=== PATIENT | female | born 1955 | race Caucasian/White ===

== ENCOUNTER 2022-02-11 08:09 | Day surgery (SDC) | payer MEDICARE, BC, SELFPAY ==
[2022-02-11] VITALS (26 sets, daily range): BP systolic 105–138; BP diastolic 61–94; PULSE 50–81; RESP 14–18; TEMP 35.1–37.2; O2SAT 96–99; BMI 26.9
[2022-02-11] MEDS: ACETAMINOPHEN 500 MG TABLET 1000 MG PO ×3 (09:06→23:17)
[2022-02-11] MEDS: CELECOXIB 200 MG CAPSULE PO ×2 (09:06→21:12)
[2022-02-11] MEDS: OXYCODONE (CR) 10 MG TAB.ER.12H PO (09:07)
[2022-02-11] MEDS: MIDAZOLAM HCL 1 MG/ML inj IVP (09:20)
[2022-02-11] MEDS: fentaNYL 100 MCG/2 ML inj IVP (09:21)
[2022-02-11] MEDS: LACTATED RINGERS 1000 ML 1,000 ML 100 ML IV ×2 (09:24→10:38)
[2022-02-11] MEDS: SODIUM CHLORIDE 0.9 % (FLUSH) 10 ML SYRINGE IVF (09:24)
--- NOTE | 2022-02-11 09:32 | SUR.PREOP ---
TIME?OUT:?18 PT/RN/MDA?VERIFICATION?OF?SURGICAL?SITE,?PROCEDURE,?AND?CONSENT OBTAINED?PRIOR?TO?INVASIVE?PROCEDURE. ALL IN AGREEMENT.
[2022-02-11] MEDS: CEFAZOLIN 2 GM INJ IVP (10:00)
--- NOTE | 2022-02-11 10:09 | P.NB_ITS ---
Nerve Block Nerve Block Time Seen by Provider: 10:09 Date Seen: 02/11/22 Type of block requested by surgeon for post-operative analgesia: geniculars Side: left Time out performed: Yes Verification of patient name: Yes Verification of date of : Yes Site marking: site marked Name of person performing procedure: Ej Continuous monitoring Was continuous monitoring of O2 sat, B/P, monitor technician, recorded every 15 minutes?: Yes Procedure Checklist: sterile prep, needles and gloves Medications given in 5ml increments after negative aspiration: Ropivicaine %: 0.5 mL: 9 Needle gauge: 25 Patient tolerated procedure well: Yes
--- NOTE | 2022-02-11 10:09 | CRLHL7_ITS ---
For Patients: As a result of the Cures Act, medical imaging exams and procedure reports are released immediately into your electronic medical record. You may view this report before your referring provider. If you have questions, please contact your health care provider. Indication: Postop Technique: Two views left knee Findings/Impression: Hardware from a left total knee arthroplasty is in satisfactory position. Bone alignment is normal. No sign of acute fracture. Postop changes are within normal limits. Dictated by Ant Rose MD @ 02/11/2022 1:06:48 PM (Electronically Signed)
--- NOTE | 2022-02-11 10:09 | P.NB_ITS ---
Nerve Block Nerve Block Time Seen by Provider: 09:00 Date Seen: 02/11/22 Type of block requested by surgeon for post-operative analgesia: adductor canal Side: left Time out performed: Yes Verification of patient name: Yes Verification of date of : Yes Site marking: site marked Name of person performing procedure: Ej Assistants, if any: [place] Continuous monitoring Was continuous monitoring of O2 sat, B/P, learning and development assistant, recorded every 15 minutes?: Yes Procedure Checklist: sterile prep, needles and gloves Ultrasound guided. Images saved: Yes Medications given in 5ml increments after negative aspiration: Ropivicaine %: 0.5 mL: 20 Needle gauge: 22 Decadron (mg): 10 Precedex (mcg): 25 Patient tolerated procedure well: Yes Additional comments: Needle noted adjacent to nerve
--- NOTE | 2022-02-11 11:21 | PM.ORPRC ---
Procedure Note Procedure: PREOPERATIVE DIAGNOSIS: 1. Left knee osteoarthritis, primary, severe POSTOPERATIVE DIAGNOSIS: 1. Left knee osteoarthritis, primary, severe PROCEDURE: 1. Left total knee arthroplasty SURGEON: Jacobo Christopher MD. MEDICAL EDUCATION COORDINATOR: Nik Mike PA-C - Of note, a skilled customer support assistant was critical for this case to aid in patient positioning, tissue retraction, limb manipulation/positioning, and closure. ANESTHESIA: Spinal anesthetic EBL: 50ml IMPLANTS: DePuy J&J all cemented TKA - Attune PS femur size 7, size 5 tibia, 5 mm poly spacer, 38 mm patella TOURNIQUET: 90 min at 260 torr COMPLICATIONS: None evident INDICATIONS: The patient is a pleasant 67-year-old female who has experienced severe left knee pain and difficulty bearing weight. Workup included x-rays which revealed severe osteoarthrosis in the knee. Given the deformity, the dysfunction, and the pain, as well as the failure of nonoperative management, recommendation was made for surgery. FINDINGS: Moderate effusion upon entering the joint. Full-thickness chondral loss medial compartment. Also significant patellofemoral chondromalacia. DESCRIPTION OF PROCEDURE: Following a thorough discussion of risks, benefits, and alternatives consent was obtained and the left knee was marked. The patient was brought to the operating room and placed supine on the operating table. Induction of anesthesia was undertaken. 1 g IV Ancef and 1 g tranexamic acid was administered within 1 hr of incision preoperatively. Proper time-out was performed identifying proper patient, site, procedure. The operative extremity was prepped and draped in the appropriate sterile fashion using ChloraPrep after the patient was positioned supine with all bony prominences well padded. A longitudinal, anterior, midline skin incision was made starting approximately 3cm proximal to the superior pole of the patella and advanced distal to the tibial tubercle. A median parapatellar arthrotomy was created. A medial subperiosteal sleeve was created with knife, hernandez elevator and curved osteotome. The retropatellar fatpad was resected and the synovium in the suprapatellar pouch excised to visualize the anterior femoral cortex. Femoral preparation was performed via an intramedullary guide. Step drill allowed access into the femoral canal. The distal cutting guide was placed with 5? of valgus and 10 mm cut on the distal femur. Femur was sized using a posterior referencing guide in 3? of external rotation. This found have a best fit with the sizing noted above. The 4 in 1 cutting block was then placed, and the distal femur shaped accordingly. The box cut was then created and the trial implant inserted to confirm appropriate fit. We turned our attention to the proximal tibia. Extramedullary guide was utilized for cutting with the goal of being 90 degree cut from the mechanical axis of the tibia in the varus/valgus plane utilizing tibial crest as the primary alignment. Initially a 3 mm resection was performed from the medial tibial plateau. Ultimately, balancing was achieved in both flexion and extension in both varus and valgus. The knee was able to achieve full extension as well comfortably. The patella was initially measured and found have a thickness of 21 mm. It was resected back to approximately 14 mm. It was sized to be a best fit with as noted above. This was drilled, trial placed. All trials were placed and found to have an excellent stability and balance. At this stage, trial implants were removed, the knee was thoroughly irrigated with normal saline, and the cement was mixed. After irrigation, the knee was thoroughly dried, and cement placed, with the real tibial and femoral implants placed along with the patella. Trial poly spacer was placed and confirmed to have excellent range of motion and full extension, and the real poly spacer opened and inserted. All extra cement was removed, and a 3 min Betadine soak performed. Finally, a final irrigation round with normal saline was performed. Closure performed with 0 PDS and #0 Stratafix for the quad tendon/retinaculum. 2-0 Vicryl/Stratafix for the subcutaneous and 4-0 Monocryl for subcuticular closure. Dressings were applied and the patient was awoken from anesthesia after the tourniquet deflated and transferred the PACU in stable condition. A skilled customer support assistant was critical for this case to aid in patient positioning, tissue retraction, bone exposure, limb manipulation/positioning, patient safety, and closure. PLAN: 1. Weight bear as tolerated operative extremity. 2. 23 hr perioperative antibiotics. 3. Ice. 4. PT/OT consults for ambulation assistance/mobility education. 5. Social work consult for discharge planning. 6. DVT prophylaxis with at SCDs, Joseph Hose, and aspirin twice daily. Anesthesia: spinal Surgeon: Jacobo Christopher Wax Room Supervisor: Vern So
--- NOTE | 2022-02-11 12:17 | W.ANESCHARGE ---
Anesthesia Charges Start Date/Time Anesthesia Start Date: 02/11/22 Anesthesia Start Time: 09:46 Stop Date/Time Anesthesia Stop Date: 02/11/22 Anesthesia Stop Time: 12:16 Summary Emergency: No
--- NOTE | 2022-02-11 13:16 | SUR.PHASEI ---
PT TO MED/SURG IN STABLE CONDITION
--- NOTE | 2022-02-11 14:27 | W.ANESCHARGE ---
Anesthesia Charges Start Date/Time Anesthesia Start Date: 02/11/22 Anesthesia Start Time: 09:46 Stop Date/Time Anesthesia Stop Date: 02/11/22 Anesthesia Stop Time: 12:16 Summary Emergency: No
--- NOTE | 2022-02-11 14:55 | P.IMCN_ITS ---
Date of Consult Consult date: 02/11/22 Requesting Physician: Orthopedics (Dr. Vila) Primary Care Provider: Asia Millard MD Consult Narrative Reason for consult: Medical management of comorbidities Narrative: Aruna Ayala is a 67 year old female who presented to the hospital today for a left TKA. Her surgery went well without any complications. Patient has no current c oncerns for the hospitalist team. Hospitalist consulted for medical management of comorbidities, including insomnia and arthritis. She also has a history of leukopenia, mild elevation of LFTs, and psoriasis, all followed in the outpatient setting. No concerning findings noted on preoperative H&P (PCP is Dr. Millard locally). Patient has no history of DVT or PE, she is not on HRT. She is retired, lives with locally. She is a nonsmoker and rare alcohol drinker. Review of Systems Status of ROS: Reports: 10 or more systems reviewed and unremarkable except as noted in History and below [facility] Medical History (Updated 02/11/22 @ 14:59 by Daphney Melgoza MD) Dyslipidemia Elevated LFTs Insomnia Leucopenia Multiple atypical skin moles NSAID long-term use Osteoarthritis Psoriasis Surgical History (Updated 02/03/22 @ 09:11 by Asia Millard MD) History of hysterectomy (~2005) History of total hip replacement (~2006) Family History (Updated 01/09/22 @ 14:35 by Paul Prater) Maternal Grandfather Ischemic heart disease, Onset Age: 60 Stroke, Onset Age: 60 Mother Diabetes Osteoarthritis Sister Osteoarthritis Social History (Updated 01/09/22 @ 14:36 by Paul Prater) Narrative: exercises 3-4 times per week- 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[employer] , 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, 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 non-smoker rarely consumes alcohol Smoking Status: Never smoker How often do you have a drink containing alcohol: 2-4 times a month Alcohol type: wine How many standard drinks containing alcohol do you have on a typical day: 1 or 2 How often do you have six or more drinks on one occasion: Never AUDIT-C Alcohol total score: 2 Non-prescribed substance use: denies use Caffeine: Yes (coffee, 2 cups/morning) Meds Home Medications and Allergies Home Medications Medication Instructions Recorded Confirmed Type celecoxib 200 mg capsule (Celebrex) 200 mg PO BID 02/03/22 02/11/22 History cholecalciferol (vitamin D3) 25 25 mcg PO DAILY 02/03/22 02/11/22 History mcg (1,000 unit) capsule gabapentin 300 mg capsule 300 mg PO TID 02/03/22 02/11/22 History omega-3 fatty acids 1,000 mg 1,000 mg PO BID 02/03/22 02/11/22 History capsule trazodone 100 mg tablet 100 mg PO HS 02/03/22 02/11/22 History Allergies Allergy/AdvReac Type Severity Reaction Status Date / Time No Known Drug Allergies Allergy Verified 02/03/22 08:30 Exam Narrative: Exam Narrative: GEN: Alert and oriented, laying comfortably in bed and answering questions appropriately HEENT: Normal external ears, EOMIs bilaterally, no scleral icterus CV: RRR, No concerning murmurs, rubs, or gallops R: Breathing comfortably Ext: wwp, no concerning edema, wearing Joseph hose Skin: No concerning skin lesions or rashes on exposed skin Neuro: Nonfocal Psych: Appropriate Const: Vital Signs, click to edit/add: Vital Signs - 24 hr 02/11/22 09:11 02/11/22 09:21 02/11/22 09:24 Temperature 98.9 F Pulse Rate 67 65 56 L Respiratory Rate 16 14 14 Blood Pressure 119/80 136/85 136/66 Pulse Oximetry 96 96 96 02/11/22 12:19 02/11/22 12:20 02/11/22 12:25 Temperature 97 F L 97.2 F L Pulse Rate 64 59 L 60 Respiratory Rate 16 16 16 Blood Pressure 106/61 105/66 105/66 Pulse Oximetry 99 99 02/11/22 12:30 02/11/22 12:35 02/11/22 12:40 Temperature Pulse Rate 60 56 L 58 L Respiratory Rate 16 16 16 Blood Pressure 105/66 119/72 118/74 Pulse Oximetry 97 97 97 02/11/22 12:45 Temperature 97.2 F L Pulse Rate 60 Respiratory Rate 16 Blood Pressure 122/72 Pulse Oximetry 99 Assessment and Plan Assessment and plan (1) Osteoarthritis: Status: Acute (2) Insomnia: Status: Acute Plan Continue home medications during stay. Continue routine outpatient follow-up further comorbidities as noted above. Anticipate routine postoperative course.
[2022-02-11] MEDS: OXYCODONE 5 MG TABLET PO ×3 (16:37→23:15)
[2022-02-11] MEDS: CEFAZOLIN 2 GM in 0.9 % SODIUM CHLORIDE Mini-bag 100 ML IVPB (16:56)
[2022-02-11] MEDS: LACTATED RINGERS 1000 ML 1,000 ML 75 ML IV (18:08)
--- NOTE | 2022-02-11 19:53 | PC.NURSE ---
shift note: pt to floor @ 1302 via bed. pt regained movement to bilat l/e at approx 1600. pt medicated for 4/10 pain in lt knee with prn oxycodone and scheduled tylenol with relief. PP+ bilat. incision site to lt knee c/d/i with cryo cuff in place. Ls clr. Pt up to bsc with 1/walker. pt voided 1600cc. Iv patent. vss per post op protocol stable.
[2022-02-11] MEDS: SENNOSIDES 1 TAB TABLET 2 TAB PO (21:12)
[2022-02-11] MEDS: GABAPENTIN 300 MG CAPSULE PO (21:13)
[2022-02-11] MEDS: ASPIRIN 81 MG TABLET EC PO (21:13)
[2022-02-11] MEDS: TRAZODONE HCL 50 MG TABLET 100 MG PO (21:13)
[2022-02-12] MEDS: CEFAZOLIN 2 GM in 0.9 % SODIUM CHLORIDE Mini-bag 100 ML IVPB ×2 (01:28→09:10)
[2022-02-12 03:00] VITALS: PULSE 66; RESP 18; TEMP 36.6; O2SAT 100
[2022-02-12] MEDS: OXYCODONE 5 MG TABLET PO ×3 (04:35→11:59)
[2022-02-12] MEDS: ACETAMINOPHEN 500 MG TABLET 1000 MG PO ×2 (04:37→10:47)
--- NOTE | 2022-02-12 05:03 | PC.NURSE ---
Pt is pleasant and cooperative. She is up with minimal assist of 1 and walker and gait belt. She is voiding without difficulty. She is tolerating her diet and oral pain meds. Left knee drsg is CDI. No drainage noted. Oxy 5mg q 3-4 hrs is controlling her pain.
[2022-02-12 07:26] LABS: Basophils Absolute Auto 0.01 K/uL (0.00-0.30); Basophils Percent Auto 0.1 % (0.0-3.0); Hematocrit 34.4 % (33.0-51.0); Hemoglobin* 11.2 gm/dL (12.0-16.0); Immature Granulocytes Abs Auto 0.01 K/uL (0.00-0.30); Lymphocytes Percent Auto 8.5 % (20-44); Mean Corpuscular HGB Conc 33 gm/dL (32-36); Mean Corpuscular Hemoglobin 29 pg (26-34); Mean Corpuscular Volume 88 fL (80-100); Monocytes Percent Auto 5.8 % (0.0-11.0); Neutrophils Percent Auto 85.5 % (42.0-72.0); Platelet Count* 219 K/uL (140-440); RDW Coefficient of Variation % 13.1 % (11.5-15.5); White Blood Count* 9.04 K/uL (4.50-11.00)
[2022-02-12 07:31] LABS: Slide Review Reflex No
[2022-02-12 07:45] LABS: INR 0.99 (0.91-1.10); Prothrombin Time 13.5 Seconds
[2022-02-12 08:00] LABS: Chloride* 101 mmol/L (96-114); Potassium* 4.1 mmol/L (3.6-5.1); Sodium* 135 mmol/L (135-149)
[2022-02-12 08:03] LABS: Blood Urea Nitrogen* 14 mg/dL (7-30); Carbon Dioxide* 28 mmol/L (20-32); Creatinine* 0.6 mg/dL (0.5-1.5); Est. Creatinine Clearance* 52.51; Estimated Glomerular Filt Rate 99.55; Glucose* 107 mg/dL (60-115)
[2022-02-12 08:04] LABS: Calcium* 8.9 mg/dL (8.4-10.6)
[2022-02-12] MEDS: GABAPENTIN 300 MG CAPSULE PO (09:08)
[2022-02-12] MEDS: CELECOXIB 200 MG CAPSULE PO (09:09)
[2022-02-12] MEDS: ASPIRIN 81 MG TABLET EC PO (09:09)
[2022-02-12] MEDS: SENNOSIDES 1 TAB TABLET 2 TAB PO (09:10)
[2022-02-12 09:34] VITALS: PULSE 69; RESP 20
[2022-02-12 09:35] VITALS: BP 128/78; PULSE 69; RESP 20; TEMP 36.9; O2SAT 99
--- NOTE | 2022-02-12 10:00 | REH.OT ---
Orders received for OT eval and treat. Patient declined OT intervention today stating she has modified her bathroom and has no concerns regarding returning home with spouse. She has had a previous hip replacement.
--- NOTE | 2022-02-12 10:11 | P.DS_ITS ---
DS: Providers Provider Primary care physician: Asia Millard MD Consults: 02/11/22 13:00 Consult to Occupational Therapy [CONS] Routine Comment: See nursing Activity Order Reason(s) for OT Consult:: Evaluate and Treat Any Restrictions?:: No Restrictions Consult to Physical Therapy [CONS] Routine Comment: Ambulate in the shell today. Reason(s) for PT Consult:: Evaluate and Treat Any Restrictions?:: No Restrictions Consult to Physician [CONS] Routine Comment: Consulting Provider: Hospitalists Has provider been notified: No Consult to Director Of Music Therapy [CONS] Routine Comment: Reason for Consult:: Discharge Planning Needs Attending Physician on discharge: Jacobo Christopher MD DS: Summary Hospital Course Hospital Course: Patient admitted to the hospital on 02/11/2022 for left TKA. Hospitalist team followed peripherally given comorbidities. No concerns noted during hospital stay, vital signs and labs remained reassuring. Patient had a mild headache after surgery that was resolved on postoperative day 1. No changes made to home medications. Pain management and prophylaxis per Orthope dic Surgery team. She will be discharging home with , routine follow-up with therapies, orthopedic surgery, and PCP. Time Spent with Patient Time attestation: Total time spent providing and/or coordinating discharge services: Time spent: Less than 30 minutes Specific discharge activities: Routine follow-up as noted above Exam Narrative: Exam Narrative: GEN: Alert and oriented, answering questions appropriately HEENT: Normal external ears, EOMIs bilaterally, no scleral icterus CV: RRR, No concerning murmurs, rubs, or gallops R: LCTA bilaterally without concerning wheezing, rales, or rhonchi Ext: wwp, no concerning edema Skin: No concerning skin lesions or rashes on exposed skin Neuro: Nonfocal Psych: Appropriate Const: Vital Signs, click to edit/add: Vital Signs - 24 hr 02/11/22 12:19 02/11/22 12:20 02/11/22 12:25 Temperature 97 F L 97.2 F L Pulse Rate 64 59 L 60 Pulse Rate [Left A pical] Respiratory Rate 16 16 16 Blood Pressure 106/61 105/66 105/66 Blood Pressure [Ri ght Arm] Pulse Oximetry 99 99 02/11/22 12:30 02/11/22 12:35 02/11/22 12:40 Temperature Pulse Rate 60 56 L 58 L Pulse Rate [Left A pical] Respiratory Rate 16 16 16 Blood Pressure 105/66 119/72 118/74 Blood Pressure [Ri ght Arm] Pulse Oximetry 97 97 97 02/11/22 12:45 02/11/22 13:05 02/11/22 13:15 Temperature 97.2 F L 95.1 F L 95.1 F L Pulse Rate 60 57 L Pulse Rate [Left A pical] 57 L 54 L Respiratory Rate 16 16 16 Blood Pressure 122/72 Blood Pressure [Ri ght Arm] 121/79 124/79 Pulse Oximetry 99 99 99 02/11/22 13:25 02/11/22 13:30 02/11/22 13:45 Temperature 95.1 F L 95.1 F L 96.5 F L Pulse Rate Pulse Rate [Left A pical] 50 L 57 L 53 L Respiratory Rate 16 18 16 Blood Pressure Blood Pressure [Ri ght Arm] 128/77 121/79 124/80 Pulse Oximetry 99 99 99 02/11/22 14:00 02/11/22 14:30 02/11/22 14:44 Temperature 96.5 F L 97 F L 97 F L Pulse Rate Pulse Rate [Left A pical] 50 L 51 L 51 L Respiratory Rate 16 18 16 Blood Pressure Blood Pressure [Ri ght Arm] 134/78 130/82 130/82 Pulse Oximetry 99 99 99 02/11/22 15:00 02/11/22 16:00 02/11/22 17:00 Temperature 97.8 F 98 F 98 F Pulse Rate Pulse Rate [Left A pical] 58 L 60 60 Respiratory Rate 16 18 18 Blood Pressure Blood Pressure [Ri ght Arm] 130/87 128/78 129/94 H Pulse Oximetry 99 99 99 02/11/22 18:00 02/11/22 19:00 02/11/22 19:30 Temperature 98 F 97.8 F 97.8 F Pulse Rate Pulse Rate [Left A pical] 62 71 71 Respiratory Rate 18 18 18 Blood Pressure Blood Pressure [Ri ght Arm] 106/69 127/89 127/89 Pulse Oximetry 99 97 97 02/11/22 23:00 02/11/22 23:17 02/12/22 03:00 Temperature 97.9 F 97.9 F 97.9 F Pulse Rate Pulse Rate [Left A pical] 81 66 Respiratory Rate 18 18 Blood Pressure Blood Pressure [Ri ght Arm] 138/92 H Pulse Oximetry 96 100 02/12/22 09:34 02/12/22 09:35 Temperature 98.4 F Pulse Rate Pulse Rate [Left A pical] 69 69 Respiratory Rate 20 20 Blood Pressure Blood Pressure [Ri ght Arm] 128/78 Pulse Oximetry 99 DS: Data Data Completed and Pending Labs on day of discharge: Labs from last 24 hours 02/12/22 02/12/22 02/12/22 07:09 07:09 07:09 WBC 9.04 RBC 3.90 L Hgb 11.2 L Hct 34.4 MCV 88 MCH 29 MCHC 33 RDW Coeff of Sathish 13.1 Plt Count 219 Neut % (Auto) 85.5 H Lymph % (Auto) 8.5 L Andrew % (Auto) 5.8 Eos % (Auto) 0.0 Baso % (Auto) 0.1 Neut # (Auto) 7.70 H Lymph # (Auto) 0.80 L Andrew # (Auto) 0.50 Eos # (Auto) 0.00 Baso # (Auto) 0.01 Abs Immat Gran (auto) 0.01 INR 0.99 Sodium 135 Potassium 4.1 Chloride 101 Carbon Dioxide 28 BUN 14 Creatinine 0.6 Estimated Creat Clear 52.51 Glucose 107 Calcium 8.9 Discharge Plan Discharge Disposition: Home, Self-Care Discharging Surgeon: Jacobo Christopher Follow-Up Appointment: per ortho Prescriptions: New oxycodone 5 mg tablet 2.5 - 5 mg PO Q4-6H MDD 6 PRN (Reason: pain) Qty: 42 0RF Rx Instructions: Take as needed for pain: 2.5mg mild pain, 5mg moderate-severe pain. Wean as tolerated. acetaminophen 500 mg capsule 500 - 1,000 mg PO Q6H MDD 4000mg PRNQty: 100 0RF aspirin 81 mg capsule 81 mg PO BID Qty: 60 2RF sennosides-docusate sodium [Senna-S] 8.6-50 mg tablet 1 - 2 tab-cap PO BID Qty: 60 0RF Rx Instructions: Hold medication if experiencing loose stools. Continued trazodone 100 mg tablet 100 mg PO HS 0RF gabapentin 300 mg capsule 300 mg PO TID 0RF cholecalciferol (vitamin D3) 25 mcg (1,000 unit) capsule 25 mcg PO DAILY 0RF celecoxib [Celebrex] 200 mg capsule 200 mg PO BID Qty: 60 0RF No Action omega-3 fatty acids 1,000 mg capsule 1,000 mg PO BID 0RF Discharge Diet: Regular Patient Instructions: Surgical Site Infections (DC) Forms: Work/Release Restrictions Follow-up: [facility] [Other] - 02/13/22 8:00 am Asia Millard MD [Primary Care Provider] - Nik Mike PA-C [Physician Filter Press Tender] - 02/19/22 9:10 am Discharge Orders: Discharge Order (Routine); Ordered 02/12/22 Ordered By: Daphney Melgoza
[2022-02-12 11:42] VITALS: BP 123/74; PULSE 77; RESP 18; TEMP 36.9; O2SAT 100
[2022-02-12 11:59] VITALS: TEMP 36.8
--- NOTE | 2022-02-12 16:32 | PM.ORPN ---
Subjective Subjective Date Seen: 02/12/22 Principal diagnosis: Status postop day 1 left total knee arthroplasty Interval history: Patient reports doing well. No acute events over night. Pain managed with scheduled /PRN medications and ice. DVT prophylaxis 81 mg aspirin by mouth twice daily, bilateral knee high Joseph stockings, and SCDs. Denies fevers, chills, aches, N/V, CP, SOB/WARD, tachycardia, or lightheadedness. Ortho Exam Narrative Exam Narrative: -Patient appears comfortable in bed; no apparent acute distress -Alert and oriented times 3 -Operative knee swollen; soft tissues supple; no obvious erythema. No ecchymosis.. Warmth appropriate -Surgical dressing clean, dry, intact; no obvious drainage, no erythematous streaking peripheral to the bandage -bilateral calves soft, no significant swelling, edema, tenderness, erythema, discoloration, warmth, or palpable cords -2+ DP/PT pulses, intact dermatomes and myotomes distally (5/5 strength) Const Vital Signs, click to edit/add: Vital Signs - 24 hr 02/11/22 17:00 02/11/22 18:00 02/11/22 19:00 Temperature 98 F 98 F 97.8 F Pulse Rate [Left Apical] 60 62 71 Respiratory Rate 18 18 18 Blood Pressure [Right Arm] 129/94 H 106/69 127/89 Pulse Oximetry 99 99 97 02/11/22 19:30 02/11/22 23:00 02/11/22 23:17 Temperature 97.8 F 97.9 F 97.9 F Pulse Rate [Left Apical] 71 81 Respiratory Rate 18 18 Blood Pressure [Right Arm] 127/89 138/92 H Pulse Oximetry 97 96 02/12/22 03:00 02/12/22 09:34 02/12/22 09:35 Temperature 97.9 F 98.4 F Pulse Rate [Left Apical] 66 69 69 Respiratory Rate 18 20 20 Blood Pressure [Right Arm] 128/78 Pulse Oximetry 100 99 02/12/22 11:42 02/12/22 11:59 Temperature 98.4 F 98.2 F Pulse Rate [Left Apical] 77 Respiratory Rate 18 Blood Pressure [Right Arm] 123/74 Pulse Oximetry 100 Assessment and Plan Assessment and plan (1) Osteoarthritis: Problem details: 1. POD 1 left Total Knee Arthroplasty 2. Acute blood loss anemia, surgically related (hgb 11.2 - asymptomatic) Status: Acute (2) Insomnia: Status: Acute Plan - Complete 23 hour perioperative antibiotics. - PT/OT consult for education and assistance. - Social work consult for discharge planning - Prescribed analgesics as needed - DVT prophylaxis: 81 mg aspirin by mouth twice daily, bilateral knee high Joseph Hose stockings and SCDs - Anticipation is for discharge to home with spouse today 02/12/2022 if the patient remains medically stable, pain is controlled, and they are safe with mobilization.
--- NOTE | 2022-02-12 16:37 | P.DS_ITS ---
DS: Providers Provider Date Seen: 02/12/22 Date of admission: Med surg recovery 02/11/2022 Primary care physician: Asia Millard MD Consults: 02/11/22 13:00 Consult to Occupational Therapy [CONS] Routine Comment: See nursing Activity Order Reason(s) for OT Consult:: Evaluate and Treat Any Restrictions?:: No Restrictions Consult to Physical Therapy [CONS] Routine Comment: Ambulate in the shell today. Reason(s) for PT Consult:: Evaluate and Treat Any Restrictions?:: No Restrictions Consult to Physician [CONS] Routine Comment: Consulting Provider: Hospitalists Has provider been notified: No Consult to Radiologist Diagnostic [CONS] Routine Comment: Reason for Consult:: Discharge Planning Needs Attending Physician on discharge: Jacobo Christopher MD Date of Discharge: 02/12/22 DS: Diagnosis Discharge Diagnosis (1) Osteoarthritis: Status: Acute Problem details: 1. POD 1 left Total Knee Arthroplasty 2. Acute blood loss anemia, surgically related (hgb 11.2 - asymptomatic) (2) Insomnia: Status: Acute DS: Summary Hospital Course Hospital Course: Patient admitted to the hospital on 02/11/2022 for left TKA. Hospitalist team followed peripherally given comorbidities. No concerns noted during hospital stay, vital signs and labs remained reassuring. Patient had a mild headache after surgery that was resolved on postoperative day 1. No changes made to home medications. Pain management and prophylaxis per Orthopedic Surgery team. She will be discharging home with , routine follow-up with therapies, orthopedic surgery, and PCP. The patient has a history of left knee osteoarthritis, primary, severe. After appropriate preoperative evaluation, the patient was underwent left total knee arthroplasty. Postoperatively, the patient was given anticoagulation for deep vein thrombosis prophylaxis. The patient was progressed to Physical Therapy and was felt ready for discharge. Status at Discharge Functional status at discharge: uses cane/walker Overall status at discharge: patient is progressing back to baseline Time Spent with Patient Time attestation: Total time spent providing and/or coordinating discharge services: Time spent: Less than 30 minutes Exam Const: Vital Signs, click to edit/add: Vital Signs - 24 hr 02/11/22 17:00 02/11/22 18:00 02/11/22 19:00 Temperature 98 F 98 F 97.8 F Pulse Rate [Left A pical] 60 62 71 Respiratory Rate 18 18 18 Blood Pressure [Ri ght Arm] 129/94 H 106/69 127/89 Pulse Oximetry 99 99 97 02/11/22 19:30 02/11/22 23:00 02/11/22 23:17 Temperature 97.8 F 97.9 F 97.9 F Pulse Rate [Left A pical] 71 81 Respiratory Rate 18 18 Blood Pressure [Ri ght Arm] 127/89 138/92 H Pulse Oximetry 97 96 02/12/22 03:00 02/12/22 09:34 02/12/22 09:35 Temperature 97.9 F 98.4 F Pulse Rate [Left A pical] 66 69 69 Respiratory Rate 18 20 20 Blood Pressure [Ri ght Arm] 128/78 Pulse Oximetry 100 99 02/12/22 11:42 02/12/22 11:59 Temperature 98.4 F 98.2 F Pulse Rate [Left A pical] 77 Respiratory Rate 18 Blood Pressure [Ri ght Arm] 123/74 Pulse Oximetry 100 DS: Data Data Completed and Pending Labs on day of discharge: Labs from last 24 hours 02/12/22 02/12/22 02/12/22 07:09 07:09 07:09 WBC 9.04 RBC 3.90 L Hgb 11.2 L Hct 34.4 MCV 88 MCH 29 MCHC 33 RDW Coeff of Sathish 13.1 Plt Count 219 Neut % (Auto) 85.5 H Lymph % (Auto) 8.5 L [place] % (Auto) 5.8 Eos % (Auto) 0.0 Baso % (Auto) 0.1 Neut # (Auto) 7.70 H Lymph # (Auto) 0.80 L [place] # (Auto) 0.50 Eos # (Auto) 0.00 Baso # (Auto) 0.01 Abs Immat Gran (auto) 0.01 INR 0.99 Sodium 135 Potassium 4.1 Chloride 101 Carbon Dioxide 28 BUN 14 Creatinine 0.6 Estimated Creat Clear 52.51 Glucose 107 Calcium 8.9 Discharge Plan Discharge Disposition: Home, Self-Care Discharging Surgeon: Jacobo Christopher Follow-Up Appointment: per ortho Prescriptions: New oxycodone 5 mg tablet 2.5 - 5 mg PO Q4-6H MDD 6 PRN (Reason: pain) Qty: 42 0RF Rx Instructions: Take as needed for pain: 2.5mg mild pain, 5mg moderate-severe pain. Wean as tolerated. acetaminophen 500 mg capsule 500 - 1,000 mg PO Q6H MDD 4000mg PRNQty: 100 0RF aspirin 81 mg capsule 81 mg PO BID Qty: 60 2RF sennosides-docusate sodium [Senna-S] 8.6-50 mg tablet 1 - 2 tab-cap PO BID Qty: 60 0RF Rx Instructions: Hold medication if experiencing loose stools. Continued trazodone 100 mg tablet 100 mg PO HS 0RF gabapentin 300 mg capsule 300 mg PO TID 0RF cholecalciferol (vitamin D3) 25 mcg (1,000 unit) capsule 25 mcg PO DAILY 0RF celecoxib [Celebrex] 200 mg capsule 200 mg PO BID Qty: 60 0RF No Action omega-3 fatty acids 1,000 mg capsule 1,000 mg PO BID 0RF Activity Detail: Wound: ?Do not remove original dressing; we will remove this at first postop visit in 1 week. Only remove dressing if integrity is in question. ?No immersing wound in water; showering okay; light scrub with your hand and body soap, rinse, dab dry ?Sutures are under the skin, will dissolve; allow surgical glue to come off naturally; do not scrub the wound or apply ointments/lotions ?Call our office with any redness that streaks, excessive drainage from the wound, or wound gapping. Ice/Elevate: ?Ice as needed for swelling and discomfort (cryocuff or ice pack); elevate frequently above the heart MORE socks: ?Wear for 1 month, remove for 1 hour 3 times per day ?These are frustrating to take on/off, but are important for blood clot prevention for 1 month after surgery Blood Clot Prevention (DVT): ?Medication: 81 mg aspirin by mouth twice daily Driving: ?Do not drive while taking narcotic pain medication ?Anticipate 4-6 weeks no driving if operative leg is driving leg Dental: ?No elective dental work for 6 months post-op. If there is an urgent/emergent dental need, contact our office for an antibiotic prescription. Smoking/Alcohol: ?Do not smoke; do no drink alcohol especially when taking postoperative oral narcotic medication Seek Care from you Primary Care Provider if you experience the following issues in the postoperative phase and beyond: ?Bacterial infections such as: pneumonia, bacterial skin infection (cellulitis), UTI, high fever, chills unrelated to the operative body part - call your primary care physician urgently for treatment in hopes to protect your health and the metal implant. Referrals: ?PT, OT per patient preference - evaluate treat total left knee arthroplasty protocol (the training, ROM, ADLs, knee-high More socks) Follow up: ?Ortho surgeon follow-up in 6 weeks; repeat radiographs three views left knee ?PA-C visit in 1 week *If there are any acute concerns regarding your surgery, please call our orthopedic clinic ([phone]) Discharge Diet: Regular Patient Instructions: Acetaminophen (By mouth), Aspirin (By mouth), Oxycodone, Rapid Release (By mouth), Senna (By mouth), Surgical Site Infections (DC), Knee Replacement (DC) Forms: Work/Release Restrictions Follow-up: [facility] [Other] - 02/13/22 8:00 am Asia Millard MD [Primary Care Provider] - Nik Mike, CAIOC [Physician Physician Primary Care Sports Medicine] - 02/19/22 9:10 am Discharge Orders: Discharge Order (Routine); Ordered 02/12/22 Ordered By: Daphney Melgoza
--- NOTE | 2022-02-12 16:55 | PC.NURSE ---
Pt pain controlled with Oxycodone and Tylenol. Pt and verbalized understanding of instructions, d/c home via car with .
== END 2022-02-12 13:15 | disposition home or self-care (01) ==
LOC: OR 08:43 → MEDSURG 08:51
PROVIDERS: PCP Family Medicine; Visit Provider Orthopaedic Surgery Sports Medicine
PROC: (CPT 27447; principal; 2022-02-11 10:00)
DX: M17.12 Unilateral primary osteoarthritis, left knee (principal); G47.00 Insomnia, unspecified; E78.5 Hyperlipidemia, unspecified
CPT/HCPCS: 27447; 1402; 36415; 64447; 64454; 73560; 76942; 80048; 85025; 85610; 97110; 97116; 97161; 97530; A9270; C1776; J0690; J1100; J2250; J2370; J2405; J2704; J2795; J3010; J7120

== ENCOUNTER 2022-04-08 08:00 | Outpatient (RCR) | payer MEDICARE, BC, SELFPAY ==
--- NOTE | 2022-02-13 09:21 | PT.OPDNX ---
PT [facility] Daily Note Document 02/13/22 07:39 ENM (Rec: 02/13/22 08:48 ENM [id number]) E-Signed By Tereza Ohara DPT PT OP Daily Progress Note Visit Information Note Type Re-Evaluation Visit Number 2 Insurance Information Recert Due Date 05/08/22 Insurance Name Medicare B Medical Diagnosis L TKA Treating Diagnosis left knee pain, decreased knee ROM, decreased knee strength, impaired gait, impaired balance Referring MD Christopher Subjective Subjective Patient presents to appointment with . She states that her pains started to increase once she got home as well as swelling. She has been using a 2WW to get around the house without difficulty. She was able to shower without difficulty. She doesn' t have difficulty with sitting to standing. The most challenging thing for the patient right now is being able to bend her knee. helped initially with getting in and out of bed but now she is able to lift her leg more. She has been icing consistently. Stairs went ok, going up is easy going down isn't too bad. PMHx: R hip replacement 2005,arthritis Pain Comments at its worse: easing: medications, icing aggravating: bending the knee Home Exercise Home Exercise Comments pre op exercises: long sitting quad set, ankle pumps, HS iso , supine SAQ, supine SLR, supine heel slide, seated LAQ, seated heel slide, seated passive knee extension Objective Other/Pertinent Objective Objective: Knee ROM L 0-5-80 R 2-0-134 hip ROM WFL as seen per transfers strength: fair quad set L, able to perform SLR on L with CGA gait/balance: Patient ambulating with use of 2WW, decreased L knee extension, decreased stance time LLE, minimal reliance of 2WW for support throughout gait cycle palpation/joint mobility: no significant tenderness to palpation along quad or ITB swelling/observation: global swelling throughout L knee joint with bandaging in place superior patellar measure 47 cm mid patella 45 cm Other: needing to physically lift LLE to get into bed, able to perform sit<>stands with knees at 90 Functional Test Performed & Score pre op LEFS: 40/76 (did not answer question about bath as NA) Patient Instructed in Risks/Benefits Yes Therapeutic Exercise Therapeutic Exercise Minutes (minutes) 18 Therapeutic Exercise: To Restore verbal review of HEP Functional Status supine quad set 10x5s holds, VC and TC for improved knee ext while performing HS iso 10x3s holds, TC for HS activation supine SAQ 10x5s holds, CGA at heel to perform supine SLR x10, CGA at heel to perform supine heel slide with strap assist to perform Educated on icing after exercises and importance of regaining ROM issued tubigrip level G for swelling Manual Therapy Techniques Manual Therapy Minutes (minutes) 5 Manual Therapy Techniques Skilled edema massage with leg elevated on bolster anterior thigh and posterior knee Gait & Stair Training Gait Training/Stairs Minutes (minutes) 5 Gait & Stair Training Comments Patient ambulating 70'x2 with use of 2WW. Patient cued for heel strike and quad activation with stance phase on L. Patient able to implement and maintain gait pattern throughout ambulation bout Treatment Minutes Untimed Code Treatment Minutes 22 Timed Code Treatment Minutes 28 Total Treatment Time 50 Billing Units Therapeutic Exercise Units 2 Re-Evaluation Units 1 Assessment/Impression Assessment/Impression Patient returns to PT for evaluation after TKA performed by on 02/11/22. Patient reports minimal difficulties with mobility at home with use of 2WW. The most difficulty she has is with lifting the left leg up as well as bending the left knee. She has consistent support at home from spouse. Patient motivated to rehab as quickly as possible to get back to caregiving for her mother. Upon assessment patient presents with decreased knee ROM, impaired gait, impaired balance, decreased quad strength and swelling. Impairments consistent with s/ p TKA. Patient would benefit from skilled PT to address impairments stated above in order to to perform all functional mobility and caregiving activities without significant difficulty or discomfort. Plan of Care Physical Therapy Goals In 4-5 weeks : 1. Patient will improve knee ROM to > 100 for improved ease of STS transfers 2. Patient will be able to stand/walk up to 10 minutes with or without use of AD or report of increased knee pain 3. Patient will perform x5 SLR with improved form and strength to improve supine<> sit transfer In 8-10 weeks : 1. Patient will improve knee ROM to >120 in order to comfortably navigate stairs for household and community navigation 2. Patient will ambulate with improved mechanics and no pain without AD >150' for improved community mobility 3. Patient will return to caregiving activities with less than 2/10 pain to progress toward PLOF 4. Patient will be able to hold L SLS >10s to demonstrate improvements in balance and stability Daily Plan of Care Continue per POC Daily Plan of Care Comments 1-2 times a week for 5 weeks, 1x a week for 4-5 weeks Recertification Information Clinical Certification # #[id number] Patient's H.I.C.N.# # I Certify That I Have Established All Therapy Services/Plan Physician Signature Shows Agreement Dates & Medical Necessity Physician Comment/Change Comment or Changes Physician Signature & Date Please Sign/Date Here Physician NPI Number #
== END 2022-06-26 15:28 | disposition home or self-care (01) ==
PROVIDERS: PCP Family Medicine; Visit Provider Orthopaedic Surgery Sports Medicine
DX: Z51.89 Encounter for other specified aftercare (principal)
CPT/HCPCS: 97110; 97140; 97161; 97164

== ENCOUNTER 2022-06-18 07:34 | Outpatient (CLI) | payer MEDICARE, BC, SELFPAY ==
[2022-06-18 11:22] LABS: Albumin* 4.5 g/dL (3.3-5.0); Chloride* 103 mmol/L (96-114)
[2022-06-18 11:23] LABS: Potassium* 4.5 mmol/L (3.6-5.1); Sodium* 139 mmol/L (135-149)
[2022-06-18 11:25] LABS: Alanine Aminotransferase* 23 U/L (4-35); Alkaline Phosphatase* 114 U/L (40-150); Aspartate Amino Transferase* 23 U/L (12-35); Bilirubin Total* 0.5 mg/dL (0.1-1.5); Blood Urea Nitrogen* 23 mg/dL (7-30); Carbon Dioxide* 28 mmol/L (20-32); Cholesterol* 210 mg/dL (90-199); Creatinine* 0.7 mg/dL (0.5-1.5); Estimated Glomerular Filt Rate 96 ml/min; Glucose* 84 mg/dL (60-115)
[2022-06-18 11:26] LABS: Calcium* 9.6 mg/dL (8.4-10.6); HDL Cholesterol* 63 mg/dL (>=50); LDL Cholesterol Calculated 133 mg/dL (<100); Triglycerides* 72 mg/dL (40-149)
[2022-06-23 10:44] LABS: Iron* 73 ug/dL (37-170)
[2022-06-23 10:53] LABS: Percent Iron Saturation 19 % (20-50); Total Iron Binding Capacity 381 ug/dL (265-497)
[2022-06-23 11:20] LABS: Ferritin* 50.4 ng/mL (11.1-264.0)
== END 2022-06-18 07:35 | disposition home or self-care (01) ==
PROVIDERS: PCP Family Medicine; Visit Provider Family Medicine
DX: D72.819 Decreased white blood cell count, unspecified (principal); E78.5 Hyperlipidemia, unspecified; M19.90 Unspecified osteoarthritis, unspecified site; Z79.1 Long term (current) use of non-steroidal anti-inflammatories (NSAID); Z13.0 Encounter for screening for diseases of the blood and blood-forming organs and certain disorders involving the immune mechanism; G47.00 Insomnia, unspecified
CPT/HCPCS: 80053; 80061; 82728; 83540; 83550

== ENCOUNTER 2022-07-02 14:34 | Outpatient (CLI) | payer MEDICARE, BC, SELFPAY ==
--- OUTSIDE RECORDS SUMMARY | 2022-07-02 14:37 | XMS_ITS | Encounter Summary ---
:1955 Author Organization [facility] Address [address] [place] [address] Care Team Providers Name Role Phone Asia Millard MD Primary Care Provider [phone] Reason for Visit Reason Onset Date Comments LEG PAIN 12/01/2017 BACK PAIN 12/01/2017 Encounter Details Date Type Department Care Team Description 12/01/2017 Office Visit [facility] Nelson degenerative disc disease; Back Center MD [facility] Mechanical low back pain; [place] [address] [facility] Lumbar radiculitis; [address] [place], [place] Spondyloly sis; Center, [address] [address] [place] [address] Social History Tobacco Use Types Packs/Day Years Used Date Smoking Tobacco: Never Smokeless Tobacco: Never Alcohol Use Standard Drinks/Week Comments Yes 2 (1 standard drink = 0.6 oz pure alcoho l) per week Sex Assigned at Date Recorded Not on file documented as of this encounter Progress Notes Jackeline Nelson MD - 12/01/2017 1:15 PM CDT Aruna Ayala is here for follow up of low back and leg pain. She is making good progress in rehabilitation. She notes her back pain has almost resolved at this point. Notes just mild muscle soreness, possibly related to PT. R leg pain is also improved, essentially gone at this point, and feeling stronger in her right leg. She does note improved core strength since beginning the program. No otherconcerns noted. OBJECTIVE: The patient has progressed objectively since admission, and has shown evidence of plateau. 19 sessions of treatment have been completed. Lumbar extension has improved from 37 lbs X 20 at initial visit to 77 lbs at last visit with goal 97 lbs. See PT flowsheets for details. Physical examination shows improving ROM of lumbar spine, now at about 80 deg. SLR is negative b/l, full strength in LEs b/l, 2/2knee jerk reflexes. Normal gait. Pleasant and cooperative, normal affect. ICD-10-CM 1. Lumbar degenerative disc disease (HRC) M51.36 PNBC Therapy 2. Mechanical low back pain (HRC) M54.5 PNBC Therapy 3. Lumbar radiculitis M54.16 PNBC Therapy 4. 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 Muscular deconditioning R29.898 PNBC Therapy Because the patient has made progress both objectively and subjectively and has shown a plateau, I feel no further rehabilitation is indicated. The patient has given good effort in therapy. We reviewedimportance of maintenance of strength long-term, and discussed potential options for a home program,with plan to be independent after the patient optimizes her strength. The patient will follow-up as needed. Jackeline Nelson MD, MPH [facility] 12/01/2017 documented in this encounter Plan of Treatment Not on filedocumented as of this encounter Visit Diagnoses Diagnosis Lumbar degenerative disc disease (HRC) Degeneration of lumbar or lumbosacral in tervertebral disc Mechanical low back pain Lumbago Lumbar radiculitis Thoracic or lumbosacral neuritis or radi culitis, unspecified Spondylolysis Acquired spondylolisthesis Muscular deconditioning Muscular wasting and disuse atrophy, not elsewhere classified documented in this encounter Care Teams [employer] Relationship Specialty Start Date End Date Asia Millard MD PCP - General Family Practice 09/23/171999 [place] [address] documented as of this encounter
--- OUTSIDE RECORDS SUMMARY | 2022-07-02 14:37 | XMS_ITS | Clinical Summary ---
:1955 Author Organization [facility] Address [address] [place] [address] Care Team Providers Name Role Phone Asia Millard MD Primary Care Provider [phone] Source Comments You are receiving this document as you are listed as the primary care provider,follow-up provider, or the patient has been referred to you for consultation.This is in compliance with the Medicare and Medicaid EHR Incentive Program,which states Providers who transition their patient to another setting of careor provider of care or refers their patient to another provider of care shouldprovide summarycare record for each transition of care or referral. [employer] Allergies Active Allergy Reactions Severity Noted Date Comments Other 02/02/1996 PN: LW Other1: -NKA Review Contrast Media 02/02/1996 PN: LW CM1: CONTRAST- NKA Reaction : Review Food Intolerance 04/25/2004 PN: LW FI1: NKA Medications Medication Sig Dispensed Refills Start Date End Date Status omega-3 fatty acids daily (every 24 0 03/09/2007 Active (AKA MAXEPA, FISH OIL) hours). LW Addl 1000 MG capsule Instr:per pre op notes Multiple Take 1 tablet by 100 13 11/28/2006 Ac tive Vitamins-Minerals mouth daily (MULTIVITAMIN OR) (every 24 hours). UNKNOWN MEDICATION Indications: PN: 0 10/10/2007 Active nabumetone (RELAFEN) Take 500 mg by 0 Active 500 MG tablet mouth two times a day. gabapentin (NEURONTIN) Take 300 mg by 0 Active 300 MG capsule mouth three times a day. estradiol (VIVELLEDOT) Apply 1 Patch to 24 Patch 3 04/30/2016 Active 0.05 MG/24HR biweekly skin two times a patchIndications: week. Menopausal symptoms Indications: PN: celecoxib (CELEBREX) Take 200 mg by 0 Active 200 MG capsule mouth two times a day. atorvastatin (LIPITOR) Take 20 mg by 0 Active 20 MG tablet mouth daily. Active Problems Problem Noted Date Leiomyoma of uterus 01/16/2007 Overview: Leiomyoma Uterus Resolved Problems Problem Noted Date Resolved Date Lumbar radiculopathy 09/29/2017 12/01/2017 Immunizations Name Administration Dates Next Due Flu Vac Preserv Free (3+yrs) 05/02/2011 Influenza IIV4 (Quadrivalent) 0.5mL 04/29/2016, 04/23/2015, 03/02/2014 ([id number]) Family History Medical History Relation Name Comments Diabetes Mother High Cholesterol Mother Hypertension Mother Osteoporosis Mother Diabetes Maternal Grandmother Diabetes Sister 1 Osteoporosis Sister 1 Cancer, Breast Negative Family History Cancer, Ovary Negative Family History Relation Name Status Comments Father Alive Mother Alive Brother Alive Maternal Grandfather Maternal Grandmother Paternal Grandfather Paternal Grandmother Sister 1 Alive Sister 2 Alive Sister 3 Alive Social History Tobacco Use Types Packs/Day Years Used Date Smoking Tobacco: Never Smokeless Tobacco: Never Alcohol Use Standard Drinks/Week Comments Yes 2 (1 standard drink = 0.6 oz pure alcoho l) per week Sex Assigned at Date Recorded Not on file Last Filed Vital Signs Vital Sign Reading Time Taken Comments Blood Pressure 134/78 04/29/2016 10:17 AM CDT Pulse 62 04/29/2016 10:17 AM CDT Temperature 37.1 ??C (98.8 ??F) 05/01/2007 11:50 AM ORAL C: 37.1 C CDT Respiratory Rate 16 05/01/2007 11:50 AM CDT Oxygen Saturation 98% 03/11/2007 4:05 PM CDT Inhaled Oxygen Concentration - - Weight 75.3 kg (166 lb) 04/29/2016 10:17 AM CDT Height 168.9 cm (5' 6.5) 04/29/2016 10:17 AM CDT Body Mass Index 26.39 04/29/2016 10:17 AM CDT Plan of Treatment Health Maintenance Due Date Last Done Comments COVID-19 Vaccine (#1) 1955 Adult Preventive Visit 04/29/2017 04/29/2016 Mammogram 04/29/2017 04/29/2016, 04/23/2015, 04/19/2014, Additional history exists Pap 04/29/2019 04/29/2016, 04/19/2014, 04/10/2013, Additional history exists Cholesterol 08/07/2021 08/07/2016, 04/29/2016, 04/23/2015, Additional history exists Pneumococcal 65+ Yrs (1 - 2022 PCV) Influenza (#1) 2022 03/12/2020, 04/04/2019, 03/29/2019, Additional history exists Colonoscopy 05/11/2023 05/11/2013 DTaP/Tdap/Td (2 - Tdap) 02/23/2029 02/23/2019 Hep C Screening (Preventive Completed 04/29/2016, 04/29/20 16 Services) Zoster/Shingles Completed 02/14/2019, 11/16/2018, 04/10/2013 HepA Aged Out No longer eligib le based on patient 's age to complete this topic HepB Aged Out No longer eligib le based on patient 's age to complete this topic Hib Aged Out No longer eligib le based on patient 's age to complete this topic IPV (Polio) Aged Out No longer eligib le based on patient 's age to complete this topic MCV4 Aged Out No longer eligib le based on patient 's age to complete this topic Insurance Payer Benefit Plan / Subscriber ID Effective Dates Phone Addre Type Group [facility] SELF INSURED [id number] 2014-[employer] t Aruna Ayala Personal/Famil Self 1955 [address] (Home) [phone] [employer] (Work) [id number] Aruna Ayala Personal/Famil Self 1955 [address] (Home) [phone] [employer] (Work) [id number] Aruna Ayala Personal/Famil Self 1955 [address] [place] (Home) [place] [id number] ROSALINDA AYALA Personal/Famil 09/17/1958 [address] y (Home) [place] [id number] Care Teams [employer] Relationship Specialty Start Date End Date Asia Millard MD PCP - General Family Practice 09/23/17[address] [place] [id number]
--- OUTSIDE RECORDS SUMMARY | 2022-07-02 14:37 | XMS_ITS | Encounter Summary ---
:1955 Author Organization [employer] [facility] Address [address] [place] [address] Care Team Providers Name Role Phone Asia Millard MD Primary Care Provider [phone] Reason for Visit Reason Comments BACK PAIN, LOW LEG PAIN Consult/Transfer Care (Routine) - Closed Specialty Diagnoses / Procedures Referred By Contact Refer red To Contact Physical Therapy Diagnoses Spondylosis without myelopathy or radiculopathy, lumbosacral region (HRC) MRI - [facility] Golf Mele Kathleen MD [address] [address] [place] [address] [place], [address] [place] [address] Phone: Fax: Referral ID Status Reason Start Date Expiration Date Visits Requ ested Visits Authorized [id number] Closed 09/21/2017 12/21/2018 90 90 Encounter Details Date Type Department Care Team Description 11/19/2017 Therapy Physicians Neck and Back Raul Collins, [place] [address] [facility], [address] [place] [address] Social History Tobacco Use Types Packs/Day Years Used Date Smoking Tobacco: Never Smokeless Tobacco: Never Alcohol Use Standard Drinks/Week Comments Yes 2 (1 standard drink = 0.6 oz pure alcoho l) per week Sex Assigned at Date Recorded Not on file documented as of this encounter Progress Notes Mamie Collins, PT - 11/19/2017 9:15 AM CDT 11/19/2017 Visit # 15 Protocol: Back and Disc - Submax Start: 9:20 AM End: 10:01 AM (QUALITY ASSURANCE TESTER Visit # 2 Subjective: Pt reports that she is walking at a faster pace, now, with less R LE pain. She has been attempting to lie on her R side during sleep but this position continues to irritate her R LE. The numbness, however, in that extremity has decreased since the onset of rehab. She is becoming more cognizant of proper body mechanics with household tasks noting improvement in the length of time she can clean before her R LE sxs increase. Cervical Not performed today. Objective Tests & Measures: 2# wt increase with T-Roto. Tests performed today (see reviewflowsheet for score and outcomes): : None Performed Today Warm Up: Movement Specific Training: Not Completed Mat Exercises Completed Treadmill: Minutes 5 Intensity 3.0 mph ICE: Back Lumbar Lumbar & Torso 11/19/2017 Set 1 Ext % Max 60% Set 1 Ext ROM 3-48 Set 1 Ext Wgt 48 Set 1 Ext Reps 30 Set 1 Ext Tul 119 Set 1 Ext Tez RPE 3-4 Set 2 Ext % Max - Set 2 Ext ROM - Set 2 Ext Wgt - Set 2 Ext Reps - Set 2 Ext Tul - Set 2 Tez RPE - Left Rot % Max 100% Left Rot ROM 45 Left Rot Wgt 34 Left Rot Reps 21 Left Rot Aubree RPE 6 Right Rot % Max 100% Right Rot ROM 45 Right Rot Wgt 34 Right Rot Reps 23 Right Rot Tez RPE 6 Therapeutic Exercise (21 min): Thoracic and aux exercises to increase pt's spinal and Core mm strength/endurance/stability for improvement in her ability to bend forward while cleaning her house without triggering increased LB/R LE pain. Pt presented with a good pace, breath control and technique in the machines. Neuromuscular Re-Education (8min): Light resistance in L-Ext for proper movt patterns, mm recruitment and posture while sweeping her floors and making her bed. No cues needed for pace or control of the weights in this MedX. Auxillary Auxillary 11/19/2017 Abs Wgt Set 1 40 Abs Reps Set 1 20 Abs Wgt Set 2 40 Abs Reps Set 2 20 Glute Wgt Set 1 100 Glute Reps Set 1 20 Glute Wgt Set 2 100 Glute Reps Set 2 21 Leg Press Wgt Set 1 180 Leg Press Reps Set 1 23 Leg Press Wgt Set 2 180 Leg Press Reps Set 2 24 Lats Wgt Set 1 60 Lats Reps Set 1 20 Lats Wgt Set 2 60 Lats Reps Set 2 20 Other Lifting/moving 20# throughout the treatment. HEP - Therapeutic Activities (12 min): Therapeutic Activities 11/19/2017 SITTING POSTURE - STANDING POSTURE - SLEEP POSTURE - BASE OF SUPPORT - WEIGHT SHIFT - PIVOT VS TWIST - OBJECT CLOSE VS FAR AWAY - SQUAT - LIFT FROM FLOOR - LIFT OVERHEAD - OTHER ACTIVITY Reviewed proper body mechanics when lifting 20# in a crate to/from the floor as we traveled from one exercise station to another during the pt's workout. She was able to demonstrate proper mechanics such as widening her ROSE, tightening her ABs (aft er verbal cues), keeping the crate close to her body and using her quads to lift the crate vs her back. Pt denied any LB or R LE pain during these lifting activities. Instructed pt in how to sweep/mop her wood floors with a correct base of support, wt shifting with proper hip/leg movts and tightening of the abdominals during this activity to minimize execessive strain on her lumbar spine. Pt was able to demonstrate this activity correctly after PT's instructions. Patient Education: Patient was instructed in correlation of strength and function to increase her understanding of the benefits related to completing the [facility] Rehab program. Education given re: proper body mechanics whenlifting/moving a 20# crate and with the sweeping/mopping of her wood floors. Assessment: Pt is making good progress in the areas of spinal strengthening, sx relief and with functional activities at home and out in the community. She has noted an improvement in her walking speedwhen shopping and with some shearing machine tender such as the laundry and meal preparation. Her R LE sxs of numbness have decreased, however, lying on her R side in bed continues to aggravate her R leg sxs.Anticipate continued sx relief with subjective improvement in pt's functional status a her lumbar and Core mms get stronger. Goals: Short Term Goals (4-6 weeks): 1. Pt will perform MST HEP 2x/day consistently to improve lumbar and hip mobility.??(goal met 3-21) 2. Pt will report a decreased frequency of right thigh/leg symptoms to 2 or fewer times/week. 3. Pt will demonstrate proper body/lifting mechanics to bend and lift 15# crate from floor to chest height without LBP. 11/04/17: ??Goal Met during treatment today. ? Half-Way Goals (>6 weeks): 1. Patient will be independent with home exercise program after discontinued from Physical Therapy. 2. Pt will walk/stand for >60 mins without low back or right leg symptoms to grocery shop. 11/19/17 - Can walk/stand up to an hour, not greater than when shopping. 3.Pt will demonstrate proper body/lifting mechanics to bend and lift 30# crate from floor to chest height without LBP ?? Precautions: Disc with spondylolisthesis (block end range lumbar extension), R HAMMAD-2005. ??10/18/17:?T-Rot initiated today - monitor R LE symptoms. ? Recommendations/Communication: 100% L-Ext. 60% T-Roto. Advance aux wts as able. Total timed code min: 41 Total treatment time: 41 Mamie Collins, PT 11/19/2017, 10:34 AM documented in this encounter Plan of Treatment Not on filedocumented as of this encounter Visit Diagnoses Diagnosis Lumbar radiculopathy Thoracic or lumbosacral neuritis or radi culitis, unspecified documented in this encounter Care Teams Manager Erp Relationship Specialty Start Date End Date Asia Millard MD PCP - General Family Practice 09/23/171999 [place] [address] documented as of this encounter
--- OUTSIDE RECORDS SUMMARY | 2022-07-02 14:37 | XMS_ITS | Encounter Summary ---
:1955 Author Organization [employer] [facility] Address [address] [place] [address] Care Team Providers Name Role Phone Asia Millard MD Primary Care Provider [phone] Reason for Visit Reason Comments LEG PAIN BACK PAIN, LOW Consult/Transfer Care (Routine) - Closed Specialty Diagnoses / Procedures Referred By Contact Refer red To Contact Physical Therapy Diagnoses Spondylosis without myelopathy or radiculopathy, lumbosacral region (HRC) MRI - CDI Delavan Mele Kathleen MD [address] [address] [place] [address] [place], [address] [place] [address] Phone: Fax: Referral ID Status Reason Start Date Expiration Date Visits Requ ested Visits Authorized [id number] Closed 09/21/2017 12/21/2018 90 90 Encounter Details Date Type Department Care Team Description 11/24/2017 Therapy Physicians Neck and Back Raul Collins, [place] [address] [facility], [address] [place] [address] Social History Tobacco Use Types Packs/Day Years Used Date Smoking Tobacco: Never Smokeless Tobacco: Never Alcohol Use Standard Drinks/Week Comments Yes 2 (1 standard drink = 0.6 oz pure alcoho l) per week Sex Assigned at Date Recorded Not on file documented as of this encounter Progress Notes Mamie Collins, PT - 11/24/2017 9:15 AM CDT 11/24/2017 Visit # 17 Protocol: Back and Disc. Submax Start: 9:11 AM End: 9:47 AM (KILN DOOR REPAIRER Visit # 2 Subjective: Pt reports sore LB mms after painting and working on remodeling projects at home yesterday. She was able to participate in most of the activities with less LBP. Static stance continues to irritate her LB. Cervical Not performed today. Objective Tests & Measures: 2# wt increase with T-Roto. Tests performed today (see reviewflowsheet for score and outcomes): : None Performed Today Warm Up: Movement Specific Training: Not Completed Mat Exercises Completed Treadmill: Minutes 5 Intensity 3.2 mph ICE: Back Lumbar Lumbar & Torso 11/24/2017 Set 1 Ext % Max 60% Set 1 Ext ROM 3-48 Set 1 Ext Wgt 52 Set 1 Ext Reps 30 Set 1 Ext Tul 109 Set 1 Ext Tez RPE 3 Set 2 Ext % Max - Set 2 Ext ROM - Set 2 Ext Wgt - Set 2 Ext Reps - Set 2 Ext Tul - Set 2 Tez RPE - Left Rot % Max 100% Left Rot ROM 45 Left Rot Wgt 36 Left Rot Reps 22 Left Rot Aubree RPE 6 Right Rot % Max 100% Right Rot ROM 45 Right Rot Wgt 36 Right Rot Reps 22 Right Rot Tez RPE 7 Therapeutic Exercise (23 min): Thoracic and aux exercises to increase pt's spinal and Core mm strength/endurance/stability for improvement in her ability to lift/carry her young grandson without experiencing low back or R LE pain. Pt presented with an appropriate pace in all equipment except for L-Ext. She was able to breathe correctly while exercising throughout her workout. Neuromuscular Re-Education (13 min): Light resistance in L-Ext for proper movt patterns, mm recruitment and posture in order to perform household tasks without low back distress. Reviewed trunk extension on the Fer Chair to ensure independence with proper isolation of deep lumbar mms. Cued pt for adequate knee flexion to release her hamstrings and to arch her spine as she ascends from a dependent position to maximize paraspinal mm contraction. Pt followed all cues well. Auxillary Auxillary 11/24/2017 Abs Wgt Set 1 40 Abs Reps Set 1 20 Abs Wgt Set 2 40 Abs Reps Set 2 20 Glute Wgt Set 1 110 Glute Reps Set 1 20 Glute Wgt Set 2 110 Glute Reps Set 2 22 Leg Press Wgt Set 1 180 Leg Press Reps Set 1 26 Leg Press Wgt Set 2 180 Leg Press Reps Set 2 20 Lats Wgt Set 1 60 Lats Reps Set 1 21 Lats Wgt Set 2 60 Lats Reps Set 2 20 Other - HEP Fer Chair review -Extension Therapeutic Activities (0 min): Not performed today. Patient Education: Patient was instructed in correlation of strength and function to increase her understanding of the benefits related to completing the [facility] program. Verbal and visual cues provided for proper form/technique/pace on the Fer Chair. Assessment: Pt applied very good effort during this session. She has responded well to this progressive strengthening program as evidenced by increased trunk flexibility, sx relief and functional Improvement as she performs household tasks and remodeling projects around the home. Prolonged stance remains problematic. Anticipate a discharge from therapy at her next MD recheck on 12/01/17. Sheshould practice using the Fer Chair one more time to meet LTG #1. Goals: Short Term Goals (4-6 weeks): 1. [...] 11/04/17: ??Goal Met during treatment today. ? Retirement Goals (>6 weeks): 1. Patient will be independent with home exercise program after discontinued from Physical Therapy. 2. Pt will walk/stand for >60 mins without low back or right leg symptoms to grocery shop. 3.Pt will demonstrate proper body/lifting mechanics to bend and lift 30# crate from floor to chest height without LBP Precautions: Disc with spondylolisthesis (block end range lumbar extension), R HAMMAD-2005. ??10/18/17:?T-Rot initiated today - monitor R LE symptoms. ? Recommendations/Communication: 100% L-Ext. 60% T-Roto. Prep for discharge (2 more visits). Lifting with 25-30# to address LTG #3. Total timed code min: 36 Total treatment time: 36 Mamie Collins, PT 11/24/2017, 12:24 PM documented in this encounter Plan of Treatment Not on filedocumented as of this encounter Visit Diagnoses Diagnosis Lumbar radiculopathy Thoracic or lumbosacral neuritis or radi culitis, unspecified documented in this encounter Care Teams Inset Cutter Relationship Specialty Start Date End Date Asia Millard MD PCP - General Family Practice 09/23/171999 [place] [address] documented as of this encounter
--- OUTSIDE RECORDS SUMMARY | 2022-07-02 14:37 | XMS_ITS | Encounter Summary ---
:1955 Author Organization [facility] Address [address] [place] [address] Care Team Providers Name Role Phone Asia Millard MD Primary Care Provider [phone] Reason for Visit Reason Onset Date Comments LEG PAIN 11/10/2017 BACK PAIN, LOW 11/10/2017 Encounter Details Date Type Department Care Team Description 11/10/2017 Office Visit Physicians Neck and Jackeline Nelson degenerative disc disease; Back Center MD [place] Mechanical low back pain; [place] [address] [facility] Lumbar radiculitis; [address] [place], [place] Spondyloli sthesis, lumbar region; Center, [address] [address] [place] [address] Social History Tobacco Use Types Packs/Day Years Used Date Smoking Tobacco: Never Smokeless Tobacco: Never Alcohol Use Standard Drinks/Week Comments Yes 2 (1 standard drink = 0.6 oz pure alcoho l) per week Sex Assigned at Date Recorded Not on file documented as of this encounter Progress Notes Jackeline Nelson MD - 11/10/2017 10:15 AM CDT Aruna Ayala is here for follow up of low back and leg pain. She is making good progress in rehabilitation. She notes her back pain is about 75% improved at this point. R leg pain is also improved, essentially gone at this point, and feeling stronger in her right leg. She does note improved strength since beginning the program. No other concerns noted. The patient has progressed objectively since admission, and has not shown evidence of plateau yet. 13 sessions of treatment have been completed. Lumbar extension has improved from 37 lbs X 20 at initial visit to 77 lbs at last visit with goal 97 lbs. See PT flowsheets for details. Physical examinationshows improving ROM of lumbar spine, now at about 70 deg. SLR is negative, full strength in LEs b/l,2/2 knee jerk reflexes. ICD-10-CM 1. Lumbar degenerative disc disease (HRC) M51.36 [facility] 2. Mechanical low back pain (HRC) M54.5 [facility] 3. Lumbar radiculitis M54.16 [facility] 4. Spondylolisthesis, lumbar region M43.16 [facility] 5. Muscular deconditioning R29.898 [facility] Because the patient continues to progress both objectively and subjectively, I feel further rehabilitation is indicated. The patient has given good effort in therapy. We reviewed importance of maintenance of strength long-term, and discussed potential options for a home program, with plan to be independent after the patient optimizes her strength. The patient will follow-up after another 3 weeks of treatment attending twice a week, with consideration of discharge in 3-6 weeks. 15 minutes were spent with the patient today, of which over half was spent in education and counseling. Jackeline Nelson MD, MPH Physicians Ne[facility] Back Center 11/10/2017 documented in this encounter Plan of Treatment Not on filedocumented as of this encounter Visit Diagnoses Diagnosis Lumbar degenerative disc disease (HRC) Degeneration of lumbar or lumbosacral in tervertebral disc Mechanical low back pain Lumbago Lumbar radiculitis Thoracic or lumbosacral neuritis or radi culitis, unspecified Spondylolisthesis, lumbar region Muscular deconditioning Muscular wasting and disuse atrophy, not elsewhere classified documented in this encounter Care Teams Business Intelligence Engineer Relationship Specialty Start Date End Date Asia Millard MD PCP - General Family Practice 09/23/171999 [place] [address] documented as of this encounter
--- OUTSIDE RECORDS SUMMARY | 2022-07-02 14:37 | XMS_ITS | Encounter Summary ---
:1955 Author Organization [employer] Address [address] [place] [address] Care Team Providers Name Role Phone Asia Millard MD Primary Care Provider [phone] Reason for Visit Reason Comments BACK PAIN Consult/Transfer Care (Routine) - Closed Specialty Diagnoses / Procedures Referred By Contact Refer red To Contact Physical Therapy Diagnoses Spondylosis without myelopathy or radiculopathy, lumbosacral region (HRC) MRI - [facility] [place] Mele Kathleen MD [address] [address] [place] [address] [place], [address] [place] [address] Phone: Fax: Referral ID Status Reason Start Date Expiration Date Visits Requ ested Visits Authorized [id number] Closed 09/21/2017 12/21/2018 90 90 Encounter Details Date Type Department Care Team Description 12/01/2017 Therapy Physicians Neck and Back Veronique Pederson, PT Lumbar radiculopathy [facility] [address] [facility], [facility] [address] [place] [address] [address] [place] [address] [phone] Social History Tobacco Use Types Packs/Day Years Used Date Smoking Tobacco: Never Smokeless Tobacco: Never Alcohol Use Standard Drinks/Week Comments Yes 2 (1 standard drink = 0.6 oz pure alcoho l) per week Sex Assigned at Date Recorded Not on file documented as of this encounter Progress Notes LuzmariaVeronique monte Clarita, PT - 12/01/2017 12:00 PM CDT 12/01/2017 Visit # 19 Protocol: Back, Disc and submax Start: 12:05 pm End: 12:39 pm (POCKET MARKER Visit # 3 Subjective: Patient reports she is feeling good and has no pain. Patient reports has a little bit ofsoreness in right low back due to watching 15 month old grandson; has to lift and bend a lot; patient reports she is watching her body mechanics. Patient reports her back has just a little soreness, not much. Cervical Not performed today. Objective Tests & Measures: T-Rot increased 4 pounds since last max day. Tests performed today (see reviewflowsheet for score and outcomes): : Oswestry = 2% (Oswestry = 30% on 09/29/17). Warm Up: Movement Specific Training: Not Completed Mat Exercises Completed Treadmill: Minutes 5 Intensity 2.9 mph ICE: Back Lumbar Lumbar & Torso 12/01/2017 Set 1 Ext % Max 60% Set 1 Ext ROM 3-48 Set 1 Ext Wgt 54 Set 1 Ext Reps 30 Set 1 Ext Tul 127 Set 1 Ext Tez RPE 3 Set 2 Ext % Max - Set 2 Ext ROM - Set 2 Ext Wgt - Set 2 Ext Reps - Set 2 Ext Tul - Set 2 Tez RPE - Left Rot % Max 100% Left Rot ROM 40 Left Rot Wgt 40 Left Rot Reps 22 Left Rot Aubree RPE 7 Right Rot % Max 100% Right Rot ROM 40 Right Rot Wgt 40 Right Rot Reps 23 Right Rot Tez RPE 7 Therapeutic Exercise (22 min): Patient performed isolated torso rotation exercise and auxillary exercises to improve muscle strength, to improve muscle endurance and increase strength and endurance levels of supporting spinal musclegroups to increase tolerance for sitting, standing, walking, sleeping, bed mobility, lifting, driving, personal care tasks, household tasks and work activities with PT monitoring patient's technique for form and pace. Patient with good form and pace. Neuromuscular Re-Education (12 min): Patient performed isolated lumbar extension to retrain muscles for proper sequencing, improve musclerecruitment patterns and to improve movement patterns in an isolated plane to increase tolerance forsitting, standing, walking, sleeping, bed mobility, lifting, driving, personal care tasks, householdtasks and work activities. with PT monitoring patient's technique for form and pace. Patient with good form and pace. Fer Chair: Patient performed Fer Chair Trunk Extension x 10 reps with good technique x Independent. PT explained that Fer Chair exercises are recommended at time of D/C from PT to do 2x/week to fatigue to maintain lumbar strength. Patient reports she plans to purchase a Fer Chair. PT checked and Fer Chair exercise already in [facility]. Auxillary Auxillary 12/01/2017 Abs Wgt Set 1 40 Abs Reps Set 1 20 Abs Wgt Set 2 40 Abs Reps Set 2 20 Glute Wgt Set 1 110 Glute Reps Set 1 20 Glute Wgt Set 2 110 Glute Reps Set 2 20 Leg Press Wgt Set 1 180 Leg Press Reps Set 1 20 Leg Press Wgt Set 2 180 Leg Press Reps Set 2 20 Lats Wgt Set 1 60 Lats Reps Set 1 20 Lats Wgt Set 2 60 Lats Reps Set 2 20 Other - HEP Fer Chair: Trunk Ext x Independent. - Already in [place] [facility]. Therapeutic Activities (0 min): Not performed today. Patient Education: PT asked patient if she plans to do CORE after D/C from PT. Patient reports she will not do CORE as she plans to workout at gym near her house. PT gave patient Auxillary Machine weights and settings; PT explained that weights on different machines vary and to adjust weights to capabilities; patient understood. Assessment: Patient tolerated treatment well and gave good effort with all exercises. Reviewed LTG #2 with patient and goal met per patient report. Patient reports she plans to purchase a Fer Chair and workout at gym near her house after D/C from PT. Patient is Independent with Fer Chair HEP; therefore LTG #1 is met. All Goals Met. Patient had MD Re-Check appointment with Dr. Nelson after PT treatment today and per Dr. Nelson's 12/01/17 MD Order, patient is discharged from PT at this time. Goals: Short Term Goals (4-6 weeks): 1. Pt will perform MST HEP 2x/day consistently to improve lumbar and hip mobility.??(goal met 3-21) 2. Pt will report a decreased frequency of right thigh/leg symptoms to 2 or fewer times/week. (goal met 4-30) 3. Pt will demonstrate proper body/lifting mechanics to bend and lift 15# crate from floor to chest height without LBP. 11/04/17: ??Goal Met during treatment today. ? Gas Appliance Servicer Goals (>6 weeks): 1. Patient will be independent with home exercise program after discontinued from Physical Therapy. 12/01/17: Goal Met for Fer Chair HEP. 2. Pt will walk/stand for >60 mins without low back or right leg symptoms to grocery shop. 12/01/17: Goal Met per patient report. Patient reports she can stand much longer than she could previously. 3.Pt will demonstrate proper body/lifting mechanics to bend and lift 30# crate from floor to chest height without LBP (goal met 4-30) ? Precautions: Disc with spondylolisthesis (block end range lumbar extension), R HAMMAD-2005. ??10/18/17:?T-Rot initiated today - monitor R LE symptoms. ? Recommendations/Communication: Patient reports she plans to purchase a Fer Chair and workout at gym near her house after D/C from PT. Patient is Independent with Fer Chair HEP. All Goals Met. Patient had MD Re-Check appointment with Dr. Nelson after PT treatment today and per Dr. Nelson's 12/01/17 MD Order, patient is discharged from PT at this time. Total timed code min: 34 Total treatment time: 34 Veronique George PT 12/01/2017, 5:30 PM Veronique George PT - 12/01/2017 12:00 PM CDT Physical Therapy Discharge Summary Discharge Date: 12/01/17 Discharge type: formal Patient completed 19 sessions of physical therapy from 09/29/17 to 12/01/17. Short Term Goal Summary 1. Pt will perform MST HEP 2x/day consistently to improve lumbar and hip mobility.??(goal met 3-21) 2. Pt will report a decreased frequency of right thigh/leg symptoms to 2 or fewer times/week.??(goalmet 4-30) 3. Pt will demonstrate proper body/lifting mechanics to bend and lift 15# crate from floor to chest height without LBP. 11/04/17: ??Goal Met during treatment today. ? Skilled Nursing Goal Summary 1. Patient will be independent with home exercise program after discontinued from Physical Therapy. 12/01/17: Goal Met for Fer Chair HEP. 2. Pt will walk/stand for >60 mins without low back or right leg symptoms to grocery shop. 12/01/17: Goal Met per patient report. Patient reports she can stand much longer than she could previously. 3.Pt will demonstrate proper body/lifting mechanics to bend and lift 30# crate from floor to chest height without LBP??(goal met 4-30) ? Patient has been instructed in and demonstrated proficiency and safe body mechanics with the following tasks: Wide base of support Weight shift Pivot vs twist Hold object close vs away Floor <> waist lift Other status update/follow up recommendations: Patient reports she plans to purchase a Fer Chair and workout at gym near her house after D/C from PT. Patient is Independent with Fer Chair HEP. All Goals Met. Patient had MD Re- Check appointment with Dr. Nelson after PT treatment today and per Dr. Nelson's 12/01/17 MD Order, patient is discharged from PT at this time. Discharge Plans: Gym Fer Chair Veronique George, PT 12/01/2017, 5:34 PM documented in this encounter Plan of Treatment Not on filedocumented as of this encounter Visit Diagnoses Diagnosis Lumbar radiculopathy Thoracic or lumbosacral neuritis or radi culitis, unspecified documented in this encounter Care Teams Home Health Travel Ot Relationship Specialty Start Date End Date Asia Millard MD PCP - General Family Practice 09/23/171999 [place] [address] documented as of this encounter
--- OUTSIDE RECORDS SUMMARY | 2022-07-02 14:37 | XMS_ITS | Encounter Summary ---
:1955 Author Organization [facility] Address [address] [place] [address] Care Team Providers Name Role Phone Asia Millard MD Primary Care Provider [phone] Reason for Visit Reason Comments BACK PAIN, LOW Consult/Transfer Care (Routine) - Closed Specialty Diagnoses / Procedures Referred By Contact Refer red To Contact Physical Therapy Diagnoses Spondylosis without myelopathy or radiculopathy, lumbosacral region (HRC) MRI - [facility] [place] Mele Kathleen MD [address] [address] [place] [address] [place], [address] [place] [address] Phone: Fax: Referral ID Status Reason Start Date Expiration Date Visits Requ ested Visits Authorized [id number] Closed 09/21/2017 12/21/2018 90 90 Encounter Details Date Type Department Care Team Description 11/17/2017 Therapy Physicians Neck and Back Sang Hamlin, PT Lumbar radiculopathy [facility] [address] [facility], [address] [place] [address] Social History Tobacco Use Types Packs/Day Years Used Date Smoking Tobacco: Never Smokeless Tobacco: Never Alcohol Use Standard Drinks/Week Comments Yes 2 (1 standard drink = 0.6 oz pure alcoho l) per week Sex Assigned at Date Recorded Not on file documented as of this encounter Progress Notes Sang Hamlin, PT - 11/17/2017 9:45 AM CDT 11/17/2017 Visit # 14 Protocol: Back, Disc and submax Start: 944 End: 1026 (SAFETY INVESTIGATOR/CAUSE ANALYST Visit # 2 Subjective: Pt reports, I was doing some painting last weekend and I was a little sore from painting. Cervical Not performed today. Objective Tests & Measures: 5# increase in the lumbar extension exercise Tests performed today (see reviewflowsheet for score and outcomes): : None Performed Today Warm Up: Movement Specific Training: Not Completed Mat Exercises Completed Treadmill: Minutes 5 Intensity 3.4 mph ICE: Back Lumbar Lumbar & Torso 11/17/2017 Set 1 Ext % Max 100% Set 1 Ext ROM 3-48 Set 1 Ext Wgt 82 Set 1 Ext Reps 21 Set 1 Ext Tul 94 Set 1 Ext Tez RPE 6 Set 2 Ext % Max 100% Set 2 Ext ROM 3-48 Set 2 Ext Wgt 82 Set 2 Ext Reps 21 Set 2 Ext Tul 81 Set 2 Tez RPE 6-7 Left Rot % Max 60% Left Rot ROM 45 Left Rot Wgt 22 Left Rot Reps 20 Left Rot Aubree RPE 5 Right Rot % Max 60% Right Rot ROM 45 Right Rot Wgt 22 Right Rot Reps 20 Right Rot Tez RPE 5 Therapeutic Exercise (29 min): Patient performed isolated lumbar extension exercise and auxillary exercises to improve muscle strength, to improve muscle endurance, to improve muscle flexibility, to improve range of motion, to increase strength for seated posture, to increase strength for standing posture and increase strength and e ndurance levels of supporting spinal muscle groups to increase tolerance for sitting, standing, walking, lifting and bending. Pt educated on form to minimize compensatory movement patterns and reminded to keep a steady rep pace on exercises to maximize strengthening along the entire movement. Neuromuscular Re-Education (12 min): Patient performed isolated torso rotation and home fer chair exercises to decrease substitution patterns present with chronic pain, improve muscle recruitment patterns, to improve self-correction of posture and to improve kinesio awareness to increase tolerance for sitting, standing, walking, sleepin g, lifting, driving and bending.. Reviewed fer chair technique to improve proper form/rep speed and ensure a successful HEP upon d/c. Assistance needed with adjustments to raise/lower hip pad. Auxillary Auxillary 11/17/2017 Abs Wgt Set 1 40 Abs Reps Set 1 22 Abs Wgt Set 2 40 Abs Reps Set 2 21 Glute Wgt Set 1 100 Glute Reps Set 1 20 Glute Wgt Set 2 100 Glute Reps Set 2 20 Leg Press Wgt Set 1 180 Leg Press Reps Set 1 20 Leg Press Wgt Set 2 180 Leg Press Reps Set 2 22 Lats Wgt Set 1 60 Lats Reps Set 1 20 Lats Wgt Set 2 60 Lats Reps Set 2 20 Other fer chair x 8 reps (extension) HEP - Therapeutic Activities (0 min): Not performed today. Patient Education: Patient was instructed in correlation of strength and function to increase their understanding of the benefits related to completing the [facility] Rehab program Assessment: Pt had 1 week between therapy visits and opted to resume therapy with 100% Lumbar extension today. Strength still improving, she has not hit plateau yet, lumbar extension increased to 82 ft-lbs today. Fer chair completed again today, technique was good with minimal cues needed. Assistance was needed with fer chair adjustments and how to raise/lower hip pads. She will need to be independent with fer chair upon DC, her plan is to perform at [facility] 2-3x/week. Goals: Short Term Goals (4-6 weeks): 1. [...] 11/04/17: ??Goal Met during treatment today. ? Behavioral Health Worker Goals (>6 weeks): 1. Patient will be independent with home exercise program after discontinued from Physical Therapy. 2. Pt will walk/stand for >60 mins without low back or right leg symptoms to grocery shop. 3.Pt will demonstrate proper body/lifting mechanics to bend and lift 30# crate from floor to chest height without LBP ?80 Precautions: Disc with spondylolisthesis (block end range lumbar extension), R HAMMAD-2005. ??10/18/17:?T-Rot initiated today - monitor R LE symptoms. ?? Recommendations/Communication: 5 more visits then plan to discharge. Pt has [facility] membership and plans to use equipment there, she is not sure if they have a fer chair. 100% torso rotation 60% lumbar extension and lifting. Total timed code min: 41 Total treatment time: 41 Sang Hamlin, PT 11/17/2017, 11:39 AM documented in this encounter Plan of Treatment Not on filedocumented as of this encounter Visit Diagnoses Diagnosis Lumbar radiculopathy Thoracic or lumbosacral neuritis or radi culitis, unspecified documented in this encounter Care Teams Engineering Librarian Relationship Specialty Start Date End Date Asia Millard MD PCP - General Family Practice 09/23/171999 [place] [address] documented as of this encounter
--- OUTSIDE RECORDS SUMMARY | 2022-07-02 14:37 | XMS_ITS | Encounter Summary ---
:1955 Author Organization [facility] Address [address] [place] [address] Care Team Providers Name Role Phone Asia Millard MD Primary Care Provider [phone] Reason for Visit Reason Comments BACK PAIN, LOW Consult/Transfer Care (Routine) - Closed Specialty Diagnoses / Procedures Referred By Contact Refer red To Contact Physical Therapy Diagnoses Spondylosis without myelopathy or radiculopathy, lumbosacral region (HRC) MRI - [facility] [place] Mele Kathleen MD [address] [address] [place] [address] [place], [address] [place] [address] Phone: Fax: Referral ID Status Reason Start Date Expiration Date Visits Requ ested Visits Authorized [id number] Closed 09/21/2017 12/21/2018 90 90 Encounter Details Date Type Department Care Team Description 11/22/2017 Therapy Physicians Neck and Back Sang Hamlin, PT Lumbar radiculopathy [facility] [address] [facility], [address] [place] [address] Social History Tobacco Use Types Packs/Day Years Used Date Smoking Tobacco: Never Smokeless Tobacco: Never Alcohol Use Standard Drinks/Week Comments Yes 2 (1 standard drink = 0.6 oz pure alcoho l) per week Sex Assigned at Date Recorded Not on file documented as of this encounter Progress Notes Sang Hamlin, PT - 11/22/2017 10:15 AM CDT 11/22/2017 Visit # 16 Protocol: Back, Disc and submax Start: 1013 End: 1056 (OUTSOLE FLEXER Visit # 2 Subjective: Pt reports, feeling pretty good today, we did some things around the house this weekend but my back feel great. Cervical Not performed today. Objective Tests & Measures: 4# increase in the lumbar extension exercise Tests performed today (see reviewflowsheet for score and outcomes): : None Performed Today Warm Up: Movement Specific Training: Not Completed Mat Exercises Completed Treadmill: Minutes 5 Intensity 3.4 mph ICE: Back Lumbar Lumbar & Torso 11/22/2017 Set 1 Ext % Max 100% Set 1 Ext ROM 3-48 Set 1 Ext Wgt 86 Set 1 Ext Reps 21 Set 1 Ext Tul 84 Set 1 Ext Tez RPE 8 Set 2 Ext % Max 100% Set 2 Ext ROM 3-48 Set 2 Ext Wgt 86 Set 2 Ext Reps 20 Set 2 Ext Tul 82 Set 2 Tez RPE 9 Left Rot % Max 60% Left Rot ROM 45 Left Rot Wgt 24 Left Rot Reps 20 Left Rot Aubree RPE 4 Right Rot % Max 60% Right Rot ROM 45 Right Rot Wgt 24 Right Rot Reps 20 Right Rot Tez RPE 4 Therapeutic Exercise (33 min): Patient performed isolated lumbar extension exercise [...] strengthening along the entire movement. Neuromuscular Re-Education (10 min): Patient performed isolated torso rotation and home elisha chair exercises to decrease substitution patterns present with chronic pain, improve muscle recruitment patterns, to improve self-correction of posture and to improve kinesio awareness to increase tolerance for sitting, standing, walking, sleepin g, lifting, driving and bending.. Reviewed elisha chair technique to improve proper form/rep speed and ensure a successful HEP upon d/c. Assistance needed with adjustments to raise/lower hip pad. Auxillary Auxillary 11/22/2017 Abs Wgt Set 1 40 Abs Reps Set 1 20 Abs Wgt Set 2 40 Abs Reps Set 2 22 Glute Wgt Set 1 100 Glute Reps Set 1 20 Glute Wgt Set 2 100 Glute Reps Set 2 25 Leg Press Wgt Set 1 180 Leg Press Reps Set 1 20 Leg Press Wgt Set 2 180 Leg Press Reps Set 2 25 Lats Wgt Set 1 60 Lats Reps Set 1 22 Lats Wgt Set 2 60 Lats Reps Set 2 20 Other - HEP - Therapeutic Activities (0 min): Not performed today. Patient Education: Patient was instructed in correlation of strength and function to increase their understanding of the benefits related to completing the [facility] Rehab program Assessment: Pt still making progress on Lumbar extension, increased resistance 4# today with near max fatigue on 2nd set. Goal of 90 ft-lbs On Lumbar extension is realistic. Pt is working hard during session and is planning for maintenance program with [facility] membership purchased. She has verified they have ab curls, lat pulldowns, and leg press at [facility]. Goals: Short Term Goals (4-6 weeks): 1. [...] 11/04/17: ??Goal Met during treatment today. ? Mechanical Product Design Engineer Goals (>6 weeks): 1. Patient will be [...] spondylolisthesis (block end range lumbar extension), R HAMMAD-2006. ??10/18/17:?T-Rot initiated today - monitor R LE symptoms. ?? Recommendations/Communication: Try 10# increase on glute/ham exercise. 3 more visits then plan to discharge. Pt has [facility] membership and plans to use equipment there, she is not sure if they have a elisha chair but will check. 100% torso rotation 60% lumbar extension and lifting. Total timed code min: 43 Total treatment time: 43 Sang Hamlin, PT 11/22/2017, 11:04 AM documented in this encounter Plan of Treatment Not on filedocumented as of this encounter Visit Diagnoses Diagnosis Lumbar radiculopathy Thoracic or lumbosacral neuritis or radi culitis, unspecified documented in this encounter Care Teams Behaviour Support Teacher Relationship Specialty Start Date End Date Asia Millard MD PCP - General Family Practice 09/23/171999 [place] [address] documented as of this encounter
--- OUTSIDE RECORDS SUMMARY | 2022-07-02 14:37 | XMS_ITS | Clinical Summary ---
:1955 Author Organization [employer] [place] [address] Care Team Providers Name Role Phone Rich Gupta MD Primary Care Provider Unavailable Allergies No known active allergies Medications Medication Sig Dispensed Refills Start Date End Date Status gabapentin (NEURONTIN) Take 300 mg by 0 Active 300 mg capsule mouth once daily. multivitamin (MVI) Take by mouth 0 11/28/2006 Active tablet once daily. nabumetone (RELAFEN) 500 Take 500 mg by 0 Active mg tablet mouth 2 times daily with meals. fish oil-omega-3 fatty once daily. 0 03/09/2007 Active acids 300-1,000 mg Lactobacillus Take by mouth. 0 08/25/2016 Active acidophilus (PROBIOTIC) 10 billion cell cap atorvastatin (LIPITOR) Take 1 tablet by 90 tablet 3 08/25/2016 Active 20 mg tabletIndications: mouth once Mixed hyperlipidemia daily. Active Problems No known active problems Immunizations Name Administration Dates Next Due Influenza, IIV4 04/29/2016 Zoster (Zostavax-ZVL, live) 04/10/2013 Family History Medical History Relation Name Comments Good Health Daughter Arthritis Father Arthritis Mother Diabetes Mother Hyperlipidemia Mother Hypertension Mother Neuropathy Mother Arthritis Sister 1 Diabetes Sister 1 Hyperlipidemia Sister 1 Arthritis Sister 2 Hyperlipidemia Sister 2 Relation Name Status Comments Daughter Alive Father Alive Mother Alive Sister 1 Alive Sister 2 Social History Tobacco Use Types Packs/Day Years Used Date Never Smoker Smokeless Tobacco: Never Used Tobacco Cessation: Counseling Given: No Alcohol Use Standard Drinks/Week Comments Yes 2 (1 standard drink = 0.6 oz pure alcoho l) Sex Assigned at Date Recorded Not on file Obstetrics History Last Filed Vital Signs Vital Sign Reading Time Taken Comments Blood Pressure 137/85 08/25/2016 1:35 PM PERSONNEL PSYCHOLOGIST Pulse 70 08/25/2016 1:35 PM PERSONNEL PSYCHOLOGIST Temperature - - Respiratory Rate - - Oxygen Saturation - - Inhaled Oxygen Concentration - - Weight 76.2 kg (168 lb) 08/25/2016 1:35 PM PERSONNEL PSYCHOLOGIST Height 168.9 cm (5' 6.5) 08/25/2016 1:35 PM PERSONNEL PSYCHOLOGIST Body Mass Index 26.71 08/25/2016 1:35 PM PERSONNEL PSYCHOLOGIST Plan of Treatment Health Maintenance Due Date Last Done Comments COVID-19 vaccine series (#1) 1955 Tdap 02/10/1968 HIV for age 15-65 02/10/1972 Hepatitis C screening for age 18-79 1975 Tetanus booster 1977 Zoster (shingles) series for age 1106/05/2013 04/10/2013 50+ (2 of 3) Mammogram for age 45-75 04/02/2017 04/02/2016 (Completed ou tside of [facility]) BMI (ht and wt on same day) for age 0108/25/2017 08/25/2016 18+ Depression screening for age 12+ 08/25/2017 08/25/2016 Pap test for age 21-65 04/28/2021 04/28/2018, 04/28/2018, 04/02/2016 (Completed outside of [facility]) Lipids for age 45-75 01/18/2022 01/18/2017 DEXA/DXA scan for age 65+ 2022 Pneumococcal series for age 65+ (1 2022 - PCV) Influenza for age 65+ 04/02/2022 04/29/2016 Colonoscopy through age 75 05/11/2023 05/11/2013, 3 (Completed outside of [facility]) Results Not on filefrom Last 3 Months Insurance Payer Benefit Plan / Subscriber ID Effective Dates Phone Addre ss Type Group [employer] [id number] 2011-Present [address] [place] [address] Care Teams Credit Collections Rep Relationship Specialty Start Date End Date Rich Gupta MD PCP - General Family Practice 03/23/16
--- OUTSIDE RECORDS SUMMARY | 2022-07-02 14:37 | XMS_ITS | Encounter Summary ---
:1955 Author Organization [facility] Address [address] [place] [address] Care Team Providers Name Role Phone Asia Millard MD Primary Care Provider [phone] Reason for Visit Reason Comments BACK PAIN, LOW Consult/Transfer Care (Routine) - Closed Specialty Diagnoses / Procedures Referred By Contact Refer red To Contact Physical Therapy Diagnoses Spondylosis without myelopathy or radiculopathy, lumbosacral region (HRC) MRI - [facility] [place] Mele Kathleen MD [address] [address] [place] [address] [address], [address] [place] [address] Phone: Fax: Referral ID Status Reason Start Date Expiration Date Visits Requ ested Visits Authorized [id number] Closed 09/21/2017 12/21/2018 90 90 Encounter Details Date Type Department Care Team Description 11/29/2017 Therapy Physicians Neck and Back Vinny Guillaume, WIPING RAG WASHER Lumbar radiculopathy [facility] [place] [address] [facility], [address] [facility], [facility] [address] [place] [address] [place] [address] [phone] Social History Tobacco Use Types Packs/Day Years Used Date Smoking Tobacco: Never Smokeless Tobacco: Never Alcohol Use Standard Drinks/Week Comments Yes 2 (1 standard drink = 0.6 oz pure alcoho l) per week Sex Assigned at Date Recorded Not on file documented as of this encounter Progress Notes Isabel Guillaume, WIPING RAG WASHER - 11/29/2017 9:30 AM CDT 11/29/2017 Visit # 18 Protocol: Back, Disc and subma Start: 9:30 am End: 10:06 am (WIPING RAG WASHER Visit # 3 Subjective: Pt reports caring for her grandson and it all went well with her back. 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 Cervical Not performed today. Objective Tests & Measures: 4# increase on lumbar extension Tests performed today (see reviewflowsheet for score and outcomes): : None Performed Today Warm Up: Movement Specific Training: Not Completed Treadmill: Minutes 5 Intensity 3.2 mph ICE: Back Lumbar Lumbar & Torso 11/29/2017 Set 1 Ext % Max 100% Set 1 Ext ROM 3-48 Set 1 Ext Wgt 90 Set 1 Ext Reps 21 Set 1 Ext Tul 86 Set 1 Ext Tez RPE 9/10 Set 2 Ext % Max 100% Set 2 Ext ROM 3-48 Set 2 Ext Wgt 90 Set 2 Ext Reps 20 Set 2 Ext Tul 169 Set 2 Tez RPE 10 Left Rot % Max 60% Left Rot ROM 40 Left Rot Wgt 24 Left Rot Reps 20 Left Rot Aubree RPE 3/10 Right Rot % Max 60% Right Rot ROM 40 Right Rot Wgt 24 Right Rot Reps 20 Right Rot Tez RPE 3/10 Therapeutic Exercise (23 min): Patient performed isolated lumbar extension exercise and auxillary exercises to improve muscle strength, to improve muscle endurance, to improve muscle flexibility, to improve range of motion and increase strength and endurance levels of supporting spinal muscle groups to increase tolerance for sitting, standing, walking, lifting, driving, household tasks and caring for her grandchildren. Pt educated on proper muscle engagement on the lumbar extension exercise through relaxing legs and pushing shoulders back. Pt should feel muscle fatigue in the form of burning or ache but this will subside within 5 minutes of done with the exercise. Neuromuscular Re-Education (5 min): Patient performed isolated torso rotation to decrease substitution patterns present with chronic pain, to improve self-correction of posture and to facilitate motion in pain free plane to increase patient confidence with movement to reduce fear to increase tolerance for sitting, standing, walking, lifting, driving, household tasks and caring for her grandchilden. Auxillary Auxillary 11/29/2017 Abs Wgt Set 1 40 Abs Reps Set 1 20 Abs Wgt Set 2 40 Abs Reps Set 2 20 Glute Wgt Set 1 110 Glute Reps Set 1 22 Glute Wgt Set 2 110 Glute Reps Set 2 20 Leg Press Wgt Set 1 180 Leg Press Reps Set 1 20 Leg Press Wgt Set 2 180 Leg Press Reps Set 2 23 Lats Wgt Set 1 60 Lats Reps Set 1 21 Lats Wgt Set 2 60 Lats Reps Set 2 20 Other Crate 30# HEP - Therapeutic Activities (8 min): Therapeutic Activities 11/29/2017 SITTING POSTURE - STANDING POSTURE - SLEEP POSTURE - BASE OF SUPPORT - WEIGHT SHIFT - PIVOT VS TWIST - OBJECT CLOSE VS FAR AWAY - SQUAT - LIFT FROM FLOOR - LIFT OVERHEAD - OTHER ACTIVITY Pt instructed to lift a 30# crate from the waist shelf ht to the floor and repeat x 3times. Pt demonstrates good form and uses a staggered approach to get in closer to the wt. Pt did not have sx or any pain during the entire movement. Patient Education: Patient was instructed in correlation of strength and function to increase their understanding of the benefits related to completing the [facility] Re[facility] program Educated on doing yard work using the elisha chair and ice in the initial phase of increased bending or pulling activities. Assessment: Pt tolerated the treatment well and demonstrates good muscle strength gains around the lumbar spine as it relates to lifting her grandson and doing house projects without issues now. Pt also has a more even gait without a noticeable limp related to the balance of muscle strength in the legs now. Goals: Short Term Goals (4-6 weeks): 1. [...] 11/04/17: ??Goal Met during treatment today. ? Custodial Goals (>6 weeks): 1. Patient will be [...] - monitor R LE symptoms. ?? Recommendations/Communication: 100% torso rotation 60% lumbar extension And MD visit. Total timed code min: 36 Total treatment time: 36 Isabel Guillaume PTA 11/29/2017, 9:32 AM documented in this encounter Plan of Treatment Not on filedocumented as of this encounter Visit Diagnoses Diagnosis Lumbar radiculopathy Thoracic or lumbosacral neuritis or radi culitis, unspecified documented in this encounter Care Teams Outbound Sales Specialist Relationship Specialty Start Date End Date Asia Millard MD PCP - General Family Practice 09/23/171999 [place] [address] documented as of this encounter
--- OUTSIDE RECORDS SUMMARY | 2022-07-02 14:38 | XMS_ITS | Encounter Summary ---
:1955 Author Organization [facility] Address [address] [place] [address] Care Team Providers Name Role Phone Asia Millard MD Primary Care Provider [phone] Reason for Visit Reason Comments BACK PAIN, LOW Consult/Transfer Care (Routine) - Closed Specialty Diagnoses / Procedures Referred By Contact Refer red To Contact Physical Therapy Diagnoses Spondylosis without myelopathy or radiculopathy, lumbosacral region (HRC) MRI - [facility] [place] Mele Kathleen MD [address] [address] [place] [address] [address], [address] [place] [address] Phone: Fax: Referral ID Status Reason Start Date Expiration Date Visits Requ ested Visits Authorized [id number] Closed 09/21/2017 12/21/2018 90 90 Encounter Details Date Type Department Care Team Description 11/10/2017 Therapy Physicians Neck and Back Vinny Guillaume, DESIZING MACHINE OPERATOR HEAD END Lumbar radiculopathy Center [place] [address] [facility], [address] [facility], [facility] [address] [place] [address] [place] [address] [phone] Social History Tobacco Use Types Packs/Day Years Used Date Smoking Tobacco: Never Smokeless Tobacco: Never Alcohol Use Standard Drinks/Week Comments Yes 2 (1 standard drink = 0.6 oz pure alcoho l) per week Sex Assigned at Date Recorded Not on file documented as of this encounter Progress Notes Isabel Guillaume, DESIZING MACHINE OPERATOR HEAD END - 11/10/2017 9:15 AM CDT 11/10/2017 Visit # 13 Protocol: Back, Disc and submax Start: 9:10 am End: 9:41 am (DESIZING MACHINE OPERATOR HEAD END Visit # 2 Subjective: Pt was pretty sore after the last session but is recovering ok. She is feeling stronger still has the pain but at a lesser degree. Pt has more central low back pain now in lumbar extension exercise versus right sided so pleased with that. Cervical Not performed today. Objective Tests & Measures: 5# increase in the lumbar extension exercise Tests performed today (see reviewflowsheet for score and outcomes): : None Performed Today Warm Up: Movement Specific Training: Not Completed Mat Exercises Completed Treadmill: Minutes 5 Intensity 3.4 mph ICE: Back Lumbar Lumbar & Torso 11/10/2017 Set 1 Ext % Max 100% Set 1 Ext ROM 3-42 Set 1 Ext Wgt 77 Set 1 Ext Reps 21 Set 1 Ext Tul 76 Set 1 Ext Tez RPE 5-6/10 Set 2 Ext % Max 100% Set 2 Ext ROM 3-42 Set 2 Ext Wgt 77 Set 2 Ext Reps 22 Set 2 Ext Tul 96 Set 2 Tez RPE 7/10 Left Rot % Max 60% Left Rot ROM 35 Left Rot Wgt 20 Left Rot Reps 20 Left Rot Aubree RPE 3/10 Right Rot % Max 60% Right Rot ROM 35 Right Rot Wgt 20 Right Rot Reps 20 Right Rot Tez [...] strengthening along the entire movement. Neuromuscular Re-Education (8 min): Patient performed isolated torso rotation and home fer chair exercises to decrease substitution patterns present with chronic pain, improve muscle recruitment patterns, to improve self-correction of posture and to improve kinesio awareness to increase tolerance for sitting, standing, walking, sleepin g, lifting, driving and bending.. Reviewed fer chair technique to improve proper form/rep speed and ensure a successful HEP upon d/c. Pt is doing well with the FER CHAIR technique to effective engage the lumbar extensor mms and avoid compensatory patterns with the gluts and hams. Auxillary Auxillary 11/10/2017 Abs Wgt Set 1 40 Abs Reps Set 1 21 Abs Wgt Set 2 40 Abs Reps Set 2 21 Glute Wgt Set 1 100 Glute Reps Set 1 20 Glute Wgt Set 2 100 Glute Reps Set 2 24 Leg Press Wgt Set 1 180 Leg Press Reps Set 1 22 Leg Press Wgt Set 2 180 Leg Press Reps Set 2 22 Lats Wgt Set 1 55 Lats Reps Set 1 25 Lats Wgt Set 2 55 Lats Reps Set 2 25 Other - HEP fer chair review Therapeutic Activities (0 min): Not performed today. Patient Education: Patient was instructed in correlation of strength and function to increase their understanding of the benefits related to completing the [facility] program Fer chair review Assessment: Pt tolerated the treatment well with good muscle fatigue on all exercises today. Pt is making good progress with increased ability to do household duties with lifting/bending functional activities. Pt has noticed more centralized pain in the spine versus the right sided discomfort that was predominant in the beginning of the program. Goals: Short Term Goals (4-6 weeks): 1. [...] 11/04/17: ??Goal Met during treatment today. ? Facilities Maintenance Worker Goals (>6 weeks): 1. Patient will [...] Recommendations/Communication: 100% torso rotation 60% lumbar extension and lifting. Total timed code min: 31 Total treatment time: 31 Isabel Guillaume PTA 11/10/2017, 9:10 AM documented in this encounter Plan of Treatment Not on filedocumented as of this encounter Visit Diagnoses Diagnosis Lumbar radiculopathy Thoracic or lumbosacral neuritis or radi culitis, unspecified documented in this encounter Care Teams Meteorology Teacher Relationship Specialty Start Date End Date Asia Millard MD PCP - General Family Practice 09/23/17[address] [place] [address] documented as of this encounter
--- OUTSIDE RECORDS SUMMARY | 2022-07-02 14:38 | XMS_ITS | Encounter Summary ---
:1955 Author Organization [facility] Address [address] [place] [address] Care Team Providers Name Role Phone Asia Millard MD Primary Care Provider [phone] Reason for Visit Reason Comments BACK PAIN, LOW LEG PAIN Consult/Transfer Care (Routine) - Closed Specialty Diagnoses / Procedures Referred By Contact Refer red To Contact Physical Therapy Diagnoses Spondylosis without myelopathy or radiculopathy, lumbosacral region (HRC) MRI - [facility] [place] Mele Kathleen MD [address] [address] [facility] [place] [address] [address], [address] [place] [address] Phone: Fax: Referral ID Status Reason Start Date Expiration Date Visits Requ ested Visits Authorized [id number] Closed 09/21/2017 12/21/2018 90 90 Encounter Details Date Type Department Care Team Description 09/29/2017 Therapy Physicians Neck and Sang Hamlin, PT Delilah keaton radiculopathy Back Center [facility] jason (Primary Dx) [address] [facility], [address] [place] [address] Social History Tobacco Use Types Packs/Day Years Used Date Smoking Tobacco: Never Smokeless Tobacco: Never Alcohol Use Standard Drinks/Week Comments Yes 2 (1 standard drink = 0.6 oz pure alcoho l) per week Sex Assigned at Date Recorded Not on file documented as of this encounter Progress Notes Sang Hamlin, PT - 09/29/2017 9:45 AM CST PHYSICAL THERAPY EVALUATION Patient Report Symptoms: R>L LBP with pins and needles in Right sided posterior thigh and tingling in her right foot intense pain in right lateral gonzalez the wakes her up at night. Onset: low back pain x 5 years on/off, Right leg symptoms x 3-4 years, worse over the past 2 years. No current facility-administered medications for this visit. Medications reviewed with patient: yes Past Medical History: Diagnosis Date ??? Arthritis Past Surgical History: Procedure Laterality Date ??? HIP ARTHROPLASTY Replacement ??? HYSTERECTOMY 2008 subtotal abd hyst BSO ??? OVARY REMOVAL Bilateral Review of systems reviewed with patients: yes R HAMMAD (2005) MRI 09/2017. 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 Possibly instability reported on MRI (awaiting flexion/extension imaging results). Spondylolisthesis. Psoriasis (skin only). 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 Bending forward will increase LBP Walking: <1 mile. She can walk 1/2 mile Sitting: can sit in nice emirati chair longer. If minimal lumbar support then she needs to use pillow for support. Standing: to clean, clean, get dressed will make back worse Sleeping: <50% disturbed due to pain in right lateral gonzalez, stiff in AM Driving: no difficulty reported Other Limitations: vacuuming, standing to get dressed, cook, clean, bending down to paint/clean, don/doff shoes will have pulling and tightness down back of right leg. Pain Characteristics: See patient PAIN DIAGRAM and PAIN CHARACTERISTICS on QUESTIONNAIRE form. Improved by: gabapentin,stretchign Aggravated by: see function above Description/Quality: Achy, Sharp, Burning, Numbness and Tingling 4/10 EXAMINATION: Tests and measures: Posture: forward head posture with rounded shoulders and increased thoracic kyphosis Cervical ROM Lumbar ROM No flowsheet data found. No flowsheet data found. Mobility: moderate hypomobility noted in lumbar spinal segments and mid thoracic spinal segments Gait: decreased distance with slight antalgic gait due to right hip and leg pain Functional Testing: Oswestry Other: Decreased lumbar paraspinal mm strength with lumbopelvic mm instability. Decreased strength and endurance in glute, hip, ab, obliques, hamstring mm B/L. Directional Preference: none upon examination P.T. DIAGNOSIS: ICD-10-CM 1. Lumbar radiculopathy M54.16 PROGNOSIS: good Risk factors/potential barriers: Disc/Spondy ASSESSMENT Pt present with Right>left LBP with right sided posterior thigh pain and tingling in her right foot. This pain has been on/off for 5 years with increased right leg and foot symptoms. She has historyof spondylolisthesis with instability noted on past MRI. Flex/extension X-ray ordered prior to starting physical therapy. PLAN OF CARE Frequency: 2 visits/week. Duration: 90 days (90 days max for Medicare and [place] patients). Short Term Goals (4-6 weeks): 1. Pt will perform MST HEP 2x/day consistently to improve lumbar and hip mobility. 2. Pt will report a decreased frequency of left calf and leg symptoms to 2 or fewer times/week. 3. Pt will demonstrate proper body/lifting mechanics to bend and lift 15# crate from floor to chest height without LBP. Him Clerk Goals (>6 weeks): 1. Patient will be independent with home exercise program after discontinued from Physical Therapy. 2. Pt will walk/stand for >60 mins without low back or leg symptoms to grocery shop. 3.Pt will demonstrate proper body/lifting mechanics to bend and lift 30# crate from floor to chest height without LBP Planned Interventions: Therapeutic Exercise, Therapeutic Activity and Neuromuscular re-education Discharge Plan: [place] in strength maintenance home exercise program TODAY'S INTERVENTIONS: Therapeutic Exercise, Therapeutic Activity and Neuromuscular re-education Sang Hamlin, ELIECER 09/29/2017, 11:06 AM OM SANDER Sang Hamlin, PT - 09/29/2017 9:45 AM CST 09/29/17 Visit # 1 Protocol: Back, Disc and submax/ Start: 0950 End: 1054 (HOSPITAL ORDERLY Visit # 0 Subjective: see evaluation Cervical Not performed today. Objective Tests & Measures: See eval Tests performed today (see reviewflowsheet for score and outcomes): : Oswestry Warm Up: Movement Specific Training: Completed Mat Exercises Completed ICE: Declined Lumbar No flowsheet data found. Therapeutic Exercise (27 min): Patient performed movement specific training to improve muscle flexibility, to improve range of motion and to increase strength for seated posture to increase tolerance for standing, walking, lifting and reading Demo used to teach specific movement and assist pt with motor coordination and control. Following demo, pt reciprocated mvmt with VCs needed to improve performance. Neuromuscular Re-Education (0 min): None performed today. Auxillary Not performed today. Therapeutic Activities (15 min): Therapeutic Activities 09/29/2017 SITTING POSTURE Needs further training STANDING POSTURE Needs further training SLEEP POSTURE Needs further training Sitting posture demonstrated with instruction and tips given during demonstration to retract scapulaand better align head and neck with shoulders to eliminate thoracic kyphosis. Log rolling also demonstrated with instruction during and post demo to teach safe, pain free way to change positions in bedand rise in AM with less pain. Pt reciprocated performance following demo with VCs given during and following performance to improve pt technique, retract shoulders, maintain neutral pelvis, and minimize compensatory mvmt patterns. Patient Education: Patient was instructed in pain/time scale , specific review of patients progress and correlation of strength and function to increase their understanding of the benefits related to completing the [facility] program Access Code: [email or web address] URL: [email or web address] Date: 09/29/2017 Prepared by: Sang Hamlin Program Notes Don't osei, go slowly and hold position 5 seconds Exercises Supine Lower Trunk Rotation - 5 reps - 1 sets - 5 hold - 2x daily - 7x weekly Supine Hamstring Stretch - 5 reps - 1 sets - 5 hold - 2x daily - 7x weekly Supine Piriformis Stretch - 5 reps - 1 sets - 5 hold - 2x daily - 7x weekly Seated Trunk Rotation - Arms Crossed - 5 reps - 1 sets - 5 hold - 2x daily - 7x weekly Prone Press Up on Elbows - 5 reps - 1 sets - 5 hold - 2x daily - 7x weekly Prone Press Up - 5 reps - 1 sets - 5 hold - 2x daily - 7x weekly Standing Lumbar Extension - 5 reps - 1 sets - 5 hold - 2x daily - 7x weekly Lumbar sidebending at wall - 5 reps - 1 sets - 5 hold - 2x daily - 7x weekly Patient Education Low Back Pain Lifting Techniques Household Activities Sleep Positions Lumbar Spondylolisthesis Osteoporosis Assessment: awaiting flex/extension radiographs and clearance from MD prior to initiating lumbar progressive resistance strengthening program. Goals: Precautions: see candido Recommendations/Communication: awaiting clearance to start medX Total timed code min: 45 Total treatment time: 64 Sang Hamlin, PT 09/29/2017, 10:48 AM OM SANDER documented in this encounter Plan of Treatment Not on filedocumented as of this encounter Visit Diagnoses Diagnosis Lumbar radiculopathy - Primary Thoracic or lumbosacral neuritis or radi culitis, unspecified documented in this encounter Care Teams Medical Billing And Coding Specialist Relationship Specialty Start Date End Date Asia Millard MD PCP - General Family Practice 09/23/171999 [place] [address] documented as of this encounter
--- OUTSIDE RECORDS SUMMARY | 2022-07-02 14:38 | XMS_ITS | Encounter Summary ---
:1955 Author Organization [employer] Address [address] [place] [address] Care Team Providers Name Role Phone Asia Millard MD Primary Care Provider [phone] Reason for Visit Reason Comments BACK PAIN, LOW Consult/Transfer Care (Routine) - Closed Specialty Diagnoses / Procedures Referred By Contact Refer red To Contact Physical Therapy Diagnoses Spondylosis without myelopathy or radiculopathy, lumbosacral region (HRC) MRI - [facility] [place] Mele Kathleen MD [facility] [address] [facility] [address] [place] [address] [address], [address] [place] [address] Phone: Fax: Referral ID Status Reason Start Date Expiration Date Visits Requ ested Visits Authorized [id number] Closed 09/21/2017 12/21/2018 90 90 Encounter Details Date Type Department Care Team Description 10/25/2017 Therapy Phys[facility] Ne[facility] Back Joann Sanchez, Lumbar radiculopathy Center [place] [facility]EN[facility] [address] [facility], [address], [place] [address] [place] [address] [place] [address] [phone] (Wo rk) Social History Tobacco Use Types Packs/Day Years Used Date Smoking Tobacco: Never Smokeless Tobacco: Never Alcohol Use Standard Drinks/Week Comments Yes 2 (1 standard drink = 0.6 oz pure alcoho l) per week Sex Assigned at Date Recorded Not on file documented as of this encounter Progress Notes Nannette Sanchez, HAT BLOCK BENCH HAND - 10/25/2017 9:30 AM CDT 10/25/2017 Visit # 8 Protocol: Back, Disc and sub-max Start: 9:28 End: 10:10 (HAT BLOCK BENCH HAND Visit # 3 Subjective: Pt states that she is doing well feeling like the therapy is helping her gain strength. Cervical Not performed today. Objective Tests & Measures: Tests performed today (see reviewflowsheet for score and outcomes): : None Performed Today Warm Up: Movement Specific Training: Completed Mat Exercises Completed Treadmill: Minutes 5 Intensity mod ICE: Back Lumbar Lumbar & Torso 10/25/2017 Set 1 Ext % Max 60% Set 1 Ext ROM 3-42 Set 1 Ext Wgt 36 Set 1 Ext Reps 30 Set 1 Ext Tul 143 Set 1 Ext Tez RPE 4 Set 2 Ext % Max - Set 2 Ext ROM - Set 2 Ext Wgt - Set 2 Ext Reps - Set 2 Ext Tul - Set 2 Tez RPE - Left Rot % Max 80 Left Rot ROM 35 Left Rot Wgt 26 Left Rot Reps 25 Left Rot Aubree RPE 7 Right Rot % Max 80 Right Rot ROM 35 Right Rot Wgt 26 Right Rot Reps 25 Right Rot Tez RPE 7 Therapeutic Exercise (30min): Patient performed isolated torso rotation exercise and auxillary exercises to improve muscle strength, to improve muscle endurance, to improve muscle flexibility and to increase strength for seated posture to increase tolerance for standing and walking Analyzed data from previous treatment to determine changes in range of motion and weight capacity for today's RX. Cued pt for correct body alignment and form during the exercises. Advised on optimal pace to achieve most benefits of the exercise. See Daily Exercise flow sheet for numeric details. Neuromuscular Re-Education (12 min): Patient performed isolated lumbar extension to retrain muscles for proper sequencing and improve muscle recruitment patterns to increase tolerance for standing and walking. Fer Chair Instruction: Demonstration and cueing to perform with proper height setting, flexed knees, discouraged trunk hyperextension. Analyzed data from previous treatment to determine changes in range of motion and weight capacity for today's RX. Cued pt for correct body alignment and form during the exercises. Advised on optimal pace to achieve most benefits of the exercise. See Daily Exercise flow sheet for numeric details. Auxillary Auxillary 10/25/2017 Abs Wgt Set 1 35 Abs Reps Set 1 24 Abs Wgt Set 2 35 Abs Reps Set 2 20 Glute Wgt Set 1 70 Glute Reps Set 1 20 Glute Wgt Set 2 70 Glute Reps Set 2 20 Leg Press Wgt Set 1 170 Leg Press Reps Set 1 20 Leg Press Wgt Set 2 170 Leg Press Reps Set 2 20 Lats Wgt Set 1 50 Lats Reps Set 1 20 Lats Wgt Set 2 50 Lats Reps Set 2 20 Other Fer chiar instruction HEP - Therapeutic Activities (0 min): Not performed today. Patient Education: Patient was instructed in pain/time scale to increase their understanding of the benefits related tocompleting the [facility] Re[facility] program Assessment: Fer Chair Instruction: Demonstration and cueing to perform with proper height setting,flexed knees, discouraged trunk hyperextension. Goals: Short Term Goals (4-6 weeks): 1. Pt will perform MST HEP 2x/day consistently to improve lumbar and hip mobility. (goal met 3-21) 2. Pt will report a decreased frequency of right thigh/leg symptoms to 2 or fewer times/week. 3. Pt will demonstrate proper body/lifting mechanics to bend and lift 15# crate from floor to chest height without LBP. ? Fishing Vessel Mate Goals (>6 weeks): 1. Patient will be independent with home exercise program after discontinued from Physical Therapy. 2. Pt will walk/stand for >60 mins without low back or right leg symptoms to grocery shop. 3.Pt will demonstrate proper body/lifting mechanics to bend and lift 30# crate from floor to chest height without LBP ? Precautions: Disc with spondylolisthesis (block end range lumbar extension), R [id number]. 10/18/17: T-Rot initiated today - monitor R LE symptoms. Recommendations/Communication: 100% Lumbar Ext, 60% T- Roto Total timed code min: 42 Total treatment time: 42 Nannette Sanchez PTA 10/25/2017, 2:32 PM documented in this encounter Plan of Treatment Not on filedocumented as of this encounter Visit Diagnoses Diagnosis Lumbar radiculopathy Thoracic or lumbosacral neuritis or radi culitis, unspecified documented in this encounter Care Teams Leader Tier Relationship Specialty Start Date End Date Asia Millard MD PCP - General Family Practice 09/23/171999 [place] [address] documented as of this encounter
--- OUTSIDE RECORDS SUMMARY | 2022-07-02 14:38 | XMS_ITS | Encounter Summary ---
:1955 Author Organization [employer] Address [address] [place] [address] Care Team Providers Name Role Phone Asia Millard MD Primary Care Provider [phone] Reason for Visit Reason Onset Date Comments BACK PAIN, LOW 09/29/2017 Encounter Details Date Type Department Care Team Description 09/29/2017 Office Visit Physicians Neck and Jackeline Nelson dylolisthesis, lumbar region (Primary Dx); Back Center MD [place] Lumbar degenerative disc disease; [place] [address] [facility] Mechanical low back pain; [address] [place], [place] Lumbar rad iculitis; Center, [address] [address] [place] [address] Social History Tobacco Use Types Packs/Day Years Used Date Smoking Tobacco: Never Smokeless Tobacco: Never Alcohol Use Standard Drinks/Week Comments Yes 2 (1 standard drink = 0.6 oz pure alcoho l) per week Sex Assigned at Date Recorded Not on file documented as of this encounter Progress Notes Jackeline Nelson MD - 09/29/2017 9:00 AM CST Aruna Ayala is a 62 y.o. year old female who presents today for evaluation of her low back. She notes the pain began in approximately 2012 after helping her mother move and pull up some carpet. Since that time she has had recurrent flares in pain, related to activity. Today she reports 4/10 aching pain in right low back with pins and needles into posterior right leg with sharp stabbing pain into lateral gonzalez and tingling into right foot. She notes her leg feels different/heavy, possibly weak. Of note, she had a right hip replacement in 2006, does note clicking but otherwise doing well. No bowel/bladder changes. She notes pain usually improves with cahnges of positions and worsens with increased activity. Imaging includes: MRI lumbar spine showed degenerative disc disease with L4-5 protrusion enroaching R L5 nerve root, 2 mm spondylolisthesis with question of instability, 1-2 mm spondylolisthesis at L5-S1. Treatments include gabapentin with questionable relief. Previous treatments include LENCHO in 2016 with temporary relief, chiropractics with no relief, PT with some relief. There is no history of spine surgery in the past. MRI lumbar spine 09/16/2017: Multilevel lumbar degenerative changes and mild generalized lumbar levoscoliosis with the following specific findings: 1. L4-L5 subarticular encroachment of the right L5 nerve root. 2. L5-S1 increased. Advanced bilateral facet degeneration with a new inflammatory component of arthropathy on the right the setting of a new 1-2 mm spondylolisthesis. Findings of segmental instability at this level may be correlated with lumbar flexion, extension radiographs. 3. Facet degeneration at all other levels. Advanced bilaterally at L4 L5, mild bilaterally at L3 L4. 4. Chronic foraminal stenosis at scattered lumbar levels no greater than mild. 5. No spondylo-lysis acute fracture or destructive osseous lesion. Multilevel degenerative endplate edema, greatest at L1 L2 with a potential source for axial low back pain. 10+ systems were reviewed with pertinent positives and negatives noted above, see scanned document for details. Past Medical History: Diagnosis Date ??? Arthritis Psoriasis - skin only, no joint involvement, well controlled Past Surgical History: Procedure Laterality Date ??? HIP ARTHROPLASTY Replacement ??? HYSTERECTOMY 2008 subtotal abd hyst BSO ??? OVARY REMOVAL Bilateral Social History Substance Use Topics ??? Smoking status: Never Smoker ??? Smokeless tobacco: Never Used ??? Alcohol use 1.2 oz/week 2 Glasses of wine per week Comment: per week Exam: Alert female in no acute distress. The patient is able to ambulate normally and can walk on heels and toes easily. Weight appears normal. Lumbar flexion was measured at 60??, extension at 10??, lateralbending at 30?? bilaterally. Decreased ROM right hip, L hip range of motion was within normal limits. Tenderness on palpation was noted in the area of right low back and midline. No significant tenderness noted elsewhere. Reflexes were 2+ and symmetric at the knees, and 2+ and symmetric at the ankles.Strength (in hip flexion, knee flexion, knee extension, ankle flexion, ankle extension, great toe flexion and great toe extension) and sensation throughout bilateral lower extremities was normal. Straight leg raise was 80/90?? bilaterally, limited due to right leg pain on right (equivocal, some pain at baseline) and hamstring tightness on L. Imaging and tests: Flex/extension lumbar x-ray ordered to assess for dynamic instability Assessment: ICD-10-CM 1. Spondylolisthesis, lumbar region M43.16 XR Lumbar Spine W Flexion Extension [facility] Therapy Eval 2. Lumbar degenerative disc disease (HRC) M51.36 [facility] Therapy Eval 3. Mechanical low back pain (HRC) M54.5 [facility] Therapy Eval 4. Lumbar radiculitis M54.16 [facility] Therapy Eval 5. Muscular deconditioning R29.898 [facility] Therapy Eval Plan: Aruna Ayala is a good candidate for [facility]???s rehabilitation program. I would like to have her x-ray results before having her undergo therapy, will just do stretches today. The patient has long standing back pain, ongoig for about 5 years. She does have evidence of lumbar radiculopahty with constant right leg symptoms including below the knee which correlate with her L5 nerve root enroachment on the right on MRI Her prognosis for improvement is good, though dependent on consistent attendance, good effort and steady objective progression. If she can significantly improve her spinal fitness level, I think she has a good chance of getting meaningful relief. The patient will follow-up after approximately 6 weeks of treatment attending twice a week in the lumbar s- max disc protocol, with expected duration of treatment 9-12 weeks. I spent 45 minutes with the patient today, with great than half spent on counseling and education. Kim reviewed the program with the patient and answered all of her questions. I explained the anatomy and pathophysiology of their condition. The natural course of treatment was outlined. We discussed that there may be some initial increase in her discomfort as the active rehabilitation begins. The patient will be actively involved in her own treatment. She will need to participate in a home program and learn to be responsible for self-care by the end of treatment. Finally, we discussed the necessity to do the home program indefinitely after discharge from rehabilitation to maintain benefits. This note was completed using voice recognition software. Clarification of any unclear and unintended substitutions should be requested, if needed. aJckeline Nelson MD, MPH [facility] 09/29/2017 S BURNISHER documented in this encounter Plan of Treatment Not on filedocumented as of this encounter Visit Diagnoses Diagnosis Spondylolisthesis, lumbar region - Prima ry Lumbar degenerative disc disease (HRC) Degeneration of lumbar or lumbosacral in tervertebral disc Mechanical low back pain Lumbago Lumbar radiculitis Thoracic or lumbosacral neuritis or radi culitis, unspecified Muscular deconditioning Muscular wasting and disuse atrophy, not elsewhere classified documented in this encounter Care Teams Plate Mill Hand Relationship Specialty Start Date End Date Asia Millard MD PCP - General Family Practice 09/23/171999 [place] [address] documented as of this encounter
--- OUTSIDE RECORDS SUMMARY | 2022-07-02 14:38 | XMS_ITS | Encounter Summary ---
:1955 Author Organization [facility] Address [address] [place] [address] Care Team Providers Name Role Phone Unavailable Primary Care Provider Unavailable Encounter Details Date Type Department Care Team Description 04/19/2014 Lab Visit [facility] Lab D raw Screening for thyroid disord er; [address] Screening for diabetes [facility]; [place] [address] Screening for lipoid disorde [phone] Social History Tobacco Use Types Packs/Day Years Used Date Smoking Tobacco: Never Assessed Sex Assigned at Date Recorded Not on file documented as of this encounter Plan of Treatment Not on filedocumented as of this encounter Procedures Procedure Name Priority Date/Time Associated Diagnosis Comme nts GLUCOSE Routine 04/19/2014 9:20 AM Screening for Results for this CDT diabetes mellitus procedure are in the results section. TSH AND FREE T4 Routine 04/19/2014 9:20 AM Screening for Resul ts for this (FRT4 IF TSH CDT thyroid disorder procedure a re in ABNORM) the results section. LIPID PANEL AND Routine 04/19/2014 9:20 AM Screening for lipoi d Results for this DIRECT LDL(IF CDT disorders procedure are in NEEDED) the results section. documented in this encounter Results (ABNORMAL) Lipid Panel and Direct LDL(If Needed) (04/19/2014 9:20 AM CDT) [facility] Method Time Signature Cholesterol 215 (H) 0 - 200 HP CONVERSION mg/dL Triglycerides 90 0 - 149 HP CONVERSION mg/dL HDL Cholesterol 60 >39 mg/dL HP CONVERSION Cholesterol/HDL 3.6 HP CONVERSION Ratio Screen LDL Calculated 137 (H) 19 - 130 HP CONVERSION mg/dL Length Of Fast Unknown HP CONVERSION Specimen Anatomical Collection Method Collection Time Receive d Time (Source) Location / / Volume Laterality 04/19/2014 9:20 AM 4 9:34 CDT AM CDT Alondra Muller MD LAB_1 Performing Organization Address [facility] Phon e Number HP CONVERSION GLUCOSE (04/19/2014 9:20 AM CDT) athologist Signature Lab Glucose 85 60 - 100 HP CONVERSION mg/dL Specimen Anatomical Collection Method Collection Time Receive d Time (Source) Location / / Volume Laterality 04/19/2014 9:20 AM 4 9:34 CDT AM CDT Alondra Muller MD LAB_1 Performing Organization Address [facility] Code Phon e Number HP CONVERSION TSH AND FREE T4 (FRT4 IF TSH ABNORM) (04/19/2014 9:20 AM CDT) athologist Signature Thyroid 3.06 0.20 - HP CONVERSION Stimulating 4.50 Hormone Specimen Anatomical Collection Method Collection Time Receive d Time (Source) Location / / Volume Laterality 04/19/2014 9:20 AM 4 9:34 CDT AM CDT Alondra Muller MD LAB_1 Performing Organization Address [facility] Phon e Number HP CONVERSION documented in this encounter Visit Diagnoses Diagnosis Screening for thyroid disorder Screening for diabetes mellitus Screening for lipoid disorders documented in this encounter
--- OUTSIDE RECORDS SUMMARY | 2022-07-02 14:38 | XMS_ITS | Encounter Summary ---
:1955 Author Organization [employer] Address [address] [place] [address] Care Team Providers Name Role Phone Asia Millard MD Primary Care Provider [phone] Reason for Visit Reason Comments BACK PAIN, LOW Consult/Transfer Care (Routine) - Closed Specialty Diagnoses / Procedures Referred By Contact Refer red To Contact Physical Therapy Diagnoses Spondylosis without myelopathy or radiculopathy, lumbosacral region (HRC) MRI - [facility] [place] Mele Kathleen MD [address] [address] [place] [address] [place], [address] [place] [address] Phone: Fax: Referral ID Status Reason Start Date Expiration Date Visits Requ ested Visits Authorized [id number] Closed 09/21/2017 12/21/2018 90 90 Encounter Details Date Type Department Care Team Description 11/02/2017 Therapy Phys[facility] Neck [facility] Back Vinny Guillaume, LINE BUILDER Lumbar radiculopathy Center [place] [address] [facility], [address] [facility], [address] [place] [address] [place] [address] [phone] Social History Tobacco Use Types Packs/Day Years Used Date Smoking Tobacco: Never Smokeless Tobacco: Never Alcohol Use Standard Drinks/Week Comments Yes 2 (1 standard drink = 0.6 oz pure alcoho l) per week Sex Assigned at Date Recorded Not on file documented as of this encounter Progress Notes Isabel Guillaume, LINE BUILDER - 11/02/2017 9:15 AM CDT 11/02/2017 Visit # 10 Protocol: Back, Disc and submax Start: 9:07 am End: 9:39 am (LINE BUILDER Visit # 5 Subjective: Pt reports doing Easter dinner and pt did fine when remembering good body mechanics. Pt was sore but she iced and stretched. Pt reports leg sx may be a little better as well the low. Pt reports going [facility] the [facility] at [facility] for the [facility] time fairly effortless which has been a long time. Cervical Not performed today. Objective Tests & Measures: 90% max wt on torso rotation Tests performed today (see reviewflowsheet for score and outcomes): : Oswestry 12% today, 30% on IE Warm Up: Movement Specific Training: Not Completed Mat Exercises Completed Bike: Minutes 5 Intensity L4 ICE: Back Lumbar Lumbar & Torso 11/02/2017 Set 1 Ext % Max 60% Set 1 Ext ROM 3-42 Set 1 Ext Wgt 40 Set 1 Ext Reps 30 Set 1 Ext Tul 106 Set 1 Ext Tez RPE 3/10 Set 2 Ext % Max - Set 2 Ext ROM - Set 2 Ext Wgt - Set 2 Ext Reps - Set 2 Ext Tul - Set 2 Tez RPE - Left Rot % Max 90% Left Rot ROM 35 Left Rot Wgt 28 Left Rot Reps 20 Left Rot Aubree RPE 5/10 Right Rot % Max 90% Right Rot ROM 35 Right Rot Wgt 28 Right Rot Reps 20 Right Rot Tez RPE 5/10 Therapeutic Exercise (23 min): Patient performed isolated torso rotation exercise and auxillary exercises to improve muscle strength, to improve muscle endurance, to improve muscle flexibility, to improve range of motion and increase strength and endurance levels of supporting spinal muscle groups to increase tolerance for sitting, standing, walking, sleeping, lifting, driving and work activities Pt instructed in proper form on torso rotation exercise with emphasis to keep spine in the middle ofthe machine to avoid substitutions and engage the oblique muscles fully. Pt able to do after cues and reminders of body position. Neuromuscular Re-Education (9 min): Patient performed isolated lumbar extension and home fer chair exercises to retrain muscles for proper sequencing, improve muscle recruitment patterns and to facilitate motion in pain free plane to increase patient confidence with movement to reduce fear to increase tolerance for sitting, standing, walking, sleeping, lifting, driving, personal care tasks and household tasks. Reviewed fer chair technique to improve proper form/rep speed and ensure a successful HEP upon d/c. Pt was able to demonstrate good form and only required cues on 2/10 reps to achieve the correct lumbar muscle engagement. Auxillary Auxillary 11/02/2017 Abs Wgt Set 1 40 Abs Reps Set 1 20 Abs Wgt Set 2 40 Abs Reps Set 2 20 Glute Wgt Set 1 80 Glute Reps Set 1 22 Glute Wgt Set 2 80 Glute Reps Set 2 30 Leg Press Wgt Set 1 180 Leg Press Reps Set 1 20 Leg Press Wgt Set 2 180 Leg Press Reps Set 2 20 Lats Wgt Set 1 50 Lats Reps Set 1 22 Lats Wgt Set 2 50 Lats Reps Set 2 25 Other HELADIO today HEP Fer chair review Therapeutic Activities (0 min): Not performed today. Patient Education: Patient was instructed in correlation of strength and function to increase their understanding of the benefits related to completing the [facility] Rehab program Fer chair review see above Assessment: Pt tolerated the treatment fine with no pain after the session. Pt is progressing nicelywith less pain and increased functional abilities like cooking/standing/sitting without increased issues. Pt improved Oswestry from a 30% to a 12% today. Goals: Short Term Goals (4-6 weeks): 1. Pt will perform MST HEP 2x/day consistently to improve lumbar and hip mobility.??(goal met 3-21) 2. Pt will report a decreased frequency of right thigh/leg symptoms to 2 or fewer times/week. 3. Pt will demonstrate proper body/lifting mechanics to bend and lift 15# crate from floor to chest height without LBP. ? Custodial Goals (>6 weeks): 1. Patient [...] monitor R LE symptoms. ?? Recommendations/Communication: 100% lumbar extension and 60% torso rotation and crate lifting Total timed code min: 32 Total treatment time: 32 Isabel Guillaume, HUANG 11/02/2017, 8:57 AM Associated attestation - Sandhya Agudelo, PT - 11/02/2017 11:02 AM CDT Observed treatment. Goals/Plan of Care discussed with LINE BUILDER. Treatment progressing and appropriate. Sandhya Agudelo, PT 11/02/2017, 11:02 AM documented in this encounter Plan of Treatment Not on filedocumented as of this encounter Visit Diagnoses Diagnosis Lumbar radiculopathy Thoracic or lumbosacral neuritis or radi culitis, unspecified documented in this encounter Care Teams Deployment Engineer Relationship Specialty Start Date End Date Asia Millard MD PCP - General Family Practice 09/23/171999 [place] [address] documented as of this encounter
--- OUTSIDE RECORDS SUMMARY | 2022-07-02 14:38 | XMS_ITS | Encounter Summary ---
:1955 Author Organization [facility] include [facility] beds at the [facility] Address [address] [place] [address] Care Team Providers Name Role Phone Unavailable Primary Care Provider Unavailable Encounter Details Date Type Department Care Team Description 03/28/2015 Notes/Orders [facility] Dustin Arevalo ening Obstetrics/Gynecolog y Alondra Casillas MD mammogram (Primary Dx) [address] [facility] [place], [place] [address] Social History Tobacco Use Types Packs/Day Years Used Date Smoking Tobacco: Never Assessed Sex Assigned at Date Recorded Not on file documented as of this encounter Plan of Treatment Not on filedocumented as of this encounter Visit Diagnoses Diagnosis Other screening mammogram - Primary documented in this encounter
--- OUTSIDE RECORDS SUMMARY | 2022-07-02 14:38 | XMS_ITS | Encounter Summary ---
:1955 Author Organization [employer] [employer] Address [address] [place] [address] Care Team Providers Name Role Phone Unavailable Primary Care Provider Unavailable Reason for Visit Reason Comments Annual Exam Encounter Details Date Type Department Care Team Description 04/29/2016 Office Visit [facility] Aurora Pagan, Annual physical exam (Primary Dx); Obstetrics/Gynecolog MD Menopausal symptoms; y [address] Screening for malignant neoplasm of cerv ix; [address] [facility] 5th Floor Screening for lipoid disorders; [place], [place] Sc reening for diabetes mellitus; [id number] Screening for thyroid disorder; [phone] (Wo rk) Screening for condition; Need for prophylactic vaccination and inoculation against influenza Social History Tobacco Use Types Packs/Day Years Used Date Smoking Tobacco: Never Smokeless Tobacco: Never Alcohol Use Standard Drinks/Week Comments Yes 2 (1 standard drink = 0.6 oz pure alcoho l) per week Sex Assigned at Date Recorded Not on file documented as of this encounter Last Filed Vital Signs Vital Sign Reading Time Taken Comments Blood Pressure 134/78 04/29/2016 10:17 AM CDT Pulse 62 04/29/2016 10:17 AM CDT Temperature - - Respiratory Rate - - Oxygen Saturation - - Inhaled Oxygen Concentration - - Weight 75.3 kg (166 lb) 04/29/2016 10:17 AM CDT Height 168.9 cm (5' 6.5) 04/29/2016 10:17 AM CDT Body Mass Index 26.39 04/29/2016 10:17 AM CDT documented in this encounter Progress Notes Anitha Henriquez RN - 05/06/2016 8:17 AM CDT Quick Note: Dear Merced, I am writing to let you know that your PAP and HPV result is negative. This means that your test result was normal. No cancer or precancerous cells were seen. Based on current cervical cancer screening recommendations, your next PAP and HPV should be in 3 years. Please continue to schedule your annual preventive exams for your overall health. If you have questions about your screening results, please call the Cervical Cancer Screening and Management Team at [phone]. Sincerely, Anitha Henriquez RN on behalf of Dr. Sammie Medina, Bicycle Racer Kaylene Wilsonllet Cervical Cancer Screening and Management Aurora Pagan MD - 04/30/2016 6:06 AM CDT NAME: MERCED AYALA MR#: [id number] CSN: [id number] AUTHENTICATING CLINICIAN: Aurora Pagan MD CONFIRM #: [id number] LOC: 412 CLINIC PROGRESS NOTE DATE OF VISIT: 04/29/2016 : 1955 CHIEF COMPLAINT: Annual exam. HISTORY: Merced (narda Sprague) is 61 years old. She had been seeing Dr. Muller who has recently retired. Additionally, Merced is no longer being seen at [facility] and is requesting an annual exam today. She feels well. She is taking a low-dose estrogen patch. She and I discussed that it is elective to do so. She had questions about whether she should stop taking it. Again, it is elective to take. Discussed the risks such as developing a small blood clot which can translate to being a heart attack, stroke, etc. She said she tried to wean down to half the amount she is using now and simply could not tolerate this. PAST MEDICAL HISTORY: Reviewed and includes: Illnesses reviewed and include: 1. Uterine fibroid (had subtotal hysterectomy). 2. Arthritis. Please see problem list and medical list. Surgeries: Subtotal abdominal hysterectomy with bilateral salpingo-oophorectomy 03/2007 (cervix remains). Right hip replacement. ALLERGIES: None to medications. HABITS: Does not smoke. MEDICATIONS: Reviewed. She is using Vivelle Dot 0.05 two times weekly. SOCIAL HISTORY: She is and has a daughter who is a sophomore in college. She also had a stillbirth as her first baby, unfortunately. 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 REVIEW OF SYSTEMS: Denies chest pain, shortness of breath, blood in urine, blood in stool, diarrhea, breast masses, nipple discharge, etc. PHYSICAL EXAM: GENERAL: Well-developed, comfortable-appearing, pleasant woman in no distress. Blood pressure 126/87. Repeat 134/78. Pulse 62. Weight 166. HEENT: Eyes: Sclerae clear. EOMS intact. Nasopharynx clear and without lesions. NECK: No thyromegaly or masses. CHEST: Clear. CARDIAC: Regular rate with normal first and second heart sounds. There were no third heart sounds. BREASTS: Examined sitting and lying down. No masses, nipple discharge, or retractions. ABDOMEN: No organomegaly or masses. Nontender. PELVIC: EGBUS normal. Vagina normal. Cervix nontender. No lesions. Uterus absent. Adnexa: No masses or tenderness. Rectovaginal confirmed. No nodularity. EXTREMITIES: Nontender. No edema. NEUROLOGIC: Grossly normal including normal gait. SKIN: No concerning moles. No lymphadenopathy of neck, supraclavicular, axillary, or inguinal areas. ASSESSMENT: Normal exam. PLAN: 1. Pap with HPV testing. Guidelines reviewed. 2. Thyroid, fasting lab work, hepatitis C antibody - done as routine. 3. Discussed that she feels so much better presently with her arthritis medications. This is terrific. She will try and increase her exercise. 4. Yearly mammogram with monthly self breast exams advised. She had a mammogram today. 5. Colonoscopy done 2012. IHA:MEDQ C: CONFIRM #: [id number] Aurora Pagan MD - 04/29/2016 5:14 AM CDT Annual documented in this encounter Plan of Treatment Not on filedocumented as of this encounter Procedures Procedure Name Priority Date/Time Associated Comments Diagnosis PAP TEST ORDER Routine 04/29/2016 11:20 AM Screening for Resul ts for this CDT malignant neoplasm procedure are in of cervix the results section. HPV WITH 16 18 Routine 04/29/2016 11:20 AM Result s for this GENOTYPING, CDT procedure are i n CERVICAL/ENDOCERVICA the res ults L section. ANATOMICAL PATH Routine 04/29/2016 11:20 AM Resul ts for this LIQUID BASED CDT procedure are i n the results section. documented in this encounter Results Pap Smear (04/29/2016 11:20 AM CDT) Specimen (Source) Anatomical Collection Method Collection Time Re ceived Time Location / / Volume Laterality 04/29/2016 11:20 AM CDT Narrative KYLE GUNDERSON - 05/05/2016 2:28 PM CDT FINAL GYNECOLOGICAL CYTOLOGY REPORT Pathology #: [id number] ?Date Obtained: 04/29/2016 ? Date Received: 04/30/2016 INTERPRETATION/RESULTS: Negative for Intraepithelial Lesion or M alignancy. SPECIMEN ADEQUACY: Satisfactory for Evaluation. ??Endocervi jackson cells/transformation zone component present. Verified on 05/05/2016 ??by BENJI ROCHA (electronic signature) CLINICAL NOTES: ?Abnormal bleeding: No, LMP: pos t, Menstrual status: Post ?Menopausal, Current form of the rapy: Hormone Therapy LIQUID BASED PAP SMEAR SPECIMEN TYPE: ?ROUTINE CERVICAL PAP TEST PLEASE NOTE: The pap smear is a screening test design ed to aid in the detection of cervical cancer and its pre cursor lesions. It is not a diagnostic procedure and elicia uld not be used as the sole means of detecting cervical cancer. Both false-positive and false-negative report s may occur. Performed at [facility] [address] [place] [address] Aurora Pagan MD LAB_1 Performing Organization Address City/State/ZIP Code Phon e Number PN SOFT [address] [place] [address] HPV with 16 18 Genotyping (04/29/2016 11:20 AM CDT) [facility] gist Method Time Signature HPV High Risk Not Detected PN SOFT 16 HPV High Risk Not Detected PN SOFT 18 Other HPV High Not Detected PN SOFT Risk Not 16/18 Comment: ........................................ ................................. The Aye HPV Test is a qualitative in v itro test for the detection of Human Papillomavirus in [facility] patient specimens. ??The test utilizes amplifica tion of target DNA by Polymerase Chain Reaction (PCR) and n ucleic acid hybridization for the detection of 14 hi gh-risk (HR) HPV types. The assay tests for high risk typ es (16, 18, 31, 33, 35, 39, 45, 51, 52, 56, 58, 59, 66 and 6 8). NOTE: This test was developed and its pe rformance characteristics determined by [facility]. It has not been cleared or approved by [facility]. The laboratory is regulated under CLIA as qualified to perform high-complexity testing. This test is used for clinical purposes. It should not be regarded as investigational or fo r research. Specimen Anatomical Collection Method Collection Time Receive d Time (Source) Location / / Volume Laterality 04/29/2016 11:20 04/29/2016 AM CDT 11:20 AM CDT Narrative PN SOFT - 05/01/2016 1:59 PM CDT Performed at [facility], [address] [place] [address] CLIA number [id number] Auroar Pagan MD LAB_1 Performing Organization Address City/State/ZIP Code Phon e Number KYLE GUNDERSON [address] [place] [address] Pap Test Order (04/29/2016 11:20 AM CDT) Analysis Performed At Patho logist Time Signature Pap Smear Collected PN SOFT Monolayer tracking test Specimen Anatomical Collection Method Collection Time Receive d Time (Source) Location / / Volume Laterality 04/29/2016 11:20 04/30/2016 9:37 AM CDT AM CDT Aurora Pagan MD LAB_1 Performing Organization Address [facility] Phon e Number PN SOFT [address] [place] [address] (ABNORMAL) Hepatitis C Antibody [HCAB] (04/29/2016 10:59 AM CDT) Patholo gist Method Time Signature Hepatitis C Prelim (A) Nonreactive PN SOFT Antibody Comment: Prelim reactive, confirmation t o follow. Specimen Anatomical Collection Method Collection Time Receive d Time (Source) Location / / Volume Laterality 04/29/2016 10:59 04/29/2016 AM CDT 11:14 AM CDT Narrative PN SOFT - 04/29/2016 12:40 PM CDT Performed at [address] [address] CLIA number [id number] Aurora Pagan MD LAB_1 Performing Organization Address [facility] Phon e Number PN SOFT [address] [place] [address] Free Thyroxine [FRT4] (04/29/2016 10:59 AM CDT) P athologist Signature Thyroxine, Free 1.0 0.7 - 1.5 PN SOFT ng/dL Specimen Anatomical Collection Method Collection Time Receive d Time (Source) Location / / Volume Laterality 04/29/2016 10:59 04/29/2016 AM CDT 11:14 AM CDT Narrative PN SOFT - 04/29/2016 12:57 PM CDT Performed at [address] [address] CLIA number [id number] Aurora Pagan MD LAB_1 Performing Organization Address [facility] Phon e Number PN SOFT [address] [place] [address] TSH And Free T4 (FRT4 If TSH Abnorm) (04/29/2016 10:59 AM CDT) athologist Signature Thyroid 3.06 0.20 - PN SOFT Stimulating 4.50 Hormone uIU/mL Specimen Anatomical Collection Method Collection Time Receive d Time (Source) Location / / Volume Laterality 04/29/2016 10:59 04/29/2016 AM CDT 11:14 AM CDT Narrative PN SOFT - 04/29/2016 12:39 PM CDT Performed at [address] [address] CLIA number [id number] Aurora Pagan MD LAB_1 Performing Organization Address [facility] Phon e Number PN SOFT [address] [place] [address] HGB A1C (04/29/2016 10:59 AM CDT) athologist [facility] HGB A1C 5.1 4.0 - 5.6 % PN SOFT Specimen Anatomical Collection Method Collection Time Receive d Time (Source) Location / / Volume Laterality 04/29/2016 10:59 04/29/2016 AM CDT 11:13 AM CDT Narrative PN SOFT - 04/29/2016 12:58 PM CDT Performed at [address] [address] CLIA number [id number] Aurora Pagan MD LAB_1 Performing Organization Address [facility] Phon e Number PN SOFT [address] [place] [address] Glucose (04/29/2016 10:59 AM CDT) athologist Signature Lab Glucose 90 60 - 100 PN SOFT mg/dL Specimen Anatomical Collection Method Collection Time Receive d Time (Source) Location / / Volume Laterality 04/29/2016 10:59 04/29/2016 AM CDT 11:14 AM CDT Narrative PN SOFT - 04/29/2016 12:20 PM CDT Performed at [address] [address] CLIA number [id number] Aurora Pagan MD LAB_1 Performing Organization Address City/[facility] Phon e Number PN SOFT [address] [place] [address] (ABNORMAL) LIPID PANEL AND DIRECT LDL(IF NEEDED) (04/29/2016 10:59 AM CDT) [facility] Method Time Signature Cholesterol 266 (H) 0 - 199 PN SOFT mg/dL Triglycerides 102 4 - 149 PN SOFT mg/dL HDL Cholesterol 62 >39 mg/dL PN SOFT Cholesterol/HDL 4.3 PN SOFT Ratio Screen LDL Calculated 184 (H) 19 - 130 PN SOFT mg/dL Length Of Fast 12.0 PN SOFT Specimen Anatomical Collection Method Collection Time Receive d Time (Source) Location / / Volume Laterality 04/29/2016 10:59 04/29/2016 AM CDT 11:14 AM CDT Narrative PN SOFT - 04/29/2016 12:20 PM CDT Performed at [address] [address] CLIA number [id number] Aurora Pagan MD LAB_1 Performing Organization Address [facility] Phon e Number PN SOFT [address] [place] [address] documented in this encounter Visit Diagnoses Diagnosis Annual physical exam - Primary Routine general medical examination at a health care facility Menopausal symptoms Symptomatic menopausal or female climact indu states Screening for malignant neoplasm of cerv ix Screening for malignant neoplasm of the cervix Screening for lipoid disorders Screening for diabetes mellitus Screening for thyroid disorder Screening for condition Screening for unspecified condition Need for prophylactic vaccination and in oculation against influenza Screening for lipoid disorders Screening for diabetes mellitus Screening for thyroid disorder Screening for condition Screening for unspecified condition documented in this encounter
--- OUTSIDE RECORDS SUMMARY | 2022-07-02 14:38 | XMS_ITS | Encounter Summary ---
:1955 Author Organization [facility] Address [address] [place] [address] Care Team Providers Name Role Phone Asia Millard MD Primary Care Provider [phone] Reason for Visit Reason Comments BACK PAIN, LOW Consult/Transfer Care (Routine) - Closed Specialty Diagnoses / Procedures Referred By Contact Refer red To Contact Physical Therapy Diagnoses Spondylosis without myelopathy or radiculopathy, lumbosacral region (HRC) MRI - CDI Vernon Mele Kathleen MD [address] [address] [place] [address] [place], [address] [place] [address] Phone: Fax: Referral ID Status Reason Start Date Expiration Date Visits Requ ested Visits Authorized [id number] Closed 09/21/2017 12/21/2018 90 90 Encounter Details Date Type Department Care Team Description 10/14/2017 Therapy Physicians Neck and Back Vinny Guillaume, INSIGHT LEADER Lumbar radiculopathy [facility] [place] [address] [facility], [address] [facility], [facility] [address] [place] [address] [place] [address] [phone] Social History Tobacco Use Types Packs/Day Years Used Date Smoking Tobacco: Never Smokeless Tobacco: Never Alcohol Use Standard Drinks/Week Comments Yes 2 (1 standard drink = 0.6 oz pure alcoho l) per week Sex Assigned at Date Recorded Not on file documented as of this encounter Progress Notes Isabel Guillaume, INSIGHT LEADER - 10/14/2017 10:15 AM CDT 10/14/2017 Visit # 5 Protocol: Back, Disc and submax Start: 10:15 am End: 10:50 am (INSIGHT LEADER Visit # 1 Subjective: Pt reports sleep is most affected. Pt wakes after 2 hours d/t pain. Pt reminded to ice before bed as a way to keep the night time sleep more comfortable. Cervical Not performed today. Objective Tests & Measures: 10% wt increase on lumbar extension Tests performed today (see reviewflowsheet for score and outcomes): : None Performed Today Warm Up: Movement Specific Training: Not Completed Mat Exercises Completed Treadmill: Minutes 5 Intensity 3.2 mph ICE: Back Lumbar Lumbar & Torso 10/14/2017 Set 1 Ext % Max 100% Set 1 Ext ROM 3-42 Set 1 Ext Wgt 55 Set 1 Ext Reps 26 Set 1 Ext Tul 120 Set 1 Ext Tez RPE 5/10 Set 2 Ext % Max 100% Set 2 Ext ROM 3-42 Set 2 Ext Wgt 55 Set 2 Ext Reps 22 Set 2 Ext Tul 240 Set 2 Tez RPE 6/10 Therapeutic Exercise (35 min): Patient performed isolated lumbar extension exercise and auxillary exercises to improve muscle strength, to improve muscle endurance, to improve muscle flexibility, to improve range of motion and increase strength and endurance levels of supporting spinal muscle groups to increase tolerance for sitting, standing, walking, lifting, driving and household tasks Pt educated on form to minimize compensatory movement patterns and reminded to keep a steady rep pace on exercises to maximize strengthening along the entire movement. Neuromuscular Re-Education (0 min): None performed today. Auxillary Auxillary 10/14/2017 Abs Wgt Set 1 35 Abs Reps Set 1 20 Abs Wgt Set 2 35 Abs Reps Set 2 18 Glute Wgt Set 1 70 Glute Reps Set 1 26 Glute Wgt Set 2 70 Glute Reps Set 2 20 Leg Press Wgt Set 1 140 Leg Press Reps Set 1 20 Leg Press Wgt Set 2 140 Leg Press Reps Set 2 20 Lats Wgt Set 1 55 Lats Reps Set 1 20 Lats Wgt Set 2 55 Lats Reps Set 2 25 HEP - Therapeutic Activities (0 min): Not performed today. Patient Education: Patient was instructed in correlation of strength and function to increase their understanding of the benefits related to completing the [facility] Rehab program Educated on icing and stretching before bed. Info on ice pack products given. Assessment: Pt tolerated the treatment well with good effort on all exercises today. Pt follows cueson aux exercises to achieve good muscle engagement/isolation. NO goals met yet. Goals: Short Term Goals (4-6 weeks): 1. Pt will perform MST HEP 2x/day consistently to improve lumbar and hip mobility. 2. Pt will report a decreased frequency of right thigh/leg symptoms to 2 or fewer times/week. 3. Pt will demonstrate proper body/lifting mechanics to bend and lift 15# crate from floor to chest height without LBP. ? Director Report Goals (>6 weeks): 1. Patient will be [...] spondylolisthesis (block end range lumbar extension), R [id number] Recommendations/Communication: 60% lumbar extension start torso rotation and elisha chair intro. Total timed code min: 35 Total treatment time: 35 Isabel Guillaume PTA 10/14/2017, 10:57 AM documented in this encounter Plan of Treatment Not on filedocumented as of this encounter Visit Diagnoses Diagnosis Lumbar radiculopathy Thoracic or lumbosacral neuritis or radi culitis, unspecified documented in this encounter Care Teams Textile Stylist Relationship Specialty Start Date End Date Asia Millard MD PCP - General Family Practice 09/23/171999 [place] [address] documented as of this encounter
--- OUTSIDE RECORDS SUMMARY | 2022-07-02 14:38 | XMS_ITS | Encounter Summary ---
:1955 Author Organization [facility] Address [address] [place] [address] Care Team Providers Name Role Phone Unavailable Primary Care Provider Unavailable Encounter Details Date Type Department Care Team Description 08/07/2016 Lab Visit [facility] [place] [facility] D raw Screening for lipoid [address] [place] [address] Social History Tobacco Use Types Packs/Day Years Used Date Smoking Tobacco: Never Smokeless Tobacco: Never Alcohol Use Standard Drinks/Week Comments Yes 2 (1 standard drink = 0.6 oz pure alcoho l) per week Sex Assigned at Date Recorded Not on file documented as of this encounter Progress Notes Aurora Pagan MD - 08/09/2016 9:16 AM CORRECTIONAL TREATMENT SPECIALIST Quick Note: Sent. Advised that she see family practice or internal medicine regarding high cholesterol. SOHAM Salazar, I gave her you number if she requests some help with this. Thanks much. ECTIONAL TREATMENT SPECIALIST documented in this encounter Plan of Treatment Not on filedocumented as of this encounter Procedures Procedure Name Priority Date/Time Associated Diagnosis Comme nts LIPID PANEL AND Routine 08/07/2016 8:27 AM Screening for lipoi d Results for this DIRECT LDL(IF CORRECTIONAL TREATMENT SPECIALIST disorders procedure are in NEEDED) the results section. documented in this encounter Results (ABNORMAL) LIPID PANEL AND DIRECT LDL(IF NEEDED) (08/07/2016 8:27 AM CORRECTIONAL TREATMENT SPECIALIST) [facility] Method Time Signature Cholesterol 264 (H) 0 - 199 PN SOFT mg/dL Triglycerides 106 4 - 149 PN SOFT mg/dL HDL Cholesterol 58 >39 mg/dL PN SOFT Cholesterol/HDL 4.6 PN SOFT Ratio Screen LDL Calculated 185 (H) 19 - 130 PN SOFT mg/dL Length Of Fast 12.0 PN SOFT Specimen Anatomical Collection Method Collection Time Receive d Time (Source) Location / / Volume Laterality 08/07/2016 8:27 AM 7 8:31 CORRECTIONAL TREATMENT SPECIALIST AM CORRECTIONAL TREATMENT SPECIALIST Narrative PN SOFT - 08/07/2016 8:58 AM CORRECTIONAL TREATMENT SPECIALIST Performed at [facility], [facility] [place] [address] CLIA number [id number] Aurora Pagan MD LAB_1 Performing Organization Address City/State/ZIP Code Phon e Number PN SOFT [address] [place] [address] [phone] documented in this encounter Visit Diagnoses Diagnosis Screening for lipoid disorders documented in this encounter
--- OUTSIDE RECORDS SUMMARY | 2022-07-02 14:38 | XMS_ITS | Encounter Summary ---
:1955 Author Organization [facility] Address [address] [place] [address] Care Team Providers Name Role Phone Unavailable Primary Care Provider Unavailable Reason for Visit Reason Onset Date Comments FOLLOW-UP, TEST RESULTS 08/17/2016 Encounter Details Date Type Department Care Team Description 08/17/2016 [facility] Aurora Pagan, FOLLOW -UP, TEST Obstetrics/Gynecolog y MD RESULTS [address] [facility] [address] [place] [address] [place], [place] [phone] (Wo rk) Social History Tobacco Use Types Packs/Day Years Used Date Smoking Tobacco: Never Smokeless Tobacco: Never Alcohol Use Standard Drinks/Week Comments Yes 2 (1 standard drink = 0.6 oz pure alcoho l) per week Sex Assigned at Date Recorded Not on file documented as of this encounter Nursing Notes Aurora Pagan MD - 08/17/2016 7:32 PM CST I called her and left a msg thanking her for her call. NG TESTER Marie Link - 08/17/2016 9:51 AM CST Aruna called to tell you that she will be following up with Dr. Gupta at [facility] regarding her elevated cholestrol. NG TESTER documented in this encounter Plan of Treatment Not on filedocumented as of this encounter Visit Diagnoses Not on filedocumented in this encounter
--- OUTSIDE RECORDS SUMMARY | 2022-07-02 14:38 | XMS_ITS | Encounter Summary ---
:1955 Author Organization [facility] Address [address] [address] Care Team Providers Name Role Phone Unavailable Primary Care Provider Unavailable Reason for Visit Reason Onset Date Comments Lab Orders Needed 07/08/2016 Encounter Details Date Type Department Care Team Description 07/08/2016 [facility] Aurora Pagan MD Lab Orders Needed Obstetrics/Gynecolog y [address] [facility] 5th [place] [phone] (Wo rk) Social History Tobacco Use Types Packs/Day Years Used Date Smoking Tobacco: Never Smokeless Tobacco: Never Alcohol Use Standard Drinks/Week Comments Yes 2 (1 standard drink = 0.6 oz pure alcoho l) per week Sex Assigned at Date Recorded Not on file documented as of this encounter Nursing Notes Rosales Rodriguez, CARRIE - 07/08/2016 2:28 PM CST Returned call to pt. Informed pt of ordered labs. Pt verbalizes understanding. Instructed to return call with any concerns or questions. ZER Aurora Pagan MD - 07/08/2016 1:19 PM CST Done. Please let her know. Thanks. ZER Cornelia Thomas RN - 07/08/2016 9:39 AM CST Received call from the patient; she is requesting the lab orders, as discussed with alin Cohn her cholesterol after being off Krill oil for a month. Pended as requested. States she understands the required fast for this test. Please return a call to the patient when the lab orders have been approved. ZER documented in this encounter Plan of Treatment Not on filedocumented as of this encounter Results (ABNORMAL) LIPID PANEL AND DIRECT LDL(IF NEEDED) (08/07/2016 8:27 AM BRONZER) [facility] Method Time Signature Cholesterol 264 (H) [...] Volume Laterality 08/07/2016 8:27 AM 7 8:31 BRONZER AM BRONZER Narrative PN SOFT - 08/07/2016 8:58 AM BRONZER Performed at [address] [address] CLIA number [id number] Aurora Pagan MD LAB_1 Performing Organization Address City/State/ZIP Code Phon e Number PN SOFT [address] [place] [phone] documented in this encounter Visit Diagnoses Diagnosis Screening for lipoid disorders - Primary Screening for lipoid disorders documented in this encounter
--- OUTSIDE RECORDS SUMMARY | 2022-07-02 14:38 | XMS_ITS | Encounter Summary ---
:1955 Author Organization [facility] Address [address] [place] [address] Care Team Providers Name Role Phone Asia Millard MD Primary Care Provider [phone] Reason for Visit Reason Comments BACK PAIN, LOW Consult/Transfer Care (Routine) - Closed Specialty Diagnoses / Procedures Referred By Contact Refer red To Contact Physical Therapy Diagnoses Spondylosis without myelopathy or radiculopathy, lumbosacral region (HRC) MRI - [facility] [place] Mele Kathleen MD [address] [address] [place] [address] [address], [address] [place] [address] Phone: Fax: Referral ID Status Reason Start Date Expiration Date Visits Requ ested Visits Authorized [id number] Closed 09/21/2017 12/21/2018 90 90 Encounter Details Date Type Department Care Team Description 10/20/2017 Therapy Physicians Neck and Back Vinny Guillaume, EQUINE INTERN Lumbar radiculopathy [facility] [place] [address] [facility], [address] [facility], [facility] [address] [place] [address] [place] [address] [phone] Social History Tobacco Use Types Packs/Day Years Used Date Smoking Tobacco: Never Smokeless Tobacco: Never Alcohol Use Standard Drinks/Week Comments Yes 2 (1 standard drink = 0.6 oz pure alcoho l) per week Sex Assigned at Date Recorded Not on file documented as of this encounter Progress Notes Isabel Guillaume, EQUINE INTERN - 10/20/2017 10:00 AM CDT 10/20/2017 Visit # 7 Protocol: Back, Disc and submax Start: 10:00 am End: 10:43 am (EQUINE INTERN Visit # 2 Subjective: Pt reports feeling a little better after the last workout with a trainman workout. Pt didget her ice pack so she will use it today. Cervical Not performed today. Objective Tests & Measures: 5# wt increase on lumbar extension Tests performed today (see reviewflowsheet for score and outcomes): : None Performed Today Warm Up: Movement Specific Training: Not Completed Treadmill: Minutes 5 Intensity 2.5 mph ICE: Back Lumbar Lumbar & Torso 10/20/2017 Set 1 Ext % Max 100% Set 1 Ext ROM 3-42 Set 1 Ext Wgt 60 Set 1 Ext Reps 20 Set 1 Ext Tul 91 Set 1 Ext Tez RPE 4/10 Set 2 Ext % Max 100% Set 2 Ext ROM 3-42 Set 2 Ext Wgt 60 Set 2 Ext Reps 26 Set 2 Ext Tul 194 Set 2 Tez RPE 6/10 Left Rot % Max 60% Left Rot ROM 35 Left Rot Wgt 20 Left Rot Reps 20 Left Rot Aubree RPE 4/10 Right Rot % Max 60% Right Rot ROM 35 Right Rot Wgt 20 Right Rot Reps 20 Right Rot Tez RPE 4/10 Therapeutic Exercise (25 min): Patient performed isolated lumbar extension exercise and auxillary exercises to improve muscle strength, to improve muscle endurance, to improve muscle flexibility, to improve range of motion and increase strength and endurance levels of supporting spinal muscle groups to increase tolerance for sitting, standing, walking, sleeping, lifting, driving and work activities Pt educated on the importance of icing and stretching to prevent increased muscle tightness from the heavy workout and ice to reduce inflammation as a natural occurrence of muscle hypertrophy. Pt cued on lats form to improve muscle isolation. ?? Neuromuscular Re-Education (10 min): Patient performed isolated torso rotation to decrease substitution patterns present with chronic pain, to retrain muscles for proper sequencing, improve muscle recruitment patterns, to improve self-correction of posture and to facilitate motion in pain free plane to increase patient confidence with mov ement to reduce fear to increase tolerance for sitting, standing, walking, sleeping, lifting, driving, personal care tasks and household tasks. Pt instructed in proper form on torso rotation exercise with emphasis to keep spine in the middle ofthe machine to avoid substitutions and engage the oblique muscles fully. Pt able to do form correctly after cues and reminders of body position for total oblique. Auxillary Auxillary 10/20/2017 Abs Wgt Set 1 35 Abs Reps Set 1 20 Abs Wgt Set 2 35 Abs Reps Set 2 20 Glute Wgt Set 1 70 Glute Reps Set 1 20 Glute Wgt Set 2 70 Glute Reps Set 2 20 Leg Press Wgt Set 1 140 Leg Press Reps Set 1 25 Leg Press Wgt Set 2 140 Leg Press Reps Set 2 25 Lats Wgt Set 1 50 Lats Reps Set 1 20 Lats Wgt Set 2 50 Lats Reps Set 2 20 Other body mechanics lifting the crate 10# HEP - Therapeutic Activities (8 min): Therapeutic Activities 10/20/2017 SITTING POSTURE - STANDING POSTURE - SLEEP POSTURE - BASE OF SUPPORT - WEIGHT SHIFT - PIVOT VS TWIST - OBJECT CLOSE VS FAR AWAY - SQUAT - LIFT FROM FLOOR - LIFT OVERHEAD - OTHER ACTIVITY Pt instructed in crate lifting program using 10 # and using good body mechanics between shelves on low shelf/ waist ht shelf. Pt also had several crate transfer off the floor with tactile cues on spine alignment. Pt educated on being mindful of pos ture when returning the wt to the shelf/don't bend. Pt required cues to use legs instead of bending and using back. Patient Education: Patient was instructed in correlation of strength and function to increase their understanding of the benefits related to completing the [facility] Rehab program Crate 10# see detail above in therapeutic activity. Assessment: Pt tolerated the treatment fine with no increased sx.s throughout the treatment. Goals: Short Term Goals (4-6 weeks): 1. Pt will perform MST HEP 2x/day consistently to improve lumbar and hip mobility. (goal met 3) 2. Pt will report a decreased frequency of right thigh/leg symptoms to 2 or fewer times/week. 3. Pt will demonstrate proper body/lifting mechanics to bend and lift 15# crate from floor to chest height without LBP. ? Organ Assembler Goals (>6 weeks): 1. Patient will be [...] (block end range lumbar extension), R [id number]. 10/18/17: T-Rot initiated today - monitor R LE symptoms. Recommendations/Communication: 80% torso rotation (watch R LE) and 60% lumbar extension and elisha chair review. Total timed code min: 43 Total treatment time: 43 Isabel Guillaume PTA 10/20/2017, 9:57 AM documented in this encounter Plan of Treatment Not on filedocumented as of this encounter Visit Diagnoses Diagnosis Lumbar radiculopathy Thoracic or lumbosacral neuritis or radi culitis, unspecified documented in this encounter Care Teams Creosoting Engineer Relationship Specialty Start Date End Date Asia Millard MD PCP - General Family Practice 09/23/171999 [place] [address] documented as of this encounter
--- OUTSIDE RECORDS SUMMARY | 2022-07-02 14:38 | XMS_ITS | Encounter Summary ---
:1955 Author Organization [facility] Address [address] [place] [address] Care Team Providers Name Role Phone Unavailable Primary Care Provider Unavailable Encounter Details Date Type Department Care Team Description 04/29/2016 [facility] mammogram [address] [place] [address] Social History Tobacco Use Types Packs/Day Years Used Date Smoking Tobacco: Never Smokeless Tobacco: Never Alcohol Use Standard Drinks/Week Comments Yes 2 (1 standard drink = 0.6 oz pure alcoho l) per week Sex Assigned at Date Recorded Not on file documented as of this encounter Progress Notes Aurora Pagan MD - 04/29/2016 8:53 PM CDT Quick Note: Results noted. Ordered, followed by br[facility] ctr. documented in this encounter Plan of Treatment Not on filedocumented as of this encounter Procedures Procedure Name Priority Date/Time Associated Diagnosis Comme nts MM MAMMOGRAM Routine 04/29/2016 8:09 AM Visit for screening Re sults for this SCREENING BILAT W CDT mammogram procedure are in CAD the results section. documented in this encounter Results MM Mammogram Screening Bilat W CAD (04/29/2016 8:09 AM CDT) Anatomical Region Laterality Modality Breast Bilateral Mammography Specimen (Source) Anatomical Location Collection Method / Collectio n Time Received Time / Laterality Volume Impressions 04/29/2016 8:47 AM CDT : ACR BI-RADS 1 Negative (overall) RECOMMENDATION: Follow Up Imaging in 12 months - Bilateral The results and recommendations of this examination will be communicated to the patient. Narrative 04/29/2016 8:47 AM CDT MM MAMMOGRAM SCREENING BILAT W CAD performed on 04/29/16 Compared to: 04/23/2015 MM Mammogram Scr eening Bilat W CAD, 04/19/2014 MM Mammogram Screening Bilat W CAD, 013 Foreign Image(S) Mammogram FINDINGS: Bilateral screening mammogram was performed with the assistance of Computer-Aided Detection. The breasts have scattered areas of fibroglandular density. There is no radiographic evidence of mal ignancy. ?? Aurora Pagan MD RAD DONTAE documented in this encounter Visit Diagnoses Diagnosis Visit for screening mammogram Other screening mammogram documented in this encounter
--- OUTSIDE RECORDS SUMMARY | 2022-07-02 14:38 | XMS_ITS | Encounter Summary ---
:1955 Author Organization [facility] Address [address] [place] [address] Care Team Providers Name Role Phone Asia Millard MD Primary Care Provider [phone] Reason for Visit Reason Comments BACK PAIN Consult/Transfer Care (Routine) - Closed Specialty Diagnoses / Procedures Referred By Contact Refer red To Contact Physical Therapy Diagnoses Spondylosis without myelopathy or radiculopathy, lumbosacral region (HRC) MRI - [facility] [place] Mele Kathleen MD [address] [address] [place] [address] [address], [address] [place] [address] Phone: Fax: Referral ID Status Reason Start Date Expiration Date Visits Requ ested Visits Authorized [id number] Closed 09/21/2017 12/21/2018 90 90 Encounter Details Date Type Department Care Team Description 11/04/2017 Therapy Physicians Neck and Back Veronique Pederson, PT Lumbar radiculopathy [facility] [address] [facility] [address] [facility] [place] [address] [address] [place] [address] [phone] Social History Tobacco Use Types Packs/Day Years Used Date Smoking Tobacco: Never Smokeless Tobacco: Never Alcohol Use Standard Drinks/Week Comments Yes 2 (1 standard drink = 0.6 oz pure alcoho l) per week Sex Assigned at Date Recorded Not on file documented as of this encounter Progress Notes Veronique George Clarita, PT - 11/04/2017 9:15 AM CDT 11/04/2017 Visit # 11 Protocol: Back, Disc and submax Start: 9:15 am End: 9:54 am (MOTHER'S HELPER Visit # 0 Subjective: Patient reports her back is pretty good. Patient reports while stretching can feel it inright low back, but hasn't had too many issues the past couple of days. Patient reports she has beensleeping pretty well. Cervical Not performed today. Objective Tests & Measures: L-Ext increased 6 foot pounds since last max day. Lats increased 5 pounds 2nd set. G/H increased 10 pounds 2nd set. Tests performed today (see reviewflowsheet for score and outcomes): : None Performed Today Warm Up: Movement Specific Training: Not Completed Mat Exercises Completed Treadmill: Minutes 5 Intensity 2.8 mph ICE: Back Lumbar Lumbar & Torso 11/04/2017 Set 1 Ext % Max 100% Set 1 Ext ROM 3-42 Set 1 Ext Wgt 72 Set 1 Ext Reps 22 Set 1 Ext Tul 71 Set 1 Ext Tez RPE 6 Set 2 Ext % Max 100% Set 2 Ext ROM 3-42 Set 2 Ext Wgt 72 Set 2 Ext Reps 22 Set 2 Ext Tul 64 Set 2 Tez RPE 7 Left Rot % Max 60% Left Rot ROM 35 Left Rot Wgt 20 Left Rot Reps 25 Left Rot Aubree RPE 4-5 Right Rot % Max 60% Right Rot ROM 35 Right Rot Wgt 20 Right Rot Reps 26 Right Rot Tez RPE 4 Therapeutic Exercise (21 min): Patient performed isolated lumbar extension exercise [...] pace. Patient with good form and pace. With G/H, VCs for initial positioning in machine. Neuromuscular Re-Education (8 min): Patient performed isolated torso rotation to retrain muscles for proper sequencing, improve muscle recruitment patterns and to improve movement patterns in an isolated plane to increase tolerance for sitting, standing, walking, sleeping, bed mobility, lifting, driving, personal care tasks, household tasks and work activities. with PT monitoring patient's technique for form and pace. Patient with goodform and pace. Auxillary Auxillary 11/04/2017 Abs Wgt Set 1 40 Abs Reps Set 1 20 Abs Wgt Set 2 40 Abs Reps Set 2 20 Glute Wgt Set 1 80 Glute Reps Set 1 20 Glute Wgt Set 2 90 Glute Reps Set 2 20 Leg Press Wgt Set 1 180 Leg Press Reps Set 1 20 Leg Press Wgt Set 2 180 Leg Press Reps Set 2 20 Lats Wgt Set 1 50 Lats Reps Set 1 25 Lats Wgt Set 2 55 Lats Reps Set 2 20 Other - HEP - Therapeutic Activities (10 min): Therapeutic Activities 11/04/2017 SITTING POSTURE - STANDING POSTURE - SLEEP POSTURE - BASE OF SUPPORT Independent WEIGHT SHIFT - PIVOT VS TWIST Independent OBJECT CLOSE VS FAR AWAY Independent SQUAT - LIFT FROM FLOOR Independent LIFT OVERHEAD - OTHER ACTIVITY Patient reports she has been using golfer's lift at home with shaker flatwork and getting objects out of cabinets. Patient lifted 15# crate shelf <-> floor x 3 reps, including turning 90 degrees at feet and not twisting at trunk at 2 stations, including carring 15# crate from station to station. Patient reports no back pain with lifting 15# crate. Patient given 1 VC to maintain wide ROSE when placing crate back on shelf, but then with VC, patient with good technique. Other: Loading Float Phlebotomist, Unloading Dryer, Vacuuming. Patient given visual and verbal demonstration of above body mechanics. Demonstrated how load shaker flatwork with good body mechanics. Instructed patient to avoid repetitious twisting of trunk. Demonstratedhow to empty dryer with good body mechanics. Demonstrated how to vacuum with good body mechanics. Patient vacuumed with good body mechanics. Patient Education: Instructed patient in body mechanics with Lifting and Household Activities today - see Therapeutic Activity section for details. Assessment: Patient tolerated increase in L-Ext 100% weight well. Instructed patient in body mechanics with Lifting and Household Activities today - see Therapeutic Activity section for details. Patient lifted 15# crate with good body mechanics and no LBP, therefore, STG #3 is met. Patient reports sheis being more aware of her body mechanics at home with activities. Patient tolerated auxillary exercises well and increased weight with Lats and G/H auxillary today. Patient tolerated treatment well. Goals: Short Term Goals (4-6 weeks): 1. Pt will perform MST HEP 2x/day consistently to improve lumbar and hip mobility.??(goal met 3-21) 2. Pt will report a decreased frequency of right thigh/leg symptoms to 2 or fewer times/week. 3. Pt will demonstrate proper body/lifting mechanics to bend and lift 15# crate from floor to chest height without LBP. 11/04/17: Goal Met during treatment today. ? Senior Living Goals (>6 weeks): 1. Patient will be [...] - monitor R LE symptoms. ?? Recommendations/Communication: Next Treatment: L-Ext 60% and T-Rot 100%. Total timed code min: 39 Total treatment time: 39 Veronique George PT 11/04/2017, 10:05 AM documented in this encounter Plan of Treatment Not on filedocumented as of this encounter Visit Diagnoses Diagnosis Lumbar radiculopathy Thoracic or lumbosacral neuritis or radi culitis, unspecified documented in this encounter Care Teams Lay Out Worker Relationship Specialty Start Date End Date Asia Millard MD PCP - General Family Practice 09/23/171999 [place] [address] documented as of this encounter
--- OUTSIDE RECORDS SUMMARY | 2022-07-02 14:38 | XMS_ITS | Encounter Summary ---
:1955 Author Organization [employer] Address [address] [place] [address] Care Team Providers Name Role Phone Unavailable Primary Care Provider Unavailable Reason for Visit Reason Comments Annual Exam Encounter Details Date Type Department Care Team Description 04/19/2014 [facility] Ronaldo Arevalo gy necological examination (Primary Dx); Obstetrics/Gynecolog y Alondra Casillas MD Menopausal symptoms; [address] Screening for malignant neop lasm of the cervix; [place], [place] Screeni ng for thyroid disorder; [address] Screening for diabetes melli tus; [phone] Screening for l ipoid disorders Social History Tobacco Use Types Packs/Day Years Used Date Smoking Tobacco: Never Assessed Sex Assigned at Date Recorded Not on file documented as of this encounter Last Filed Vital Signs Vital Sign Reading Time Taken Comments Blood Pressure 140/84 04/19/2014 8:38 AM CDT Pulse 63 04/19/2014 8:38 AM CDT Temperature - - Respiratory Rate - - Oxygen Saturation - - Inhaled Oxygen Concentration - - Weight 75.4 kg (166 lb 3.2 oz) 04/19/2014 8:38 AM CDT Height 167.6 cm (5' 6) 04/19/2014 8:38 AM CDT Body Mass Index 26.83 04/19/2014 8:38 AM CDT documented in this encounter Progress Notes Alondra Arevalo MD - 04/19/2014 9:24 AM CDT CHIEF COMPLAINT: Chief Complaint Patient presents with ??? Annual Exam SUBJECTIVE : This is a 59 y.o. 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 She is s/p supracervical hyst and BSO for fibroids in 2006. Was well maintained on Vivelle dot .05, was told to decreasethe dose to .025 by her primary care. She no longer had good symptom relief on the lower dose and discontinued it 1 year ago. She is now having hot flashes day and night, increased anxiety with them, disturbed sleep, fatigue, weight gain, aching joints, and some social anxiety because of the flashes. She would like to go back on HT. Has questions about the satety profile of HT. 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 PAST MEDICAL HISTORY : History reviewed. No pertinent past medical history. SUDHIR (supracervical)/BSO Hip replacement 2005 FAMILY HISTORY OR SICK CONTACTS : Family History Problem Relation Age of Onset ??? Cancer, Breast Neg Hx ??? Cancer, Ovarian Neg Hx SOCIAL HISTORY : History Social History ??? Marital Status: Spouse Name: N/A Number of Children: 1 ??? Years of Education: N/A Occupational History ??? Unemployed Social History Main Topics ??? Smoking status: Never Smoker ??? Smokeless tobacco: Never Used ??? Alcohol Use: No ??? Drug Use: Not on file ??? Sexual Activity: Partners: Male Control/ Protection: Surgical Other Topics Concern ??? Bike Helmet No ??? [place] Yes ??? Exercise No ??? Guns In Home No ??? Seat Belt Yes ??? Special Diet No ??? Weight Concern Yes Social History Narrative MEDICATIONS : Current Outpatient Prescriptions Medication Sig Dispense Refill ??? estradiol (VIVELLE DOT) 0.05 mg/[address] 1 patch onto the skin twice a week. 24 patch 0 ??? multivitamin (THERAGRAN) tablet Take 1 tablet by mouth daily (every 24 hours). 100 13 ??? [place]-3 Fatty Acids Cap daily (every 24 hours). LW Addl Instr:per pre op notes ??? op medications reviewed No current facility-administered medications for this visit. ALLERGIES: Allergies Allergen Reactions ??? No Known Drug Allergies ??? Other LW Other1: -NKA ??? Review Contrast Media LW CM1: CONTRAST- NKA Reaction : ??? Review Food Intolerance LW FI1: NKA REVIEW OF SYSTEMS : Positive: see HPI All other systems are negative. OBJECTIVE : Gen.: Alert, cooperative in no acute distress. Vital Signs: BP 140/84 Pulse 63 Ht 5' 6 (1.676 m) Wt 166 lb 3.2 oz (75.388 kg) BMI 26.84 kg/m2 Neck: Supple, without masses, lymphadenopathy or tenderness. Breasts: Symmetric and non tender. No mass or nipple discharge. No axillary adenopathy. Abdomen: The abdomen was soft and nontender. No obvious masses or organomegaly. Pelvic: External genitalia without lesions. Normal urethral meatus. Normal vagina and discharge. Cervix without lesions. Uterus and adnexa surgically absent. Rectal exam is confirmatory. LABS : ASSESSMENT : Diagnosis (ICD9) and Associated Orders ICD-9-CM 1. Routine gynecological examination V72. 2. Menopausal symptoms 627.2 estradiol (VIVELLE DOT) 0.05 mg/24 hr 3. Screening for malignant neoplasm of the cervix V76.2 LAB PAP SMEAR ORDER 4. Screening for thyroid disorder V77.0 TSH And Free T4 (FRT4 If TSH Abnorm) 5. Screening for diabetes mellitus V77.1 Glucose 6. Screening for lipoid disorders V77.91 Cholesterol Fraction, LDLD if Trig Hi [CHOLF] PLAN : Diagnosis (ICD9) and Associated Orders ICD-9-CM 1. Routine gynecological examination V72. 2. Menopausal symptoms 627.2 estradiol (VIVELLE DOT) 0.05 mg/24 hr 3. Screening for malignant neoplasm of the cervix V76.2 LAB PAP SMEAR ORDER 4. Screening for thyroid disorder V77.0 TSH And Free T4 (FRT4 If TSH Abnorm) 5. Screening for diabetes mellitus V77.1 Glucose 6. Screening for lipoid disorders V77.91 Cholesterol Fraction, LDLD if Trig Hi [CHOLF] 7. Follow up appointment in 2 months. documented in this encounter Plan of Treatment Not on filedocumented as of this encounter Procedures Procedure Name Priority Date/Time Associated Comments Diagnosis HPV WITH 16 18 Routine 04/19/2014 9:10 AM Results for this GENOTYPING, CDT procedure are i n CERVICAL/ENDOCERVICA the res ults L section. ANATOMICAL PATH Routine 04/19/2014 9:10 AM Result s for this LIQUID BASED CDT procedure are i n the results section. PAP SMEAR ORDER Routine 04/19/2014 9:10 AM Screening for Resul ts for this CDT malignant neoplasm procedure are in of the cervix the results section. documented in this encounter Results Pap Smear (04/19/2014 9:10 AM CDT) Specimen (Source) Anatomical Collection Method Collection Time Re ceived Time Location / / Volume Laterality 04/19/2014 9:10 AM CDT Narrative HP CONVERSION - 05/02/2014 4:35 PM CDT FINAL GYNECOLOGICAL CYTOLOGY REPORT Pathology #: [id number] ?Date Obtained: 04/19/2014 ? Date Received: 04/19/2014 INTERPRETATION/RESULTS: Negative for Intraepithelial Lesion or M alignancy. SPECIMEN ADEQUACY: Satisfactory for Evaluation. ??Endocervi jackson cells/transformation zone component present. Verified on 05/02/2014 ??by ANA GARCIA EN, CT(ASCP) (electronic signature) CLINICAL NOTES: ?Abnormal bleeding: No, LMP: Hys terectomy 20, Hormonal TX: No, ?Hysterectomy LIQUID BASED PAP SMEAR SPECIMEN TYPE: ?CERVICAL & HPV REGARDLESS OF PA P RESULT PLEASE NOTE: The pap smear is a screening test design ed to aid in the detection of cervical cancer and its pre cursor lesions. It is not a diagnostic procedure and elicia uld not be used as the sole means of detecting cervical cancer. Both false-positive and false-negative report s may occur. ? End of Report Alondra Muller MD LAB_1 Performing Organization Address City/State/ZIP Code Phon e Number HP CONVERSION HPV with 16 18 Genotyping (04/19/2014 9:10 AM CDT) [facility] Method Time Signature HPV High Risk Not Detected HP CONVERSION 16 HPV High Risk Not Detected HP CONVERSION 18 Other HPV Not Detected HP CONVERSION High Risk Not 16/18 Comment: The Aye HPV Test is a qualitative in v itro test for the detection of Human Papillomavirus in [facility] patient specimens. ??The test utilizes amplifica tion [...] and its pe rformance characteristics determined by [facility]. It has not been cleared or approved by [facility]. The laboratory is regulated under CLIA as qualified to perform high-complexity testing. This test is used for clinical purposes. It should not be regarded as investigational or fo r research. Specimen Anatomical Collection Method Collection Time Receive d Time (Source) Location / / Volume Laterality 04/19/2014 9:10 AM 4 9:10 CDT AM CDT Alondra Muller MD LAB_1 Performing Organization Address City/State/ZIP Code Phon e Number HP CONVERSION Pap Smear Order (04/19/2014 9:10 AM CDT) [facility] gist Method Time Signature Pap Smear Collected HP CONVERSION Monolayer tracking test Specimen Anatomical Collection Method Collection Time Receive d Time (Source) Location / / Volume Laterality 04/19/2014 9:10 AM 4 9:33 CDT PM CDT Alondra Muller MD LAB_1 Performing Organization Address City/State/ZIP [facility] Phon e Number HP CONVERSION documented in this encounter Visit Diagnoses Diagnosis Routine gynecological examination - Prim bob Menopausal symptoms Symptomatic menopausal or female climact indu states Screening for malignant neoplasm of the cervix Screening for thyroid disorder Screening for diabetes mellitus Screening for lipoid disorders documented in this encounter
--- OUTSIDE RECORDS SUMMARY | 2022-07-02 14:38 | XMS_ITS | Encounter Summary ---
:1955 Author Organization [employer] Address [address] [place] [address] Care Team Providers Name Role Phone Unavailable Primary Care Provider Unavailable Reason for Visit Reason Comments Follow-up Encounter Details Date Type Department Care Team Description 06/21/2014 [facility] Shaylee Muller, Menopausal symptoms Obstetrics/Gynecolog y Alondra Casillas MD [address] [place], [place] [id number] Social History Tobacco Use Types Packs/Day Years Used Date Smoking Tobacco: Never Assessed Sex Assigned at Date Recorded Not on file documented as of this encounter Last Filed Vital Signs Vital Sign Reading Time Taken Comments Blood Pressure 133/77 06/21/2014 8:33 AM JANITORIAL ACCOUNT MANAGER Pulse 88 06/21/2014 8:33 AM JANITORIAL ACCOUNT MANAGER Temperature - - Respiratory Rate - - Oxygen Saturation - - Inhaled Oxygen Concentration - - Weight 76.8 kg (169 lb 6.4 oz) 06/21/2014 8:33 AM JANITORIAL ACCOUNT MANAGER Height - - Body Mass Index 27.34 04/19/2014 8:38 AM CDT documented in this encounter Progress Notes Alondra Arevalo MD - 06/21/2014 9:02 AM CST CHIEF COMPLAINT: Chief Complaint Patient presents with ??? Follow-up SUBJECTIVE : This is a 59 y.o. female seen today for follow up of hormone therapy for menopausal symptoms. She iss/p supracervical hysterectomy for benign disease and was started on HT at the time of her surgery. It was recommended that she decrease the dose for unknown reasons, and following that she had recurrence of her severe vasomotor symptoms and went off the patch. We restarted her on the Vivelle dot .05 two months ago. She is feeling like herself again. Her hot flashes and night sweats have resolved. Her sleep is much improved, she noticed that she has begun to dream again. Very happy being back on theestrogen. We reviewed the reassuring data regarding women with hysterectomies who take estrogen postmenopausally. PAST MEDICAL HISTORY : No past medical history on file. FAMILY HISTORY OR SICK CONTACTS : Family [...] the skin twice a week. 24 patch 3 ??? multivitamin (THERAGRAN) tablet Take 1 tablet by mouth daily (every 24 hours). 100 13 ??? [place]-3 Fatty Acids Cap daily (every 24 hours). [...] in no acute distress. Vital Signs: BP 133/77 Pulse 88 Wt 169 lb 6.4 oz (76.839 kg) BMI 27.35 kg/m2 LABS : ASSESSMENT : Diagnosis (ICD9) and Associated Orders ICD-9-CM 1. Menopausal symptoms 627.2 estradiol (VIVELLE DOT) 0.05 mg/24 hr PLAN : Diagnosis (ICD9) and Associated Orders ICD-9-CM 1. Menopausal symptoms 627.2 estradiol (VIVELLE DOT) 0.05 mg/24 hr 2. She will call or return if any change in her symptom relief. TORIAL ACCOUNT MANAGER documented in this encounter Plan of Treatment Not on filedocumented as of this encounter Visit Diagnoses Diagnosis Menopausal symptoms Symptomatic menopausal or female climact indu states documented in this encounter
--- OUTSIDE RECORDS SUMMARY | 2022-07-02 14:38 | XMS_ITS | Encounter Summary ---
:1955 Author Organization [employer] Address [address] [place] [address] Care Team Providers Name Role Phone Asia Millard MD Primary Care Provider [phone] Reason for Visit Reason Comments BACK PAIN Consult/Transfer Care (Routine) - Closed Specialty Diagnoses / Procedures Referred By Contact Refer red To Contact Physical Therapy Diagnoses Spondylosis without myelopathy or radiculopathy, lumbosacral region (HRC) MRI - [facility] [place] Mele Kathleen MD [address] [address] [place] [address] [address], [address] [place] [address] Phone: Fax: Referral ID Status Reason Start Date Expiration Date Visits Requ ested Visits Authorized [id number] Closed 09/21/2017 12/21/2018 90 90 Encounter Details Date Type Department Care Team Description 10/18/2017 Therapy [facility] Neck and Back Veronique Pederson, PT Lumbar radiculopathy [facility] [address] [facility] [address] [place] [address] [address] [place] [address] [phone] Social History Tobacco Use Types Packs/Day Years Used Date Smoking Tobacco: Never Smokeless Tobacco: Never Alcohol Use Standard Drinks/Week Comments Yes 2 (1 standard drink = 0.6 oz pure alcoho l) per week Sex Assigned at Date Recorded Not on file documented as of this encounter Progress Notes Veronique George Clarita, PT - 10/18/2017 10:15 AM CDT 10/18/2017 Visit # 6 Protocol: Back, Disc and submax Start: 10:06 am End: 10:40 am (FINANCIAL ANALYSIS ADVISOR Visit # 1 Subjective: Patient reports she feels pretty good but has a little bit of soreness in low back. PT asked patient about patient's R leg symptoms - patient reports has numbness in R lateral thigh and haspain in superior-lateral R calf; patient reports the pain in superior-lateral R calf is intermittentbut the numbness in R lateral thigh is constant; patient reports the pain in superior- lateral R calfdoes occur during the day, but seems to happen more at night. Cervical Not performed today. Objective Tests & Measures: L-Ext 60%. Initiated T-Rot 60%. Tests performed today (see reviewflowsheet for score and outcomes): : None Performed Today Warm Up: Movement Specific Training: Not Completed Mat Exercises Completed Treadmill: Minutes 6 Intensity 2.3 mph ICE: Back Lumbar Lumbar & Torso 10/18/2017 Set 1 Ext % Max 60% Set 1 Ext ROM 3-42 Set 1 Ext Wgt 37 Set 1 Ext Reps 30 Set 1 Ext Tul 173 Set 1 Ext Tez RPE 4 Set 2 Ext % Max - Set 2 Ext ROM - Set 2 Ext Wgt - Set 2 Ext Reps - Set 2 Ext Tul - Set 2 Tez RPE - Left Rot % Max 60% Left Rot ROM 35 Left Rot Wgt 20 Left Rot Reps 20 Left Rot Aubree RPE 5 Right Rot % Max 60% Right Rot ROM 35 Right Rot Wgt 20 Right Rot Reps 20 Right Rot Tez RPE 5 Therapeutic Exercise (14 min): Patient performed auxillary exercises increase strength and endurance levels of supporting spinal muscle groups to increase tolerance for sitting, standing, walking, sleeping, bed mobility, lifting, driving, personal care tasks, household tasks and work activities with PT monitoring patient's technique for form and pace. Patient with good form and pace. With G/H, VCs for initial positioning in machine. Neuromuscular Re-Education (20 min): Patient performed isolated lumbar extension and isolated torso rotation to retrain muscles for proper sequencing, improve muscle recruitment patterns and to improve movement patterns in an isolated plane to increase tolerance for sitting, standing, walking, sleeping, bed mobility, lifting, driving, personal care tasks, household tasks and work activities. with PT monitoring patient's technique for form and pace. Patient with good form and pace with L-Ext. Initial set-up of T-Rot with VCs for technique to push with leading shoulder and focus on using oblique muscles. Fer Chair: Patient instructed in Fer Chair Trunk Ext exercise with visual and verbal demonstration from PT. Patient performed Fer Chair Trunk Extension x 10 reps with good technique. PT explainedthat Fer Chair exercises are recommended at time of D/C from PT to do 2x/week to fatigue to maintain lumbar strength. Auxillary Auxillary 10/18/2017 Abs Wgt Set 1 35 Abs Reps [...] 2 55 Lats Reps Set 2 20 HEP Fer Chair Trunk Ext. Therapeutic Activities (0 min): Not performed today. Patient Education: See assessment section below for patient education given re T-Rot. Assessment: Patient tolerated L-Ext 60% well. Patient reports has R LE symptoms - see subjective section for details. Plan from last treatment is to initiate T- Rot today. T-Rot 60% initiated today and patient tolerated well and reports had no increase in R LE symptoms with T-Rot; PT explained to patient that will monitor R LE symptoms with introduction of T-Rot to see how patient responds, as could possibly increase R LE symptoms or could not increase R LE symptoms, but PT explained that T-Rot exercise is important for core/oblique strengthening; patient understood. Patient tolerated 2 sets of auxillary exercises well and gave good effort with all exercises. Initiated Fer Chair Trunk Ext today -see NMR section for details. Patient tolerated treatment well. Goals: Short Term Goals (4-6 weeks): 1. Pt will perform MST HEP 2x/day consistently to improve lumbar and hip mobility. 2. Pt will report a decreased frequency of right thigh/leg symptoms to 2 or fewer times/week. 3. Pt will demonstrate proper body/lifting mechanics to bend and lift 15# crate from floor to chest height without LBP. ? Radio Operator Goals (>6 weeks): 1. Patient will be [...] today - monitor R LE symptoms. Recommendations/Communication: T-Rot initiated today - monitor R LE symptoms. Next Treatment: L-Ext 100% and T-Rot 60% - monitor R LE symptoms. Total timed code min: 34 Total treatment time: 34 Veronique George, PT 10/18/2017, 10:51 AM documented in this encounter Plan of Treatment Not on filedocumented as of this encounter Visit Diagnoses Diagnosis Lumbar radiculopathy Thoracic or lumbosacral neuritis or radi culitis, unspecified documented in this encounter Care Teams Etcher Apprentice Relationship Specialty Start Date End Date Asia Millard MD PCP - General Family Practice 09/23/171999 [place] [address] documented as of this encounter
--- OUTSIDE RECORDS SUMMARY | 2022-07-02 14:38 | XMS_ITS | Encounter Summary ---
:1955 Author Organization [facility] Address [address] [place] [address] Care Team Providers Name Role Phone Asia Millard MD Primary Care Provider [phone] Reason for Visit Reason Comments BACK PAIN, LOW Consult/Transfer Care (Routine) - Closed Specialty Diagnoses / Procedures Referred By Contact Refer red To Contact Physical Therapy Diagnoses Spondylosis without myelopathy or radiculopathy, lumbosacral region (HRC) MRI - [facility] [place] Mele Kathleen MD [address] [address] [place] [address] [place], [address] [place] [address] Phone: Fax: Referral ID Status Reason Start Date Expiration Date Visits Requ ested Visits Authorized [id number] Closed 09/21/2017 12/21/2018 90 90 Encounter Details Date Type Department Care Team Description 10/27/2017 Therapy Physicians Neck and Back Vinny Guillaume, TECHNICAL SALES SUPPORT SPECIALIST Lumbar radiculopathy [facility] [place] [address] [facility], [address] [facility], [facility] [address] [place] [address] [place] [address] [phone] Social History Tobacco Use Types Packs/Day Years Used Date Smoking Tobacco: Never Smokeless Tobacco: Never Alcohol Use Standard Drinks/Week Comments Yes 2 (1 standard drink = 0.6 oz pure alcoho l) per week Sex Assigned at Date Recorded Not on file documented as of this encounter Progress Notes Isabel Guillaume, TECHNICAL SALES SUPPORT SPECIALIST - 10/27/2017 9:15 AM CDT 10/27/2017 Visit # 9 Protocol: Back, Disc and submax Start: 9:21 am End: 9:53 am (TECHNICAL SALES SUPPORT SPECIALIST Visit # 4 Subjective: Pt is doing pretty good today. She has some right low back discomfort but it is doing ok. Pt is pleased with the strength and reduced sx . Cervical Not performed today. Objective Tests & Measures: 10% wt increase on lumbar extension Tests performed today (see reviewflowsheet for score and outcomes): : None Performed Today Warm Up: Movement Specific Training: Not Completed Treadmill: Minutes 5 Intensity 3.2 mph ICE: Back Lumbar Lumbar & Torso 10/27/2017 Set 1 Ext % Max 100% Set 1 Ext ROM 3-42 Set 1 Ext Wgt 66 Set 1 Ext Reps 24 Set 1 Ext Tul 83 Set 1 Ext Tez RPE 6/10 Set 2 Ext % Max 100% Set 2 Ext ROM 3-42 Set 2 Ext Wgt 66 Set 2 Ext Reps 27 Set 2 Ext Tul 88 Set 2 Tez RPE 7/10 Left Rot % Max 60% Left Rot ROM 35 Left Rot Wgt 20 Left Rot Reps 20 Left Rot Aubree RPE 4/10 Right Rot % Max 60% Right Rot ROM 35 Right Rot Wgt 20 Right Rot Reps 20 Right Rot Tez RPE 4/10 Therapeutic Exercise (23 min): Patient performed isolated lumbar extension exercise and auxillary exercises to improve muscle strength, to improve muscle endurance, to improve muscle flexibility, to improve range of motion, to increase strength for standing posture and to strengthen postural muscles to decrease stresses on the spine to increase tolerance for sitting, standing, walking, sleeping, lifting, driving and work activities Pt does well with the aux exercises, demonstrating good form and rep speed. Pt followed cues to go extra reps to achieve a good muscle fatigue on all the exercises. Neuromuscular Re-Education (1 min): Patient performed isolated torso rotation to decrease substitution patterns present with chronic pain, improve muscle recruitment patterns and to improve self-correction of posture to increase tolerance for sitting, standing, walking, sleeping, lifting, driving and work activities. Pt instructed in proper form on torso rotation exercise with emphasis to keep spine in the middle ofthe machine to avoid substitutions and engage the oblique muscles fully. Pt able to do after cues and reminders of body position. Auxillary Auxillary 10/27/2017 Abs Wgt Set 1 35 Abs Reps Set 1 21 Abs Wgt Set 2 35 Abs Reps Set 2 21 Glute Wgt Set 1 70 Glute Reps Set 1 22 Glute Wgt Set 2 80 Glute Reps Set 2 30 Leg Press Wgt Set 1 170 Leg Press Reps Set 1 22 Leg Press Wgt Set 2 170 Leg Press Reps Set 2 20 Lats Wgt Set 1 50 Lats Reps Set 1 23 Lats Wgt Set 2 50 Lats Reps Set 2 23 Other crate 15# 5 reps waist to floor HEP - Therapeutic Activities (8 min): Pt followed cues on crate 15# lifting from waist to floor with turning correctly keeping the hips feet going in the same direction to prevent uneven rotation/loading of the disc material Patient Education: Patient was instructed in correlation of strength and function to increase their understanding of the benefits related to completing the [facility] program Crate 15# instruction see above for detail. Also pt encouraged to start her hip abduction exercises to promote balance gluteus medius muscle bilaterally. Pt plans to start that up again. Assessment: Pt has less leg sx.s and more just low back now. Pt does get some left medial knee pain with glut ham and lifting practice. Pt is improving muscle strength which is allowing pt to complete household cleaning without discomfort. Pt is progressing nicely and expect a close to full recovery before d/c from the program. Goals: Short Term Goals (4-6 weeks): 1. Pt will perform MST HEP 2x/day consistently to improve lumbar and hip mobility. (goal met 3-21) 2. Pt will report a decreased frequency of right thigh/leg symptoms to 2 or fewer times/week. 3. Pt will demonstrate proper body/lifting mechanics to bend and lift 15# crate from floor to chest height without LBP. ? Line Assigner Goals (>6 weeks): 1. Patient will be [...] LE symptoms. ?? Recommendations/Communication: 100% torso rotation and 60% lumbar extension, 10th visit and elisha chair review. Total timed code min: 32 Total treatment time: 32 Isabel Guillaume PTA 10/27/2017, 9:21 AM documented in this encounter Plan of Treatment Not on filedocumented as of this encounter Visit Diagnoses Diagnosis Lumbar radiculopathy Thoracic or lumbosacral neuritis or radi culitis, unspecified documented in this encounter Care Teams Senior Grants Officer Relationship Specialty Start Date End Date Asia Millard MD PCP - General Family Practice 09/23/17[address] [place] [address] documented as of this encounter
--- OUTSIDE RECORDS SUMMARY | 2022-07-02 14:38 | XMS_ITS | Encounter Summary ---
:1955 Author [facility] Address [address] [place] [address] Care Team Providers Name Role Phone Asai Millard MD Primary Care Provider [phone] Reason for Visit Reason Comments BACK PAIN, LOW Consult/Transfer Care (Routine) - Closed Specialty Diagnoses / Procedures Referred By Contact Refer red To Contact Physical Therapy Diagnoses Spondylosis without myelopathy or radiculopathy, lumbosacral region (HRC) MRI - [facility] [place] Mele Kathleen MD [address] [address] [place] [address] [place], [address] [place] [address] Phone: Fax: Referral ID Status Reason Start Date Expiration Date Visits Requ ested Visits Authorized [id number] Closed 09/21/2017 12/21/2018 90 90 Encounter Details Date Type Department Care Team Description 10/12/2017 Therapy Physicians Neck and Back Sang Hamlin, PT Lumbar radiculopathy [facility] [address] [facility], [address] [place] [address] Social History Tobacco Use Types Packs/Day Years Used Date Smoking Tobacco: Never Smokeless Tobacco: Never Alcohol Use Standard Drinks/Week Comments Yes 2 (1 standard drink = 0.6 oz pure alcoho l) per week Sex Assigned at Date Recorded Not on file documented as of this encounter Progress Notes Sang Hamlin, PT - 10/12/2017 8:30 AM CDT 10/12/2017 Visit # 4 Protocol: Back, Disc and submax Start: 829 End: 914 (PIPE FITTER AMMONIA Visit # 0 Subjective: Pt reports that it was sore Wednesday after my session. Wednesday I felt better and Wednesday it was pretty much back to normal. Cervical Not performed today. Objective Tests & Measures: Tests performed today (see reviewfloweet for score and outcomes): : None Performed Today Warm Up: Movement Specific Training: Not Completed Mat Exercises Completed Treadmill: Minutes 5 Intensity mod ICE: Back Lumbar Lumbar & Torso 10/12/2017 Set 1 Ext % Max 60% Set 1 Ext ROM 3-42 Set 1 Ext Wgt 37 Set 1 Ext Reps 30 Set 1 Ext Tul 181 Set 1 Ext Tez RPE 4 Set 2 Ext % Max - Set 2 Ext ROM - Set 2 Ext Wgt - Set 2 Ext Reps - Set 2 Ext Tul - Set 2 Tez RPE - Therapeutic Exercise (24 min): Patient performed auxillary exercises to improve muscle strength, to improve muscle endurance, to provide postural and scapular stability, increase strength and endurance levels of supporting spinal muscle groups and to strengthen postural muscles to decrease stresses on the spine to increase tolerance for standing, walking, lifting, household tasks and work activities Analyzed data from previous treatment to determine most appropriate changes in range of motion and resistance to maximize his low back strength and strength in supporting mm of pelvic and trunk. Neuromuscular Re-Education (8 min): Patient performed isolated lumbar extension to retrain muscles for proper sequencing, to improve ability to direct and regulate movement with decreased compensation, improve muscle recruitment patterns, decrease substitution patterns and normalize movement patterns, to improve kinesio awareness and to improve movement patterns in an isolated plane to increase tolerance for walking, lifting and work activities. Set-up and calibration of lumbar strengthening equipment to properly fit for patient weight and height. Instruction and performance following with verbal cues and demonstration throughout to improve pace, breathing, and technique. Auxillary Auxillary 10/12/2017 Abs Wgt Set 1 25 Abs Reps Set 1 20 Abs Wgt Set 2 25 Abs Reps Set 2 20 Glute Wgt Set 1 50 Glute Reps Set 1 30 Glute Wgt Set 2 70 Glute Reps Set 2 30 Leg Press Wgt Set 1 130 Leg Press Reps Set 1 25 Leg Press Wgt Set 2 140 Leg Press Reps Set 2 20 Lats Wgt Set 1 55 Lats Reps Set 1 25 Lats Wgt Set 2 - Lats Reps Set 2 - HEP - Therapeutic Activities (13 min): Therapeutic Activities 10/12/2017 SITTING POSTURE - STANDING POSTURE - SLEEP POSTURE - BASE OF SUPPORT Needs further training WEIGHT SHIFT Needs further training PIVOT VS TWIST Needs further training OBJECT CLOSE VS FAR AWAY Needs further training SQUAT Needs further training LIFT FROM FLOOR Needs further training LIFT OVERHEAD Needs further training OTHER ACTIVITY Crate 0# and 5# Pt performed lifting technique initially with PT supervision and instruction with empty crate. Once technique was demonstrated correctly she began lifting 5# crate from floor with power lift and staggered stance lift taught from floor to waist. Demonstration and instruction first with patient reciprocating movement x 5 reps. Close vs away and weight shift taught with 5# weight to assist with comprehension of body mechanics. Weight shift used with overhead and chest height shelf to teach technique toplace and remove objects from shelf/cabinet and decrease strain on low back with cleaning and laundry tasks. Golfers lift demonstrated and instructed on proper use with light weight objects. Practiced lift with orange cone and one hand on countertop. Pt performed multiple times. Carrying 5# crate to improve mobility 50 ft to 1st station, 25 feet to second station, and 75 feet back to 3rd station for a total of 150 feet with lifting activities performed at each station. Patient Education: Patient was instructed in correlation of strength and function to increase their understanding of the benefits related to completing the [facility] Rehab program Assessment:Pt was experiencing more Back pain with ab curls at 25#, we worked on alternative techniques to alleviate LBP with no change. We tried ab curls at at 35# and she reported more abdominal fatigue and less back discomfort. Continue with this weight next session. Functional lifting is improving, cues still needed and more practice. Will need to monitor any knee pain with squatting to lift, with repetition she begins to report some discomfort that impacts her ability to squat and has tendency to bend at low back/hips. Goals: Short Term Goals (4-6 weeks): 1. Pt will perform MST HEP 2x/day consistently to improve lumbar and hip mobility. 2. Pt will report a decreased frequency of right thigh/leg symptoms to 2 or fewer times/week. 3. Pt will demonstrate proper body/lifting mechanics to bend and lift 15# crate from floor to chest height without LBP. ?? Acting Instructor Goals (>6 weeks): 1. Patient will be independent with home exercise program after discontinued from Physical Therapy. 2. Pt will walk/stand for >60 mins without low back or right leg symptoms to grocery shop. 3.Pt will demonstrate proper body/lifting mechanics to bend and lift 30# crate from floor to chest height without LBP Precautions: Disc with spondylolisthesis (block end range lumbar extension), [id number] Recommendations/Communication: Next visit: Increase Ab curls to 35# next session. Lext 90%, wait to start Troto, monitoring R LE sx. Total timed code min: 45 Total treatment time: 45 Sang Hamlin, PT 10/12/2017, 11:08 AM documented in this encounter Plan of Treatment Not on filedocumented as of this encounter Visit Diagnoses Diagnosis Lumbar radiculopathy Thoracic or lumbosacral neuritis or radi culitis, unspecified documented in this encounter Care Teams Aircraft Mechanic Relationship Specialty Start Date End Date Asia Millard MD PCP - General Family Practice 09/23/17[address] [place] [address] documented as of this encounter
--- OUTSIDE RECORDS SUMMARY | 2022-07-02 14:38 | XMS_ITS | Encounter Summary ---
:1955 Author Organization [facility] Address [address] [place] [address] Care Team Providers Name Role Phone Asia Millard MD Primary Care Provider [phone] Reason for Visit Reason Comments BACK PAIN, LOW LEG PAIN Consult/Transfer Care (Routine) - Closed Specialty Diagnoses / Procedures Referred By Contact Refer red To Contact Physical Therapy Diagnoses Spondylosis without myelopathy or radiculopathy, lumbosacral region (HRC) MRI - [facility] [place] Mele Kathleen MD [address] [address] [place] [address] [place], [address] [place] [address] Phone: Fax: Referral ID Status Reason Start Date Expiration Date Visits Requ ested Visits Authorized [id number] Closed 09/21/2017 12/21/2018 90 90 Encounter Details Date Type Department Care Team Description 10/06/2017 Therapy Physicians Neck and Back Sang Hamlin, PT Lumbar radiculopathy [facility] [address] [facility], [address] [place] [address] Social History Tobacco Use Types Packs/Day Years Used Date Smoking Tobacco: Never Smokeless Tobacco: Never Alcohol Use Standard Drinks/Week Comments Yes 2 (1 standard drink = 0.6 oz pure alcoho l) per week Sex Assigned at Date Recorded Not on file documented as of this encounter Progress Notes Sang Hamlin, PT - 10/06/2017 10:45 AM CST 10/06/17 Visit # 2 Protocol: Back, Disc and submax/ Start: 1050 End: 1132 (RUG CLEANER HELPER Visit # 0 Subjective: Pt reports she is happy to start program. I have been trying to do my home stretches religiously. Pt denies a need to review home program. Cervical Not performed today. Objective Tests & Measures: Tests performed today (see reviewflowsheet for score and outcomes): : None Performed Today Warm Up: Movement Specific Training: Not Completed Mat Exercises Completed Bike: Minutes 5 Intensity 3 ICE: Back Lumbar Lumbar & Torso 10/06/2017 Set 1 Ext % Max 60% Set 1 Ext ROM 3-45 Set 1 Ext Wgt 37 Set 1 Ext Reps 20 Set 1 Ext Tul 156 Set 1 Ext Tez RPE 4-5 Therapeutic Exercise (32 min): Patient performed auxillary exercises to improve muscle strength, to improve muscle endurance, to improve muscle flexibility, to improve range of motion, to increase strength for seated posture, increase strength and endurance levels of supporting spinal muscle groups and to strengthen postural muscles to decrease stresses on the spine to increase tolerance for standing, walking, lifting, reading, personal care tasks, household tasks and work activities Demo used to teach specific aux exercises with technique and fatigue monitored. Clinic decision making used to evaluate and add or decrease resistance and/or ROM for patient specific limitations. VCs needed to teach performance and correct substitutions to isolate appropriate muscle groups. Neuromuscular Re-Education (10 min): Patient performed isolated lumbar extension to improve ability to direct and regulate movement with decreased compensation, improve muscle recruitment patterns, to improve coordination and movement quality, decrease substitution patterns and normalize movement patterns and to improve self-correction of posture to increase tolerance for standing, walking and lifting. Set-up and calibration of lumbar strengthening equipment to properly fit for patient weight and height. Instruction and performance following with verbal cues and demonstration throughout to improve pace, breathing, and technique. Auxillary Auxillary 10/06/2017 Abs Wgt Set 1 35 Abs Reps Set 1 10 Abs Wgt Set 2 25 Abs Reps Set 2 20 Glute Wgt Set 1 50 Glute Reps Set 1 20 Glute Wgt Set 2 60 Glute Reps Set 2 20 Leg Press Wgt Set 1 120 Leg Press Reps Set 1 30 Lats Wgt Set 1 50 Lats Reps Set 1 20 HEP - Therapeutic Activities (0 min): None performed today Patient Education: Patient was instructed in pain/time scale and correlation of strength and function to increase theirunderstanding of the benefits related to completing the [facility] program Assessment:Pt was cleared by MDto initiate lumbar progressive resistance strengthening program. Today was initial day performing strengthening exercises so more time was spent educating patient on specific exercises, correcting form, monitoring technique, and adjusting resistance to reach target levels of fatigue to improve mm strength and endurance. Pt tolerated well and is motivated to get stronger. No leg symptoms noted during exercises. Goals: Short Term Goals (4-6 weeks): 1. Pt will perform MST HEP 2x/day consistently to improve lumbar and hip mobility. 2. Pt will report a decreased frequency of right thigh/leg symptoms to 2 or fewer times/week. 3. Pt will demonstrate proper body/lifting mechanics to bend and lift 15# crate from floor to chest height without LBP. Senior Care Goals (>6 weeks): 1. Patient will be independent with home exercise program after discontinued from Physical Therapy. 2. Pt will walk/stand for >60 mins without low back or right leg symptoms to grocery shop. 3.Pt will demonstrate proper body/lifting mechanics to bend and lift 30# crate from floor to chest height without LBP Precautions: Disc with spondylolisthesis (block end range lumbar extension) Recommendations/Communication: 80% Lext, can start Troto if leg symptoms did not worsen after today's session. Increase aux as tolerated. Total timed code min: 42 Total treatment time: 42 Sang Hamlin PT 10/07/2017, 11:19 AM TIAN BLIND TAPE CUTTER documented in this encounter Plan of Treatment Not on filedocumented as of this encounter Visit Diagnoses Diagnosis Lumbar radiculopathy Thoracic or lumbosacral neuritis or radi culitis, unspecified documented in this encounter Care Teams Prn Physical Therapist Relationship Specialty Start Date End Date Asia Millard MD PCP - General Family Practice 09/23/[address] [place] [address] documented as of this encounter
--- OUTSIDE RECORDS SUMMARY | 2022-07-02 14:38 | XMS_ITS | Encounter Summary ---
:1955 Author Organization [facility] Address [address] [place] [address] Care Team Providers Name Role Phone Unavailable Primary Care Provider Unavailable Reason for Visit Reason Comments Annual Exam Encounter Details Date Type Department Care Team Description 04/23/2015 [facility] Ronaldo Arevalo gy necological examination (Primary Dx); Obstetrics/Gynecolog y Alondra Casillas MD Menopausal symptoms; [address] Needs flu shot; [place], [place] Other s creening mammogram; [address] Screening for thyroid disord er; [phone] Screening for d iabetes mellitus; Screening for l ipoid disorders Social History Tobacco Use Types Packs/Day Years Used Date Smoking Tobacco: Never Assessed Sex Assigned at Date Recorded Not on file documented as of this encounter Last Filed Vital Signs Vital Sign Reading Time Taken Comments Blood Pressure 142/88 04/23/2015 9:24 AM CDT Pulse 69 04/23/2015 9:24 AM CDT Temperature - - Respiratory Rate - - Oxygen Saturation - - Inhaled Oxygen Concentration - - Weight 73.5 kg (162 lb) 04/23/2015 9:24 AM CDT Height 169.5 cm (5' 6.75) 04/23/2015 9:24 AM CDT Body Mass Index 25.56 04/23/2015 9:24 AM CDT documented in this encounter Progress Notes Alondra Arevalo MD - 04/23/2015 10:16 AM CDT CHIEF COMPLAINT: Chief Complaint Patient presents with ??? Annual Exam SUBJECTIVE : This is a 60 y.o. female seen today for annual oncology rep exam. She is doing well on the estradiol patch, all of her symptoms are under good control. She has had a supracervical hyst and BSO, Pap and HPV lastyear were negative. Would like to continue on her HT for quality of life. 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 PAST MEDICAL HISTORY : Past Medical History Diagnosis Date ??? Arthritis FAMILY HISTORY OR SICK CONTACTS : Family History Problem Relation Age of Onset ??? Cancer, Breast Neg Hx ??? Cancer, Ovarian Neg Hx ??? Diabetes Mother ??? High Cholesterol Mother ??? Hypertension Mother ??? Osteoporosis Mother ??? Diabetes Sister ??? Osteoporosis Sister ??? Diabetes Maternal Grandmother SOCIAL HISTORY : History Social History ??? Marital Status: Spouse Name: N/A Number of Children: 1 ??? Years of Education: N/A Occupational History ??? Unemployed Social History Main Topics ??? Smoking status: Never Smoker ??? Smokeless tobacco: Never Used ??? Alcohol Use: 1.2 oz/week 2 Glasses of wine per week Comment: per week ??? Drug Use: Not on file ??? Sexual Activity: Partners: Male Control/ Protection: Surgical Other Topics Concern ??? Bike Helmet No ??? City Water Yes ??? Exercise Yes ??? Guns In Home No ??? Seat Belt Yes ??? Special Diet No ??? Weight Concern Yes Social History Narrative MEDICATIONS : Current Outpatient Prescriptions Medication Sig Dispense Refill ??? [START ON 04/25/2015] estradiol (VIVELLE DOT) 0.05 mg/[address] 1 patch onto the skin twice a week. 24 patch 3 ??? multivitamin (THERAGRAN) tablet Take 1 tablet by mouth daily (every 24 hours). 100 13 ??? [place]-3 Fatty Acids Cap daily (every 24 hours). [...] in no acute distress. Vital Signs: BP 142/88 mmHg Pulse 69 Ht 5' 6.75 (1.695 m) Wt 162 lb (73.483 kg) BMI 25.58 kg/m2 Neck: Supple, without masses, lymphadenopathy or tenderness. Breasts: Symmetric and non tender. No mass or nipple discharge. No axillary adenopathy. Abdomen: The abdomen was soft and nontender. No obvious masses or organomegaly. Pelvic: External genitalia without lesions. Normal urethral meatus. Normal vagina and discharge. Cervix without lesions. Uterus normal size and position. Adnexa without masses or tenderness. Rectal exam is confirmatory. LABS : ASSESSMENT : Diagnosis (ICD9) and Associated Orders ICD-9-CM ICD-10-CM 1. Routine gynecological examination V72.31 Z01.419 TSH And Free T4 (FRT4 If TSH Abnorm) 2. Menopausal symptoms 627.2 N95.1 estradiol (VIVELLE DOT) 0.05 mg/24 hr 3. Needs flu shot V04.81 Z23 Fluarix Influenza QIV (36+ mos) 4. Other screening mammogram V76.12 Z12.31 5. Screening for thyroid disorder V77.0 Z13.29 TSH And Free T4 (FRT4 If TSH Abnorm) 6. Screening for diabetes mellitus V77.1 Z13.1 Glucose 7. Screening for lipoid disorders V77.91 Z13.220 Cholesterol Fraction, LDLD if Trig Hi [CHOLF] PLAN : Diagnosis (ICD9) and Associated Orders ICD-9-CM ICD-10-CM 1. Routine gynecological examination V72.31 Z01.419 TSH And Free T4 (FRT4 If TSH Abnorm) 2. Menopausal symptoms 627.2 N95.1 estradiol (VIVELLE DOT) 0.05 mg/24 hr 3. Needs flu shot V04.81 Z23 Fluarix Influenza QIV (36+ mos) 4. Other screening mammogram V76.12 Z12.31 5. Screening for thyroid disorder V77.0 Z13.29 TSH And Free T4 (FRT4 If TSH Abnorm) 6. Screening for diabetes mellitus V77.1 Z13.1 Glucose 7. Screening for lipoid disorders V77.91 Z13.220 Cholesterol Fraction, LDLD if Trig Hi [CHOLF] documented in this encounter Plan of Treatment Not on filedocumented as of this encounter Visit Diagnoses Diagnosis Routine gynecological examination - Prim bob Menopausal symptoms Symptomatic menopausal or female climact indu states Needs flu shot Need for prophylactic vaccination and in oculation against influenza Other screening mammogram Screening for thyroid disorder Screening for diabetes mellitus Screening for lipoid disorders documented in this encounter
--- OUTSIDE RECORDS SUMMARY | 2022-07-02 14:38 | XMS_ITS | Encounter Summary ---
:1955 Author Organization [facility] Address [address] [place] [address] Care Team Providers Name Role Phone Asia Millard MD Primary Care Provider [phone] Reason for Visit Reason Comments BACK PAIN, LOW LEG PAIN Consult/Transfer Care (Routine) - Closed Specialty Diagnoses / Procedures Referred By Contact Refer red To Contact Physical Therapy Diagnoses Spondylosis without myelopathy or radiculopathy, lumbosacral region (HRC) MRI - CDI [place] Mele Kathleen MD [address] [address] [facility] [address] [address], [address] [place] [address] Phone: Fax: Referral ID Status Reason Start Date Expiration Date Visits Requ ested Visits Authorized [id number] Closed 09/21/2017 12/21/2018 90 90 Encounter Details Date Type Department Care Team Description 10/08/2017 Therapy Physicians Neck and Back Sandhya Agudelo, P T Lumbar radiculopathy [facility] [address] [facility], [address] [place] [address] Social History Tobacco Use Types Packs/Day Years Used Date Smoking Tobacco: Never Smokeless Tobacco: Never Alcohol Use Standard Drinks/Week Comments Yes 2 (1 standard drink = 0.6 oz pure alcoho l) per week Sex Assigned at Date Recorded Not on file documented as of this encounter Progress Notes Sandhya Agudelo, PT - 10/08/2017 3:00 PM CST 10/08/2017 Visit # 3 Protocol: Back, Disc and submax Start: 3:00 End: 3:46 (EQUESTRIAN TRAINER Visit # 0 Subjective: Pt reports that she had mild soreness after last visit, but nothing too bad. Pt notes that she has constant numbness in right lateral thigh, just above the knee. She notes that her sx occasionally go down into her foot and lateral ankle. She reports that last night when she got into bed she noticed sx into her ankle/foot. Resolved after taking medication. Cervical Not performed today. Objective Tests & Measures: +10# G/H +20% Lext wt, per submax protocol +5# lats Tests performed today (see reviewflowsheet for score and outcomes): : None Performed Today Warm Up: Movement Specific Training: Not Completed Mat Exercises Completed Treadmill: Minutes 5 Intensity mod ICE: Back Lumbar Lumbar & Torso 10/08/2017 Set 1 Ext % Max 80% Set 1 Ext ROM 3-45 Set 1 Ext Wgt 50 Set 1 Ext Reps 30 Set 1 Ext Tul 200 Set 1 Ext Tez RPE 4 Set 2 Ext % Max 80% Set 2 Ext ROM 3-45 Set 2 Ext Wgt 50 Set 2 Ext Reps 30 Set 2 Ext Tul 174 Set 2 Tez RPE 5 Therapeutic Exercise (46 min): Patient performed isolated lumbar extension exercise and auxillary exercises to improve muscle strength, to improve muscle endurance and increase strength and endurance levels of supporting spinal muscle groups to increase tolerance for standing, walking and lifting Verbal cues given for proper pace and form for max benefit and to prevent compensatory movement patterns. Neuromuscular Re-Education (0 min): None performed today. Auxillary Auxillary 10/08/2017 Abs Wgt Set 1 25 Abs Reps Set 1 20 Abs Wgt Set 2 25 Abs Reps Set 2 20 Glute Wgt Set 1 60 Glute Reps Set 1 20 Glute Wgt Set 2 70 Glute Reps Set 2 20 Leg Press Wgt Set 1 120 Leg Press Reps Set 1 20 Leg Press Wgt Set 2 120 Leg Press Reps Set 2 20 Lats Wgt Set 1 50 Lats Reps Set 1 20 Lats Wgt Set 2 55 Lats Reps Set 2 20 HEP - Therapeutic Activities (0 min): Not performed today. Patient Education: Patient was instructed in correlation of strength and function to increase their understanding of the benefits related to completing the [facility] program Verbal cues given for pace and form in machines. Instruction also given for progression of weights and purpose of light/heavy workouts. Assessment: Pt tolerated rx well. Good effort throughout rx session. Pt made good objective wt gainsin multiple machines, including Lext machine today. She follows cues well for form corrections and pace of exercise. She should respond well to rx, noting improved symptoms as she gets stronger. Good start to program. Goals: Short Term Goals (4-6 weeks): 1. Pt will perform MST HEP 2x/day consistently to improve lumbar and hip mobility. 2. Pt will report a decreased frequency of right thigh/leg symptoms to 2 or fewer times/week. 3. Pt will demonstrate proper body/lifting mechanics to bend and lift 15# crate from floor to chest height without LBP. ?? Family Helper Goals (>6 weeks): 1. Patient will be [...] end range lumbar extension), R [id number] Recommendations/Communication: Next visit: Lext 60%, wait to start Troto, monitoring R LE sx. Increase LP wt by 10# Initiate body mechanics training for lifting empty crate, as able. Total timed code min: 46 Total treatment time: 46 Sandhya Agudelo, ELIECER 10/08/2017, 5:00 PM FINANCE SALES REP documented in this encounter Plan of Treatment Not on filedocumented as of this encounter Visit Diagnoses Diagnosis Lumbar radiculopathy Thoracic or lumbosacral neuritis or radi culitis, unspecified documented in this encounter Care Teams Texture Artist Relationship Specialty Start Date End Date Asia Millard MD PCP - General Family Practice 09/23/171999 [place] [address] documented as of this encounter
--- OUTSIDE RECORDS SUMMARY | 2022-07-02 14:38 | XMS_ITS | Encounter Summary ---
:1955 Author Organization [facility] Address [address] [place] [address] Care Team Providers Name Role Phone Unavailable Primary Care Provider Unavailable Encounter Details Date Type Department Care Team Description 05/28/2016 Notes/Orders [facility] Aurora Pagan MD Obstetrics/Gynecolog y [address] [facility] 5th Floor [facility] [place] [address] [phone] Social History Tobacco Use Types Packs/Day Years [...]
--- OUTSIDE RECORDS SUMMARY | 2022-07-02 14:38 | XMS_ITS | Encounter Summary ---
:1955 Author Organization [facility] Address [address] [place] [address] Care Team Providers Name Role Phone Unavailable Primary Care Provider Unavailable Encounter Details Date Type Department Care Team Description 04/29/2016 Lab Visit [facility] [place] [facility] D raw Screening for lipoid disorde rs; [address] Screening for diabetes [facility]; [place] [address] Screening for thyroid disord er; [phone] Screening for c ondition Social History Tobacco Use Types Packs/Day Years Used Date Smoking Tobacco: Never Smokeless Tobacco: Never Alcohol Use Standard Drinks/Week Comments Yes 2 (1 standard drink = 0.6 oz pure alcoho l) per week Sex Assigned at Date Recorded Not on file documented as of this encounter Progress Notes Aurora Pagan MD - 05/28/2016 8:49 AM CDT Quick Note: Sent. She said she eats very little beef and pork. Recently began Krill oil. One reference indicated there might be an increase in LDL. She will stop this and will retest lipid profile in one month. documented in this encounter Plan of Treatment Not on filedocumented as of this encounter Procedures Procedure Name Priority Date/Time Associated Comments Diagnosis HEPATITIS C PCR Routine 04/29/2016 4:59 PM Result s for this QUANTITATIVE CDT procedure are i n the results section. GLUCOSE Routine 04/29/2016 10:59 Screening for Results fo r this AM CDT diabetes mellitus procedure are in the results section. TSH AND FREE T4 (FRT4 Routine 04/29/2016 10:59 Screening for R esults for this IF TSH ABNORM) AM CDT thyroid disorder procedure are in the results section. LIPID PANEL AND Routine 04/29/2016 10:59 Screening for Results for this DIRECT LDL(IF NEEDED) AM CDT lipoid disorders pr ocedure are in the results section. FREE T4 Routine 04/29/2016 10:59 Screening for Results fo r this AM CDT thyroid disorder procedure a re in the results section. HEPATITIS C ANTIBODY, Routine 04/29/2016 10:59 Screening for R esults for this WITH REFLEX AM CDT condition procedure are i n the results section. HGB A1C Routine 04/29/2016 10:59 Screening for Results fo r this AM CDT diabetes mellitus procedure are in the results section. documented in this encounter Results Hepatitis C PCR Quantitative (04/29/2016 4:59 PM CDT) [facility] S B E Method Time Signature HCV Quant Not Detected Not Detected PN SOFT Interp Comment: Test Performed by Real Time PCR CLIA Number [id number] HCV Quant iu/ml <12 IU/ml PN SOFT Comment: CLIA Number [id number] HCV Quant Log iu/ml <1.08 Log IU/ml PN SOFT Comment: Performed at [facility], [address] [place] [address] ??[address] CLIA Number [id number] Specimen Anatomical Collection Method Collection Time Receive d Time (Source) Location / / Volume Laterality 04/29/2016 4:59 PM 6 2:25 CDT PM CDT Aurora Pagan MD LAB_1 Performing Organization Address City/State/ZIP Code Phon e Number PN SOFT [address] [place] [address] (ABNORMAL) Hepatitis C Antibody [HCAB] (04/29/2016 10:59 AM CDT) [facility] S B E Method Time Signature Hepatitis C Prelim (A) Nonreactive PN SOFT Antibody Comment: Prelim reactive, confirmation t o follow. Specimen Anatomical Collection Method Collection Time Receive d Time (Source) Location / / Volume Laterality 04/29/2016 10:59 04/29/2016 AM CDT 11:14 AM CDT Narrative PN SOFT - 04/29/2016 12:40 PM CDT Performed at [facility], [facility] [place] [address] CLIA number [id number] Aurora Pagan MD LAB_1 Performing Organization Address City/[facility] Phon e Number PN SOFT [address] [place] [address] Free Thyroxine [FRT4] (04/29/2016 10:59 AM CDT) athologist Signature Thyroxine, Free 1.0 0.7 - 1.5 PN SOFT ng/dL Specimen Anatomical Collection Method Collection Time Receive d Time (Source) Location / / Volume Laterality 04/29/2016 10:59 04/29/2016 AM CDT 11:14 AM CDT Narrative PN SOFT - 04/29/2016 12:57 PM CDT Performed at [address] [address] CLIA number [id number] Aurora Pagan MD LAB_1 Performing Organization Address [facility] Phon e Number PN SOFT [address] [place] [address] TSH And Free T4 (FRT4 If TSH Abnorm) (04/29/2016 10:59 AM CDT) athologist Signature Thyroid 3.06 0.20 - PN SOFT Stimulating 4.50 Hormone uIU/mL Specimen Anatomical Collection Method Collection Time Receive d Time (Source) Location / / Volume Laterality 04/29/2016 10:59 04/29/2016 AM CDT 11:14 AM CDT Narrative PN SOFT - 04/29/2016 12:39 PM CDT Performed at [facility], [address] [place] [address] CLIA number [id number] Aurora Pagan MD LAB_1 Performing Organization Address City/[facility] Phon e Number PN SOFT [address] [place] [address] HGB A1C (04/29/2016 10:59 AM CDT) athologist Signature HGB A1C 5.1 4.0 - 5.6 % PN SOFT Specimen Anatomical Collection Method Collection Time Receive d Time (Source) Location / / Volume Laterality 04/29/2016 10:59 04/29/2016 AM CDT 11:13 AM CDT Narrative PN SOFT - 04/29/2016 12:58 PM CDT Performed at [address] [address] CLIA number [id number] Aurora Pagan MD LAB_1 Performing Organization Address [facility] Phon e Number PN SOFT [address] [place] [address] Glucose (04/29/2016 10:59 AM CDT) athologist Signature Lab Glucose 90 60 - 100 PN SOFT mg/dL Specimen Anatomical Collection Method Collection Time Receive d Time (Source) Location / / Volume Laterality 04/29/2016 10:59 04/29/2016 AM CDT 11:14 AM CDT Narrative PN SOFT - 04/29/2016 12:20 PM CDT Performed at [address] [address] CLIA number [id number] Aurora Pagan MD LAB_1 Performing Organization Address [facility] e Number PN SOFT [address] [place] [address] (ABNORMAL) LIPID PANEL AND DIRECT LDL(IF NEEDED) (04/29/2016 10:59 AM CDT) [facility] gist Method Time Signature Cholesterol 266 (H) 0 [...] - 04/29/2016 12:20 PM CDT Performed at [address] [address] CLIA number [id number] Aurora Pagan MD LAB_1 Performing Organization Address City/State/ZIP Code Phon e Number PN SOFT [address] [place] [address] [phone] documented in this encounter Visit Diagnoses Diagnosis Screening for lipoid disorders Screening for diabetes mellitus Screening for thyroid disorder Screening for condition Screening for unspecified condition documented in this encounter
--- OUTSIDE RECORDS SUMMARY | 2022-07-02 14:38 | XMS_ITS | Encounter Summary ---
:1955 Author Organization [facility] Address [address] [place] [address] Care Team Providers Name Role Phone Unavailable Primary Care Provider Unavailable Encounter Details Date Type Department Care Team Description 04/19/2014 [facility] screening mammogram Clinic [address] [facility]. [place], [place] [address] Social History Tobacco Use Types Packs/Day Years Used Date Smoking Tobacco: Never Assessed Sex Assigned at Date Recorded Not on file documented as of this encounter Plan of Treatment Not on filedocumented as of this encounter Procedures Procedure Name Priority Date/Time Associated Diagnosis Comme nts MM MAMMOGRAM Routine 04/19/2014 8:07 AM Other screening Result s for this SCREENING BILAT W CDT mammogram procedure are in CAD the results section. documented in this encounter Results MM Mammogram Screening Bilat W CAD (04/19/2014 8:07 AM CDT) Anatomical Region Laterality Modality Breast Bilateral Mammography Specimen (Source) Anatomical Location Collection Method / Collectio n Time Received Time / Laterality Volume Impressions 04/23/2014 3:35 PM CDT : BIRADS 1 Negative (overall) Follow Up Mammogram in 1 year - Billita randy The results and recommendations of this examination will be communicated to the patient by the [facility] and we will attempt to schedule any recommended imaging follow up with the patient. BJ Narrative 04/23/2014 3:35 PM CDT Compared to: 04/10/2013 Foreign Image(s) Mammogram, 02/29/2012 Foreign Image(s) Mammogram, 12/23/2010 Foreign I mage(s) Mammogram Bilateral Breast Findings: The breasts are almost entirely fat (<25 % fibroglandular). No significant mass, calcifications or o ther abnormalities are seen in either breast. Procedure Note Lexie Hill MD - 03/25/2016Formatt ing of this note might be different from the original. Compared to: 04/10/2013 Foreign Image(s) Mammogram, 02/29/2012 Foreign Image(s) Mammogram, 12/23/2010 Foreign I mage(s) Mammogram Bilateral Breast Findings: The breasts are almost entirely fat (<25 % fibroglandular). No significant mass, calcifications or o ther abnormalities are seen in either breast. IMPRESSION : BIRADS 1 Negative (overall) Follow Up Mammogram in 1 year - Alexys padilla The results and recommendations of this examination will be communicated to the patient by the [facility] and we will attempt to schedule any recommended imaging follow up with the patient. BJ Alondra Muller MD RAD DONTAE documented in this encounter Visit Diagnoses Diagnosis Other screening mammogram documented in this encounter
--- OUTSIDE RECORDS SUMMARY | 2022-07-02 14:38 | XMS_ITS | Encounter Summary ---
:1955 Author [facility] Address [address] [place] [address] Care Team Providers Name Role Phone Unavailable Primary Care Provider Unavailable Encounter Details Date Type Department Care Team Description 04/23/2015 [facility] O ther screening mammogram Clinic [address] [facility]. [place], [place] [address] Social History Tobacco Use Types Packs/Day Years Used Date Smoking Tobacco: Never Assessed Sex Assigned at Date Recorded Not on file documented as of this encounter Plan of Treatment Not on filedocumented as of this encounter Procedures Procedure Name Priority Date/Time Associated Diagnosis Comme nts MM MAMMOGRAM Routine 04/23/2015 9:00 AM Other screening Result s for this SCREENING BILAT W CDT mammogram procedure are in CAD the results section. documented in this encounter Results MM Mammogram Screening Bilat W CAD (04/23/2015 9:00 AM CDT) Anatomical Region Laterality Modality Breast Bilateral Mammography Specimen (Source) Anatomical Location Collection Method / Collectio n Time Received Time / Laterality Volume Impressions 04/23/2015 9:13 AM CDT : BI-RADS 1 Negative (overall) Follow Up Mammogram in 1 year - Bilatera l The results and recommendations of this examination will be communicated to the patient by the [facility] and we will attempt to schedule any recommended imaging follow up with the patient. Narrative 04/23/2015 9:13 AM CDT Compared to: 04/19/2014 MM Mammogram Screening Bilateral W Cad, 04/10/2013 Foreign Image(s) Mammogram, 02/29/2012 F oreign Image(s) Mammogram Bilateral Breast Findings: Bilateral digital screening mammogram wa s performed. There are scattered areas of fibroglandular density in the b reasts. No significant mass, calcifications or o ther abnormalities are seen in either breast. Procedure Note Swapna Shipman MD - 03/31/2016Formattin g of this note might be different from the original. Compared to: 04/19/2014 MM Mammogram Scr eening Bilateral W Cad, 04/10/2013 Foreign Image(s) Mammogram, 02/29/2012 F oreign Image(s) Mammogram Bilateral Breast Findings: Bilateral digital screening mammogram wa s performed. There are scattered areas of fibroglandular density in the b reasts. No significant mass, calcifications or o ther abnormalities are seen in either breast. IMPRESSION : BI-RADS 1 Negative (overall) Follow Up Mammogram in 1 year - Alexys padilla The results and recommendations of this examination will be communicated to the patient by the [facility] and we will attempt to schedule any recommended imaging follow up with the patient. Alondra Muller MD RAD DONTAE documented in this encounter Visit Diagnoses Diagnosis Other screening mammogram documented in this encounter
--- OUTSIDE RECORDS SUMMARY | 2022-07-02 14:38 | XMS_ITS | Encounter Summary ---
:1955 Author Organization [facility] Address [address] [place] [address] Care Team Providers Name Role Phone Unavailable Primary Care Provider Unavailable Encounter Details Date Type Department Care Team Description 04/23/2015 [facility] D raw Routine gynecological examin ation; [address] Screening for thyroid disord er; [place] [address] Screening for diabetes formerly [facility] tus; [phone] Screening for l ipoid disorders Social History Tobacco Use Types Packs/Day Years Used Date Smoking Tobacco: Never Assessed Sex Assigned at Date Recorded Not on file documented as of this encounter Plan of Treatment Not on filedocumented as of this encounter Procedures Procedure Name Priority Date/Time Associated Diagnosis Comme nts GLUCOSE Routine 04/23/2015 9:56 AM Screening for diabetes Results for this CDT mellitus procedure are i n the results section. TSH AND FREE T4 Routine 04/23/2015 9:56 AM Routine gynecologic al Results for this (FRT4 IF TSH CDT examination procedure are in ABNORM) Screening for thyroid the re sults disorder section. LIPID PANEL AND Routine 04/23/2015 9:56 AM Screening for lipoi d Results for this DIRECT LDL(IF CDT disorders procedure are in NEEDED) the results section. documented in this encounter Results (ABNORMAL) Lipid Panel and Direct LDL(If Needed) (04/23/2015 9:56 AM CDT) [facility] Method Time Signature Cholesterol 229 (H) 0 - 200 HP CONVERSION mg/dL Triglycerides 87 0 - 149 HP CONVERSION mg/dL HDL Cholesterol 66 >39 mg/dL HP CONVERSION Cholesterol/HDL 3.5 HP CONVERSION Ratio Screen LDL Calculated 146 (H) 19 - 130 HP CONVERSION mg/dL Length Of Fast 12.0 HP CONVERSION Specimen Anatomical Collection Method Collection Time Receive d Time (Source) Location / / Volume Laterality 04/23/2015 9:56 AM 5 CDT 10:09 AM CDT Narrative HP CONVERSION - 04/23/2015 10:50 AM CDT Performed at [facility], [address] [place] [address] Alondra Muller MD LAB_1 Performing Organization Address City/[facility] Phon e Number HP CONVERSION GLUCOSE (04/23/2015 9:56 AM CDT) athologist Signature Lab Glucose 85 60 - 100 HP CONVERSION mg/dL Specimen Anatomical Collection Method Collection Time Receive d Time (Source) Location / / Volume Laterality 04/23/2015 9:56 AM 5 CDT 10:09 AM CDT Narrative HP CONVERSION - 04/23/2015 10:50 AM CDT Performed at [facility], [address] [place] [address] Alondra Muller MD LAB_1 Performing Organization Address [facility] Phon e Number HP CONVERSION TSH AND FREE T4 (FRT4 IF TSH ABNORM) (04/23/2015 9:56 AM CDT) athologist Signature Thyroid 4.31 0.20 - HP CONVERSION Stimulating 4.50 mIU/L Hormone Specimen Anatomical Collection Method Collection Time Receive d Time (Source) Location / / Volume Laterality 04/23/2015 9:56 AM 5 CDT 10:09 AM CDT Narrative HP CONVERSION - 04/23/2015 10:50 AM CDT Performed at [facility], [address] [place], [place] [address] Alondra Muller MD LAB_1 Performing Organization Address City/[facility] Phon e Number HP CONVERSION documented in this encounter Visit Diagnoses Diagnosis Routine gynecological examination Screening for thyroid disorder Screening for diabetes mellitus Screening for lipoid disorders documented in this encounter
--- OUTSIDE RECORDS SUMMARY | 2022-07-02 14:38 | XMS_ITS | Encounter Summary ---
:1955 Author [facility] Address [address] [place] [address] Care Team Providers Name Role Phone Unavailable Primary Care Provider Unavailable Encounter Details Date Type Department Care Team Description 05/11/2013 Orders Only HP Claims MD Cheryl Security Contact Bill [address] [place] [address] Mailstop [id number] [phone] (Wo rk) Social History Tobacco Use Types Packs/Day Years Used Date Smoking Tobacco: Never Assessed Sex Assigned at Date Recorded Not on file documented as of this encounter Plan of Treatment Not on filedocumented as of this encounter Visit Diagnoses Not on filedocumented in this encounter
--- OUTSIDE RECORDS SUMMARY | 2022-07-02 14:38 | XMS_ITS | Encounter Summary ---
:1955 Author Organization [facility] Address [address] [place] [address] Care Team Providers Name Role Phone Asia Millard MD Primary Care Provider [phone] Reason for Visit Reason Comments BACK PAIN, LOW Consult/Transfer Care (Routine) - Closed Specialty Diagnoses / Procedures Referred By Contact Refer red To Contact Physical Therapy Diagnoses Spondylosis without myelopathy or radiculopathy, lumbosacral region (HRC) MRI - [facility] [place] Mele Kathleen MD [address] [address] [place] [address] [address], [address] [place] [address] Phone: Fax: Referral ID Status Reason Start Date Expiration Date Visits Requ ested Visits Authorized [id number] Closed 09/21/2017 12/21/2018 90 90 Encounter Details Date Type Department Care Team Description 11/08/2017 Therapy Physicians Neck and Back Bakari Higginbotham, SOFTWARE DEVELOPMENT ADVISOR Lumbar radiculopathy [facility] [address] [facility], [address] [facility], [facility] [address] [place] [address] [place] [address] [phone] Social History Tobacco Use Types Packs/Day Years Used Date Smoking Tobacco: Never Smokeless Tobacco: Never Alcohol Use Standard Drinks/Week Comments Yes 2 (1 standard drink = 0.6 oz pure alcoho l) per week Sex Assigned at Date Recorded Not on file documented as of this encounter Progress Notes Bakari Higginbotham Clarita, SOFTWARE DEVELOPMENT ADVISOR - 11/08/2017 9:15 AM CDT 11/08/2017 Visit # 12 Protocol: Back, Disc and submax Start: 912a End: 943a (SOFTWARE DEVELOPMENT ADVISOR Visit # 1 Subjective: Doing ok, low back did well over the weekend. No complaints of after workout's, just really tired after workouts and little sore per pt. Cervical Not performed today. Objective Tests & Measures: Tests performed today (see reviewflowsheet for score and outcomes): : None Performed Today Warm Up: Movement Specific Training: Not Completed Mat Exercises Completed Treadmill: Minutes 6 Intensity 3.0 ICE: Back Lumbar Lumbar & Torso 11/08/2017 Set 1 Ext % Max 60% Set 1 Ext ROM 3-42 Set 1 Ext Wgt 44 Set 1 Ext Reps 30 Set 1 Ext Tul 108 Set 1 Ext Tez RPE 3 Set 2 Ext % Max - Set 2 Ext ROM - Set 2 Ext Wgt - Set 2 Ext Reps - Set 2 Ext Tul - Set 2 Tez RPE - Left Rot % Max 100% Left Rot ROM 35 Left Rot Wgt 32 Left Rot Reps 30 Left Rot Aubree RPE 7 Right Rot % Max 100% Right Rot ROM 35 Right Rot Wgt 32 Right Rot Reps 30 Right Rot Tez RPE 7 Therapeutic Exercise (23 min): Patient performed isolated torso rotation exercise and auxillary exercises to improve muscle strength, to improve muscle endurance, increase strength and endurance levels of supporting spinal muscle groups and to strengthen postural muscles to decrease stresses on the spine to increase tolerance for sitting, standing, lifting, household tasks and work activities Verbal cues for proper form and control on Thoracic Rotation with instruction on which shoulder to push with to avoid substitution on the wrong side of muscle groups. Instructed in slow reps to avoid momentum and improper form. Neuromuscular Re-Education (8 min): Patient performed isolated lumbar extension to decrease substitution patterns present with chronic pain, to retrain muscles for proper sequencing and improve muscle recruitment patterns to increase tolerance for sitting, standing, lifting, household tasks and work activities. Verbal cues needed for proper form and control on Lumbar Extension machine with instruction to avoidsubstitution with other muscle groups and to facilitate correct muscle firing sequence and to avoid momentum, improper form and too fast with reps. Auxillary Auxillary 11/08/2017 Abs Wgt Set 1 40 Abs Reps Set 1 20 Abs Wgt Set 2 40 Abs Reps Set 2 20 Glute Wgt Set 1 90 Glute Reps Set 1 25 Glute Wgt Set 2 90 Glute Reps Set 2 25 Leg Press Wgt Set 1 180 Leg Press Reps Set 1 27 Leg Press Wgt Set 2 180 Leg Press Reps Set 2 25 Lats Wgt Set 1 55 Lats Reps Set 1 20 Lats Wgt Set 2 55 Lats Reps Set 2 20 Other - HEP - Therapeutic Activities (0 min): Not performed today. Patient Education: Patient was instructed in correlation of strength and function to increase their understanding of the benefits related to completing the [facility]BC Rehab program Assessment: Aruna Ayala tolerated treatment well, cues to go full ROM with glut/hams machine and slower on lumbar extension reps with light day. Should improve as she gets stronger with less painand more flexible with stretches. Observed form and speed on all reps to avoid substitution, proper positioning and good technique on all reps. Gives good effort in machines. Encouraged to get to max fatigue on reps with heavy workout. Goals: Short Term Goals (4-6 weeks): 1. [...] 11/04/17: Goal Met during treatment today. ? Group Home Goals (>6 weeks): 1. Patient will be [...] ?? Recommendations/Communication: 100% lumbar extension and 60% thoracic rotation next. HEP. Increase glut/hams 10# next. Total timed code min: 31 Total treatment time: 31 Bakari Higginbotham PTA 11/08/2017, 9:43 AM documented in this encounter Plan of Treatment Not on filedocumented as of this encounter Visit Diagnoses Diagnosis Lumbar radiculopathy Thoracic or lumbosacral neuritis or radi culitis, unspecified documented in this encounter Care Teams Toll Collector Supervisor Relationship Specialty Start Date End Date Asia Millard MD PCP - General Family Practice 09/23/171999 [place] [address] documented as of this encounter
--- OUTSIDE RECORDS SUMMARY | 2022-07-02 14:39 | XMS_ITS | Encounter Summary ---
:1955 Author [email or web address] Address [address], [place] [address] Care Team Providers Name Role Phone Unassigned, Provider Primary Care Provider Unavailable Encounter Details Date Type Department Care Team Description 2007 Office Visit [facility] [address] Cristina Cabrera MD Obstetrics/Gynecolog y [address] [place] [facility] [address] Mary Jo Jauregui d. [facility] [address] [facility] [place] [address] [phone] Social History Tobacco Use Types Packs/Day Years Used Date Smoking Tobacco: Never Assessed Sex Assigned at Date Recorded Not on file documented as of this encounter Last Filed Vital Signs Vital Sign Reading Time Taken Comments Blood Pressure 113/73 2007 4:30 PM CDT Pulse 68 2007 4:30 PM CDT Temperature - - Respiratory Rate - - Oxygen Saturation - - Inhaled Oxygen Concentration - - Weight 74.8 kg (164 lb 15.9 oz) 2007 4:30 PM C: 7 4.8kg CDT Height 168.3 cm (5' 6.25) 2007 4:30 PM C: 168.3c m CDT Body Mass Index 26.43 2007 4:30 PM CDT documented in this encounter Progress Notes Aurora Cabrera MD - 2007 12:01 AM CDT Progress Notes signed by Aurora Cabrera MD at 02/25/07 0634 Author: Aurora Cabrera MD Service: (none) Author Type: Physician Filed: 11/21/102000 Note Time: 02/09/072017 Status: Signed Tank Car Cleaner: Aurora Cabrera MD (Physician) NAME: MERCED AYALA MR#: [id number] ACCT: [id number] VISIT: [id number] DICTATING CLINICIAN: AURORA CABRERA MD JOB: [id number] LOC: 412 CLINIC PROGRESS NOTE DATE OF VISIT: 2007 SUBJECTIVE: CHIEF COMPLAINT: Here for endometrial biopsy. HISTORY: Merced Ayala is requesting a myomectomy rather than a hysterectomy. I asked her to return to the office for an endometrial biopsy to be sure that the endometrium on biopsy is normal. PAST MEDICAL HISTORY: Please see LastWord. OBJECTIVE: VS: BP: 113/73. P: 68. Ht: 66.25 in. Wt: 165 lb. PELVIC: EG, BUS normal. Vagina normal. Cervix nontender, no lesions. An endometrial biopsy was easily performed. A moderate amount of tissue was obtained. This was a very good biopsy. Merced did well. ASSESSMENT: Planning myomectomy on 03/10. PLAN: Myomectomy under regional anesthesia 03/10/07. She already has a preoperative visit scheduled with Dr. Awad on 03/04. IHA:[id number] C: 02/11/07 18:16 DOCUMENT: [id number] documented in this encounter Plan of Treatment Not on filedocumented as of this encounter Visit Diagnoses Not on filedocumented in this encounter Care Teams Grain Trader Relationship Specialty Start Date End Date Unassigned, Provider PCP - General 07/08/00 11/01/[address] [place] [address] documented as of this encounter
--- OUTSIDE RECORDS SUMMARY | 2022-07-02 14:39 | XMS_ITS | Encounter Summary ---
:1955 Author [facility] Address [address] [place] [address] Care Team Providers Name Role Phone Unassigned, Provider Primary Care Provider Unavailable Encounter Details Date Type Department Care Team Description 03/10/2007 PN Conversion Only OTHER CONVERSION [address] [place] [address] Social History Tobacco Use Types Packs/Day Years Used Date Smoking Tobacco: Never Assessed Sex Assigned at Date Recorded Not on file documented as of this encounter Plan of Treatment Not on filedocumented as of this encounter Visit Diagnoses Not on filedocumented in this encounter Care Teams Technology Support Analyst Relationship Specialty Start Date End Date Unassigned, Provider PCP - General 07/08/00 11/01/[address] [place] [address] documented as of this encounter
--- OUTSIDE RECORDS SUMMARY | 2022-07-02 14:39 | XMS_ITS | Encounter Summary ---
:1955 Author Organization [facility] Address [address] [place] [address] Care Team Providers Name Role Phone Unavailable Primary Care Provider Unavailable Encounter Details Date Type Department Care Team Description 02/29/2012 Imaging [id number] RADIOLOGY [facility] LIBRARY No diagnosis [address] [place] [address] Social History Tobacco Use Types Packs/Day Years Used Date Smoking Tobacco: Never Assessed Sex Assigned at Date Recorded Not on file documented as of this encounter Plan of Treatment Not on filedocumented as of this encounter Procedures Procedure Name Priority Date/Time Associated Diagnosis Comme nts FOREIGN IMAGE(S) Routine 02/29/2012 2:00 PM No diagnosis Resul ts for this MAMMOGRAM CDT procedure are i n the results section. documented in this encounter Results Foreign Image(S) Mammogram (02/29/2012 2:00 PM CDT) Anatomical Region Laterality Modality Breast Mammography Specimen (Source) Anatomical Location Collection Method / Collectio n Time Received Time / Laterality Volume Narrative 04/23/2014 2:58 PM CDT These outside images have been uploaded into PACS. If the results were provided, they will be located on the Media tab in the patient's chart. Procedure Note Conversion, Imr - 04/24/2016Formatting o f this note might be different from the original. These outside images have been uploaded into PACS. If the results were provided, they will be located on the Media tab in the patient's chart. Foreign Images Provider RAD NON-REPORTABLES documented in this encounter Visit Diagnoses Diagnosis No diagnosis Other unknown and unspecified cause of m orbidity or mortality documented in this encounter
--- OUTSIDE RECORDS SUMMARY | 2022-07-02 14:39 | XMS_ITS | Encounter Summary ---
:1955 Author Organization [facility] Address [address] [place] [address] Care Team Providers Name Role Phone Unassigned, Provider Primary Care Provider Unavailable Encounter Details Date Type Department Care Team Description 2007 PN Conversion Only ADMINISTRATION SPECIALIST [address] Aurora Greene, [address] MD [facility] [address] [facility] 5th Floor [address] [place] [address] (Wo rk) Social History Tobacco Use Types Packs/Day Years Used Date Smoking Tobacco: Never Assessed Sex Assigned at Date Recorded Not on file documented as of this encounter Plan of Treatment Not on filedocumented as of this encounter Procedures Procedure Name Priority Date/Time Associated Diagnosis Comme [facility] SURGICAL ANAHY MONROE Routine 2007 9:13 AM Re sults for this CARLIE CDT procedure are i n the results section. documented in this encounter Results Pathology Report (2007 9:13 AM CDT) [facility] gist Method Time Signature Surgical SEE TEXT No normal HP CONVERSION Pathology range Comment: Patient: MERCED AYALA ?S URGICAL PATHOLOGY REPORT Pathology # ??[id number] ?Date Obtained: ? Date Received: DIAGNOSIS: ?Uterus, endometrium, biopsy: ?1. 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 ?2. ??NO evidence of endometrial po lyp formation, endometrial hyperplasia, ?or endometrial adenocarcinom a found in the endometrial biopsy. COMMENT: ?It would appear that the patient i s still having some ovulatory menstrual ?cycles. ?Torrie Groves M.D. ?(electronic signature) ENM/ENM/dke Date of Report: 02/11/07 Pathology # ??[id number] ?Date Obtained: ? Date Received: ORGAN/TISSUE SITE: ?Endometrial biopsy GROSS DESCRIPTION: ?Received in formalin is a 1.8 x 1. 6 x 0.2 cm aggregate of clotted blood ?admixed with mucus and larios-pink so ft tissue fragments, which are submitted ?in toto in 1 cassette labeled hosea ette 8251. MJL/felix Specimen (Source) Anatomical Collection Method Collection Time Re ceived Time Location / / Volume Laterality 2007 9:13 AM CDT Aurora Pagan MD LAB_1 Performing Organization Address City/State/ZIP Code Phon e Number HP CONVERSION documented in this encounter Visit Diagnoses Not on filedocumented in this encounter Care Teams Public Health Aide Relationship Specialty Start Date End Date Unassigned, Provider PCP - General 07/08/00 11/01/[address] [place] [address] documented as of this encounter
--- OUTSIDE RECORDS SUMMARY | 2022-07-02 14:39 | XMS_ITS | Encounter Summary ---
:1955 Author Organization [facility] Address [address] [place] [address] Care Team Providers Name Role Phone Unassigned, Provider Primary Care Provider Unavailable Encounter Details Date Type Department Care Team Description 05/01/2007 Office Visit [facility] [address] Urgent Chano Freed MD Care [address] [facility] 7 [address] [facility] [place], [place] [address] [place] [address] [phone] Social History Tobacco Use Types Packs/Day Years Used Date Smoking Tobacco: Never Assessed Sex Assigned at Date Recorded Not on file documented as of this encounter Last Filed Vital Signs Vital Sign Reading Time Taken Comments Blood Pressure 120/70 05/01/2007 11:50 AM CDT Pulse 68 05/01/2007 11:50 AM CDT Temperature 37.1 ??C (98.8 ??F) 05/01/2007 11:50 AM ORAL C: 37.1 C CDT Respiratory Rate 16 05/01/2007 11:50 AM CDT Oxygen Saturation - - Inhaled Oxygen Concentration - - Weight - - Height - - Body Mass Index - - documented in this encounter Progress Notes Chano Freed MD - 05/01/2007 12:01 AM CDT Progress Notes signed by Chano Freed MD at 05/11/07 1046 Author: Chano Freed MD Service: (none) Author Type: Physician Filed: 11/21/10 2138 Note Time: 05/01/07 0001 Status: Signed Peach Grower: Chano Freed MD (Physician) NAME: MERCED AYALA MR#: [id number] ACCT: [id number] VISIT: [id number] DICTATING CLINICIAN: Chano Freed MD JOB: [id number] LOC: 420 CLINIC PROGRESS NOTE DATE OF VISIT: 05/01/2007 SUBJECTIVE: A 52-year-old female comes to the clinic because of left ear pain ongoing for about 3 days. She has never had an ear infection before. She is not sure what started this. She denies any URI symptoms. There is no cough, nasal congestion, or fever. She has not been flying or swimming. ADR/ALLERGIES: NONE. OBJECTIVE: VS: BP: 120/70. T: 98.7. P: 68. R: 16. She appears well, in no acute distress. There is pain with traction on the pinna, pain with pressure over the tragus. There is no exudate in the canal, but the canal is definitely inflamed. The TM is also inflamed. ASSESSMENT: Left otitis media and otitis externa. PLAN: Cephalexin for 10 days. Cortisporin for 7 days. Recheck if unimproved. DAVID:[id number] C: 05/03/07 09:01 DOCUMENT: [id number] documented in this encounter Plan of Treatment Not on filedocumented as of this encounter Visit Diagnoses Not on filedocumented in this encounter Care Teams Bioengineer Relationship Specialty Start Date End Date Unassigned, Provider PCP - General 07/08/00 11/01/[address] [place] [address] documented as of this encounter
--- OUTSIDE RECORDS SUMMARY | 2022-07-02 14:39 | XMS_ITS | Encounter Summary ---
:1955 Author [facility] Address [address] [place] [address] Care Team Providers Name Role Phone Unavailable Primary Care Provider Unavailable Encounter Details Date Type Department Care Team Description 04/10/2013 Orders Only HP Claims MD Cheryl Security Contact Bill [address] [place] [address] Mailstop [id number] [phone] (Wo rk) Social History Tobacco Use Types Packs/Day Years Used Date Smoking Tobacco: Never Assessed Sex Assigned at Date Recorded Not on file documented as of this encounter Plan of Treatment Not on filedocumented as of this encounter Visit Diagnoses Not on filedocumented in this encounter
--- OUTSIDE RECORDS SUMMARY | 2022-07-02 14:39 | XMS_ITS | Encounter Summary ---
:1955 Author Organization [facility] Address [address] [place] [address] Care Team Providers Name Role Phone Unavailable Primary Care Provider Unavailable Encounter Details Date Type Department Care Team Description 12/23/2010 Imaging P3930 RADIOLOGY [facility] LIBRARY No diagnosis [address] [place] [address] Social History Tobacco Use Types Packs/Day Years Used Date Smoking Tobacco: Never Assessed Sex Assigned at Date Recorded Not on file documented as of this encounter Plan of Treatment Not on filedocumented as of this encounter Procedures Procedure Name Priority Date/Time Associated Diagnosis Comme nts FOREIGN IMAGE(S) Routine 12/23/2010 2:00 PM No diagnosis Resul ts for this MAMMOGRAM CDT procedure are i n the results section. documented in this encounter Results Foreign Image(S) Mammogram (12/23/2010 2:00 PM CDT) Anatomical Region Laterality Modality Breast Mammography Specimen (Source) Anatomical Location Collection Method / Collectio n Time Received Time / Laterality Volume Narrative 04/23/2014 2:59 PM CDT These outside images have been [...]
--- OUTSIDE RECORDS SUMMARY | 2022-07-02 14:39 | XMS_ITS | Encounter Summary ---
:1955 Author Organization [facility] Address [address] [place] [address] Care Team Providers Name Role Phone Unavailable Primary Care Provider Unavailable Encounter Details Date Type Department Care Team Description 05/02/2011 Immunization [facility] 3850 FLU Need for prophylactic CLINIC vaccination and [address] inoculation against [place], [place] influen za (Primary Dx) [address] Social History Tobacco Use Types Packs/Day Years Used Date Smoking Tobacco: Never Assessed Sex Assigned at Date Recorded Not on file documented as of this encounter Plan of Treatment Not on filedocumented as of this encounter Visit Diagnoses Diagnosis Need for prophylactic vaccination and in oculation against influenza - Primary documented in this encounter
--- OUTSIDE RECORDS SUMMARY | 2022-07-02 14:39 | XMS_ITS | Encounter Summary ---
:1955 Author Organization [facility] Address [address] [place] [address] Care Team Providers Name Role Phone Unassigned, Provider Primary Care Provider Unavailable Encounter Details Date Type Department Care Team Description 02/04/2009 Imaging P3930 RADIOLOGY [facility] LIBRARY No diagnosis [address] [place] [address] Social History Tobacco Use Types Packs/Day Years Used Date Smoking Tobacco: Never Assessed Sex Assigned at Date Recorded Not on file documented as of this encounter Plan of Treatment Not on filedocumented as of this encounter Procedures Procedure Name Priority Date/Time Associated Diagnosis Comme nts FOREIGN IMAGE(S) Routine 02/04/2009 2:00 PM No diagnosis Resul ts for this MAMMOGRAM CDT procedure are i n the results section. documented in this encounter Results Foreign Image(S) Mammogram (02/04/2009 2:00 PM CDT) Anatomical Region Laterality Modality [...] orbidity or mortality documented in this encounter Care Teams Road Tester Relationship Specialty Start Date End Date Unassigned, Provider PCP - General 07/08/00 11/01/10 [address] [place] [address] documented as of this encounter
--- OUTSIDE RECORDS SUMMARY | 2022-07-02 14:39 | XMS_ITS | Encounter Summary ---
:1955 [facility] Address [address] [place] [address] Care Team Providers Name Role Phone Unassigned, Provider Primary Care Provider Unavailable Encounter Details Date Type Department Care Team Description 10/10/2007 Office Visit [facility] [address] Ernandez, Ophthalmology OD [address] [place] [address] [place] [address] [address] [phone] [place] [address] Social History Tobacco Use Types Packs/Day Years Used Date Smoking Tobacco: Never Assessed Sex Assigned at Date Recorded Not on file documented as of this encounter Plan of Treatment Not on filedocumented as of this encounter Visit Diagnoses Not on filedocumented in this encounter Care Teams Electronic Assembler Group Leader Relationship Specialty Start Date End Date Unassigned, Provider PCP - General 07/08/00 11/01/[address] [place] [address] documented as of this encounter
--- OUTSIDE RECORDS SUMMARY | 2022-07-02 14:39 | XMS_ITS | Encounter Summary ---
:1955 Author [facility] Address [address], [place] [address] Care Team Providers Name Role Phone Unassigned, Provider Primary Care Provider Unavailable Encounter Details Date Type Department Care Team Description 03/10/2007 - Hospital Encounter Mormon Cristina Cabrera MD [address] [facility] [address] [place], [place] [address] 03/11/2007 [id number] Copeland MD [address] [facility] [address] [place], [place] [address] [address] [facility] [place], [place] [address] Social History Tobacco Use Types Packs/Day Years Used Date Smoking Tobacco: Never Assessed Sex Assigned at Date Recorded Not on file documented as of this encounter Last Filed Vital Signs Vital Sign Reading Time Taken Comments Blood Pressure 104/59 03/11/2007 4:05 PM CDT Pulse 54 03/11/2007 4:05 PM CDT Temperature 36.8 ??C (98.2 ??F) 03/11/2007 4:05 PM ORAL C: 9 8.2 F CDT Respiratory Rate 16 03/11/2007 4:05 PM CDT Oxygen Saturation 98% 03/11/2007 4:05 PM CDT Inhaled Oxygen Concentration - - Weight - - Height - - Body Mass Index - - documented in this encounter Discharge Summaries Shilpi Cabrera MD - 03/11/2007 12:01 AM CDT Discharge Summaries signed by Shilpi Cabrera MD at 04/06/07 1208 Author: Shilpi Cabrera MD Service: (none) Author Type: Physician Filed: 11/21/108 Note Time: 03/22/0747 Status: Signed Metal Extrusion Supervisor: Shilpi Cabrera MD (Physician) NAME: ARUNA AYALA MR#: [id number] ACCT: [id number] AUTHENTICATING CLINICIAN: SHILPI CABRERA MD JOB: [id number] LOC: 1 HOSPITAL DISCHARGE SUMMARY DATE OF ADMISSION: 03/10/07 DATE OF DISCHARGE: 03/11/07 ADMITTING DIAGNOSIS: Uterine fibroids. DISCHARGE DIAGNOSIS: Uterine fibroids. PROCEDURE PERFORMED: Subtotal abdominal hysterectomy with bilateral salpingo-oophorectomies. HISTORY: HOSPITAL COURSE: Ms. Aruna Ayala, MR#[id number], underwent a subtotal abdominal hysterectomy with bilateral salpingo-oophorectomies on 03/10/07. All of the pathology was benign. Her hospital course was unremarkable and she was discharged on the first postoperative day. DISCHARGE MEDICATIONS: Vivelle-Dot 0.1 mg patch to be changed 2 times per week; Vicodin q.4h. p.r.n.; ibuprofen 600 mg t.i.d. p.r.n. Discharge hemoglobin 11.3 gm/dL. CONDITION ON DISCHARGE/INSTRUCTIONS: Aruna was advised to avoid lifting more than 5 to 10 pounds. She was told to avoid driving at all until she was no longer on any narcotic medication and until she had good reaction time - at least 2 weeks postoperatively. She will return for a postoperative visit on 03/23/07, or earlier if there are any problems or concerns. CC: DR.. DELBERT CUMMINS [place], [place] IHA:[id number] C: 03/23/07 09:20 DOCUMENT: [id number] documented in this encounter Medications at Time of Discharge Medication Sig Dispensed Refills Start Date End Date estradiol (KATI) 0.1 Apply 1 patch 24 3 03/11/2007 MG/24HR semiweekly topically twice a patch week. Multiple Take 1 tablet by mouth 100 13 11/28/2006 Vitamins-Minerals daily (every 24 (MULTIVITAMIN OR) hours). omega-3 fatty acids daily (every 24 0 03/09/2007 (AKA MAXEPA, FISH OIL) hours). LW Addl 1000 MG capsule Instr:per pre op notes aspirin 81 MG tablet Take 1 tablet by mouth 90 3 04/19/2014 daily (every 24 hours). Glucosamine-Chondroitin daily (every 24 0 007 04/19/2014 500-400 MG hours). LW Addl Instr: per pre op notes INDICATED FOR OSTEOARTHRITIS. UNKNOWN MEDICATION Indications: PN: 0 03/09/2007 10/10/2007 UNKNOWN MEDICATION Indications: PN: 0 2007 10/10/2007 UNKNOWN MEDICATION Indications: PN: 0 01/16/2007 10/10/2007 UNKNOWN MEDICATION Indications: PN: 0 01/13/2007 10/10/2007 UNKNOWN MEDICATION Indications: PN: 0 11/28/2006 10/10/2007 UNKNOWN MEDICATION Indications: PN: 0 05/22/2006 10/10/2007 documented as of this encounter Procedure Notes Shilpi Cabrera MD - 03/10/2007 12:01 AM CDT OR Surgeon signed by Shilpi Cabrera MD at 03/15/07 7999 Author: Shilpi Cabrera MD Service: (none) Author Type: Physician Filed: 11/21/102034 Note Time: 03/10/07 100 Status: Signed Metal Extrusion Supervisor: Shilpi Cabrera MD (Physician) NAME: ARUNA AYALA MR#: [id number] ACCT: [id number] AUTHENTICATING CLINICIAN: SHILPI CABRERA MD JOB: [id number] LOC: 1 OPERATIVE REPORT DATE OF OPERATION: 03/10/07. INDICATIONS FOR PROCEDURE: Please see my dictated notes. PREOPERATIVE DIAGNOSIS: Uterine fibroids. POSTOPERATIVE DIAGNOSIS: Uterine fibroids. PROCEDURE PERFORMED: Subtotal abdominal hysterectomy with bilateral salpingo-oophorectomies. SURGEON: SHILPI CABRERA MD BUSINESS OFFICE TECHNOLOGY INSTRUCTOR: Ant Holloway MD ANESTHESIA: Spinal. ESTIMATED BLOOD LOSS: Minimal. COMPLICATIONS: None. FINDINGS: The uterus was quite large. There was a large fundal fibroid and a posterior fibroid along the inferior aspect of the lower uterine segment. Both ovaries and tubes were normal. The appendix was normal. The upper abdomen was normal, palpation of the liver edge was normal. No adhesions were present. The peritoneal surfaces appeared normal. DESCRIPTION OF OPERATION: Following the administration of spinal anesthesia, the patient was prepped and draped in the usual fashion. Her bladder was emptied by Verduzco catheterization. A longitudinal abdominal incision was made and extended sharply to the fascia which was incised longitudinally. The recti were not off the fascia, and the peritoneum was easily then entered. Bowel was packed free from the surgical field. The round ligaments were clamped, cut and stick tied using 0 Vicryl. All suture used was 0 Vicryl unless otherwise stated. The vesicouterine peritoneum was opened and the bladder reflected back. The infundibulopelvic ligaments were clamped, cut and stick tied following the placement of a free ligature first. Hemostasis was excellent. The ureters were palpated and were far from the surgical field. The uterine arteries were serially clamped, cut and stick tied in a Oz fashion. The specimen was then removed sharply by cutting the cervical canal across using the cautery. A wedge resection was done within the cervical stump to remove any remaining endometrium. The cervical canal was then cauterized from the superior aspect, again to remove the possibility of having any low-lying endometrium as well as to destroy endocervical tissue. Interrupted figure-of-X sutures were then placed in a serial manner to close the cervical stump. The peritoneal reflection was pulled up to try and decrease the chance for bowel adhesions. The abdomen was irrigated. Packs and retractor were removed. The peritoneum was closed using a running stitch of 3-0 Vicryl. The area was again irrigated prior to closing the fascia using 2 sutures of 0 PDS from the apex to the midline. Subcutaneous tissue was irrigated and reapproximated using interrupted sutures of 3-0 Vicryl. The skin was closed using a running stitch of 4-0 Vicryl. Steri-Strips were placed. Aruna did well and was taken to the postanesthesia recovery room in satisfactory condition. There were no complications of any kind. CC: DELBERT CUMMINS MD [facility] [address] [place] [address] IHA:[id number] C: 03/10/07 10:55 DOCUMENT: [id number] documented in this encounter Miscellaneous Notes Miscellaneous - Shilpi Cabrera MD - 03/11/2007 12:01 AM CDT ICD-9-CM ICD-9-CM Narrative description Code ======== DIAGNOSES Principal: UTERINE LEIOMYOMA NOS 218.9 Secondary: ANXIETY STATE NOS 300.00 PROCEDURES Provider1 Date Principal: OTHR/UNSPEC SUBTOTAL ABD SHILPI CABRERA [id number] 68.39 Provider2: Provider3: SALO BATES V Secondary: OTHER REMOVAL,BOTH OVARI SHILPI CABRERA [id number] 65.61 Provider2: Provider3: documented in this encounter Plan of Treatment Not on filedocumented as of this encounter Procedures Procedure Name Priority Date/Time Associated Diagnosis Comme nts HEMOGLOBIN, BLOOD Routine 03/11/2007 9:05 AM Resu lts for this CDT procedure are i n the results section. SURGICAL PATH, PARK Routine 03/10/2007 9:02 AM Re sults for this NICOLLET CDT procedure are i n the results section. BEDSIDE GLUCOSE Routine 03/10/2007 6:38 AM Result s for this MONITOR POCT CDT procedure are i n the results section. MRSA CULTURE Routine 03/10/2007 6:00 AM Results f or this CDT procedure are i n the results section. DRAW & HOLD Routine 03/10/2007 5:55 AM Results f or this CDT procedure are i n the results section. HEMOGLOBIN, BLOOD Routine 03/10/2007 5:55 AM Resu lts for this CDT procedure are i n the results section. documented in this encounter Results (ABNORMAL) Hemoglobin, Blood (03/11/2007 9:05 AM CDT) P athologist Signature Hemoglobin 11.3 (L) 11.8 - 15.5 HP CONVERSION gm/dL Specimen (Source) Anatomical Collection Method Collection Time Re ceived Time Location / / Volume Laterality 03/11/2007 9:05 AM CDT Shilpi Cabrera MD LAB_1 Performing Organization Address City/State/ZIP Code Phon e Number HP CONVERSION Pathology Report (03/10/2007 9:02 AM CDT) [facility] Method Time Signature Surgical SEE TEXT No normal HP CONVERSION Pathology range Comment: Patient: ARUNA AYALA ?S URGICAL PATHOLOGY REPORT Pathology # ??[id number] ?Date Obtained: ? Date Received: DIAGNOSIS: A-B)Uterus, bilateral fallopian tubes, c ervical specimen with polyp: ?1. Leiomyomas, measuring up to 7.5 cm in greatest dimension. ?2. Weakly proliferative endometriu m. ?3. Unremarkable bilateral fallopia n tubes and ovaries. ?4. Benign endocervical polyp. ?Rohan Rodriguez MD ?(electronic signature) LUNA/LUNA/ajn Date of Report: 03/11/07 Pathology # ??[id number] ?Date Obtained: ? Date Received: ORGAN/TISSUE SITE: ?Uterus, tubes and ovaries/Cervical specimen with polyp GROSS DESCRIPTION: A) ??The specimen is received fresh, lab eled uterus, tubes and ovaries, and ?consists of a 289 gm, 15.1 x 10.4 x 8.0 cm uterus with a smooth, larios-pink ?serosal surface and bilaterally at tached fallopian tubes and ovaries. The ?uterus is opened to reveal a larios, focally hemorrhagic endometrium with a ?maximum thickness of less than 0.1 cm. ??The myometrium is larios-pink with a ?maximum thickness of 3.5 cm and co ntains 3 larios-white intramuscular ?nodules, ranging from 0.6 cm to 7. 5 cm in greatest dimension. ?Cross-sections reveal larios-white, w horled cut surfaces with no areas of ?hemorrhage or necrosis. ??Represen tative sections are submitted. ?The right adnexa consists of a 9.0 x 0.2 cm larios-pink fallopian tube with ?an attached 3.8 x 2.6 x 1.4 cm larios -pink, convoluted ovary. ??Cross-sections ?through both the tube and ovary ar e grossly unremarkable. ??Compressor House Operator ?sections are submitted. ?The left adnexa consists of a 5.5 x 0.2 cm larios-pink fallopian tube with an ?attached 4.0 x 1.8 x 1.0 cm larios-pi nk, convoluted ovary. ??Cross-sections ?through both the fallopian tube ar e grossly unremarkable. ??Cross-sections ?through the ovary reveal a 0.6 cm in greatest dimension hemorrhagic corpus ?luteum. ??Remainder of the ovary i s grossly unremarkable. ??Compressor House Operator ?sections are submitted. ?Summary of Sections: ??Block A1, r ight fallopian tube and ovary; block A2, ?left fallopian tube and ovary; A3, anterior endomyometrium; A4, posterior ?endomyometrium; A5 and A6, myomas. B) ??Received in formalin, labeled cervi jackson specimen with polyp, and consists ?of an irregular shaped portion of larios-pink cervical tissue measuring 3.6 x ?1.4 x 0.8 cm. ??The ectocervix is larios-pink and glistening with an attached ?1.0 cm in greatest dimension larios-p ink, polypoid nodule. ??The resection ?margin is inked black, and the spe cimen is sectioned. ??The polyp is ?entirely submitted with additional provider relations representative sections in cassettes B1 ?and B2. AMW/kmr MICROSCOPIC DESCRIPTION: A-B)The microscopic examination substant iates the diagnoses cited. Specimen (Source) Anatomical Collection Method Collection Time Re ceived Time Location / / Volume Laterality 03/10/2007 9:02 AM CDT Shilpi Cabrera MD LAB_1 Performing Organization Address City/State/[facility] Code Phon e Number HP CONVERSION Bedside Glucose Monitor (03/10/2007 6:38 AM CDT) P athologist Signature Bedside Blood 99 mg/dL HP CONVERSION Glucose Test Blood Glucose * No normal HP CONVERSION Screen, range Comment 1 Blood Glucose * No normal HP CONVERSION Screen, range Comment 2 Blood Glucose * No normal HP CONVERSION Screen, range Comment 3 Specimen (Source) Anatomical Collection Method Collection Time Re ceived Time Location / / Volume Laterality 03/10/2007 6:38 AM CDT Shilpi Cabrera MD LAB_1 Performing Organization Address City/State/ZIP Code Phon e Number HP CONVERSION MRSA Culture (03/10/2007 6:00 AM CDT) [facility] Time Signature Culture Mrsa SEE TEXT HP CONVERSION Screen Comment: Patient: ARUNA AYALA Y Culture, MRSA Screen @ ?Collected: ??[id number] ??[id number] Source: NARES ? Processed: ??[id number] ??0634 ? RIGHT NARES Final Report ------ ?[id number] ??0700 No Methicillin resistant Staph aureus is olated. @ = MRSA SCREEN Performed at ??[address] [place], [place] ?[address] Specimen (Source) Anatomical Collection Method Collection Time Re ceived Time Location / / Volume Laterality 03/10/2007 6:00 AM CDT Yelena MANDUJANO LAB_1 Performing Organization Address City/[facility] Code Phon e Number HP CONVERSION Draw & Hold (03/10/2007 5:55 AM CDT) P athologist Signature Draw And Hold Done No normal HP CONVERSION range Specimen (Source) Anatomical Collection Method Collection Time Re ceived Time Location / / Volume Laterality 03/10/2007 5:55 AM CDT Shilpi Cabrera MD LAB_1 Performing Organization Address City/State/ZIP Code Phon e Number HP CONVERSION Hemoglobin, Blood (03/10/2007 5:55 AM CDT) P athologist Signature Hemoglobin 11.9 11.8 - 15.5 HP CONVERSION gm/dL Specimen (Source) Anatomical Collection Method Collection Time Re ceived Time Location / / Volume Laterality 03/10/2007 5:55 AM CDT Shilpi Cabrera MD LAB_1 Performing Organization Address City/State/ZIP Code Phon e Number HP CONVERSION documented in this encounter Visit Diagnoses Not on filedocumented in this encounter Care Teams Yoga Coordinator Relationship Specialty Start Date End Date Unassigned, Provider PCP - General 07/08/00 11/01/[address] [place] [address] documented as of this encounter
--- OUTSIDE RECORDS SUMMARY | 2022-07-02 14:39 | XMS_ITS | Encounter Summary ---
:1955 Author Organization [facility] Address [address] [place] [address] Care Team Providers Name Role Phone Unavailable Primary Care Provider Unavailable Encounter Details Date Type Department Care Team Description 04/10/2013 Imaging P3930 RADIOLOGY [facility] LIBRARY No diagnosis [address] [place] [address] Social History Tobacco Use Types Packs/Day Years Used Date Smoking Tobacco: Never Assessed Sex Assigned at Date Recorded Not on file documented as of this encounter Plan of Treatment Not on filedocumented as of this encounter Procedures Procedure Name Priority Date/Time Associated Diagnosis Comme nts FOREIGN IMAGE(S) Routine 04/10/2013 2:00 PM No diagnosis Resul ts for this MAMMOGRAM CDT procedure are i n the results section. documented in this encounter Results Foreign Image(S) Mammogram (04/10/2013 2:00 PM CDT) Anatomical Region Laterality Modality [...]
--- OUTSIDE RECORDS SUMMARY | 2022-07-02 14:39 | XMS_ITS | Encounter Summary ---
:1955 [facility] Address [address] [place] [address] Care Team Providers Name Role Phone Unassigned, Provider Primary Care Provider Unavailable Encounter Details Date Type Department Care Team Description 10/07/2007 PN Conversion Only BILLET RECORDER [address] [place] [address] Social History Tobacco Use Types Packs/Day Years Used Date Smoking Tobacco: Never Assessed Sex Assigned at Date Recorded Not on file documented as of this encounter Plan of Treatment Not on filedocumented as of this encounter Visit Diagnoses Not on filedocumented in this encounter Care Teams Weekend Receptionist Relationship Specialty Start Date End Date Unassigned, Provider PCP - General 07/08/00 11/01/[address] [place] [address] documented as of this encounter
--- OUTSIDE RECORDS SUMMARY | 2022-07-02 14:39 | XMS_ITS | Encounter Summary ---
:1955 Author Organization [facility] Address [address] [place] [address] Care Team Providers Name Role Phone Unassigned, Provider Primary Care Provider Unavailable Encounter Details Date Type Department Care Team Description 03/23/2007 Office Visit [facility] [address] Cristina Cabrera MD Obstetrics/Gynecolog y [address] [facility] [address] [place] [facility] [address] [facility] [place] [address] [phone] Social History Tobacco Use Types Packs/Day Years Used Date Smoking Tobacco: Never Assessed Sex Assigned at Date Recorded Not on file documented as of this encounter Last Filed Vital Signs Vital Sign Reading Time Taken Comments Blood Pressure 112/70 03/23/2007 10:30 AM CDT Pulse 65 03/23/2007 10:30 AM CDT Temperature - - Respiratory Rate - - Oxygen Saturation - - Inhaled Oxygen Concentration - - Weight - - Height - - Body Mass Index - - documented in this encounter Progress Notes Aurora Cabrera MD - 03/23/2007 12:01 AM CDT Progress Notes signed by Aurora Cabrera MD at 04/07/07629 Author: Aurora Cabrera MD Service: (none) Author Type: Physician Filed: 11/21/102051 Note Time: 03/23/07 0001 Status: Signed Statistician: Aurora Cabrera MD (Physician) NAME: MERCED AYALA MR#: [id number] ACCT: [id number] VISIT: [id number] DICTATING CLINICIAN: AURORA CABRERA MD JOB: [id number] LOC: 412 CLINIC PROGRESS NOTE DATE OF VISIT: 03/23/2007 SUBJECTIVE: CHIEF COMPLAINT: Here for a postop visit following a subtotal abdominal hysterectomy with bilateral salpingo-oophorectomy for fibroids. HISTORY: Merced Ayala, , is 52 years old. She is doing beautifully following her subtotal abdominal hysterectomy with bilateral salpingo-oophorectomy done on 03/11/07. The pathology showed fibroids and was benign. She has done beautifully postoperatively. She has a pretty good energy level and is getting better all the time. She really is trying to avoid lifting, etc. She feels well enough that she does tend to push herself a little bit. PAST MEDICAL HISTORY: Please see LastWord. OBJECTIVE: VS: BP: 112/70. P: 55. GENERAL: A well-developed, comfortable-appearing woman in no apparent distress. ABDOMEN: Nicely healed. Steri-Strips removed. PELVIC: EGBUS normal. Bimanual done - Entirely nontender. No signs of fluid collection or pelvic masses. Entirely nontender. ASSESSMENT: Doing beautifully following hysterectomy. PLAN: She will return to see Dr. Awad for all of her other cares. If she needs anything from me, she can certainly come in or call. She will take the Vivelle-Dot 0.1 mg q.day. I also printed out a prescription for 0.05 mg - both patches to be changed in a biweekly basis. She may choose to decrease the hormone level to the smaller patch and see if she has any hot flashes. A few hot flashes a day would be fine. After a year's time on hormones she may stop them altogether. She will see Dr. Awad for this and could certainly give me a call as well. CC: Laz Awad MD [place], [place] IHA:[id number] C: 03/24/07 11:40 DOCUMENT: [id number] documented in this encounter Plan of Treatment Not on filedocumented as of this encounter Visit Diagnoses Not on filedocumented in this encounter Care Teams Senior Ui Designer Relationship Specialty Start Date End Date Unassigned, Provider PCP - General 07/08/00 11/01/10 [address] [place] [address] documented as of this encounter
--- OUTSIDE RECORDS SUMMARY | 2022-07-02 14:39 | XMS_ITS | Encounter Summary ---
:1955 [facility] Address [address] [place] [address] Care Team Providers Name Role Phone Unassigned, Provider Primary Care Provider Unavailable Reason for Visit Reason Comments Other Encounter Details Date Type Department Care Team Description 11/28/[address], Message Other Obstetrics/Gynecolog y [address] [address] Social History Tobacco Use Types Packs/Day Years Used Date Smoking Tobacco: Never Assessed Sex Assigned at Date Recorded Not on file documented as of this encounter [facility], Message - 11/28/2008 2:39 PM CDT Phone Note filed by Superfly at 11/21/10105 Author: [employer] Service: (none) Author Type: (none) Filed: 11/21/10105 Note Time: 11/28/08 1439 Status: Signed Operating System Designer: [employer] (Resource) Prescription Refill Please provide enough refills to last until patient's next visit. Comment:-Last appt 03-23-07; no future appts Pharmacy Seq #:-[phone] [facility] [phone] or City:-[place] [address], [facility] Clinician Name:-Ej Drug Name/Strength:-Vivelle-Dot 0.1MG DIS Sig: Dose/Route/Freq:-1 patch externally twice weekly Quantity & Last Fill:-#24 07-08 Created on 28Nov2008 2:39pm by JUANJO HINKLE M On [id number] 4:12pm BENJI PEREZ wrote: Pt. called and informed that she is overdue for appt. with . Pt. has already discussed with pharmacist and decided and had told pharmacist that she will have filled by her FM MD. Advised that if needed she can make appt. for HRT visit with if is not comfortable ordering HRT. Will call back if needs med through . NG DEPARTMENT HEAD documented in this encounter Plan of Treatment Not on filedocumented as of this encounter Visit Diagnoses Not on filedocumented in this encounter Care Teams Lock Expert Relationship Specialty Start Date End Date Unassigned, Provider PCP - General 07/08/00 11/01/[address] [place] [id number] documented as of this encounter
--- OUTSIDE RECORDS SUMMARY | 2022-07-02 14:40 | XMS_ITS | Encounter Summary ---
:1955 [facility] Address [address] [place] [address] Care Team Providers Name Role Phone Unassigned, Provider Primary Care Provider Unavailable Encounter Details Date Type Department Care Team Description 01/12/2007 PN Conversion Only FAMILY NURSE PRACTITIONER [address] [place] [address] Social History Tobacco Use Types Packs/Day Years Used Date Smoking Tobacco: Never Assessed Sex Assigned at Date Recorded Not on file documented as of this encounter Progress Notes Aurora Cabrera MD - 03/09/2007 12:01 AM CDT Phone Note signed by Aurora Cabrera MD at 03/09/07 1513 Author: Aurora Cabrera MD Service: (none) Author Type: Physician Filed: 01/12/07 0000 Note Time: 03/09/07 0001 Status: Signed Prison Librarian: Aurora Cabrera MD (Physician) NAME: MERCED AYALA MR#: [id number] ACCT: VISIT: DICTATING CLINICIAN: AURORA CABRERA MD JOB: [id number] LOC: 412 CLINIC PHONE CALL DATE OF PHONE CALL: 03/09/07. I called Merced Ayala yesterday to see how she was feeling about her scheduled myomectomy. We had a long discussion. She saw Dr. Awad for her preop and they also discussed the possibility of having hysterectomy. Merced has thought about this for quite some time. She now really would like to go ahead and have a hysterectomy done. We discussed whether the ovaries should be removed and she would like them removed as well. She does not have any history of depression. I reviewed with her that having a surgical menopause will definitely decrease her sex drive; this really is not an issue for her, she told me. She will also need to have a small amount of hormone replacement just to prevent severe menopausal symptoms. Options discussed to leave one ovary or both ovaries; she really feels that she may regret not taking the opportunity to have the hysterectomy and the ovaries removed in the future and thus really wants them out. She is aware that we will need to do this with a longitudinal abdominal incision. I also have now talked to Dr. Ant Holloway and he will join me tomorrow. I called Merced again today and let her know this as well. IHA:[id number] C: 03/09/07 13:05 DOCUMENT: [id number] documented in this encounter Plan of Treatment Not on filedocumented as of this encounter Visit Diagnoses Not on filedocumented in this encounter Care Teams Glass Inspector Relationship Specialty Start Date End Date Unassigned, Provider PCP - General 07/08/00 11/01/[address] [place] [id number] documented as of this encounter
--- OUTSIDE RECORDS SUMMARY | 2022-07-02 14:40 | XMS_ITS | Encounter Summary ---
:1955 [facility] Address [address] [place] [address] Care Team Providers Name Role Phone Unassigned, Provider Primary Care Provider Unavailable Encounter Details Date Type Department Care Team Description 06/07/2003 PN Conversion Only IN FLIGHT CREW MEMBER [address] [place] [address] Social History Tobacco Use Types Packs/Day Years Used Date Smoking Tobacco: Never Assessed Sex Assigned at Date Recorded Not on file documented as of this encounter Plan of Treatment Not on filedocumented as of this encounter Visit Diagnoses Not on filedocumented in this encounter Care Teams Senior Systems Analyst Relationship Specialty Start Date End Date Unassigned, Provider PCP - General 07/08/00 11/01/[address] [place] [phone] documented as of this encounter
--- OUTSIDE RECORDS SUMMARY | 2022-07-02 14:40 | XMS_ITS | Encounter Summary ---
:1955 Author Organization [facility] Address [address] [place] [address] Care Team Providers Name Role Phone Unassigned, Provider Primary Care Provider Unavailable Encounter Details Date Type Department Care Team Description 01/03/2003 Hospital Encounter JUDAISM CONVERSION Laz Awad Social History Tobacco Use Types Packs/Day Years Used Date Smoking Tobacco: Never Assessed Sex Assigned at Date Recorded Not on file documented as of this encounter Plan of Treatment Not on filedocumented as of this encounter Procedures Procedure Name Priority Date/Time Associated Diagnosis Comme nts CT PELVIS W IV CONT Routine 01/03/2003 4:23 PM Re sults for this CDT procedure are i n the results section. CT ABD W IV CONT Routine 01/03/2003 4:22 PM Resul ts for this CDT procedure are i n the results section. documented in this encounter Results CT Pelvis W IV Cont (01/03/2003 4:23 PM CDT) Anatomical Region Laterality Modality Pelvis, Abdomen Other Specimen (Source) Anatomical Location Collection Method / Collectio n Time Received Time / Laterality Volume Impressions 01/03/2003 4:23 PM CDT : ? 1. Thickening, inflammatory paris e, and a small (2 x 1.5 cm) fluid collection involving the sigmoid c olon. ??Findings are most consistent with diverticulitis. ??Coloni c neoplasm cannot be totally excluded given the amount of soft tissue thickening. ??Consider evaluation after acute symptoms have bee n treated. ? 2. Uterine fibroids. Pls - [id number] Dictating Aniket Ko Radiologist Narrative 01/03/2003 4:23 PM CDT HISTORY: ??Severe abdominal pain. TECHNIQUE: ??6.5 mm helical images follo wing 100 ml Optiray 300 and oral contrast. FINDINGS: ABDOMEN: ??Solid organs are unremarkable . ??There is no ascites or free air. ?? Small periaortic lymph nodes are present slightly more numerous than usual but none are patholo gically enlarged. PELVIS: There is an area of thickening i nvolving the sigmoid colon with some surrounding inflammatory paris e and a 2 x 1.5 cm low attenuation fluid collection. ??Findings are suspicious for diverticulitis. ??No drainable fluid is identified. ??Multiple uterine fibroids are present. ??Pelvis is otherw ise unremarkable. Visualized portions of the lung bases ar e clear. Procedure Note Aniket Rodriguez MD - 10/10/2016Formatti ng of this note might be different from the original. HISTORY: Severe abdominal pain. TECHNIQUE: 6.5 mm helical images followi ng 100 ml Optiray 300 and oral contrast. FINDINGS: ABDOMEN: Solid organs are unremarkable. There is no ascites or free air. Small periaortic lymph nodes are pr esent slightly more numerous than usual but none are patholo gically enlarged. PELVIS: There is an area of thickening i nvolving the sigmoid colon with some surrounding inflammatory paris e and a 2 x 1.5 cm low attenuation fluid collection. Findings a re suspicious for diverticulitis. No drainable fluid is id entified. Multiple uterine fibroids are present. Pelvis is otherwis e unremarkable. Visualized portions of the lung bases ar e clear. IMPRESSION : 1. Thickening, inflammatory change, and a small (2 x 1.5 cm) fluid collection involving the sigmoid c olon. Findings are most consistent with diverticulitis. Colonic neoplasm cannot be totally excluded given the amount of soft tissue thickening. Consider evaluation after acute symptoms have bee n treated. 2. Uterine fibroids. Pls - [id number] Dictating Aniket Ko Radiologist Laz A Ritesh RAD CT CT Abd W IV Cont (01/03/2003 4:22 PM CDT) Anatomical Region Laterality Modality Abdomen, Pelvis Other Specimen (Source) Anatomical Location Collection Method / Collectio n Time Received Time / Laterality Volume Impressions 01/03/2003 4:22 PM CDT : ? 1. Thickening, inflammatory paris e, and a small (2 x 1.5 cm) fluid collection involving the sigmoid c olon. ??Findings are most consistent with diverticulitis. ??Coloni c neoplasm cannot be totally excluded given the amount of soft tissue thickening. ??Consider evaluation after acute symptoms have bee n treated. ? 2. Uterine fibroids. Pls - [id number] Dictating Aniket Ko Radiologist Narrative 01/03/2003 4:22 PM CDT HISTORY: ??Severe abdominal pain. TECHNIQUE: ??6.5 mm helical images follo wing 100 ml Optiray 300 and oral contrast. FINDINGS: ABDOMEN: ??Solid organs are unremarkable . ??There is no ascites or free air. ?? Small periaortic lymph nodes are present slightly more numerous than usual but none are patholo gically enlarged. PELVIS: There is an area of thickening i nvolving the sigmoid colon with some surrounding inflammatory paris e and a 2 x 1.5 cm low attenuation fluid collection. ??Findings are suspicious for diverticulitis. ??No drainable fluid is identified. ??Multiple uterine fibroids are present. ??Pelvis is otherw ise unremarkable. Visualized portions of the lung bases ar e clear. Procedure Note Aniket Rodriguez MD - 10/10/2016Formatti ng of this note might be different from the original. HISTORY: Severe abdominal pain. TECHNIQUE: 6.5 mm helical images followi ng 100 ml Optiray 300 and oral contrast. FINDINGS: ABDOMEN: Solid organs are unremarkable. There is no ascites or free air. Small periaortic lymph nodes are pr esent slightly more numerous than usual but none are patholo gically enlarged. PELVIS: There is an area of thickening i nvolving the sigmoid colon with some surrounding inflammatory paris e and a 2 x 1.5 cm low attenuation fluid collection. Findings a re suspicious for diverticulitis. No drainable fluid is id entified. Multiple uterine fibroids are present. Pelvis is otherwis e unremarkable. Visualized portions of the lung bases ar e clear. IMPRESSION : 1. Thickening, inflammatory change, and a small (2 x 1.5 cm) fluid collection involving the sigmoid c olon. Findings are most consistent with diverticulitis. Colonic neoplasm cannot be totally excluded given the amount of soft tissue thickening. Consider evaluation after acute symptoms have bee n treated. 2. Uterine fibroids. Pls - [id number] Dictating Aniket Ko Radiologist Laz A Ritesh RAD CT documented in this encounter Visit Diagnoses Not on filedocumented in this encounter Care Teams Tray Casting Machine Operator Relationship Specialty Start Date End Date Unassigned, Provider PCP - General 07/08/00 11/01/10 [address] [place] [address] documented as of this encounter
--- OUTSIDE RECORDS SUMMARY | 2022-07-02 14:40 | XMS_ITS | Encounter Summary ---
:1955 Author Organization [facility] Address [address] [place] [address] Care Team Providers Name Role Phone Unavailable Primary Care Provider Unavailable Encounter Details Date Type Department Care Team Description 02/02/1996 - [place] [address] [facility] [address] [place], [place] [id number] 02/03/1996 [id number] Alivia Nuñez MD [address] [place] [address] [address] [place], [place] [id number] [facility] [address] [facility]. [place], [place] [id number] Social History Tobacco Use Types Packs/Day Years Used Date Smoking Tobacco: Never Assessed Sex Assigned at Date Recorded Not on file documented as of this encounter Discharge Summaries Kaylah Ayala - 02/02/1996 12:01 AM CDT Procedures signed by [employer] at 07/09/99 1200 Author: Kaylah Ayala MD Service: (none) Author Type: Registered Nurse Filed: 11/18/102001 Note Time: 02/02/96 0745 Status: Signed Desk Assistant: Kaylah Ayala MD (Physician) [id number] DELIVERY NOTE DELIVERY DATE: 02/02/96 PRIMARY PHYSICIAN: Alivia Nuñez M.D. HISTORY: The patient is a 40-year-old white female, G1, at 39+4 weeks' gestation who presents to labor and delivery with intrauterine demise documented yesterday. The patient had reported to clinic yesterday with no movement since Wednesday. She denied any ruptured membranes or leaking of any bloody fluid. In the office yesterday, an ultrasound was performed which showed no cardiac activity and no amniotic fluid. The patient presented today for induction of labor. COURSE: The patient's first visit was at 9 weeks with regular care thereafter. Her risk factors included advanced maternal age, for which no amniocentesis or MSAFP testing was performed. The patient had a normal ultrasound at approximately 19 weeks' gestation. laboratory showed a blood type of B+, antibody screen negative, rubella immune. Her Pap smear was within normal limits. Hepatitis, HIV, and syphilis screens were all negative. On admission, the general physical examination was within normal limits. Abdomen was gravid with the fetus in a vertex presentation. A 0830 hours, artificial rupture of membranes was attempted by Dr. Nuñez and no fluid was obtained. Pitocin induction was begun, and the patient progressed to complete after receiving an epidural for pain relief. She delivered a nonviable female in the ALEX position at 1504 hours, which had Apgars of 0 and 0. A single nuchal cord was noted, which was easily reducible; however, an extremely tight knot was noted in the umbilical cord. The placenta was then delivered intact with three vessels at 1513 hours. This was submitted to pathology for evaluation. Of note, the cord was not exceedingly long at the time of delivery. A second-degree perineal laceration was repaired with 3-0 Vicryl and local anesthesia. Estimated blood loss was less than 500 cc. There were no complications. CONTINUATION OF DELIVERY NOTE - Page 2 The patient and her were grieving appropriately. The baby's name is Darcie, and weight is still pending. They plan on staying overnight on the 7th floor with probable discharge tomorrow. [email or web address] Signed: Kaylah Toscano M.D. FOLIO LEAD documented in this encounter Miscellaneous Notes Miscellaneous - Kaylah Ayala - 02/03/1996 12:42 PM CDT ICD-9-CM ICD-9-CM Narrative description Code ======== DIAGNOSES Principal: INTRAUTER -DELIVER 656.41 Secondary: DELIVER-SINGLE STILLBORN V27.1 CORD COMPRESS NEC-DELIV 663.21 DEL W 2 DEG LACERAT-DEL 664.11 PROCEDURES Provider Date Principal: REPAIR OB LACERATION NEC KAYLAH TOSCANO [id number] 75.69 Secondary: MEDICAL INDUCTION LABOR KAYLAH TOSCANO [id number] 73.4 INDUCT LABOR-RUPT MEMB KAYLAH TOSCANO [id number] 73.01 CPT4 Principal: OBSTETRICAL CARE [id number] documented in this encounter Plan of Treatment Not on filedocumented as of this encounter Procedures Procedure Name Priority Date/Time Associated Comments Diagnosis CONVERSION DEFAULT Routine 02/03/1996 7:00 AM Res ults for this INTERFACE ORDER CDT procedure ar e in the results section. CONVERSION DEFAULT Routine 02/02/1996 9:49 AM Res ults for this INTERFACE ORDER CDT procedure ar e in the results section. CONVERSION DEFAULT Routine 02/02/1996 9:45 AM Res ults for this INTERFACE ORDER CDT procedure ar e in the results section. CONVERSION DEFAULT Routine 02/02/1996 9:45 AM Res ults for this INTERFACE ORDER CDT procedure ar e in the results section. CONVERSION DEFAULT Routine 02/02/1996 9:45 AM Res ults for this INTERFACE ORDER CDT procedure ar e in the results section. CONVERSION DEFAULT Routine 02/02/1996 9:45 AM Res ults for this INTERFACE ORDER CDT procedure ar e in the results section. CONVERSION DEFAULT Routine 02/02/1996 9:45 AM Res ults for this INTERFACE ORDER CDT procedure ar e in the results section. CONVERSION DEFAULT Routine 02/02/1996 9:45 AM Res ults for this INTERFACE ORDER CDT procedure ar e in the results section. CONVERSION DEFAULT Routine 02/02/1996 9:45 AM Res ults for this INTERFACE ORDER CDT procedure ar e in the results section. CONVERSION DEFAULT Routine 02/02/1996 9:45 AM Res ults for this INTERFACE ORDER CDT procedure ar e in the results section. CONVERSION DEFAULT Routine 02/02/1996 9:45 AM Res ults for this INTERFACE ORDER CDT procedure ar e in the results section. CONVERSION DEFAULT Routine 02/02/1996 9:45 AM Res ults for this INTERFACE ORDER CDT procedure ar e in the results section. CONVERSION DEFAULT Routine 02/02/1996 9:45 AM Res ults for this INTERFACE ORDER CDT procedure ar e in the results section. CONVERSION DEFAULT Routine 02/02/1996 9:21 AM Res ults for this INTERFACE ORDER CDT procedure ar e in the results section. CONVERSION DEFAULT Routine 02/02/1996 7:30 AM Res ults for this INTERFACE ORDER CDT procedure ar e in the results section. CONVERSION DEFAULT Routine 02/02/1996 6:52 AM Res ults for this INTERFACE ORDER CDT procedure ar e in the results section. documented in this encounter Results (ABNORMAL) Conversion Default Interface Order (02/03/1996 7:00 AM CDT) P athologist Signature Hemoglobin 11.7 (LL) 12.3 HP CONVERSION 15.3GM/D L Specimen (Source) Anatomical Collection Method Collection Time Re ceived Time Location / / Volume Laterality 02/03/1996 7:00 AM CDT Alivia Nuñez MD LAB_1 Performing Organization Address City/State/ZIP Code Phon e Number HP CONVERSION Conversion Default Interface Order (02/02/1996 9:49 AM CDT) P athologist Signature Urine Drug NEG HP CONVERSION Screen For Mother/ Comment: DRUGS OF ABUSE URINE SCREEN #7 ?AMPHETAMINES ?NEGATIVE ?BARBITURATES ?NEGATIVE ?BENZODIAZEPINES ? NEGATIVE ?COCAINE METABOLITE ?N EGATIVE ?OPIATES ? NEGATIVE ?PHENCYCLIDINE (PCP) ? NE GATIVE ?THC (MARIJUANA) METABOLITE ??NEGAT JAYLNY ?? IF THIS REPORT CONTAINS A POSITIVE R ESULT, IT SHOULD BE DETERMINED WHETHER ALTERNATIVE EXPLANATIONS COULD ACCOUNT FOR THAT POSITIVE RESULT. ??[employer] IS OFTEN NOT AWARE OF PRESCRIPTION INFORMA TION. ??ALSO, THE RECENT CONSUMPTION OF POPPY SEEDS OR LEGITMATE USE OF CODEINE SHOULD BE EVALUATED A POSSIBLE CAUSE OF A TRUE POSITIVE MORPHINE RESUL T. Specimen (Source) Anatomical Collection Method Collection Time Re ceived Time Location / / Volume Laterality 02/02/1996 9:49 AM CDT Alivia Nuñez MD LAB_1 Performing Organization Address [facility] Phon e Number HP CONVERSION Conversion Default Interface Order (02/02/1996 9:45 AM CDT) P athologist Signature Prothrombin Time 9.0 9.0 HP CONVERSION 12.5SEC INR 0.9 HP CONVERSION Comment: New, sensitive (TOMASA=1.05) thromboplasti n in use for PT/INR beginning 12/10/95. The Normal Range mean is 10.5 seconds. Coumadin patients MUST be monitored using INR. Patients with live r disease or coagulopathy may show greater prolongation of PT in seconds. Recommendations for INR in warfarin (Co umadin) therapy: (Chest, Vol. 108, No. 4, 1994, Sup plement). Prevention and treatment of venous thro mbosis; ? INR 2.0-3.0 Treatment of PE; Prevention of systemic embolism due to prosthetic tissue heart valves, acute DE, valvular heart disease and atrial fibrillation. Mechanical prosthetic valves. ?INR 2.5-3.5 Prevention of recurrent myocardial infa rct. These recommended ranges serve as guide lines. Adjustment outside these ranges may be clinically indicated. Specimen (Source) Anatomical Collection Method Collection Time Re ceived Time Location / / Volume Laterality 02/02/1996 9:45 AM CDT Alivia Nuñez MD LAB_1 Performing Organization Address [facility] Phon e Number HP CONVERSION Conversion Default Interface Order (02/02/1996 9:45 AM CDT) athologist Signature Platelet Count 151 150 HP CONVERSION 450K/CM M Specimen (Source) Anatomical Collection Method Collection Time Re ceived Time Location / / Volume Laterality 02/02/1996 9:45 AM CDT Alivia Nuñez MD LAB_1 Performing Organization Address City/[facility] Code Phon e Number HP CONVERSION Conversion Default Interface Order (02/02/1996 9:45 AM CDT) [facility] Method Time Signature Partial 25.2 22.0 HP CONVERSION Thromboplastin Time 35.0SEC Specimen (Source) Anatomical Collection Method Collection Time Re ceived Time Location / / Volume Laterality 02/02/1996 9:45 AM CDT Alivia Nuñez MD LAB_1 Performing Organization Address City/[facility] Code Phon e Number HP CONVERSION Conversion Default Interface Order (02/02/1996 9:45 AM CDT) athologist Signature Thyroid 1.32 0.40 HP CONVERSION Stimulating 5.00uIU/ Hormone ML Specimen (Source) Anatomical Collection Method Collection Time Re ceived Time Location / / Volume Laterality 02/02/1996 9:45 AM CDT Alivia Nuñez MD LAB_1 Performing Organization Address City/[facility] Code Phon e Number HP CONVERSION (ABNORMAL) Conversion Default Interface Order (02/02/1996 9:45 AM CDT) [facility] Signature Anti-Nuclear 1:80 (A) HP CONVERSION Ab (*ERIN) Anti-Nuclear SPECKLED HP CONVERSION Ab Pattern Specimen (Source) Anatomical Collection Method Collection Time Re ceived Time Location / / Volume Laterality 02/02/1996 9:45 AM CDT Alivia Nuñez MD LAB_1 Performing Organization Address City/[facility] Code Phon e Number HP CONVERSION (ABNORMAL) Conversion Default Interface Order (02/02/1996 9:45 AM CDT) [facility] Method Time Signature Coag Battery 08.2 (LL) 10.2 HP CONVERSION PT 12.5SEC Specimen (Source) Anatomical Collection Method Collection Time Re ceived Time Location / / Volume Laterality 02/02/1996 9:45 AM CDT Alivia Nuñez MD LAB_1 Performing Organization Address [facility] Code Phon e Number HP CONVERSION Conversion Default Interface Order (02/02/1996 9:45 AM CDT) athologist Signature Coag Battery 25.2 23.0 HP CONVERSION PTT 34.0SEC Specimen (Source) Anatomical Collection Method Collection Time Re ceived Time Location / / Volume Laterality 02/02/1996 9:45 AM CDT Alivia Nuñez MD LAB_1 Performing Organization Address [facility] Phon e Number HP CONVERSION Conversion Default Interface Order (02/02/1996 9:45 AM CDT) athologist Signature Coag Battery TT 14.5 13.0 HP CONVERSION 18.0SEC Comment: Specimen (Source) Anatomical Collection Method Collection Time Re ceived Time Location / / Volume Laterality 02/02/1996 9:45 AM CDT Alivia Nuñez MD LAB_1 Performing Organization Address [facility] Phon e Number HP CONVERSION Conversion Default Interface Order (02/02/1996 9:45 AM CDT) athologist Signature Lupus SEE RPT HP CONVERSION Inhibitor Comment: PATIENT HAS NORMAL APTT WITH ALL FOUR A PTT REAGENTS TESTED. NEGATIVE TESTS, NO EVIDENCE OF A LUPUS INHIBITOR. Specimen (Source) Anatomical Collection Method Collection Time Re ceived Time Location / / Volume Laterality 02/02/1996 9:45 AM CDT Alivia Nuñez MD LAB_1 Performing Organization Address [facility] Phon e Number HP CONVERSION Conversion Default Interface Order (02/02/1996 9:45 AM CDT) [facility] gist Method Time Signature Cytomegalovirus < 1:10 HP CONVERSION Antibody IgM Comment: NO DETECTABLE IGM ANTIBODY TO CYTOMEGAL OVIRUS. IGM ANTIBODIES TYPICALLY APPEAR 5-10 DA YS FOLLOWING ACUTE INFECTION. ??THE TITER CONTINUES TO RISE FOR 2-3 WEEKS A ND THEN DECLINES TO UNDETECTABLE LEVELS AFTER ABOUT 3 MONTHS. ??THE PRES ENCE OF IGM SPECIFIC ANTIBODY MAY INDICATE A CURRENT OR RECENT INFECTION. THERE ARE SEVERAL LIMITATIONS IN THE IN TERPRETATION OF THE TEST. ?? 1) ??IGM RESPONSE TO CERTAIN VIRUSES ARE NOT RESTRICTED TO PRIMARY ? INFECTION AND MAY BE PRESENT D URING REINFECTION OR REACTIVATION. ?? 2) ??IGM MAY BE PRODUCED FOR EXTENDE D PERIOD OF TIME FOLLOWING PRIMARY ? INFECTION. ?? 3) ??IGM RESPONSES DURING ACUTE INFE CTION MAY BE WEAK OR ABSENT. ?? 4) ??HETEROTYPIC IGM RESPONSES MAY O CCUR AFTER INFECTION WITH OTHER ? VIRUSES. TO CONFIRM A CMV INFECTION, A SPECIIMEN FOR CULTURE OR A SECOND SERUM FOR IGG DETERMINATION IN 2-4 WEEKS IS HIGHL Y RECOMMENDED. Specimen (Source) Anatomical Collection Method Collection Time Re ceived Time Location / / Volume Laterality 02/02/1996 9:45 AM CDT Alivia Nuñez MD LAB_1 Performing Organization Address [facility] Phon e Number HP CONVERSION Conversion Default Interface Order (02/02/1996 9:45 AM CDT) athologist Signature BB Kleihauer NEG HP CONVERSION Betke Comment: NO CELLS SEEN Specimen (Source) Anatomical Collection Method Collection Time Re ceived Time Location / / Volume Laterality 02/02/1996 9:45 AM CDT Alivia Nuñez MD LAB_1 Performing Organization Address [facility] Phon e Number HP CONVERSION Conversion Default Interface Order (02/02/1996 9:21 AM CDT) P athologist Signature BB BLOOD TYPE B POS HP CONVERSION (BLOOD GROUP & RH) N/O BB ANTIBODY NEG HP CONVERSION SCREEN Specimen (Source) Anatomical Collection Method Collection Time Re ceived Time Location / / Volume Laterality 02/02/1996 9:21 AM CDT Alivia Nuñez MD LAB_1 Performing Organization Address [facility] Phon e Number HP CONVERSION (ABNORMAL) Conversion Default Interface Order (02/02/1996 7:30 AM CDT) P athologist Signature Hemoglobin 11.2 (LL) 12.3 HP CONVERSION 15.3GM/D L Specimen (Source) Anatomical Collection Method Collection Time Re ceived Time Location / / Volume Laterality 02/02/1996 7:30 AM CDT Alivia Nuñez MD LAB_1 Performing Organization Address City/State/ZIP Code Phon e Number HP CONVERSION Conversion Default Interface Order (02/02/1996 6:52 AM CDT) [facility] Method Time Signature Surgical See Detail HP CONVERSION Pathology Comment: NAME:MERCED AYALA ? SURGICAL PATHOLOGY REPORT Pathology # ??[id number] ?Date Obtained: ?Date Received: DIAGNOSIS: ? Placenta, containing an unreduced umbilical cord knot. ? Gabriel Hill M.D. ? (electronic signature) RPW/RPW/rcf Date of Report: 02/05/96 Pathology # ??[id number] ?Date Obtained: ?Date Received: ORGAN/TISSUE SITE: ? Placenta GROSS DISCRIPTION: ? This is a placenta weighing 715 g m (fixed) measuring 20.4 x 18.2 x 3.3 ? cm. ??The maternal surface contai ns approximately 25 ml of adherent blood ? clot, which is most prominent in areas of indentation. ??A few milliliters ? of blood are also present along t he placental membranous tissue. ??No areas ? of obvious purulent inflammation are seen. ??The umbilical cord measures 69 ? cm in length, and situated 16.5 c m from the distal (clamped) margin of the ? umbilical cord is a relatively ti ght, nearly irreducible knot in the ? cord. ??The umbilical cord contai ns three vessels in cross section and ? inserts centrally in the placenta . ??Shredder Picker sections submitted. RPW/rcf MICROSCOPIC DESCRIPTION: ? The paraffin sections contain colton cental tissue with a moderate degree of ? syncytial knot formation and mult iple foci of coarse calcification within ? the placental parenchyma. ??There is modest diffuse perivillous fibrin ? deposition, and some areas of sub chorial necrosis of villous tissue is ? seen. ??No evidence of acute acut e, lymphocytic, or granulomatous ? inflammation of the placental mem branous tissue is seen. ??The umbilical ? cord contains three vessels in cr oss section, and shows no evidence of ? inflammation. ??Membranous tissue and maternal surface of the placenta ? contain adherent blood, but no avila bstantial evidence of organization. ? END OF REPORT Specimen (Source) Anatomical Collection Method Collection Time Re ceived Time Location / / Volume Laterality 02/02/1996 6:52 AM CDT Alivia Nuñez MD LAB_1 Performing Organization Address City/State/ZIP Code Phon e Number HP CONVERSION documented in this encounter Visit Diagnoses Not on filedocumented in this encounter
--- OUTSIDE RECORDS SUMMARY | 2022-07-02 14:40 | XMS_ITS | Encounter Summary ---
:1955 Author [facility] Address [address] [place] [address] Care Team Providers Name Role Phone Unassigned, Provider Primary Care Provider Unavailable Encounter Details Date Type Department Care Team Description 02/05/1996 Home Care Visit [facility] Suyapa Dawson [address] [place] [address] Social History Tobacco Use Types Packs/Day Years Used Date Smoking Tobacco: Never Assessed Sex Assigned at Date Recorded Not on file documented as of this encounter Plan of Treatment Not on filedocumented as of this encounter Visit Diagnoses Not on filedocumented in this encounter Care Teams Repair Service Dispatcher Relationship Specialty Start Date End Date Unassigned, Provider PCP - General 07/08/00 11/01/[address] [place] [id number] documented as of this encounter
--- OUTSIDE RECORDS SUMMARY | 2022-07-02 14:40 | XMS_ITS | Encounter Summary ---
:1955 [facility] Address [address], [place] [address] Care Team Providers Name Role Phone Unavailable Primary Care Provider Unavailable Encounter Details Date Type Department Care Team Description 02/07/1997 - Hospital [place] [address] [place] [address] 1997 3W- [place] [address] [address] [place] [address] [address] [place] [id number] Social History Tobacco Use Types Packs/Day Years Used Date Smoking Tobacco: Never Assessed Sex Assigned at Date Recorded Not on file documented as of this encounter Discharge Summaries Kaylah Ayala - 1997 12:01 AM CDT Procedures signed by [employer] at 07/09/99 1200 Author: Kaylah Ayala MD Service: (none) Author Type: Registered Nurse Filed: 11/18/10 6287 Note Time: 02/09/97 0000 Status: Signed Multimedia Authoring Specialist: Kaylah Ayala MD (Physician) [id number] DELIVERY NOTE DELIVERY DATE: 02/07/97 HISTORY: The patient is a 41-year-old white female 2, para 1-0-0-0 at 38+ 5 weeks' gestation by dates and a 13 week ultrasound. She presented to labor and delivery for induction. The patient has a history of stillbirth at term. COURSE: Her first visit was at eight weeks. She had serial biophysical profiles starting at approximately 32 weeks for maternal reassurance with the history of previous stillbirth. She declined an amnio, but had a normal level 2 ultrasound and a normal AFP and HCG screen at 18 weeks. Her labs showed blood type B positive, antibody screen negative, rubella immune. Hepatitis, syphilis, and HIV screens were negative. Her Pap smear was within normal limits. PAST OBSTETRICAL HISTORY: Term stillbirth at 39 weeks, daughter Monik, at 7 pounds 10 ounces with a true knot in the umbilical cord noted at the time of delivery. PAST MEDICAL HISTORY: Unremarkable. PHYSICAL EXAMINATION: The general physical examination on admission was within normal limits. The abdomen was gravid with the fetus in a vertex presentation and estimated weight of approximately 7-1/2 pounds. Her cervix was 2 cm dilated, 2 cm long with the vertex at a - 2 station. Pitocin induction was begun on the morning of admission. Spontaneous rupture of membranes occurred at 1050 hours with clear fluid. She was uncomfortable by approximately 11 o'clock in the morning. She received Nubain for pain relief, and was being prepared for an epidural, but prior to placement, was found to be complete at a +1 station. She was complete at 1255 hours and delivered a viable female infant at 1304 hours. The baby, Dawn, had Apgars of 9 and 10 at one and five minutes, respectively. Her weight was 7 pounds 11 ounces. CONTINUATION OF DELIVERY NOTE - Page 2 The placenta was then delivered spontaneously and intact with a three vessel cord at 1310 hours. A second degree perineal laceration was repaired with 3-0 Vicryl under local anesthesia. The mom is breast feeding. There were no complications. ROBERTA/KAYCEE/courtney Signed: Kaylah Ayala RMATION SECURITY ASSOCIATE documented in this encounter Miscellaneous Notes Miscellaneous - Kaylah Ayala - 1997 3:13 PM CDT ICD-9-CM ICD-9-CM Narrative description Code ======== DIAGNOSES Principal: DEL W 2 DEG LACERAT-DEL 664.11 Secondary: DELIVER-SINGLE LIVEBORN V27.0 PROCEDURES Provider Date Principal: REPAIR OB LACERATION NEC KAYLAH AYALA [id number] 75.69 Secondary: MONITORING NOS KAYLAH AYALA [id number] 75.34 CPT4 documented in this encounter Plan of Treatment Not on filedocumented as of this encounter Procedures Procedure Name Priority Date/Time Associated Comments Diagnosis CONVERSION DEFAULT Routine 02/08/1997 7:00 AM Res ults for this INTERFACE ORDER CDT procedure ar e in the results section. CONVERSION DEFAULT Routine 02/07/1997 9:18 AM Res ults for this INTERFACE ORDER CDT procedure ar e in the results section. documented in this encounter Results (ABNORMAL) Conversion Default Interface Order (02/08/1997 7:00 AM CDT) P athologist Signature Hemoglobin 10.2 (LL) 12.3 HP CONVERSION 15.3GM/D L Specimen (Source) Anatomical Collection Method Collection Time Re ceived Time Location / / Volume Laterality 02/08/1997 7:00 AM CDT Kaylah Ayala MD LAB_1 Performing Organization Address City/[facility] Phon e Number HP CONVERSION (ABNORMAL) Conversion Default Interface Order (02/07/1997 9:18 AM CDT) P athologist Signature Hemoglobin 11.3 (LL) 12.3 HP CONVERSION 15.3GM/D L Specimen (Source) Anatomical Collection Method Collection Time Re ceived Time Location / / Volume Laterality 02/07/1997 9:18 AM CDT Kaylah Ayala MD LAB_1 Performing Organization Address City/[facility] Phon e Number HP CONVERSION documented in this encounter Visit Diagnoses Not on filedocumented in this encounter
--- OUTSIDE RECORDS SUMMARY | 2022-07-02 14:40 | XMS_ITS | Encounter Summary ---
:1955 [facility] Address [address], [place] [address] Care Team Providers Name Role Phone Unassigned, Provider Primary Care Provider Unavailable Encounter Details Date Type Department Care Team Description 01/13/2007 Office Visit [facility] 3800 Cristina Cabrera MD Obstetrics/Gynecolog y [address] Jo Jauregui d. [facility] 5th Floor [facility] [place] [address] [phone] Social History Tobacco Use Types Packs/Day Years Used Date Smoking Tobacco: Never Assessed Sex Assigned at Date Recorded Not on file documented as of this encounter Last Filed Vital Signs Vital Sign Reading Time Taken Comments Blood Pressure 112/72 01/13/2007 1:14 PM CDT Pulse 68 01/13/2007 1:14 PM CDT Temperature - - Respiratory Rate - - Oxygen Saturation - - Inhaled Oxygen Concentration - - Weight 75.6 kg (166 lb 9.3 oz) 01/13/2007 1:14 PM C: 75 .6kg CDT Height 170.2 cm (5' 7) 01/13/2007 1:14 PM C: 170.2cm CDT Body Mass Index 26.09 01/13/2007 1:14 PM CDT documented in this encounter Progress Notes Aurora Cabrera MD - 01/21/2007 12:01 AM CDT Phone Note signed by Aurora Cabrera MD at 01/21/07 1389 Author: Aurora Cabrera MD Service: (none) Author Type: Physician Filed: 01/13/07 0000 Note Time: 01/21/07 0001 Status: Signed Bag Mender: Aurora Cabrera MD (Physician) NAME: MERCED AYALA MR#: [id number] ACCT: [id number] VISIT: DICTATING CLINICIAN: AURORA CABRERA MD JOB: [id number] LOC: 412 CLINIC PHONE CALL DATE OF PHONE CALL: 01/21/07. I spoke with Ms. Merced Ayala today. She has decided to go ahead with a myomectomy; she would like this done in March. She really has had some difficulty deciding to proceed with surgery. I think a myomectomy is very reasonable. She will return to the office for an endometrial biopsy in a couple of weeks. Certainly, if the biopsy is abnormal she would need a total abdominal hysterectomy or a subtotal hysterectomy. We also discussed that if one of the ovaries does not look normal that should be removed as well. We do have quite a bit of time to still think about how to proceed. She will see Dr. Cummins for a preoperative exam prior to the surgery which will likely be 03/10/07. CC: DELBERT CUMMINS MD [place], [place] IHA:[id number] C: 01/21/07 13:24 DOCUMENT: [id number] Aurora Cabrera MD - 01/13/2007 12:01 AM CDT Progress Notes signed by Aurora Cabrera MD at 01/16/072004 Author: Aurora Cabrera MD Service: (none) Author Type: Physician Filed: 11/21/10 193 Note Time: 01/13/07 0001 Status: Signed Bag Mender: Aurora Cabrera MD (Physician) NAME: MERCED AYALA MR#: [id number] ACCT: [id number] VISIT: [id number] DICTATING CLINICIAN: AURORA CABRERA MD JOB: [id number] LOC: 412 CLINIC PROGRESS NOTE DATE OF VISIT: 01/13/2007 SUBJECTIVE: CHIEF COMPLAINT: Uterine fibroids. HISTORY: Merced Ayala is 51 years old. She is a patient of Dr. Delbert Cummins at [facility]. She has a myomatous uterus and is feeling that her lower abdomen is bigger. She is here to discuss options. She is feeling more urinary frequency. She does not have any pain. She really is not quite certain if she wants to have anything at all done, however. I reviewed her pelvic ultrasound from 12/02/06. The uterus measured 170 x 67 x 98 mm. Multiple fibroids were present with the largest measuring 9.3 cm. This was present at the fundus. Additional fibroids were present measuring between 1.8 x 6.6 cm and were located posteriorly and anteriorly. The uterine lining measured 12 mm. There was a small amount of fluid within the uterine cavity and this was thought to be blood. She is still having monthly menses. She does not have any hot flushes at all. I should also note that her ovaries were normal in appearance. PAST MEDICAL HISTORY: Illnesses: Fibroids. Surgery: Total right hip done 01/2006. ADR/ALLERGIES: NONE. FAMILY HISTORY: Her mother had fibroids. She is now 76 years old and has elevated cholesterol, hypertension and diabetes. Her father is well. No one in the family has had any cancers. SOCIAL HISTORY: She is and has a child who is almost 10 years old. She did have a stillbirth years ago. REVIEW OF SYSTEMS: She has nocturia only x1. She voids frequently during the day, but has no problem getting through grocery stores and other shopping. She does not need to look for a bathroom everywhere. She can easily avoid having to go to the bathroom. She is not having any pain. OBJECTIVE: VS: BP: 112/72. P: 58. Ht: 67 in. Wt: 166.6 lb. GENERAL: Well-developed, comfortable-appearing woman in no apparent distress. CHEST: Clear. CARDIAC: Regular rate. ABDOMEN: No hepatosplenomegaly. I could feel the uterus about 3 cm above the pubic symphysis. Mobile. PELVIC: EGBUS normal. Vagina normal. Cervix nontender, no lesions; the cervix was difficult to feel and see, presumably because of the uterine fibroids. The uterus felt about 12 to 14 weeks in size and mobile. It was long, but not wide. Irregular ? anteriorly by the bladder. No adnexal mass was palpable. Rectovaginal confirmed. No nodularity. EXTREMITIES: Nontender. No edema. ASSESSMENT: Uterine fibroids, is feeling some increased pressure. PLAN: I reviewed with Merced that we really do not have any way to make the uterine fibroids shrink on a long-term basis. We do have Lupron which can shrink them for a very short period of time, but she cannot take the medicine for more than 6 months and within the next 6 months they have returned to their exact size pre-Lupron. We could make an abdominal incision and shell out the large fibroids. This cannot be done laparoscopically. A hysterectomy could be done as well. She wanted to know what the downside of having a hysterectomy would be. The ovaries could be left in place and then she would not experience the surgical menopause. However, if a total abdominal hysterectomy was done there is some additional risk for posthysterectomy vaginal vault prolapse. We could do a supracervical hysterectomy and she would then maintain some of the strength and support to the vagina. Other risks of major surgery were reviewed such as blood clots, infection, intraabdominal injury. It is unusual to have these latter things occur. Merced actually feels quite well and is not really ready to have anything at all done. Unfortunately, she has no signs of even being perimenopausal. She has no hot flushes and is not experiencing any irregularity with regards to menses. I called her clinic to see if she has had other ultrasounds done in prior years. No other ultrasounds were done and, thus, I cannot tell her if the fibroids are growing quickly or not. Menopause usually helps this situation. I reviewed with Merced that we should at least repeat a pelvic ultrasound not before 6 months time. If the fibroids are rapidly enlarging, then certainly the fibroids and/or the entire uterus should be removed. If she were having heavy menses the entire uterus should be removed, but she was quite adamant that this was not the case. I will speak with Dr. Cummins also. CC: [place] [address] IHA:[id number] C: 01/16/07 14:56 DOCUMENT: [id number] documented in this encounter Plan of Treatment Not on filedocumented as of this encounter Visit Diagnoses Not on filedocumented in this encounter Care Teams Liability Claims Examiner Relationship Specialty Start Date End Date Unassigned, Provider PCP - General 07/08/00 11/01/[address] [place] [id number] documented as of this encounter
--- OUTSIDE RECORDS SUMMARY | 2022-07-02 14:40 | XMS_ITS | Encounter Summary ---
:1955 [facility] Address [address] [place] [address] Care Team Providers Name Role Phone Unassigned, Provider Primary Care Provider Unavailable Encounter Details Date Type Department Care Team Description 03/30/1997 PN Conversion [place] [address] [address] [address] (Wo rk) Social History Tobacco Use Types Packs/Day Years Used Date Smoking Tobacco: Never Assessed Sex Assigned at Date Recorded Not on file documented as of this encounter Plan of Treatment Not on filedocumented as of this encounter Procedures Procedure Name Priority Date/Time Associated Comments Diagnosis CONVERSION DEFAULT Routine 03/23/1997 10:51 AM Esther bagley for this INTERFACE ORDER CDT procedure ar e in the results section. documented in this encounter Results Conversion Default Interface Order (03/23/1997 10:51 AM CDT) athologist Signature PAP Smear See Detail HP CONVERSION Comment: Patient: MERCED AYALA ?CERVICAL CYTOLOGY REPORT Pathology # ??[id number] ?Date Obtained: ?Date Received: LMP: CLINICAL HIST CERVICAL SMEAR SPECIMEN ADEQUACY: ?? Satisfactory. ENDOCERVICAL CELLS: ??Present. CYTOLOGIC IMPRESSION: Within Normal Limits (Negative). Verified 04/14/97 by: ??SN ? (electronic signature) Specimen (Source) Anatomical Collection Method Collection Time Re ceived Time Location / / Volume Laterality 03/23/1997 10:51 AM CDT Luz Ayala MD LAB_1 Performing Organization Address City/State/ZIP Code Phon e Number HP CONVERSION documented in this encounter Visit Diagnoses Not on filedocumented in this encounter Care Teams Clinical Nurse Occupational Medicine Relationship Specialty Start Date End Date Unassigned, Provider PCP - General 07/08/00 11/01/[address] [place] [phone] documented as of this encounter
--- OUTSIDE RECORDS SUMMARY | 2022-07-02 14:40 | XMS_ITS | Encounter Summary ---
:1955 Author Organization [facility] Address [address] [place] [address] Care Team Providers Name Role Phone Unassigned, Provider Primary Care Provider Unavailable Encounter Details Date Type Department Care Team Description 04/25/2004 Office Visit [facility] [address] Urgent Roscoe Stanton [place] Care [address] [place] [address] [place] [address] [phone] Social History Tobacco Use Types Packs/Day Years Used Date Smoking Tobacco: Never Assessed Sex Assigned at Date Recorded Not on file documented as of this encounter Progress Notes Roscoe Stanton MD - 04/25/2004 12:01 AM CDT Progress Notes signed by Roscoe Stanton MD at 04/28/041952 Author: Roscoe Stanton MD Service: (none) Author Type: Physician Filed: 11/21/10 0003 Note Time: 04/25/04 0001 Status: Signed Airplane Technician: Roscoe Stanton MD (Physician) NAME: MERCED AYALA MR: [id number] ACCT: [id number] VISIT: [id number] DICTATING CLINICIAN: ROSCOE STANTON MD JOB: [id number] CLINIC PROGRESS NOTE DATE OF VISIT: 04/25/2004 SUBJECTIVE: Chief complaint: Sinus congestion. HPI: A 49-year-old female with a one-week history of sinus congestion. Two-day history of dental pain, and sinus pain, and headaches. Typical sinus infection. She has had recurrent problems. ADR/ALLERGIES: REVIEWED IN LAST WORD. MEDICATIONS: Reviewed in Last Word. PAST MEDICAL HISTORY: Reviewed in Last Word. REVIEW OF SYSTEMS: Constitutional, HEENT, eyes, respiratory, and lymph otherwise negative. OBJECTIVE: VS: BP: 123/69. T: 97. P: 74. R: 18. HEENT: Is remarkable for sinus tenderness, right greater than left maxillary region. A purulent nasal discharge is noted. NECK: Is supple; no adenopathy. Lung stanton are clear. Conjunctivae is clear. ASSESSMENT: Sinusitis. PLAN: Amoxicillin 875 b.i.d. x10. Sudafed. Saline irrigation. [facility]:[id number] C: 04/26/04 01:39 DOCUMENT: [id number] documented in this encounter Plan of Treatment Not on filedocumented as of this encounter Visit Diagnoses Not on filedocumented in this encounter Care Teams Department Operations Manager Relationship Specialty Start Date End Date Unassigned, Provider PCP - General 07/08/00 11/01/[address] [place] [phone] documented as of this encounter
--- OUTSIDE RECORDS SUMMARY | 2022-07-02 14:40 | XMS_ITS | Encounter Summary ---
:1955 Author Organization Formerly [facility] Address [address] [place] [address] Care Team Providers Name Role Phone Unassigned, Provider Primary Care Provider Unavailable Encounter Details Date Type Department Care Team Description 03/05/2003 PN Conversion Only [facility] [address] [facility] [address] [place] [address] Social History Tobacco Use Types Packs/Day Years Used Date Smoking Tobacco: Never Assessed Sex Assigned at Date Recorded Not on file documented as of this encounter Progress Notes George Maher MD - 03/05/2003 12:01 AM CDT Progress Notes signed by George Maher MD at 03/10/03 0752 Author: George Maher MD Service: (none) Author Type: Physician Filed: 11/20/10 1452 Note Time: 03/05/03 0001 Status: Signed Sales Executive Insurance: George Maher MD (Physician) NAME: ARUNA ALTAMIRANO MR: [id number] ACCT: [id number] VISIT: [id number] DICTATING CLINICIAN: Chin MAHER MD JOB: [id number] CLINIC PROGRESS NOTE DATE OF VISIT: 03/05/2003 SUBJECTIVE: Patient a 48-year-old female. For the last eight days has been symptomatic. Facial discomfort. Pain into the teeth. Greenish-yellowish drainage from the nares. Yesterday, starting to have a cough. There has been no fever. Thought this would get better on its own, but it has seemed to progress. MEDICATIONS: Prozac. ADR/ALLERGIES: NONE. OBJECTIVE: VS: BP: 116/76. T: 98.3. P: 86. R: 18. TMs are clear. Tenderness over the right maxillary sinus. Throat is unremarkable. NECK: Supple. LUNGS: Clear. ASSESSMENT: Sinusitis. PLAN: Augmentin 875 p.o. b.i.d. for 10 days if she sees a prompt improvement in symptoms. TT: CT: [id number] C: 03/06/03 21:51 DOCUMENT: [id number] Jeannie Post MD - 01/20/2002 12:01 AM CDT Progress Notes signed by Jeannie Post MD at 01/21/02 1435 Author: Jeannie Post MD Service: (none) Author Type: Physician Filed: 11/20/10 0638 Note Time: 01/20/02 0001 Status: Signed Sales Executive Insurance: Jeannie Post MD (Physician) IMPRESSION: Allergic reaction. SUBJECTIVE: Chief complaint: Rash. HPI: This is a pleasant 46-year-old who states that around 6:00 p.m., she started itching. Then, she developed a rash from head-to-toe. It is pruritic. She did take four teaspoons of Benadryl, which has helped a little bit. It seems to have faded a bit since she came in about an hour and a half after the onset. She also had some redness, mostly on the chest. Denies any throat swelling or shortness of breath. She denies any new exposures, however, did have a rhubarb cake with some peanuts on it at lunch. She also had some pineapples with supper. Also, some asparagus. None of these were new foods that she has never had before. She does have a history of some type of a reaction near her eye, a couple of years ago, but she generally does not have real sensitive skin. PAST MEDICAL HISTORY: Negative. MEDICATIONS: None. ADR/ALLERGIES: NONE. OBJECTIVE: VS/GEN: BP: 135/71. T: 97.9, oral. P: 63. R: 20. Alert, cooperative, and nontoxic. She is itching her arms just slightly in the exam room. HEENT: Oral cavity: [place], moist without any swelling of the pharynx. LUNGS: Clear to auscultation with good air exchange in all [place]. CV: Regular rate and rhythm, no murmur. SKIN: She has just a faint rash on the upper torso. She does have a few excoriations across the arms. The rash is red and blanching. No discreet hives. ASSESSMENT: Allergic reaction. The source is unknown. I suspect maybe a food allergy or contact dermatitis. PLAN: Nikole 180 mg p.o. q. day p.r.n. for itching, #20 with no refills. She was advised that should she feel any throat swelling or shortness of breath, she needs to go immediately to the emergency department. Followup as needed. TT: CT: [facility][id number] C: DOCUMENT: [id number] Conversion, [facility] - 10/14/1999 12:01 AM CST Progress Notes signed by at 03/08/01 2585 Author: Juan Conversion Service: (none) Author Type: (none) Filed: 11/19/10 1511 Note Time: 10/14/99 0001 Status: Signed Sales Executive Insurance: Juan Conversion IMPRESSION: Hip pain referred to anterior thigh. SUBJECTIVE: Six-month history intermittent right anterior thigh pain. Severe enough to cause leg to give away at times. Worse with increased and prolonged episodes of walking. No injury. Had physical therapy in college for episode of pain. Right leg reported longer than left at that time. Denied significant problems with back pain. No disturbance of bowel or bladder function. No pain radiating down legs below knees. OBJECTIVE: BP: 112/62. Wt. 167 pounds. GENERAL: Active. No acute distress. SKIN: Keratosis pilaris lateral thigh. No other skin changes. No palpable masses. No tenderness. EXTREMITIES: Range of motion satisfactory at hip. Does have a little limitation for internal rotation at 45 degrees flexion, right compared to left. Strength testing unremarkable. Symmetric knee and ankle jerks. Leg length 93 cm anterior iliac crest to the lateral malleolus on right; 92 cm on left. X-RAY: Mild degenerative change at right hip noted. No other significant abnormalities. Length of femur unremarkable. Straight-leg raising negative to 90 degrees bilaterally. ASSESSMENT: Hip pain referred to anterior thigh. PLAN: 1. Maintenance of desirable body weight/gradual increase of tolerance for walking with regular weight bearing exercise/OTC nonsteroidals discussed with patient for management. 2. Follow up p.r.n. [facility]:[id number] C: DOCUMENT: [id number] SCHEDULED RESOURCE: SAADIA ROWLAND MD Luz Juan - 09/08/1999 12:01 AM CST Progress Notes signed by at 03/29/06 1456 Author: Luz Altamirano MD Service: (none) Author Type: (none) Filed: 11/19/10 1438 Note Time: 09/08/99 0001 Status: Signed Sales Executive Insurance: Luz Altamirano MD (Physician) SUBJECTIVE: The patient is a 44-year-old para 2-0-0-1, is here for her annual exam. Her last exam was in March, at at checkup. She is doing well without any problems. Please see the schlog for full details. OBJECTIVE: A Pap smear was done today and she was referred for screening mammogram as well as fractionated cholesterol levels. ASSESSMENT: N/A PLAN: She will follow up in one year or sooner if problems develop. Electronically signed by Health Information Management per Retired Incomplete Chart Policy. [facility]:[id number] C: DOCUMENT: [id number] Wagner Landry MD - 08/10/1999 12:01 AM CST Progress Notes signed by Wagner Heath MD at 08/13/99 170 Author: Wagner Heath MD Service: (none) Author Type: Physician Filed: 11/19/10 1412 Note Time: 08/10/99 0001 Status: Signed Sales Executive Insurance: Wagner Heath MD (Physician) IMPRESSION: Muscular low back pain. SUBJECTIVE: The patient yesterday afternoon developed a muscle spasm right lower back. She had this in the fall too and never was seen for it and it just went away on its own with some Advil. Last night she took 800 mg of Advil and it did not help much. She has a history of carpal tunnel that she has the 800 mg of Advil from. She was not particularly active yesterday, no new exercise, does not remember sleeping wrong. When she was two years ago she had some low back pain with pain radiating down her leg but no radiation this fall or yesterday, no numbness, tingling or weakness in the legs. She occasionally has some right thigh anterior pain, this is unrelated to the back pain and she is not experiencing it currently. She has had no fevers, chills, weight loss. No other medical problems. She is on no medications. NO ALLERGIES. OBJECTIVE: She walks very well, she can forward bend normally and backward bend normally. Decreased bending to the left, slightly decreased to the right. She is very tender over the paraspinal muscles lower thoracic on the right. No tenderness over the spine itself. Straight leg raising negative to 90 degrees, limited just by hamstrings. Knee jerks, ankle jerks symmetrical. Toes downgoing. ASSESSMENT: Muscular low back pain. PLAN: Given back care handout, use ibuprofen 600 q.i.d. or 800 t.i.d., back exercises to start. Recheck in a few weeks if not improving. RSK:[id number] C: DOCUMENT: [id number] FRAMING MANAGER Conversion, [facility] - 05/03/1999 12:01 AM CDT Phone Note signed by at 05/03/99 3441 Author: Juan Conversion Service: (none) Author Type: (none) Filed: 11/19/10 1235 Note Time: 05/03/99 0001 Status: Signed Sales Executive Insurance: Juan Monte IMPRESSION: Sinus congestion-(adult)-nurse guidelines - PHARMACY: [phone] [facility] * HOME PHONE: [phone] * SUBJECTIVE: * WORK PHONE: [phone] * PATIENT COMPLAINS OF... Sinus * CONTACT PHONE: [phone] * congestion, for 7 or more * Darcie Mathison * days, interferes with ADL's, accompanied by 2 or more of the following symptoms: -Thick, yellow/green nasal discharge -Facial or sinus pain, made worse by bending over or straining -Post nasal drip with sore throat and/or cough -Headache (frontal) -Nasal speech -Denies urgent or semi-urgent symptoms Patient calling, she has had a cold for over a week, and now she has symptoms of a Sinus Infection. She was treated last spring for a sinus infection at . She has been using Sudafed, and the Saline Nasal [place].; ALLERGIES/SENSITIVITIES... NKA: 05/03/99 CURRENT MEDICATIONS... Sudafed prn; 05/03/99 PERTINENT PAST HISTORY... healthy 05/03/99 ASSESSMENT: Sinus congestion-(adult)-nurse guidelines DISPOSITION: HOME CARE PATIENT IS NOT ; PATIENT IS NOT NURSING; PLAN: STANDING ORDERS IMPLEMENTED... Amoxicillin: 500 mgm tid x 10 days (o) RECOMMENDED THE FOLLOWING... Referenced guideline Sinus congestion-(adult)-nurse guidelines. Call prescription to pharmacy as directed by [facility] Physician Standing Orders -Improve room humidity with a cool mist vaporizer -Increase fluid intake -Elevate head when resting and sleeping -Take steamy showers -Apply warm compresses or heating pad to sinus area -Take analgesic of choice as directed on package -Use saline drops or nasal spray for nasal congestion -Use OTC decongestants for relief of drainage and congestion -Avoid cigarette smoke or extremely cool or dry air Patient information given per Sinus Congestion nurse guidelines. INFORMED PATIENT TO CALLBACK IF... Reasons to call back reviewed- caller verbalizes understanding of the need to call back for the following reasons: -Symptoms worsen after 48 hours of medication -Symptoms not resolved after completion of medication -Any other questions or concerns MISC COMMENTS... Prescription called in at 3:09 pm Call taken by JONA SNIDER RN [phone] 05/03/1999 03:00 PM ADDENDUM: <> 05/07/1999 01:11PM by JONA SNIDER RN [phone]: LEFT MESSAGE.Spoke to patient, she started the Amoxicillin on Wednesday, she took one dose. She is feeling a little better. She was reminded to continue taking medication until it is gone and to call if symptoms are not completely resolved, or if she has any other questions or concerns. Jojo Palafox - 12/26/1998 12:01 AM CDT Progress Notes signed by Jojo Dean at 01/28/99 1730 Author: Jojo Dean Service: (none) Author Type: Resource Filed: 11/19/10 1031 Note Time: 12/26/98 0001 Status: Signed Sales Executive Insurance: Jojo Dean (Resource) IMPRESSION: Sinusitis. SUBJECTIVE: Problem: Sinuses. This 43-year-old female has been having problems with her sinuses for about 6 weeks. She originally was put on erythromycin which did not help. She was then placed on Augmentin which seemed to clear up her symptoms. She has been off the Augmentin now for 7- 8 days and again is having colored nasal discharge, sore throat, facial pressure and possibly a fever. She is on no medications at this time. NO KNOWN DRUG ALLERGIES. She is a nonsmoker. OBJECTIVE: A 43-year-old female in no acute distress. Tympanic membranes are retracted bilaterally. She has swelling of her turbinates, particularly on the right side with injection. Throat is injected. She has anterior cervical lymphadenopathy bilaterally, more marked on the right than the left. Lungs are clear to auscultation. Heart is regular rate and rhythm. ASSESSMENT: Sinusitis. PLAN: 1. Cefzil 250 mg b.i.d. times 21 days. 2. Followup if this does not completely clear up her symptoms, or if symptoms recur after the medication. INESSA:[id number] C: DOCUMENT: [id number] Conversion, [facility] - 12/08/1998 12:01 AM CDT Progress Notes signed by at 03/08/012049 Author: [facility] Conversion Service: (none) Author Type: (none) Filed: 11/19/10 1012 Note Time: 12/08/98 0001 Status: Signed Sales Executive Insurance: Juan Conversion IMPRESSION: Persistent sinusitis. SUBJECTIVE: The patient is a 43-year-old lady who was seen about ten days ago for a sinusitis, treated with Erythromycin. Although she is not running any more fever she continues to have pressure and pain in her sinuses, particularly the left maxillary and is not feeling real well. She has been using Sudafed every day. She does not have a history of seasonal allergic rhinitis. Has not had itchy, watery eyes in recent weeks. DRUG SENSITIVITIES: NONE. MEDICATIONS: Trazodone. OBJECTIVE: T: 96.9. P: 64. R: 72. BP: 110/72. She is mildly congested and the nose blowing only scant amount of clear mucous, but she states she is blowing a lot of green mucous at other times of the day. Ears are clear. Pharynx clear. Postnasal drainage. She has tenderness to percussion over the maxillary sinuses particularly on the left. The neck is supple without nodes. Chest clear with good breath sounds. Heart regular and without murmurs. Hameed view of the sinuses shows an opacified left maxillary antrum and a air fluid level on the right. ASSESSMENT: Persistent sinusitis. PLAN: Prescription for Augmentin 875 q. 12 hours times 10 days. Gave her a sinusitis instruction card and she needs to do those things for the next week or ten days and should stay on Sudafed every day until she follows up with her primary care physician in about three weeks. Return to clinic sooner p.r.n. persistent pain or other symptoms. WRK:[id number] C: DOCUMENT: [id number] SCHEDULED RESOURCE: SEVERO NGUYEN MD FRAMING MANAGER Prakash Boyle MD - 11/28/1998 12:01 AM CDT Progress Notes signed by Prakash Boyle MD at 02/09/99 1522 Author: Prakash Boyle MD Service: (none) Author Type: Physician Filed: 11/19/10 1003 Note Time: 11/28/98 0001 Status: Signed Sales Executive Insurance: Prakash Boyle MD (Physician) IMPRESSION: Sinusitis. SUBJECTIVE: Aruna is a 43-year-old female who presents with purulent nasal drainage and facial pressure for the last week. She has had a cold for two weeks and then developed these other symptoms recently. She had a sinus infection last year. Her has a supply of amoxicillin at home for dental procedures, and she has been taking two pills a day and comes in because her symptoms are not resolved. She had a low-grade temperature last week. ADVERSE DRUG REACTIONS: None known. MEDICATIONS: Trazodone. OBJECTIVE: T: 96.4. P: 78. R: 16. BP: 98/64. She is a pleasant, nontoxic-appearing female. She in in no acute distress. She has maxillary sinus tenderness to percussion. Tympanic membranes are clear. Her pharynx is clear. Neck is supple, no adenopathy. Lungs are clear to auscultation. ASSESSMENT: Acute sinusitis. PLAN: Will switch to Kd-tabs 1 p.o. t.i.d. x ten days. Recommend that she followup with her primary care doctor if not improved. GALA:[id number] C: DOCUMENT: [id number] [facility], [facility] - 11/21/1998 12:01 AM CDT Progress Notes signed by at 03/08/012047 Author: Juan Conversion Service: (none) Author Type: (none) Filed: 11/19/10 0955 Note Time: 11/21/982348 Status: Signed Sales Executive Insurance: Juan Monte IMPRESSION: Left carpal tunnel symptomatology, marked improvement. SUBJECTIVE: This 43-year-old white female presents for follow-up left carpal tunnel symptomatology. She had an excellent response to splinting and ibuprofen. When seen in Hand Therapy ten days following her 10/07/98 appointment, she was already noting significant improvement and actually symptoms were not reproducible. The patient was instructed in exercises and weaned to brace use only at night and she has had remarkable improvement in her symptoms since then. 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 Ergonomic evaluation of work station has taken place. OBJECTIVE: BP: 108/70. WT: 165.5. Tall thin woman in no acute distress. Wrist range of motion is normal and full. No atrophy of the thenar eminences bilaterally. Normal and symmetric radial and ulnar pulses. Distal capillary refill excellent in all digits. Negative Phalen's. Negative Tinel's left hand currently. ASSESSMENT: Left carpal tunnel symptomatology, marked improvement. PLAN: The patient will continue the use of ibuprofen and brace and slowly wean over the next four to six weeks with reinstitution of use for recurrent symptomatology. She is to continue to adhere to her exercise program. Follow-up on a prn basis. [facility]:[id number] C: DOCUMENT: [id number] SCHEDULED RESOURCE: SAADIA ROWLAND MD FRAMING MANAGER Conversion, Juan - 10/07/1998 12:01 AM CST Progress Notes signed by at 03/08/012042 Author: Juan Conversion Service: (none) Author Type: (none) Filed: 11/19/10 0907 Note Time: 10/07/98 0001 Status: Signed Sales Executive Insurance: Juan Monte IMPRESSION: Left carpal tunnel symptomatology. 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 Minimal symptoms in the right hand. No history of significant neck injury. Effects the first three digits primarily of the left hand. Usually mouse is with her right hand as she is right-handed. She has noted that the symptoms can be worse at night. Occasionally she will feel like the symptoms shoot from the wrist up the arm. She did try some ibuprofen on Wednesday and that did seem to make it better. Today symptoms are described as a dull ache in the wrist and proximal forearm. She denies significant medical problems. She is taking trazodone for sleep at 50 mg po q hs. She is unaware of alteration of symptoms with varying dietary intake. OBJECTIVE: BP: 110/64; WT 165-1/2 pounds. GENERAL: Pleasant, healthy appearing young woman in no acute distress. WRIST: Full wrist range of motion bilaterally. Normal symmetric radial and ulnar pulses bilaterally. Thenar eminences are symmetric. She has good distal capillary refill and sensation in the digits of both hands. The patient does have positive Tinel's at 10 seconds for pain and 20 seconds for numbness and tingling on the left, negative on the right. She has a positive Phalen's on the left at 10 seconds. ASSESSMENT: Left carpal tunnel symptomatology. PLAN: Carpal tunnel brace to wear while working and at hours of sleep. Avoidance of sleeping on hands discussed. Influence of salty foods on carpal tunnel symptomatology discussed. Initiate physical therapy including dexamethasone for Iontophoresis or Phonophoresis. Follow up four to six weeks prn. Meantime will certainly provide the patient with a right brace if she feels it is necessary subsequently, although right exam is pretty benign today. Role of EMG and surgical intervention briefly discussed with the patient as well today. [facility]:[id number] C: DOCUMENT: [id number] SCHEDULED RESOURCE: SAADIA ROWLAND MD Korin Jimenez MD - 04/18/1998 12:01 AM CDT Progress Notes signed by Korin Christy MD at 05/07/98 1651 Author: Korin Christy MD Service: (none) Author Type: Physician Filed: 11/19/10 0611 Note Time: 04/18/98 0001 Status: Signed Sales Executive Insurance: Korin Christy MD (Physician) IMPRESSION: [place] left foot, benign-appearing dermal nevus right abdomen, melasma, seborrheic dermatitis of scalp. SUBJECTIVE: Aruna Altamirano is a 43-year-old woman who comes in for several problems. The first is a wart on the bottom of her left foot that has been present for many years. It was treated once with liquid nitrogen without resolution. She has not been using any home treatments. The second is a mole just beneath her right bra line on her abdomen that has been present for many years. She has not noticed that it is changing but she would just like it checked. The third is some facial pigmentation changes that she has noted since the of her child 14 months ago. Lastly, she has noted some scaling in her scalp for the past several months. She is on no medications. Drug allergies: None known. She has no family history of melanoma or skin cancer. OBJECTIVE: The patient appears in no distress. On examination of the bottom of her left foot there is a keratotic, slightly depressed papule. Using a #15 blade, the area was pared and there was a soft central core. On the right abdomen is a well-circumscribed, larios to brown, slightly pedunculated, 4 to 5 mm papule. On the face is noted reticulated, irregularly-bordered, light-brown patches across the forehead and chin. On scalp examination there are some poorly- marginated, red, yellow to white scaly patches, especially over the occipital area. ASSESSMENT: 1. [place] left foot. I instructed the patient to obtain some corn pads and to use a pumice stone over the hyperkeratotic region once a week. If the area continues to persist to be a problem she should return for reevaluation. 2. Benign-appearing dermal nevus right abdomen. I reassured the patient as to the benign nature of the lesion. She was given information about warning changes and moles. 3. Melasma. I recommended sunblocks as the melasma is very mild at this point and I think with good sunblock it will fade. If this does not help I would consider a hydroquinone cream to the face. I told her it would take several months of using sunblock for this problem to resolve. 4. Seborrheic dermatitis of scalp. Antidandruff shampoos were recommended and a prescription for Synalar solution 15 drops to the scalp q. h.s. was given. PLAN: The patient can return p.r.n. for any of these problems if they persist or worsen. std George Maher MD - 10/16/1997 12:01 AM CST Progress Notes signed by George Maher MD at 10/17/97 1741 Author: George Maher MD Service: (none) Author Type: Physician Filed: 11/19/10 0327 Note Time: 10/16/97 0001 Status: Signed Sales Executive Insurance: George Maher MD (Physician) IMPRESSION: Sinusitis. SUBJECTIVE: Patient is a 42-year-old female who, for the last six days, has had congestion with progressive symptoms, pain in the teeth, yellow-greenish drainage, occasionally blood-tinged, in the nares, productive cough. No fever. No medications. No allergies. OBJECTIVE: BP: 114/80, left arm, standard cuff. P: 72. R: 12. T: 97.2. Tympanic membranes are clear. Tenderness over the right maxillary sinus. Throat is unremarkable. Neck supple. Lungs clear. ASSESSMENT: Sinusitis. PLAN: She will be on amoxicillin, 500 t.i.d. for ten days. jmt FRAMING MANAGER Luz Altamirano - 03/23/1997 12:01 AM CDT Progress Notes signed by Luz Altamirano MD at 06/02/02 0038 Author: Luz Altamirano MD Service: (none) Author Type: (none) Filed: 11/19/10 0030 Note Time: 03/23/97 0001 Status: Signed Sales Executive Insurance: Luz Altamirano MD (Physician) IMPRESSION: No dictation required. SUBJECTIVE: N/A OBJECTIVE: N/A ASSESSMENT: N/A PLAN: N/A pem Luz Juan - 02/06/1997 12:01 AM CDT Progress Notes signed by Luz Altamirano MD at 06/02/0237 Author: Luz Altamirano MD Service: (none) Author Type: (none) Filed: 11/18/106 Note Time: 02/06/972348 Status: Signed Sales Executive Insurance: Luz Altamirano MD (Physician) IMPRESSION: No dictation required. SUBJECTIVE: OB check. OBJECTIVE: N/A ASSESSMENT: N/A PLAN: N/A cooper Luz Juan - 01/30/1997 12:01 AM CDT Progress Notes signed by Luz Altamirano MD at 06/02/0237 Author: Luz Altamirano MD Service: (none) Author Type: (none) Filed: 11/18/10 3093 Note Time: 01/30/972348 Status: Signed Sales Executive Insurance: Luz Altamirano MD (Physician) IMPRESSION: No dictation required. SUBJECTIVE: N/A OBJECTIVE: N/A ASSESSMENT: N/A PLAN: N/A stj FRAMING MANAGER Lavell, [facility] - 01/25/1997 12:01 AM CDT Progress Notes signed by at 06/02/0237 Author: Juan Conversion Service: (none) Author Type: (none) Filed: 11/18/102348 Note Time: 01/25/972348 Status: Signed Sales Executive Insurance: Juan Conversion IMPRESSION: No dictation required. SUBJECTIVE: OB check. OBJECTIVE: N/A ASSESSMENT: N/A PLAN: N/A cooper SCHEDULED RESOURCE: ROXI DAVIS / MARIANA. Luz Juan - 01/25/1997 12:01 AM CDT Progress Notes signed by Luz Altamirano MD at 06/02/0237 Author: Luz Altamirano MD Service: (none) Author Type: (none) Filed: 11/18/10 2349 Note Time: 01/25/972348 Status: Signed Sales Executive Insurance: Luz Altamirano MD (Physician) IMPRESSION: No dictation required. SUBJECTIVE: OB check. OBJECTIVE: N/A ASSESSMENT: N/A PLAN: N/A cooper FRAMING MANAGER Luz Altamirano - 01/18/1997 12:01 AM CDT Progress Notes signed by Luz Altamirano MD at 06/02/0237 Author: Luz Altamirano MD Service: (none) Author Type: (none) Filed: 11/18/102344 Note Time: 01/18/972348 Status: Signed Sales Executive Insurance: Luz Altamirano MD (Physician) IMPRESSION: No dictation required. SUBJECTIVE: N/A OBJECTIVE: N/A ASSESSMENT: N/A PLAN: N/A rmm FRAMING MANAGER Lavell [facility] - 01/18/1997 12:01 AM CDT Progress Notes signed by at 06/02/0237 Author: Juan Conversion Service: (none) Author Type: (none) Filed: 11/18/102344 Note Time: 01/18/972348 Status: Signed Sales Executive Insurance: [facility] Conversion IMPRESSION: No dictation required. SUBJECTIVE: Non-stress test. OBJECTIVE: N/A ASSESSMENT: N/A PLAN: N/A cooper SCHEDULED RESOURCE: ROXI DAVIS / MARIANA. Electronically signed by [facility], [facility] at 06/15/2016 7:13 PM Roxi Wallace APRN, CNP - 01/11/1997 12:01 AM CDT Progress Notes signed by Roxi Davis APRN, CNP at 01/19/97 0959 Author: STEPHANIE Mckinley Service: (none) Author Type: Nurse Practitioner Filed: 11/18/10 2341 Note Time: 01/11/97 0001 Status: Signed Sales Executive Insurance: STEPHANIE Mckinley (Nurse Practitioner) IMPRESSION: OB check. No dictation. SUBJECTIVE: Aruna Altamirano. OB check. No dictation. OBJECTIVE: N/A. ASSESSMENT: N/A. PLAN: N/A. qtf Prakash Georges APRN, CNP - 01/09/1997 12:01 AM CDT Progress Notes signed by Prakash Georges APRN, CNP at 03/28/97 1237 Author: STEPHANIE Beck Service: (none) Author Type: Nurse Practitioner Filed: 11/18/10 2339 Note Time: 01/09/97 0001 Status: Signed Sales Executive Insurance: STEPHANIE Beck (Nurse Practitioner) IMPRESSION: OB. No dictation required for this note. SUBJECTIVE: Aruna Altamirano. OB. No dictation required for this note. OBJECTIVE: N/A. ASSESSMENT: N/A. PLAN: N/A. qtc Luz Altamirano - 01/02/1997 12:01 AM CDT Progress Notes signed by Luz Altamirano MD at 06/02/02 0038 Author: Luz Altamirano MD Service: (none) Author Type: (none) Filed: 11/18/10 2334 Note Time: 01/02/97 0001 Status: Signed Sales Executive Insurance: Luz Altamirano MD (Physician) IMPRESSION: No dictation required. SUBJECTIVE: N/A OBJECTIVE: N/A ASSESSMENT: N/A PLAN: N/A stq FRAMING MANAGER Conversion, [facility] - 12/21/1996 12:01 AM CDT Progress Notes signed by at 06/02/02 003 Author: [facility] Conversion Service: (none) Author Type: (none) Filed: 11/18/10 6636 Note Time: 12/21/96 0001 Status: Signed Sales Executive Insurance: Juan Conversion IMPRESSION: No dictation required. SUBJECTIVE: N/A OBJECTIVE: N/A ASSESSMENT: N/A PLAN: N/A [facility] SCHEDULED RESOURCE: PRAKASH GEORGES NP. Luz Juan - 12/05/1996 12:01 AM CDT Progress Notes signed by Luz Altamirano MD at 06/02/02 0038 Author: Luz Altamirano MD Service: (none) Author Type: (none) Filed: 11/18/10 2314 Note Time: 12/05/96 0001 Status: Signed Sales Executive Insurance: Luz Altamirano MD (Physician) IMPRESSION: No dictation required. SUBJECTIVE: N/A OBJECTIVE: N/A ASSESSMENT: OB check. 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 SUBJECTIVE: Aruna comes in today for follow-up ultrasound. A previous scan at 19 weeks had shown no ultrasound markers for aneuploidy. Aruna did have an who had at 35 weeks, thought to be due to a cord accident. OBJECTIVE: Examination today shows a cruz fetus in a vertex presentation with a composite ultrasound age of 27.6 weeks, approximately a week and one-half less than known dates. The estimated weight of 1155 grams is at the 29th percentile for gestational age. There is a minimal falloff in biparietal diameter, femur length, and abdominal circumference. The hrxu-xv-uxlmnsz ratio continues to be normal. anatomy is normal. With color flow Doppler, there are multiple loops of cord in the vicinity of the neck, consistent with nuchal cord. Aruna will be starting weekly nonstress tests at 30- 32 weeks for assessment of possible cord compression. Of note, the umbilical cord Doppler is within normal limits today. 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 PLAN: N/A cbs Conversion, [facility] - 11/02/1996 12:01 AM CST Progress Notes signed by at 06/02/0237 Author: Juan Conversion Service: (none) Author Type: (none) Filed: 11/18/10 942 Note Time: 11/02/96 0001 Status: Signed Sales Executive Insurance: Juan Conversion IMPRESSION: No dictation required. SUBJECTIVE: OB check. OBJECTIVE: N/A ASSESSMENT: N/A PLAN: N/A cooper SCHEDULED RESOURCE: PRAKASH GEORGES / MARIANA. Luz Juan - 10/05/1996 12:01 AM CST Progress Notes signed by Luz Altamirano MD at 06/02/0237 Author: Luz Altamirano MD Service: (none) Author Type: (none) Filed: 11/18/102229 Note Time: 10/05/96 0001 Status: Signed Sales Executive Insurance: Luz Altamirano MD (Physician) IMPRESSION: No dictation required. SUBJECTIVE: N/A OBJECTIVE: N/A ASSESSMENT: N/A PLAN: N/A stj Anitha Sher MD - 09/28/1996 12:01 AM CST Progress Notes signed by Anitha Guerin MD at 10/04/96 1308 Author: Anitha Guerin MD Service: (none) Author Type: Physician Filed: 11/18/10 5225 Note Time: 09/28/96 0001 Status: Signed Sales Executive Insurance: Anitha Guerin MD (Physician) IMPRESSION: Normal level II ultrasound. Previous history of stillbirth. SUBJECTIVE: Aruna comes today for a level II ultrasound because of advanced maternal age. In addition, she had a stillborn infant at 39 weeks last summer. OBJECTIVE: Ultrasound today shows a cruz fetus in a breech presentation with a composite ultrasound age of 19.3 weeks, consistent with known clinical dates. The anatomy appears normal. The ultrasound report is being sent under separate cover. There are no ultrasound markers for aneuploidy. There is a small anterior uterine fibroid, which had been previously noted. Following the ultrasound, I did spend 15 minutes discussing their first child's course of events. Aruna states that movement suddenly decreased, and she subsequently was found to have a stillbirth. At the time of delivery, their daughter weighed 7 lb 10 oz and was found to have true knot in the cord. I discussed various causes of stillbirth, including intrauterine demise due to placental insufficiency, abruption, and cord accidents. This history is very consistent with a cord accident. Their daughter was of normal weight for gestational age. Aruna has no risk factors for uterine placental insufficiency. I recommended a follow- up ultrasound be done at 28-30 weeks to assess cord positioning. At that time, color flow Doppler should be able to delineate the presence of a nuchal cord or a true knot in that region. I also recommended weekly antepartum testing with nonstress tests in the latter portion of the . Should repetitive variable decelerations occur, this fetus should be watched closely. In addition, Aruna is 41 years old and had declined maternal serum screening. Her age-related risk for Down syndrome is 1 in 98. With today's scan showing no ultrasound markers for aneuploidy, that risk is decreased to approximately 1 in 160. I reviewed with this couple, amniocentesis and the potential risks associated with that. They wished to decline amniocentesis. ASSESSMENT: N/A PLAN: As above. cc: Jackeline Altamirano MD Department of registered associate cbs FRAMING MANAGER Conversion, [facility] - 09/05/1996 12:01 AM CST Progress Notes signed by at 06/02/02 0038 Author: [facility] Conversion Service: (none) Author Type: (none) Filed: 11/18/10 2665 Note Time: 09/05/96 0001 Status: Signed Sales Executive Insurance: [facility] Conversion IMPRESSION: No dictation required. SUBJECTIVE: N/A OBJECTIVE: N/A ASSESSMENT: N/A PLAN: N/A stq SCHEDULED RESOURCE: PRAKASH GEORGES NP. Electronically signed by [facility], [facility] at 06/15/2016 7:14 PM ART FRAMING MANAGER Conversion, [facility] - 08/19/1996 12:01 AM CST Phone Note signed by at 08/19/96 1030 Author: [facility] Conversion Service: (none) Author Type: (none) Filed: 11/18/10 2156 Note Time: 08/19/962348 Status: Signed Sales Executive Insurance: [facility] Conversion IMPRESSION: Vaginal irritation/discharge-(adult)-nurse guidelines - TREATING PROVIDER: LUZ ALTAMIRANO SUBJECTIVE: * HOME PHONE: [phone] * PATIENT COMPLAINS OF... * WORK PHONE: [phone] * patient,first trimester,; pt is 13 weeks ; -Perineal itching and burning; Pt has had sx of vaginal itching that is worsening for almost one month, she was on antibiotic around the 26 of july. Pt denies vaginal discharge and UTI sx. Pt denies semi-urgent sx.; ALLERGIES/SENSITIVITIES... nka 08/19/96 CURRENT MEDICATIONS... vitamins 08/19/96 PERTINENT PAST HISTORY... healthy 08/19/96 ASSESSMENT: Vaginal irritation/discharge-(adult)-nurse guidelines DISPOSITION... HOME CARE PATIENT IS ; PATIENT IS NOT NURSING; PLAN: RECOMMENDED THE FOLLOWING... Referenced guideline Vaginal irritation/discharge-(adult)-nurse guidelines. Send message to provider.; INFORMED PATIENT TO CALLBACK IF... -Symptoms persist or progress; -Any other questions or concerns; MISC COMMENTS... provider oncsheree for Dr Altamirano to contact pt Call taken by BENJI ZHAO, RN [phone] 08/19/1996 10:23 AM ADDENDUM: Electronically signed by [facility], [facility] at 06/15/2016 7:14 PM ART FRAMING MANAGER Luz Altamirano - 08/08/1996 12:01 AM CST Progress Notes signed by Luz Altamirano MD at 06/02/02 0038 Author: Luz Altamirano MD Service: (none) Author Type: (none) Filed: 11/18/102149 Note Time: 08/08/96 0001 Status: Signed Sales Executive Insurance: Luz Altamirano MD (Physician) IMPRESSION: No dictation required. SUBJECTIVE: N/A OBJECTIVE: N/A ASSESSMENT: OB check. PLAN: N/A sja FRAMING MANAGER [facility], [facility] - 07/16/1996 12:01 AM CST Phone Note signed by at 07/16/96 1019 Author: Juan Conversion Service: (none) Author Type: (none) Filed: 11/18/102136 Note Time: 07/16/96 0001 Status: Signed Sales Executive Insurance: Juan Monte IMPRESSION: OB call - TREATING PROVIDER: LUZ TOSCANO SUBJECTIVE: * HOME PHONE: [phone] * ALLERGIES/SENSITIVITIES... * WORK PHONE: [phone] * UNKNOWN 07/16/96 CURRENT MEDICATIONS... tylenol prn, sudafed prn, plain robitussin prn 07/16/96 PERTINENT PAST HISTORY... healthy 07/16/96 ASSESSMENT: OB call DISPOSITION... NO DISPOSITION GIVEN PATIENT IS ; PATIENT IS NOT NURSING; PLAN: [facility] COMMENTS... Calling w. questions re. meds for VURI sx. PNC compressor house operator to page on-call OB provider to call pt. at home. Call taken by HUGO SOMMER RN [phone] 07/16/1996 10:16 AM ADDENDUM: FRAMING MANAGER Conversion, [facility] - 07/14/1996 12:01 AM CST Progress Notes signed by at 06/02/02 0038 Author: Juan Monte Service: (none) Author Type: (none) Filed: 11/18/102135 Note Time: 07/14/96 0001 Status: Signed Sales Executive Insurance: Juan Monte IMPRESSION: No dictation required. SUBJECTIVE: N/A OBJECTIVE: N/A ASSESSMENT: New OB. PLAN: N/A sja SCHEDULED RESOURCE: PRAKASH GEORGES NP. Luz Juan 03/09/1996 12:01 AM CDT Progress Notes signed by Luz Altamirano MD at 03/14/96 1624 Author: Luz Altamirano MD Service: (none) Author Type: (none) Filed: 11/18/102020 Note Time: 03/09/96 0001 Status: Signed Sales Executive Insurance: Luz Altamirano MD (Physician) IMPRESSION: Normal 5-week exam from a term stillbirth. SUBJECTIVE: Patient is a 41-year-old white female, para 1-0-0-0, who is five weeks' S/P of a term stillbirth secondary to cord accident. I met her at the hospital for this delivery which occurred on 02/02/96. She saw Prakash Georges and Alviia Nuñez during the . Since the delivery, her lochia has subsided. She has not had a menstrual period yet. She and Mir did attempt intercourse with a condom, but she had dryness even with K-Y jelly and was somewhat uncomfortable. She had two days of breast tenderness with engorgement which self-resolved and no problems with mastitis. She will be off work through Labor Day and has been keeping busy. Mir was off work for two weeks and spent some time writing a very nice letter to Archana Gu at [facility] which she thinks was healing for him. Her friends and family have been amazingly supportive. They still haven't taken down the nursery yet and still have all the baby clothes and accessories out. They are talking about starting again in the next few months for attempting . OBJECTIVE: Ht: 5 feet 7 inches. Wt: 169-1/2 pounds. BP: 110/66. Darcie looks wonderful today. She is making good eye contact and is quite calm and at ease. Lymph node survey is negative. Thyroid is not enlarged. Breasts are symmetric and without dominant masses, nipple discharge, or axillary adenopathy bilaterally. A review of self breast examination was done at the time of the exam. The abdomen was felt without masses or hepatosplenomegaly. The vulva is normal in appearance and the second-degree laceration is well healed. The vagina contains yellow mucus but is without lesions, and the cervix is also without lesions and no evidence of any polyps. The uterus is mid position and freely mobile. There were no adnexal masses. A Pap smear was performed using a cytobrush. ASSESSMENT: Normal 5-week exam from a term stillbirth. PLAN: A Pap smear was performed today. The patient left without getting the paperwork for her screening mammogram, so we will contact her and set that up for her at [facility]. She is going to continue on her vitamins and will wait another 3-4 months before attempting again. I encouraged her to take the nursery down when she was ready, so she can enjoy setting it back up again with the next and treat it as though it is a totally separate and not an extension of this tragic one. She appears to be doing better than ever expected and will contact me when she does get in the next few months or if problems develop. pem Conversion, [facility] - 02/01/1996 12:01 AM CDT Progress Notes signed by at 06/02/02 0038 Author: Juan Conversion Service: (none) Author Type: (none) Filed: 11/18/102001 Note Time: 02/01/96 0001 Status: Signed Sales Executive Insurance: Juan Monte IMPRESSION: No dictation required. SUBJECTIVE: N/A OBJECTIVE: N/A ASSESSMENT: N/A PLAN: N/A cooper SCHEDULED RESOURCE: PRAKASH GEORGES NP. FRAMING MANAGER Conversion, [facility] - 01/27/1996 12:01 AM CDT Progress Notes signed by at 06/02/0237 Author: [facility] Conversion Service: (none) Author Type: (none) Filed: 11/18/101958 Note Time: 01/27/962348 Status: Signed Sales Executive Insurance: [facility] Conversion IMPRESSION: No dictation required. SUBJECTIVE: N/A OBJECTIVE: N/A ASSESSMENT: N/A PLAN: N/A dla SCHEDULED RESOURCE: PRAKASH GEORGES NP. FRAMING MANAGER Conversion, [facility] - 01/20/1996 12:01 AM CDT Progress Notes signed by at 06/02/0237 Author: [facility] Conversion Service: (none) Author Type: (none) Filed: 11/18/101955 Note Time: 01/20/962348 Status: Signed Sales Executive Insurance: [facility] Conversion IMPRESSION: No dictation required. SUBJECTIVE: N/A OBJECTIVE: N/A ASSESSMENT: N/A PLAN: N/A kmp SCHEDULED RESOURCE: PRAKASH GEORGES NP. FRAMING MANAGER Conversion, [facility] - 12/22/1995 12:01 AM CDT Progress Notes signed by at 06/02/0237 Author: [facility] Conversion Service: (none) Author Type: (none) Filed: 11/18/101939 Note Time: 12/22/952348 Status: Signed Sales Executive Insurance: [facility] Conversion IMPRESSION: No dictation required. OB check. SUBJECTIVE: N/A OBJECTIVE: N/A ASSESSMENT: N/A PLAN: N/A mtm SCHEDULED RESOURCE: PRAKASH GEORGES NP. FRAMING MANAGER Conversion, [facility] - 10/26/1995 12:01 AM CST Progress Notes signed by at 06/02/0237 Author: [facility] Conversion Service: (none) Author Type: (none) Filed: 11/18/101906 Note Time: 10/26/952348 Status: Signed Sales Executive Insurance: [facility] Conversion IMPRESSION: No dictation required. SUBJECTIVE: OB check. OBJECTIVE: N/A ASSESSMENT: N/A PLAN: N/A cooper SCHEDULED RESOURCE: PRAKASH GEORGES NP. FRAMING MANAGER Alivia Nuñez MD - 08/04/1995 12:01 AM CST Progress Notes signed by Alivia Nuñez MD at 08/11/95 0952 Author: Alivia Nuñez MD Service: (none) Author Type: Physician Filed: 11/18/10 1823 Note Time: 08/04/95 0001 Status: Signed Sales Executive Insurance: Alivia Nuñez MD (Physician) IMPRESSION: NO DICTATION REQUIRED FOR THIS NOTE FRAMING MANAGER [facility], [facility] - 07/31/1995 12:01 AM CST Phone Note signed by at 07/31/95 1053 Author: [facility] Conversion Service: (none) Author Type: (none) Filed: 11/18/10 1822 Note Time: 07/31/95 0001 Status: Signed Sales Executive Insurance: [facility] Conversion IMPRESSION: Vuri-(adult)-nurse guidelines -- Ear Pain/Congestion-(Adult)-Nurse Guidelines -- Sore throat-(adult)-nurse guidelines -- SUBJECTIVE: PROBLEM 01: * HOME PHONE:[phone] * PATIENT COMPLAINS OF... VURI * WORK PHONE:[phone] * symptoms,; * CONTACT PHONE:[phone] * PATIENT DENIES... -Any urgent or semi-urgent symptoms; PROBLEM 02: PATIENT COMPLAINS OF... Ear congestion/discomfort,; -URI or allergic rhinitis symptoms; PROBLEM 03: PATIENT COMPLAINS OF... Sore throat with cough and cold.; x 3 days ; ALLERGIES/SENSITIVITIES... UNKNOWN 07/31/95 CURRENT MEDICATIONS... tylenol 07/31/95 PERTINENT PAST HISTORY... healthy 07/31/95 ASSESSMENT: PROBLEM 01: Vuri-(adult)-nurse guidelines DISPOSITION: HOME CARE PROBLEM 02: Ear Pain/Congestion-(Adult)-Nurse Guidelines DISPOSITION: HOME CARE PROBLEM 03: Sore throat-(adult)-nurse guidelines DISPOSITION: HOME CARE PATIENT IS ; PLAN: PROBLEM 01: RECOMMENDED THE FOLLOWING... Vuri-(adult)-nurse guidelines was the Guideline used. Start home management.; INFORMED PATIENT... Patient information given perVURI nurse guidelines.; Verbalizes understanding and agrees with phone care recommendation INFORMED PATIENT TO CALLBACK IF... -Breathing becomes difficult, painful, wheezy; -Symptoms are getting worse after 3-5 days; -Symptoms do not improve and remain bothersome after 7 days; PROBLEM 02: RECOMMENDED THE FOLLOWING... Ear Pain/Congestion-(Adult)-Nurse Guidelines was the Guideline used. Start home management for ear congestion without ear wax.; -Pinch nostril and blow gently, or yawn, chew gum and swallow frequently; -Rest with head elevated; INFORMED PATIENT... Patient information given perEar Pain nurse guidelines.; INFORMED PATIENT TO CALLBACK IF... -If symptoms persist more than six weeks; -If pain, fever, or balance problems develop; PROBLEM 03: RECOMMENDED THE FOLLOWING... Sore throat-(adult)-nurse guidelines was the Guideline used. -Improve room humidity with a cool mist vaporizer; No appointment or strep screen necessary if less than 24 hours, or with cold and cough symptoms.; -Gargle with warm salt water; -Use lozenges or hard candy to soothe irritated throat; -Increase fluid intake; INFORMED PATIENT... Patient information given per Sore Throat nurse guidelines.; INFORMED PATIENT TO CALLBACK IF... -Sunburned looking rash appears; -Breathing or swallowing becomes difficult; -Sore throat lasts > 1 week without major improvement; CALL BY TIFFANY KAUR 07/31/1995 10:46AM [phone] ADDENDUM: ADDENDUM 08/03/1995 10:09AM BY SCOTTIE ORDOÑEZ: talked to pt. she states she is feeling much better today and will call us if this does not continue FRAMING MANAGER Prakash Georges, TRANSFER KNITTER, BUS OPERATOR - 07/02/1995 12:01 AM CST Progress Notes signed by Prakash Georges APRN, CNP at 07/02/95 172 Author: STEPHANIE Beck Service: (none) Author Type: Nurse Practitioner Filed: 11/18/10 5518 Note Time: 07/02/95 0001 Status: Signed Sales Executive Insurance: STEPHANIE Beck (Nurse Practitioner) IMPRESSION: NO DICTATION REQUIRED FOR THIS NOTE FRAMING MANAGER documented in this encounter Plan of Treatment Not on filedocumented as of this encounter Procedures Procedure Name Priority Date/Time Associated Comments Diagnosis MM US BREAST LT Routine 12/16/1999 10:30 AM Resul ts for this CDT procedure are i n the results section. MM MAMMOGRAM DIAG Routine 12/16/1999 10:15 AM Res ults for this UNILAT EXTRA VIEW CDT procedure are in the results section. MM MAMMOGRAM Routine 12/02/1999 7:20 PM Results f or this SCREENING W CAD CDT procedure ar e in the results section. ANC RESULT Routine 10/14/1999 11:34 AM Results for this CONVERSION DEFAULT ART FRAMING MANAGER procedure are in ORDER the results section. ANC RESULT Routine 10/14/1999 11:33 AM Results for this CONVERSION DEFAULT ART FRAMING MANAGER procedure are in ORDER the results section. CHOLESTEROL, TOTAL Routine 09/08/1999 11:10 AM Re sults for this AND HDL ART FRAMING MANAGER procedure are i n the results section. ANATOMICAL PATH-C Routine 09/08/1999 7:20 AM Resu lts for this ART FRAMING MANAGER procedure are i n the results section. XR MAXILLA HAMEED Routine 12/08/1998 2:56 PM Resu lts for this VIEW ONLY CDT procedure are i n the results section. US OB BPP SINGLE Routine 01/30/1997 11:45 AM Resu lts for this CDT procedure are i n the results section. US OB BPP SINGLE Routine 01/25/1997 9:45 AM Resul ts for this CDT procedure are i n the results section. US OB BPP SINGLE Routine 01/18/1997 9:45 AM Resul ts for this CDT procedure are i n the results section. US OB BPP SINGLE Routine 01/11/1997 9:45 AM Resul ts for this CDT procedure are i n the results section. US OB LIMITED SINGLE Routine 01/02/1997 3:00 PM R esults for this CDT procedure are i n the results section. US OB BPP SINGLE Routine 01/02/1997 2:30 PM Resul ts for this CDT procedure are i n the results section. US OB >/= 14 WEEKS 0 Routine 08/17/1996 4:00 PM R esults for this DAYS, SINGLE FETUS ART FRAMING MANAGER procedure are in the results section. MM MAMMOGRAM DIAG Routine 03/29/1996 10:55 AM Res ults for this BILAT W CAD CDT procedure are i n the results section. US OB >/= 14 WEEKS 0 Routine 02/01/1996 10:30 AM Results for this DAYS, SINGLE FETUS CDT procedure are in the results section. US OB >/= 14 WEEKS 0 Routine 09/16/1995 11:00 AM Results for this DAYS, SINGLE FETUS ART FRAMING MANAGER procedure are in the results section. documented in this encounter Results MM US Breast Lt (12/16/1999 10:30 AM CDT) Anatomical Region Laterality Modality Breast Left Ultrasound Specimen (Source) Anatomical Location Collection Method / Collectio n Time Received Time / Laterality Volume Impressions 12/16/1999 10:30 AM CDT : ?MILD FIBROUS CHANGES NOTED RIGHT B REAST. ??NO SOLID OR CYSTIC ?MASS LESIONS IDENTIFIED. ?ACR-BIRADS CATEGORY 2: BENIGN FIND ING. FINDINGS: ?RIGHT BREAST ULTRASOUND SHOWS FIBR OCYSTIC CHANGES IN THE ?UPPER OUTER QUADRANT OF THE RIGHT BREAST. ??NO SOLID OR ?CYSTIC MASS LESIONS ARE IDENTIFIED . TECH-ID : ? VA TRANS-ID: ? EDR Narrative 12/16/1999 10:30 AM CDT SEVERITY: 1 CLINICAL DATA: ?RT BREAST US Procedure Note Adan Mckinnon MD - 10/10/2016Format ting of this note might be different from the original. SEVERITY: 1 CLINICAL DATA: RT BREAST US IMPRESSION : MILD FIBROUS CHANGES NOTED RIGHT BREAST . NO SOLID OR CYSTIC MASS LESIONS IDENTIFIED. ACR-BIRADS CATEGORY 2: BENIGN FINDING. FINDINGS: RIGHT BREAST ULTRASOUND SHOWS FIBROCYST IC CHANGES IN THE UPPER OUTER QUADRANT OF THE RIGHT BREAS T. NO SOLID OR CYSTIC MASS LESIONS ARE IDENTIFIED. TECH-ID : VA TRANS-ID: EDR Luz Altamirano MD RAD [facility] MM Mammogram Diag Unilat Extra View (12/16/1999 10:15 AM CDT) Anatomical Region Laterality Modality Breast Mammography Specimen (Source) Anatomical Location Collection Method / Collectio n Time Received Time / Laterality Volume Impressions 12/16/1999 10:15 AM CDT : ?1. ??FIBROUS TISSUE NOTED IN THE R IGHT BREAST. ??NO SOLID OR ?CYSTIC MASS LESIONS ARE IDENTIFIED ON ULTRASOUND EXAM. ?2. ??A 90 DEGREE LATERAL VIEW SHOW S NO MASS LESION. ?3. ??ACR-BIRADS CATEGORY 2: BENIGN FINDING. ??DENSE FIBROUS ?TISSUE. FINDINGS: ?REPEAT ML MAMMOGRAM SHOWS NO MASS LESION. ??THE DENSITY OF ?CONCERN IN THE RIGHT BREAST ON ULT RASOUND EXAM IS CONFIRMED ?TO BE FIBROUS TISSUE. ??NO MASS LE SIONS ARE IDENTIFIED. TECH-ID : TRANS-ID: ? EDR Narrative 12/16/1999 10:15 AM CDT SEVERITY: 1 CLINICAL DATA: ?PREVIOUS F/U SEV OF 3 ON RSLT# [id number] ?RT BREAST 90 Procedure Note Adan Mckinnon MD - 10/10/2016Format ting of this note might be different from the original. SEVERITY: 1 CLINICAL DATA: PREVIOUS F/U SEV OF 3 ON RSLT# [id number] RT BREAST 90 IMPRESSION : 1. FIBROUS TISSUE NOTED IN THE RIGHT BR EAST. NO SOLID OR CYSTIC MASS LESIONS ARE IDENTIFIED ON U LTRASOUND EXAM. 2. A 90 DEGREE LATERAL VIEW SHOWS NO MA SS LESION. 3. ACR-BIRADS CATEGORY 2: BENIGN FINDIN G. DENSE FIBROUS TISSUE. FINDINGS: REPEAT ML MAMMOGRAM SHOWS NO MASS LESIO N. THE DENSITY OF CONCERN IN THE RIGHT BREAST ON ULTRASOU ND EXAM IS CONFIRMED TO BE FIBROUS TISSUE. NO MASS LESIONS A RE IDENTIFIED. TECH-ID : TRANS-ID: EDR Luz Altamirano MD RAD [facility] MM Mammogram Screening W CAD (12/02/1999 7:20 PM CDT) Anatomical Region Laterality Modality Breast Bilateral Mammography Specimen (Source) Anatomical Location Collection Method / Collectio n Time Received Time / Laterality Volume Impressions 12/02/1999 7:20 PM CDT : ?B0 ?ACR-BIRADS CATEGORY 0: NEED ADDITI ONAL IMAGING EVALUATION ?ULTRASOUND RIGHT BREAST WITH 90 DE GREE LATERAL RIGHT BREAST ?VIEW MAMMOGRAM. ??THIS WILL BE ORD ERED BY RADIOLOGY. FINDINGS: ?COMPARED TO PREVIOUS EXAMINATION D ATED 03/29/96 THERE IS A ?DENSITY OF CONCERN CLOSE TO THE CH EST WALL ON THE RIGHT ?CRANIOCAUDAL PROJECTION. ??THE IRR EGULAR DENSITY MEASURES ?APPROXIMATELY 1.5 CM IN DIAMETER W ITH SOME IRREGULAR ?MARGINS. ??I DO NOT SEE THIS ON TH E MEDIOLATERAL OBLIQUE ?PROJECTION HOWEVER A CONED-DOWN CO MPRESSION VIEW THE DENSITY ?OF CONCERN IS STILL PRESENT. ??I W OULD RECOMMEND FOLLOW-UP ?ULTRASOUND WHICH WILL BE ORDERED B Y RADIOLOGY AND A 90 ?DEGREE LATERAL VIEW OF THE RIGHT B REAST. ??LEFT BREAST IS ?STABLE WITHOUT CHANGE FROM PREVIOU S EXAMINATION DATED ?03/29/96. TECH-ID : ? SS TRANS-ID: ? EDR Narrative 12/02/1999 7:20 PM CDT SEVERITY: 3 CLINICAL DATA: ?ROUTINE SCREEN Procedure Note Adan Mckinnon MD - 10/10/2016Format ting of this note might be different from the original. SEVERITY: 3 CLINICAL DATA: ROUTINE SCREEN IMPRESSION : B0 ACR-BIRADS CATEGORY 0: NEED ADDITIONAL IMAGING EVALUATION ULTRASOUND RIGHT BREAST WITH 90 DEGREE LATERAL RIGHT BREAST VIEW MAMMOGRAM. THIS WILL BE ORDERED BY RADIOLOGY. FINDINGS: COMPARED TO PREVIOUS EXAMINATION DATED 03/29/96 THERE IS A DENSITY OF CONCERN CLOSE TO THE CHEST W ALL ON THE RIGHT CRANIOCAUDAL PROJECTION. THE IRREGULAR DENSITY MEASURES APPROXIMATELY 1.5 CM IN DIAMETER WITH S OME IRREGULAR MARGINS. I DO NOT SEE THIS ON THE MEDIO LATERAL OBLIQUE PROJECTION HOWEVER A CONED-DOWN MARJORIE PAU VIEW THE DENSITY OF CONCERN IS STILL PRESENT. I WOULD RE COMMEND FOLLOW-UP ULTRASOUND WHICH WILL BE ORDERED BY RAD IOLOGY AND A 90 DEGREE LATERAL VIEW OF THE RIGHT BREAST . LEFT BREAST IS STABLE WITHOUT CHANGE FROM PREVIOUS EXA MINATION DATED 03/29/96. TECH-ID : SS TRANS-ID: EDR Luz Altamirano MD RAD [facility] Anc Result Conversion Default Order (10/14/1999 11:34 AM ART FRAMING MANAGER) Anatomical Region Laterality Modality Other Specimen (Source) Anatomical Location Collection Method / Collectio n Time Received Time / Laterality Volume Narrative 10/14/1999 11:34 AM ART FRAMING MANAGER CLINICAL DATA: ?RT THIGH PAIN FINDINGS: ?NO SIGNIFICANT ABNORMALITY OF THE FEMUR IS SEEN. ??NO SOFT ?TISSUE MASS. TECH-ID : ? DJN TRANS-ID: ? VLP Procedure Note Ilir Alaniz - 10/10/2016 CLINICAL DATA: RT THIGH PAIN FINDINGS: NO SIGNIFICANT ABNORMALITY OF THE FEMUR IS SEEN. NO SOFT TISSUE MASS. TECH-ID : DJN TRANS-ID: VLP Saadia Rowland MD RAD GD Anc Result Conversion Default Order (10/14/1999 11:33 AM ART FRAMING MANAGER) Anatomical Region Laterality Modality Other Specimen (Source) Anatomical Location Collection Method / Collectio n Time Received Time / Laterality Volume Impressions 10/14/1999 11:33 AM ART FRAMING MANAGER : ?1. ?? MILD RIGHT HIP JOINT SPACE N ARROWING. ?2. ?? SCLEROSIS ALONG THE ILIAC SI GE OF BOTH LOWER SI ?JOINTS, SLIGHTLY MORE PROMINENT ON THE LEFT THAN THE RIGHT, ?OF QUESTIONABLE CLINICAL SIGNIF ICANCE. FINDINGS: ?ON THE AP VIEW OF THE PELVIS, THE RIGHT HIP JOINT SPACE IS ?SLIGHTLY NARROWED, RELATIVE TO THE LEFT. ??NO ACUTE CHANGE IS ?SEEN. ??THE FEMORAL HEADS APPEAR T O BE OF NORMAL SHAPE AND ?CONFIGURATION. ??THERE IS SCLEROSI S SEEN ALONG THE LOWER ?ILIAC SIDES OF THE SI JOINTS BILAT ERALLY. ??THE SI JOINTS DO ?NOT APPEAR CLOSED. ??NO FOCAL LYTI C OR BLASTIC LESION IS ?SEEN. TECH-ID : ? DJN TRANS-ID: ? VLP Narrative 10/14/1999 11:33 AM ART FRAMING MANAGER CLINICAL DATA: ?RT THIGH PAIN Procedure Note Ilir Alaniz E - 10/10/2016 CLINICAL DATA: RT THIGH PAIN IMPRESSION : 1. MILD RIGHT HIP JOINT SPACE NARROWING . 2. SCLEROSIS ALONG THE ILIAC SIDES OF B OTH LOWER SI JOINTS, SLIGHTLY MORE PROMINENT ON THE LEFT THAN THE RIGHT, OF QUESTIONABLE CLINICAL SIGNIFICANCE. FINDINGS: ON THE AP VIEW OF THE PELVIS, THE RIGHT HIP JOINT SPACE IS SLIGHTLY NARROWED, RELATIVE TO THE LEFT . NO ACUTE CHANGE IS SEEN. THE FEMORAL HEADS APPEAR TO BE OF NORMAL SHAPE AND CONFIGURATION. THERE IS SCLEROSIS SEEN ALONG THE LOWER ILIAC SIDES OF THE SI JOINTS BILATERALL Y. THE SI JOINTS DO NOT APPEAR CLOSED. NO FOCAL LYTIC OR BL ASTIC LESION IS SEEN. TECH-ID : DJN TRANS-ID: VLP Saadia Rowland MD RAD GD (ABNORMAL) Cholesterol, Total and HDL (09/08/1999 11:10 AM ART FRAMING MANAGER) Patholo gist Method Time Signature Cholesterol 207 (HH) 125 - 199 HP CONVERSION mg/dL HDL Cholesterol 48 36 - 80 HP CONVERSION mg/dL Cholesterol/HDL 4.3 No normal HP CONVERSION Ratio Screen range Specimen (Source) Anatomical Collection Method Collection Time Re ceived Time Location / / Volume Laterality 09/08/1999 11:10 AM ART FRAMING MANAGER Luz Altamirano MD LAB_1 Performing Organization Address City/State/ZIP Code Phon e Number HP CONVERSION Anatomical Path-C (09/08/1999 7:20 AM ART FRAMING MANAGER) P athologist Signature PAP Smear SEE TEXT No normal HP CONVERSION range Comment: Patient: ARUNA ALTAMIRANO Y ? CERVICAL CYTOLOGY REPORT Pathology # ??[id number] ?Date Obtained: ? Date Received: LMP: ?08-31-99 CLINICAL HIST ? PREV SMEAR 03-23-97, WNL CERVICAL SMEAR SPECIMEN ADEQUACY: ?? Satisfactory. ENDOCERVICAL CELLS: ??Present. CYTOLOGIC IMPRESSION: Within Normal Limits (Negative). Verified 09/15/99 by: ??JYO ?(electronic signature) Specimen (Source) Anatomical Collection Method Collection Time Re ceived Time Location / / Volume Laterality 09/08/1999 7:20 AM ART FRAMING MANAGER Luz Altamirano MD LAB_1 Performing Organization Address City/State/ZIP Code Phon e Number HP CONVERSION XR Maxilla Hameed View Only (12/08/1998 2:56 PM CDT) Anatomical Region Laterality Modality Head Other Specimen (Source) Anatomical Location Collection Method / Collectio n Time Received Time / Laterality Volume Impressions 12/08/1998 2:56 PM CDT : ?BILATERAL MAXILLARY SINUSITIS. FINDINGS: ?THERE IS OPACIFICATION OF BOTH MAX ILLARY ANTRA, MORE PROMINENTLY ON ?THE LEFT. ??AN AIR-FLUID LEVEL IS NOTED ON THE RIGHT. ??REMAINDER OF ?THE VISUALIZED PARANASAL SINUSES A RE UNREMARKABLE. ??NO OTHER ?ABNORMALITY IS SEEN. TECH-ID : ? LEANN TRANS-ID: ? QTR Narrative 12/08/1998 2:56 PM CDT CLINICAL DATA: ?URI Procedure Note Tanisha Mello - 10/10/2016 CLINICAL DATA: URI IMPRESSION : BILATERAL MAXILLARY SINUSITIS. FINDINGS: THERE IS OPACIFICATION OF BOTH MAXILLAR Y ANTRA, MORE PROMINENTLY ON THE LEFT. AN AIR-FLUID LEVEL IS NOTED O N THE RIGHT. REMAINDER OF THE VISUALIZED PARANASAL SINUSES ARE UN REMARKABLE. NO OTHER ABNORMALITY IS SEEN. TECH-ID : LEANN TRANS-ID: QTR Severo Nguyen MD RAD GD US OB BPP Single (01/30/1997 11:45 AM CDT) Anatomical Region Laterality Modality Pelvis Other Specimen (Source) Anatomical Location Collection Method / Collectio n Time Received Time / Laterality Volume Narrative 01/30/1997 11:45 AM CDT - - - - - - - - - - - - - - - - - - - - - - - - - - - - - - - - - - - ? LMP: ? EDC: ? # OF FETUSES ?? 1 PREV US: ?COMMENTS: ?DATE: ? OBS ERVATIONS (SCORE 0-2) DATA FOR FETUS #1 BREATHING ? 2 ??ONE FBM > 30 SECS GROSSFETAL MOVEMENT 0 ??> 3 BODY,LIMB,D ISCRETE OR SEPARATE MOVEMENTS TONE ?2 ??ONE EXTENS ION/FLEX OF LIMBS,HAND OR TRUNK AMNIOTIC FLUID ?2 ??> 2CM (>36WK S) > 3CM (<36WKS) NST (OB DEPT) ? 0 ??REACTIVE/NON REACTIVE ? TOTAL SCORE 6 - - - - - - - - - - - - - - - - - - - - - - - - - - - - - - - - - - - CLINICAL DATA: ?BPP U/S * OB HIGH RISK PT TECH-ID : ? RAFAELA TRANS-ID: READ PROVIDER: ?0 ??- SIGNOFF PROVIDER: 0 ??- Procedure Note Conversion, Imr - 10/10/2016Formatting o f this note might be different from the original. - - - - - - - - - - - - - - - - - - - - - - - - - - - - - - - - - - - LMP: EDC: # OF FETUSES 1 PREV US: COMMENTS: DATE: OBSERVATIONS (SCORE 0-2) DATA FOR FETUS #1 BREATHING 2 ONE FBM > 30 SECS GROSSFETAL MOVEMENT 0 > 3 BODY,LIMB,DIS CRETE OR SEPARATE MOVEMENTS TONE 2 ONE EXTENSION/FLEX OF LIMB S,HAND OR TRUNK AMNIOTIC FLUID 2 > 2CM (>36WKS) > 3CM ( <36WKS) NST (OB DEPT) 0 REACTIVE/NONREACTIVE TOTAL SCORE 6 - - - - - - - - - - - - - - - - - - - - - - - - - - - - - - - - - - - CLINICAL DATA: BPP U/S * OB HIGH RISK PT TECH-ID : RAFAELA TRANS-ID: READ PROVIDER: 0 - SIGNOFF PROVIDER: 0 - Luz Altamirano MD RAD US US OB BPP Single (01/25/1997 9:45 AM CDT) Anatomical Region Laterality Modality Pelvis Other Specimen (Source) Anatomical Location Collection Method / Collectio n Time Received Time / Laterality Volume Narrative 01/25/1997 9:45 AM CDT - - - - - - - - - - - - - - - - - - - - - - - - - - - - - - - - - - - ? LMP: ? EDC: ? # OF FETUSES ?? 1 PREV US: ?COMMENTS: ?DATE: ? OBS ERVATIONS (SCORE 0-2) DATA FOR FETUS #1 BREATHING ? 2 ??ONE FBM > 30 SECS GROSSFETAL MOVEMENT 2 ??> 3 BODY,LIMB,D ISCRETE OR SEPARATE MOVEMENTS TONE ?2 ??ONE EXTENS ION/FLEX OF LIMBS,HAND OR TRUNK AMNIOTIC FLUID ?2 ??> 2CM (>36WK S) > 3CM (<36WKS) NST (OB DEPT) ? 0 ??REACTIVE/NON REACTIVE ? TOTAL SCORE 8 - - - - - - - - - - - - - - - - - - - - - - - - - - - - - - - - - - - CLINICAL DATA: ?BPP U/S * OB HIGH RISK PT TECH-ID : ? TM TRANS-ID: READ PROVIDER: ?0 ??- SIGNOFF PROVIDER: 0 ??- Procedure Note Conversion, Imr - 10/10/2016Formatting o f this note might be different from the original. - - - - - - - - - - - - - - - - - - - - - - - - - - - - - - - - - - - LMP: EDC: # OF FETUSES 1 PREV US: COMMENTS: DATE: OBSERVATIONS (SCORE 0-2) DATA FOR FETUS #1 BREATHING 2 ONE FBM > 30 SECS GROSSFETAL MOVEMENT 2 > 3 BODY,LIMB,DIS CRETE OR SEPARATE MOVEMENTS TONE 2 ONE EXTENSION/FLEX OF LIMB S,HAND OR TRUNK AMNIOTIC FLUID 2 > 2CM (>36WKS) > 3CM ( <36WKS) NST (OB DEPT) 0 REACTIVE/NONREACTIVE TOTAL SCORE 8 - - - - - - - - - - - - - - - - - - - - - - - - - - - - - - - - - - - CLINICAL DATA: BPP U/S * OB HIGH RISK PT TECH-ID : TM TRANS-ID: READ PROVIDER: 0 - SIGNOFF PROVIDER: 0 - Luz Altamirano MD [facility] OB BPP Single (01/18/1997 9:45 AM CDT) Anatomical Region Laterality Modality Pelvis Other Specimen (Source) Anatomical Location Collection Method / Collectio n Time Received Time / Laterality Volume Narrative 01/18/1997 9:45 AM CDT - - - - - - - - - - - - - - - - - - - - - - - - - - - - - - - - - - - ? LMP: ? EDC: ? # OF FETUSES ?? 1 PREV US: ?COMMENTS: ?DATE: ? OBS ERVATIONS (SCORE 0-2) DATA FOR FETUS #1 BREATHING ? 2 ??ONE FBM > 30 SECS GROSSFETAL MOVEMENT 2 ??> 3 BODY,LIMB,D ISCRETE OR SEPARATE MOVEMENTS TONE ?2 ??ONE EXTENS ION/FLEX OF LIMBS,HAND OR TRUNK AMNIOTIC FLUID ?2 ??> 2CM (>36WK S) > 3CM (<36WKS) NST (OB DEPT) ? 0 ??REACTIVE/NON REACTIVE ? TOTAL SCORE 8 - - - - - - - - - - - - - - - - - - - - - - - - - - - - - - - - - - - CLINICAL DATA: ?BPP U/S * OB HIGH RISK PT TECH-ID : ? RCM TRANS-ID: ROSE PROVIDER: ?0 ??- SIGNOFF PROVIDER: 0 ??- Procedure Note Conversion, Imr - 10/10/2016Formatting o f this note might be different from the original. - - - - - - - - - - - - - - - - - - - - - - - - - - - - - - - - - - - LMP: EDC: # OF FETUSES 1 PREV US: COMMENTS: DATE: OBSERVATIONS (SCORE 0-2) DATA FOR FETUS #1 BREATHING 2 ONE FBM > 30 SECS GROSSFETAL MOVEMENT 2 > 3 BODY,LIMB,DIS CRETE OR SEPARATE MOVEMENTS TONE 2 ONE EXTENSION/FLEX OF LIMB S,HAND OR TRUNK AMNIOTIC FLUID 2 > 2CM (>36WKS) > 3CM ( <36WKS) NST (OB DEPT) 0 REACTIVE/NONREACTIVE TOTAL SCORE 8 - - - - - - - - - - - - - - - - - - - - - - - - - - - - - - - - - - - CLINICAL DATA: BPP U/S * OB HIGH RISK PT TECH-ID : RCM TRANS-ID: READ PROVIDER: 0 - SIGNOFF PROVIDER: 0 - Luz Altamirano MD RAD US OB BPP Single (01/11/1997 9:45 AM CDT) Anatomical Region Laterality Modality Pelvis Other Specimen (Source) Anatomical Location Collection Method / Collectio n Time Received Time / Laterality Volume Narrative 01/11/1997 9:45 AM CDT - - - - - - - - - - - - - - - - - - - - - - - - - - - - - - - - - - - ? LMP: ? EDC: ? # OF FETUSES ?? 1 PREV US: ?COMMENTS: ?DATE: ? OBS ERVATIONS (SCORE 0-2) DATA FOR FETUS #1 BREATHING ? 2 ??ONE FBM > 30 SECS GROSSFETAL MOVEMENT 2 ??> 3 BODY,LIMB,D ISCRETE OR SEPARATE MOVEMENTS TONE ?2 ??ONE EXTENS ION/FLEX OF LIMBS,HAND OR TRUNK AMNIOTIC FLUID ?2 ??> 2CM (>36WK S) > 3CM (<36WKS) NST (OB DEPT) ? 0 ??REACTIVE/NON REACTIVE ? TOTAL SCORE 8 - - - - - - - - - - - - - - - - - - - - - - - - - - - - - - - - - - - CLINICAL DATA: ?BPP U/S * OB HIGH RISK PT TECH-ID : ? RCM TRANS-ID: READ PROVIDER: ?0 ??- SIGNOFF PROVIDER: 0 ??- Procedure Note Conversion, Imr - 10/10/2016Formatting o f this note might be different from the original. - - - - - - - - - - - - - - - - - - - - - - - - - - - - - - - - - - - LMP: EDC: # OF FETUSES 1 PREV US: COMMENTS: DATE: OBSERVATIONS (SCORE 0-2) DATA FOR FETUS #1 BREATHING 2 ONE FBM > 30 SECS GROSSFETAL MOVEMENT 2 > 3 BODY,LIMB,DIS CRETE OR SEPARATE MOVEMENTS TONE 2 ONE EXTENSION/FLEX OF LIMB S,HAND OR TRUNK AMNIOTIC FLUID 2 > 2CM (>36WKS) > 3CM ( <36WKS) NST (OB DEPT) 0 REACTIVE/NONREACTIVE TOTAL SCORE 8 - - - - - - - - - - - - - - - - - - - - - - - - - - - - - - - - - - - CLINICAL DATA: BPP U/S * OB HIGH RISK PT TECH-ID : RCM TRANS-ID: READ PROVIDER: 0 - SIGNOFF PROVIDER: 0 - Luz Altamirano MD RAD US OB Limited (01/02/1997 3:00 PM CDT) Anatomical Region Laterality Modality Pelvis Other Specimen (Source) Anatomical Location Collection Method / Collectio n Time Received Time / Laterality Volume Narrative 01/02/1997 3:00 PM CDT CLINICAL DATA: ?OB LTD//CHECK WEIGHT FINDINGS: ?A SINGLE, LIVING INTRAUTERINE FETU S IS PRESENT IN A LONGITUDINAL ?LIE, CEPHALIC PRESENTATION, WITH A ULTRASOUND COMPOSITE ?GESTATIONAL AGE OF 33.4 +/- 2 WEEK S. ??THIS NEARLY CORRESPONDS TO THE ?CLINICAL MENSTRUAL AGE AND INDICAT ES APPROPRIATE INTERVAL ?GROWTH SINCE THE PREVIOUS ULTRASOU ND 10/04/96. ??THE CURRENT ?ESTIMATED WEIGHT OF 2187 GM APPROXIMATES THE MEAN FOR 33+ ?WEEKS. ??THE AMNIOTIC FLUID VOLUME IS WITHIN NORMAL LIMITS WITH VICENTE ?OF 13.4 CM. ??THE GRADE 1 PLACENTA IS POSTERIOR AND NOT PREVIA. TECH-ID : TRANS-ID: ? QTR Procedure Note Silvestre Vaughn - 10/10/2016Formatting of t his note might be different from the original. CLINICAL DATA: OB LTD//CHECK WEIGHT FINDINGS: A SINGLE, LIVING INTRAUTERINE FETUS IS PRESENT IN A LONGITUDINAL LIE, CEPHALIC PRESENTATION, WITH A FETA L ULTRASOUND COMPOSITE GESTATIONAL AGE OF 33.4 +/- 2 WEEKS. TH IS NEARLY CORRESPONDS TO THE CLINICAL MENSTRUAL AGE AND INDICATES AP PROPRIATE INTERVAL GROWTH SINCE THE PREVIOUS ULTRASOUND . THE CURRENT ESTIMATED WEIGHT OF 2187 GM APPRO XIMATES THE MEAN FOR 33+ WEEKS. THE AMNIOTIC FLUID VOLUME IS WIT HIN NORMAL LIMITS WITH VICENTE OF 13.4 CM. THE GRADE 1 PLACENTA IS POS TERIOR AND NOT PREVIA. TECH-ID : TRANS-ID: QTR Luz Altamirano MD RAD US US OB BPP Single (01/02/1997 2:30 PM CDT) Anatomical Region Laterality Modality Pelvis Other Specimen (Source) Anatomical Location Collection Method / Collectio n Time Received Time / Laterality Volume Narrative 01/02/1997 2:30 PM CDT - - - - - - - - - - - - - - - - - - - - - - - - - - - - - - - - - - - ? LMP: 05/12/1996 ?EDC: 01/30 ?# OF FETUSES ?? 1 PREV US: ?COMMENTS: ?DATE: ? OBS ERVATIONS (SCORE 0-2) DATA FOR FETUS #1 BREATHING ? 0 ??ONE FBM > 30 SECS GROSSFETAL MOVEMENT 2 ??> 3 BODY,LIMB,D ISCRETE OR SEPARATE MOVEMENTS TONE ?2 ??ONE EXTENS ION/FLEX OF LIMBS,HAND OR TRUNK AMNIOTIC FLUID ?2 ??> 2CM (>36WK S) > 3CM (<36WKS) NST (OB DEPT) ? 0 ??REACTIVE/NON REACTIVE ? TOTAL SCORE 6 - - - - - - - - - - - - - - - - - - - - - - - - - - - - - - - - - - - CLINICAL DATA: ?BIO PHYSICAL PROFILE//HIGH SHELLAC POLISHER-ID : ? DBJ TRANS-ID: READ PROVIDER: ?0 ??- SIGNOFF PROVIDER: 0 ??- Procedure Note Conversion, Imr - 10/10/2016Formatting o f this note might be different from the original. - - - - - - - - - - - - - - - - - - - - - - - - - - - - - - - - - - - LMP: 05/12/1996 EDC: 02/16/1997 # OF FE TUSES 1 PREV US: COMMENTS: DATE: OBSERVATIONS (SCORE 0-2) DATA FOR FETUS #1 BREATHING 0 ONE FBM > 30 SECS GROSSFETAL MOVEMENT 2 > 3 BODY,LIMB,DIS CRETE OR SEPARATE MOVEMENTS TONE 2 ONE EXTENSION/FLEX OF LIMB S,HAND OR TRUNK AMNIOTIC FLUID 2 > 2CM (>36WKS) > 3CM ( <36WKS) NST (OB DEPT) 0 REACTIVE/NONREACTIVE TOTAL SCORE 6 - - - - - - - - - - - - - - - - - - - - - - - - - - - - - - - - - - - CLINICAL DATA: BIO PHYSICAL PROFILE//HIGH SHELLAC POLISHER-ID : DBJ TRANS-ID: READ PROVIDER: 0 - SIGNOFF PROVIDER: 0 - Luz Altamirano MD [facility] OB >/= 14 Weeks 0 Days, Single Fetus (08/17/1996 4:00 PM ART FRAMING MANAGER) Anatomical Region Laterality Modality Pelvis Other Specimen (Source) Anatomical Location Collection Method / Collectio n Time Received Time / Laterality Volume Impressions 08/17/1996 4:00 PM ART FRAMING MANAGER : ?1. ??SINGLE IUP, APPROXIMATELY 13. 6 WEEKS SIZE. ?2. ??TWO SMALL MATERNAL LOWER BODY UTERINE FIBROIDS. FINDINGS: ?SINGLE IUP WITH FETUS WHICH CHANGE S IN POSITION DURING THE ?EXAMINATION. ??MEASUREMENTS CORRES POND TO AVERAGE SIZE FOR ?13.6 WEEKS +/- 7 DAYS. ??CLINICAL MENSTRUAL AGE IS 13.9 WEEKS. ?NO ABNORMALITIES SEEN. ??THE RE ARE TWO SMALL ?NONHOMOGENEOUS MASSES DOWN NEAR TH E LOWER END OF THE UTERINE ?BODY JUST ABOVE THE CERVIX. ??THES E MEASURE APPROXIMATELY 1.5 ?AND 1.9 CM IN AVERAGE DIAMETER. TECH-ID : ? MTB TRANS-ID: ? SIGNOFF PROVIDER: [id number] ??- DEPARTMENT S IGNATURE Narrative 08/17/1996 4:00 PM ART FRAMING MANAGER - - - - - - - - - - - - - - - - - - - - - - - - - - - - - - - - - - - ? LMP: 05/12/1996 ?EDC: ? # OF FETUSES ?? 1 PREV US: ?COMMENTS: ?DATE: DATA FOR FETUS #1 ? MOV EMENT(Y/N) ??Y ?? CARDIAC(Y/N) ??Y MEAN SAC DIAM ? MM ?WK S ?? BPD ? 24 ??MM 14.0 WKS CROWN-RUMP ?MM ? WKS ?? HEAD ?91 ??MM 14.1 WKS FEMUR LENGTH ? 11 MM 13.2 WKS ?? ABDOMINAL ? 71 ??MM 13.8 WKS ? HEAD/ABDOMEN 1.29 AMNIOTIC FLUID N ?GEST AGE: 13.8 ?EST WT 95 ?? GM ?? 0.2 LB VICENTE ? CM POSITION:VARIABLE ??PLACEMENT LOC:POSTERIOR - - - - - - - - - - - - - - - - - - - - - - - - - - - - - - - - - - - CLINICAL DATA: ?OB U/S, SIZE AND DATES Procedure Note Alvaro Schultz - 10/10/2016Bradly christian of this note might be different from the original. - - - - - - - - - - - - - - - - - - - - - - - - - - - - - - - - - - - LMP: 05/12/1996 EDC: # OF FETUSES 1 PREV US: COMMENTS: DATE: DATA FOR FETUS #1 MOVEMENT(Y/N) Y CARDIAC(Y/N) Y MEAN SAC DIAM MM WKS BPD 24 MM 14.0 WKS CROWN-RUMP MM WKS HEAD 91 MM 14.1 WKS FEMUR LENGTH 11 MM 13.2 WKS ABDOMINAL 7 1 MM 13.8 WKS HEAD/ABDOMEN 1.29 AMNIOTIC FLUID N GEST AGE: 13.8 EST WT 95 GM 0.2 LB VICENTE CM POSITION:VARIABLE PLACEMENT LOC:POSTERIOR - - - - - - - - - - - - - - - - - - - - - - - - - - - - - - - - - - - CLINICAL DATA: OB U/S, SIZE AND DATES IMPRESSION : 1. SINGLE IUP, APPROXIMATELY 13.6 WEEKS SIZE. 2. TWO SMALL MATERNAL LOWER BODY UTERIN E FIBROIDS. FINDINGS: SINGLE IUP WITH FETUS WHICH CHANGES IN POSITION DURING THE EXAMINATION. MEASUREMENTS CORRESPOND TO AVERAGE SIZE FOR 13.6 WEEKS +/- 7 DAYS. CLINICAL MENSTRU AL AGE IS 13.9 WEEKS. NO ABNORMALITIES SEEN. THERE ARE TWO SMALL NONHOMOGENEOUS MASSES DOWN NEAR THE LOW ER END OF THE UTERINE BODY JUST ABOVE THE CERVIX. THESE MEASU RE APPROXIMATELY 1.5 AND 1.9 CM IN AVERAGE DIAMETER. TECH-ID : MTB TRANS-ID: EH SIGNOFF PROVIDER: [facility] - DEPARTMENT [facility] NATURE Luz Altamirano MD RAD US MM Mammogram Diag Eddie WELLS (03/29/1996 10:55 AM CDT) Anatomical Region Laterality Modality Breast Bilateral Mammography Specimen (Source) Anatomical Location Collection Method / Collectio n Time Received Time / Laterality Volume Impressions 03/29/1996 10:55 AM CDT : ?? NO MAMMOGRAPHIC EVIDENCE OF MALIGNAN CY. FINDINGS: ?? M3 ?? BREAST TISSUE IS MODERATELY DENSE; T HIS SOMEWHAT DECREASES ?? DIAGNOSTIC SENSITIVITY. ??NO SUSPICI OUS MASSES OR CALCIFICATIONS ?? ARE SEEN. TECH-ID : ? DJN TRANS-ID: Narrative 03/29/1996 10:55 AM CDT SEVERITY: 1 CLINICAL DATA: ?ROUTINE Procedure Note Rohan Rachel MD - 10/10/2016 SEVERITY: 1 CLINICAL DATA: ROUTINE IMPRESSION : NO MAMMOGRAPHIC EVIDENCE OF MALIGNANCY. FINDINGS: M3 BREAST TISSUE IS MODERATELY DENSE; THIS SOMEWHAT DECREASES DIAGNOSTIC SENSITIVITY. NO SUSPICIOUS M ASSES OR CALCIFICATIONS ARE SEEN. TECH-ID : DJN TRANS-ID: Luz Altamirano MD RAD [facility] OB >/= 14 Weeks 0 Days, Single Fetus (02/01/1996 10:30 AM CDT) Anatomical Region Laterality Modality Pelvis Other Specimen (Source) Anatomical Location Collection Method / Collectio n Time Received Time / Laterality Volume Narrative 02/01/1996 10:30 AM CDT CLINICAL DATA: ?VERIFY VIABILITY ?NO MOVEMENT X 2 DAYS FINDINGS: ?THESE LIMITED IMAGES FROM AN EXAMI NATION ACCOMPLISHED ON ?02-01-96 ARE PRESENTED ON 02-02-96. ?? THE TRACING WHICH WAS ?OBTAINED THROUGH THE CARDIAC AREA SHOWS NO EVIDENCE TO ?INDICATE CARDIAC ACTIVITY. ??THE N OTE ON THE REQUEST SLIP ?INDICATES THAT NO EVIDENCE OF FETA L ACTIVITY WAS IDENTIFIED. TECH-ID : ? RAFAELA TRANS-ID: ? SKA Procedure Note Ilir Alaniz MD - 10/10/2016Formatt ing of this note might be different from the original. CLINICAL DATA: VERIFY VIABILITY NO MOVEMENT X 2 DAYS FINDINGS: THESE LIMITED IMAGES FROM AN EXAMINATIO N ACCOMPLISHED ON 02-01-96 ARE PRESENTED ON 02-02-96. THE TRA CING WHICH WAS OBTAINED THROUGH THE CARDIAC AREA SHOWS NO EVIDENCE TO INDICATE CARDIAC ACTIVITY. THE NOTE ON THE REQUEST SLIP INDICATES THAT NO EVIDENCE OF ACT IVITY WAS IDENTIFIED. TECH-ID : RAFAELA TRANS-ID: SKA Elsy Kanchan Martin RAD 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 LMP: 05/01/1995 ?EDC: 0703/1996 ?# OF FETUSES ?? 1 PREV US: ?COMMENTS: ?DATE: DATA FOR FETUS #1 ? MOV EMENT(Y/N) ??Y ?? CARDIAC(Y/N) ??Y MEAN SAC DIAM ? MM ?WK S ?? BPD ? 48 ??MM 20.6 WKS CROWN-RUMP ?MM ? WKS ?? HEAD ? 177 ??MM 20.0 WKS FEMUR LENGTH ? 33 MM 20.2 WKS ?? ABDOMINAL ?154 ??MM 20.8 WKS ? HEAD/ABDOMEN 1.15 AMNIOTIC FLUID N ?GEST AGE: 20.2 ?EST WT 379 ??GM ?? 0.8 LB VICENTE ? CM POSITION:VERTEX POSITION ??PLACEMENT LOC:ANTERIOR - - - - - - - - - - - - - - - - - - - - - - - - - - - - - - - - - - - CLINICAL DATA: ?OB DATES ?? STRUCTURE FINDINGS: ?OB ULTRASOUND. TRANSVERSE AND LONG ITUDINAL CUTS WERE OBTAINED ?THROUGH THE PELVIS. THERE IS A SIN GLE FETUS IN THE CEPHALIC ?PRESENTATION. ??BIPARIETAL DIAMETE R IS 48 MM CONSISTENT WITH ? AGE OF 20.6 WEEKS GESTATION. ??PLACENTA IS ANTERIOR ?NORMAL. ??AMNIOTIC FLUID IS NORMAL . ??THERE IS NORMAL ?MOVEMENT AND NORMAL CARDIAC ACTIVI TY. TECH-ID : ? RAFAELA TRANS-ID: ? EH Procedure Note Adan Mckinnon MD - 10/10/2016Format ting of this note might be different from the original. - - - - - - - - - - - - - - - - - - - - - - - - - - - - - - - - - - - LMP: 05/01/1995 EDC: 02/07/1996 # OF FE TUSES 1 PREV US: COMMENTS: DATE: DATA FOR FETUS #1 MOVEMENT(Y/N) Y CARDIAC(Y/N) Y MEAN SAC DIAM MM WKS BPD 48 MM 20.6 WKS CROWN-RUMP MM WKS HEAD 177 MM 20.0 WKS FEMUR LENGTH 33 MM 20.2 WKS ABDOMINAL 1 54 MM 20.8 WKS HEAD/ABDOMEN 1.15 AMNIOTIC FLUID N GEST AGE: 20.2 EST WT 379 GM 0.8 LB VICENTE CM POSITION:VERTEX POSITION PLACEMENT LOC:ANTERIOR - - - - - - - - - - - - - - - - - - - - - - - - - - - - - - - - - - - CLINICAL DATA: OB DATES STRUCTURE FINDINGS: OB ULTRASOUND. TRANSVERSE AND LONGITUDI NAL CUTS WERE OBTAINED THROUGH THE PELVIS. THERE IS A SINGLE F ETUS IN THE CEPHALIC PRESENTATION. BIPARIETAL DIAMETER IS 48 MM CONSISTENT WITH AGE OF 20.6 WEEKS GESTATION. PLAC ENTA IS ANTERIOR NORMAL. AMNIOTIC FLUID IS NORMAL. THERE IS NORMAL MOVEMENT AND NORMAL CARDIAC ACTIVITY. TECH-ID : KAK TRANS-ID: EH Alivia SÁNCHEZ documented in this encounter Visit Diagnoses Not on filedocumented in this encounter Care Teams Child Attendant Relationship Specialty Start Date End Date Unassigned, Provider PCP - General 07/08/00 11/01/[address] [place] [id number] documented as of this encounter
--- OUTSIDE RECORDS SUMMARY | 2022-07-02 14:40 | XMS_ITS | Encounter Summary ---
:1955 Author Organization [facility] Address [address] [place] [address] Care Team Providers Name Role Phone Unassigned, Provider Primary Care Provider Unavailable Encounter Details Date Type Department Care Team Description 05/22/2006 Office Visit [facility] 3850 Urgent Tete Oliver MD Care [address]50 [facility] [address] [place] [address] [place] [address] [phone] Social History Tobacco Use Types Packs/Day Years Used Date Smoking Tobacco: Never Assessed Sex Assigned at Date Recorded Not on file documented as of this encounter Last Filed Vital Signs Vital Sign Reading Time Taken Comments Blood Pressure 106/70 05/22/2006 10:04 AM CDT Pulse 80 05/22/2006 10:04 AM CDT Temperature 36.4 ??C (97.5 ??F) 05/22/2006 10:04 AM CDT C: 3 6.4 C Respiratory Rate 20 05/22/2006 10:04 AM CDT Oxygen Saturation - - Inhaled Oxygen Concentration - - Weight - - Height - - Body Mass Index - - documented in this encounter Progress Notes Tete Oliver MD - 05/22/2006 12:01 AM CDT Progress Notes signed by Tete Oliver MD at 06/10/06 4482 Author: Odilia Oliver MD Service: (none) Author Type: Physician Filed: 11/21/10 1440 Note Time: 05/22/06 0001 Status: Signed Monotype Keyboard Operator: Odilia Oliver MD (Physician) NAME: MERCED AYALA MR: [id number] ACCT: [id number] VISIT: [id number] DICTATING CLINICIAN: ODILIA OLIVER MD JOB: [id number] LOC: 420 CLINIC PROGRESS NOTE DATE OF VISIT: 05/22/2006 SUBJECTIVE: A 51-year-old pleasant patient presented for evaluation of one-week history of URI. Now within the past day or so she has had bad headache, facial pain, runny nose, cough, coughing up phlegm and denies having fever, no wheezing. She is not a smoker. PAST MEDICAL HISTORY: Significant for sinusitis. She has bad pressure ??on?? the face. OBJECTIVE: VS: Normal. Eyes, ears normal. Nose is congested. Tenderness of the maxillary sinuses. Throat normal. NECK: Normal. CHEST: Normal. HEART: Normal. ASSESSMENT: URI with sinusitis. PLAN: Reassurance was given, pamphlet was provided. Recommended to take fhts-vyt-eelvhsc medication. I wrote prescription for Augmentin 875 mg to take it b.i.d. for 10 days. Advised in case of getting worse or having more problems, see primary physician for another evaluation. [id number] C: 05/23/06 11:22 DOCUMENT: [id number] ASSEMBLER documented in this encounter Plan of Treatment Not on filedocumented as of this encounter Visit Diagnoses Not on filedocumented in this encounter Care Teams Urban Sociologist Relationship Specialty Start Date End Date Unassigned, Provider PCP - General 07/08/00 11/01/[address] [place] [id number] documented as of this encounter
--- OUTSIDE RECORDS SUMMARY | 2022-07-02 14:40 | XMS_ITS | Encounter Summary ---
:1955 Author Organization [facility] Address [address] [place] [address] Care Team Providers Name Role Phone Unassigned, Provider Primary Care Provider Unavailable Reason for Visit Reason Comments Other Encounter Details Date Type Department Care Team Description 01/21/2007 Telephone [facility] 3800 Cristina Cabrera MD Other Obstetrics/Gynecolog y [address] [facility] 5th [place] [address] [place], [place] [address] (Wo rk) Social History Tobacco Use Types Packs/Day Years Used Date Smoking Tobacco: Never Assessed Sex Assigned at Date Recorded Not on file documented as of this encounter Progress Notes Aurora Cabrera MD - 01/21/2007 12:52 PM CDT Phone Note filed by Aurora Cabrera MD at 11/18/102306 Author: Aurora Cabrera MD Service: (none) Author Type: Physician Filed: 11/18/102306 Note Time: 01/21/07 1252 Status: Signed Refrigerator Mover: Aurora Cabrera MD (Physician) Caleb Arthur, would you add her to my dayanara on WedFebruary 09 at 4:00 for an endometrial bx? Thanks...She knows about it. Created on 21Jan2007 12:52pm by AURORA CABRERA On 21Jan2007 1:07pm TELLO MATA wrote: pt is added to your schedule. Acknowledged by TELLO MATA on 1:07pm Acknowledged by AURORA CABRERA on 2:30pm NEERING PRODUCTION LIAISON documented in this encounter Plan of Treatment Not on filedocumented as of this encounter Visit Diagnoses Not on filedocumented in this encounter Care Teams Wood Tile Installation Helper Relationship Specialty Start Date End Date Unassigned, Provider PCP - General 07/08/00 11/01/[address] [place] [address] documented as of this encounter
--- OUTSIDE RECORDS SUMMARY | 2022-07-02 14:40 | XMS_ITS | Encounter Summary ---
:1955 Author Organization [facility] Address [address] [place] [address] Care Team Providers Name Role Phone Unassigned, Provider Primary Care Provider Unavailable Encounter Details Date Type Department Care Team Description 10/23/1994 PN Conversion Only RASTAFARIAN CONVERSION Gonzales Dean MD [address] [place] [address] Social History Tobacco Use Types Packs/Day Years Used Date Smoking Tobacco: Never Assessed Sex Assigned at Date Recorded Not on file documented as of this encounter Plan of Treatment Not on filedocumented as of this encounter Procedures Procedure Name Priority Date/Time Associated Comments Diagnosis CONVERSION DEFAULT Routine 10/22/1994 12:24 PM Esther bagley for this INTERFACE ORDER SHEET MILL SUPERVISOR procedure ar e in the results section. documented in this encounter Results Conversion Default Interface Order (10/22/1994 12:24 PM SHEET MILL SUPERVISOR) P athologist Signature PAP Smear See Detail HP CONVERSION Comment: NAME:MERCED AYALA ?CERVICAL CYTOLOGY REPORT Pathology # ??[id number] ? Date Obtained: LMP: ?09-27-94 CLINICAL HIST ? 1ST VISIT CERVICAL SMEAR SPECIMEN ADEQUACY: ?? Satisfactory. ENDOCERVICAL CELLS: ??Present. CTYOLOGIC IMPRESSION: Within Normal Limits (Negative). Verified 10/26/94 by: ? (electronic signature) Gabriel PARSONS M.D., Director of Cyt opathology Specimen (Source) Anatomical Collection Method Collection Time Re ceived Time Location / / Volume Laterality 10/22/1994 12:24 PM SHEET MILL SUPERVISOR Gonzales Dean MD LAB_1 Performing Organization Address City/State/ZIP Code Phon e Number HP CONVERSION documented in this encounter Visit Diagnoses Not on filedocumented in this encounter Care Teams Brush Clearing Laborer Relationship Specialty Start Date End Date Unassigned, Provider PCP - General 07/08/00 11/01/[address] [place] [id number] documented as of this encounter
--- OUTSIDE RECORDS SUMMARY | 2022-07-02 14:40 | XMS_ITS | Encounter Summary ---
:1955 Author Organization [facility] Address [address] [place] [address] Care Team Providers Name Role Phone Unassigned, Provider Primary Care Provider Unavailable Encounter Details Date Type Department Care Team Description 11/28/2006 Office Visit [facility] 3850 Urgent Sandhya Levin MD Care [address] [place] [address] [place] [address] [phone] Social History Tobacco Use Types Packs/Day Years Used Date Smoking Tobacco: Never Assessed Sex Assigned at Date Recorded Not on file documented as of this encounter Last Filed Vital Signs Vital Sign Reading Time Taken Comments Blood Pressure 115/70 11/28/2006 8:02 AM CDT Pulse 72 11/28/2006 8:02 AM CDT Temperature 36.8 ??C (98.2 ??F) 11/28/2006 8:02 AM CDT C: 36 .8 C Respiratory Rate 16 11/28/2006 8:02 AM CDT Oxygen Saturation - - Inhaled Oxygen Concentration - - Weight - - Height - - Body Mass Index - - documented in this encounter Progress Notes Sandhya Franks MD - 11/28/2006 12:01 AM CDT Progress Notes signed by Sandhya Franks MD at 12/19/06 2315 Author: Sandhya Franks MD Service: (none) Author Type: Physician Filed: 11/21/10 1836 Note Time: 11/28/06 0001 Status: Signed Commercial Decorator: Sandhya Franks MD (Physician) NAME: MERCED AYALA MR#: [id number] ACCT: [id number] VISIT: [id number] DICTATING CLINICIAN: SANDHYA FRANKS MD JOB: [id number] LOC: 420 CLINIC PROGRESS NOTE DATE OF VISIT: 11/28/2006 SUBJECTIVE: This 51-year-old woman complains of pink-eye in both eyes. No other symptoms. MEDICATIONS: Reviewed in LastWord. ADR/ALLERGIES: NONE. OBJECTIVE: VS: BP: 115/70. T: 98.2. P: 72. R: 16. EYES: There is inferior conjunctival redness, especially in both eyes and diffuse redness. EARS: TMs are normal bilaterally. The patient does not wear contacts. ASSESSMENT: Conjunctivitis each eye. PLAN: Tobramycin eye drops are given. CAM:[id number] C: 11/29/06 10:19 DOCUMENT: [id number] documented in this encounter Plan of Treatment Not on filedocumented as of this encounter Visit Diagnoses Not on filedocumented in this encounter Care Teams Livestock Trucker Relationship Specialty Start Date End Date Unassigned, Provider PCP - General 07/08/00 11/01/[address] [place] [address] documented as of this encounter
--- NOTE | 2022-07-02 15:00 | CRLHL7_ITS ---
For Patients: As a result of the Century Cures Act, medical imaging exams and procedure reports are released immediately into your electronic medical record. You may view this report before your referring provider. If you have questions, please contact your health care provider. DXA BONE MINERAL DENSITY STUDY, 07/02/2022 Reason for exam: Screening. Current height (inches): 66.5 Weight (lbs.): 165.0 Menopause age: 52 Ethnicity: White 1. Have you had a previous hip or vertebral fracture? No. 2. Have you had any fractures during your adult life which did not result from significant trauma (e.g., auto accident)? No. 3. Did either of your parents have a hip fracture? No. 4. Do you smoke? No. 5. Have you ever taken Glucocorticoids? No. 6. Do you have rheumatoid arthritis? No. 7. Do you have secondary osteoporosis? No. 8. Do you drink 3 or more alcoholic drinks per day? No. 9. Are you being treated for osteoporosis? No. 10. Have you ever taken any of the following medications: Actonel, Evista, Fosamax, Miacalcin, Reclast, Boniva, Forteo, HRT (i.e., estrogen/hormone therapy), Protelos, Prolia, Vitamin D, Calcium, other ??? please specify. ANSWER: Yes; vitamin D. 11. Do you have any of the following medical conditions: Anorexia or bulimia, asthma or emphysema, end stage renal disease, hyperparathyroidism, any seizure disorders, cancer, inflammatory bowel diseases, hysterectomy, other ??? please specify. ANSWER: Yes; hysterectomy. 12. What was your maximum height (inches)? 67 13. Do you perform weightbearing exercise regularly? Yes. 14. Do you regularly consume dairy products? Yes. 15. Do you drink caffeinated beverages? Yes. 16. At what age did your period start? 14. 17. Are you premenopausal? No. 18. How many full-term pregnancies have you had? 2. 19. Have you ever missed your period for more than 6 months in a row (not including or menopause)? No. TECHNIQUE: Bone mineral density study was performed using the [employer]. FINDINGS: The results of the study expressed as bone mineral density (BMD) are as follows: Lumbar Spine L1 to L3: BMD: 1.076 g/cm2. T-score: 0.5. Z-score: 2.3. Neck Left: BMD: 0.833 g/cm2. T-score: -0.1. Z-score: 1.4. Total Left: BMD: 0.913 g/cm2. T-score: -0.2. Z-score: 1.0. Radius Left 33%: BMD: 0.621 g/cm2. T-score: 0.8. Z-score: 2.4. IMPRESSION: Normal bone density. COMPARISON: Compared with scan of 07/04/2018, the bone mineral density has decreased by 4.8% at the spine and decreased by 2.0% at the hip. *Comparison exams done prior to 01/2020 were performed on different unit, [employer]. ANT COVINGTON M.D. Diagnostic Radiologist [email or web address] Transcribed: 1:[address]/Dictated by: Ant Covington MD @ 07/03/2022 12:23:00 PM (Electronically Signed)
== END 2022-07-02 14:35 | disposition home or self-care (01) ==
LOC: RAD 14:35
PROVIDERS: PCP Family Medicine; Visit Provider Family Medicine
DX: Z13.820 Encounter for screening for osteoporosis (principal); Z78.0 Asymptomatic menopausal state
CPT/HCPCS: 77080

== ENCOUNTER 2022-09-03 08:01 | Outpatient (CLI) | payer MEDICARE, BC, SELFPAY ==
--- NOTE | 2022-09-03 08:15 | CRLHL7_ITS ---
For Patients: As a result of the Cures Act, medical imaging exams and procedure reports are released immediately into your electronic medical record. You may view this report before your referring provider. If you have questions, please contact your health care provider. BILATERAL SCREENING MAMMOGRAM WITH COMPUTER-AIDED DETECTION AND TOMOSYNTHESIS TECHNIQUE: CC and MLO views were obtained. These mammographic images have been obtained using full-field digital technique. These mammographic images were interpreted with the benefit of computer-aided detection. Breast Tomosynthesis was used in this interpretation. COMPARISON FILM: 08/22/21, 07/16/20, 06/21/19. FINDINGS: There are scattered areas of fibroglandular density IMPRESSION: There is no radiographic evidence for malignancy. ASSESSMENT: BI-RADS Category 1: Negative RECOMMENDATION: Routine screening mammogram in 1 year. A lay language report of this examination will be provided to the patient. Ant Rose M.D. Diagnostic Radiologist [email or web address] MARJAN/albert Transcribed: 1:51 p.mAnthony price/Dictated by: Ant Rose MD @ 09/03/2022 10:13:00 AM (Electronically Signed)
== END 2022-09-03 08:02 | disposition home or self-care (01) ==
LOC: MAMMO 08:02
PROVIDERS: PCP Family Medicine; Visit Provider Family Medicine
DX: Z12.31 Encounter for screening mammogram for malignant neoplasm of breast (principal)
CPT/HCPCS: 77063; 77067

== ENCOUNTER 2023-02-14 08:40 | Outpatient (CLI) | payer MEDICARE, BC, SELFPAY | END 2023-02-14 08:41 | disposition home or self-care (01) | PROVIDERS: PCP Family Medicine; Visit Provider Orthopaedic Surgery Sports Medicine | DX: Z96.652 Presence of left artificial knee joint (principal) | CPT/HCPCS: 36415; 86850; 86900; 86901 ==

== ENCOUNTER 2023-02-15 10:25 | Day surgery (SDC) | payer MEDICARE, BC, SELFPAY ==
[2023-02-14 15:57] VITALS: BP 146/124; PULSE 48; RESP 16; TEMP 35.9
[2023-02-15] VITALS (16 sets, daily range): BP systolic 102–171; BP diastolic 65–99; PULSE 44–98; RESP 12–20; TEMP 35.5–36.5; O2SAT 96–100; BMI 26.4
--- NOTE | 2023-02-15 11:08 | CRLHL7_ITS ---
For Patients: As a result of the Century Cures Act, medical imaging exams and procedure reports are released immediately into your electronic medical record. You may view this report before your referring provider. If you have questions, please contact your health care provider. INDICATION: Follow up left hip arthroplasty. TECHNIQUE: AP pelvis and single cross table lateral view of the left hip. FINDINGS: New left hip arthroplasty. The components are adequately aligned and well seated. Air within the soft tissues of the left thigh related to the surgery. Older right hip arthroplasty. IMPRESSION: New left hip arthroplasty. The components are adequately aligned and well seated. Dictated by Enoch Harper MD @ 02/15/2023 4:03:57 PM (Electronically Signed)
[2023-02-15] MEDS: LACTATED RINGERS 1000 ML 1,000 ML 100 ML IV ×2 (11:10→13:59)
[2023-02-15] MEDS: SODIUM CHLORIDE 0.9 % (FLUSH) 10 ML SYRINGE IVF (11:10)
[2023-02-15] MEDS: CELECOXIB 200 MG CAPSULE PO ×2 (11:23→21:07)
[2023-02-15] MEDS: OXYCODONE (CR) 10 MG TAB.ER.12H PO (11:23)
[2023-02-15] MEDS: ACETAMINOPHEN 500 MG TABLET 1000 MG PO ×2 (11:24→18:38)
--- NOTE | 2023-02-15 11:48 | SUR.PREOP ---
TIME?OUT:?1150 PT/RN/MDA?VERIFICATION?OF?SURGICAL?SITE,?PROCEDURE,?AND?CONSENT OBTAINED?PRIOR?TO?INVASIVE?PROCEDURE.
[2023-02-15] MEDS: fentaNYL 100 MCG/2 ML inj IVP (11:50)
[2023-02-15] MEDS: MIDAZOLAM HCL 1 MG/ML inj IVP (11:50)
--- NOTE | 2023-02-15 12:01 | W.ANESCHARGE ---
Anesthesia Charges Start Date/Time Anesthesia Start Date: 02/15/23 Anesthesia Start Time: 12:24 Stop Date/Time Anesthesia Stop Date: 02/15/23 Anesthesia Stop Time: 15:05
--- NOTE | 2023-02-15 12:02 | W.PM.NB ---
Nerve Block Nerve Block Time Seen by Provider: 11:46 Date Seen: 02/15/23 Type of block requested by surgeon for post-operative analgesia: YANG/LFCN Side: left Time out performed: Yes Verification of patient name: Yes Verification of date of : Yes Site marking: site marked Name of person performing procedure: Ej Continuous monitoring Was continuous monitoring of O2 sat, B/P, commissioned defence force officer, recorded every 15 minutes?: Yes Procedure Checklist: sterile prep, needles and gloves Ultrasound guided. Images saved: Yes Medications given in 5ml increments after negative aspiration: Ropivicaine %: 0.5 mL: 30 Needle gauge: 20 Decadron (mg): 10 Precedex (mcg): 25 Patient tolerated procedure well: Yes Additional comments: Needle noted below psoas tendon needle noted adjacent to LFCN Block Charges Block Charge (with Pro Fee): Other Periph Nerve Block Use of Ultrasound Machine for Block: Yes- US Guidance/pain block
--- NOTE | 2023-02-15 12:15 | CRLHL7_ITS ---
For Patients: As a result of the Cures Act, medical imaging exams and procedure reports are released immediately into your electronic medical record. You may view this report before your referring provider. If you have questions, please contact your health care provider. INDICATION: Left hip arthroplasty. Follow up. TECHNIQUE: Two portable intraoperative spot images of the pelvis and left hip. Fluoroscopic guidance utilized. FINDINGS: 40 seconds fluoroscopy time utilized. There is a left hip arthroplasty. There is an older right hip arthroplasty. IMPRESSION: 40 seconds fluoroscopy time utilized intraoperatively. Dictated by Enoch Harper MD @ 02/19/2023 8:45:46 AM (Electronically Signed)
[2023-02-15] MEDS: CEFAZOLIN 2 GM in 0.9 % SODIUM CHLORIDE Mini-bag 100 ML IVPB ×2 (12:44→18:39)
[2023-02-15] MEDS: TRANEXAMIC ACID 100 MG/ML INJ 1000 MG IV (12:45)
--- NOTE | 2023-02-15 14:11 | P.ORPRC_ITS ---
Procedure Note Date of procedure: 02/15/23 Procedure: PREOPERATIVE DIAGNOSIS: 1. Left hip osteoarthritis, severe, primary POSTOPERATIVE DIAGNOSIS: 1. Left hip osteoarthritis, severe, primary PROCEDURE: 1. Left total hip arthroplasty-anterior approach 2. [id number] - intraoperative fluoroscopy up to 1 hour. SURGEON: Jacobo Christopher MD. STRETCHER DRIER OPERATOR: Nik Lu; MARLENY Campbell - Of note, a skilled ex assistant/program director was critical for this case to aid in patient positioning, tissue retraction, limb manipulation/positioning, dislocation/relocation, patient safety, and closure. ANESTHESIA: Spinal anesthetic EBL: 300 mL IMPLANTS: DePuy J&J uncemented total hip [place] cup size 50, hole eliminator, +4 neutral liner Actis stem, standard offset, size 8 +1 mm ceramic 32mm head. COMPLICATIONS: None evident INDICATIONS: The patient is a pleasant 68-year-old female who has experienced severe left hip pain and difficulty bearing weight. Workup included x-rays which revealed severe osteoarthrosis in the hip. Given the deformity, the dysfunction, and the pain, as well as the failure of nonoperative management, recommendation was made for surgery. FINDINGS: Full-thickness chondral loss broadly throughout the femoral head with significant osteophytosis around the left hip joint. Small effusion upon entering the joint. No iqra loose bodies evident. DESCRIPTION OF PROCEDURE: Following a thorough discussion of risks, benefits, and alternatives consent was obtained and the left hip was marked. The patient was brought to the operating room and placed supine on the operating table. Induction of anesthesia was undertaken. 1 g IV Ancef and 1 g tranexamic acid was administered within 1 hr of incision preoperatively. Proper time-out was performed identifying proper patient, site, procedure. The operative extremity was prepped and draped in the appropriate sterile fashion using ChloraPrep after the patient was positioned on the [place] table with head in neutral alignment and all bony prominences well padded. C-arm fluoroscopic imaging was utilized to confirm proper pelvis rotation and position, and to get true AP films of both the contralateral left, and the affected left hip. This is for comparison. A longitudinal incision was made starting approximately 1 cm distal to the ASIS, and 3-4 cm lateral. The incision was extended distally aiming toward the lateral border the patella. Sharp incision through skin and bovie cautery through the subcutaneous tissue allowed identification of the TFL fascia. This was sharply divided, and the fascia bluntly released from the muscle fibers as we dissected medial. Upon coming to the medial border, we were able to retract the TFL laterally, and penetrated the deeper fascia and identify the crossing circumflex vessels. These were ligated/cauterized. The rectus was elevated from the capsule, and retractors placed laterally and medially along the femoral neck to help with visualization of the capsule. We then performed an inverted T capsulotomy. The capsule was tagged for later repa ir. Retractors were placed inside the capsule. The femoral neck was visualized after releasing medially down to the lesser trochanter, along the saddle laterally, and up onto the acetabulum. The femoral neck cut was made in line with our preoperative templating. The head was removed in a single piece, and sized. We turned our attention to acetabular preparation. Initially, the labrum was resected from around the perimeter, the pulvinar was excised, allowing us to visualize the false wall. We started the reaming with a 43 mm reamer. This was medialized down to the true wall. We then enlarged our reamers sequentially up to one size less than the selected cup size. We trialed at the same size and found it to have an excellent fit. The selected cup was then opened, inserted, and impacted in line with the goal of 40-45? of abduction, and 20-25? of anteversion. This was confirmed on C-arm fluoroscopic imaging to be in the appropriate/goal position. Once the cup was placed we placed a hole eliminator and a liner consistent with preop planning. Attention was turned to the femoral preparation. The limb was extended, externally rotated, and adducted. The posteromedial capsule was released, as retractors were placed allowing excellent access to the proximal femur. Initially a box person was followed by canal finder followed by various broaches. We broached sequentially up to size noted above, found it to have excellent rotational control, and trialing various heads and necks, revealed that appropriate neck offset, and the above noted head size provided the greatest stability, and worship of length, and offset. C-arm fluoroscopic imaging confirmed position of the stem, as well as leg lengths, which were compared with the pre procedure all fluoroscopic images. Trial implants were removed, the real femoral stem inserted, as was the ceramic head. After reducing, the leg was placed through range of motion and stability was confirmed anterior, posterior, and lateral. A 3 min Betadine soak was then performed, and thorough irrigation with normal saline followed. Closure of the capsule was performed with #1 PDS. Bleeding was confirmed to be controlled at this stage, and the TFL fascia was closed with #0 strata fix. Subcutaneous, and subcuticular closure was performed with 2-0 Vicryl and 4-0 Monocryl, respectively. Dressings were applied, and the patient was awoken from anesthesia and transferred the PACU in stable condition. A skilled ex assistant/program director was critical for this case to aid in patient positioning, tissue retraction, proximal femur exposure, limb manipulation/positioning, dislocation/relocation, patient safety, and closure. PLAN: 1. Weight bear as tolerated operative extremity. 2. 23 hr perioperative antibiotics. 3. Ice. 4. PT/OT consults for ambulation assistance/mobility education. 5. Social work consult for discharge planning. 6. DVT prophylaxis with at SCDs, Joseph Gavie, and Xarelto x5 days followed by aspirin for a total of 1 month..
--- NOTE | 2023-02-15 15:06 | W.ANESCHARGE ---
Anesthesia Charges Start Date/Time Anesthesia Start Date: 02/15/23 Anesthesia Start Time: 15:06 Stop Date/Time Anesthesia Stop Date: 02/15/23 Anesthesia Stop Time: 15:05
--- NOTE | 2023-02-15 16:24 | P.IMCN_ITS ---
Date of Consult Patient: [facility] Patient Consult date: 02/15/23 Requesting Physician: Orthopedics Primary Care Provider: Asia Millard MD Consult Narrative Reason for consult: Postop care medical conditions Narrative: Aruna Ayala is a 68 year old woman who presents for an elective left total hip arthroplasty for treatment of severe, symptomatic left Coxarthrosis. Procedure is undertaken successfully without any complications. She has previously had a right total hip arthroplasty in 2005, as well as a left total knee arthroplasty in January of 2022. I reviewed her preoperative assessment per her primary care physician. Patient does take chronic nonsteroidal anti-inflammatory medication, celecoxib, for her osteoarthritis, has leukopenia, possibly related to chronic use of celecoxib, and also has primary insomnia for which she takes trazodone at bedtime. Review of Systems Status of ROS: Reports: 10 or more systems reviewed and unremarkable except as noted in History and below Narrative: . 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 They live in single-level home with 2 steps to get in and out of the home. She designates her as her power of ecommerce project manager for health should that be required. She requests full resuscitation in the event of cardiopulmonary demise. Primary care physician is Dr. Millard, [facility]. [facility] Medical History Visit for review of DEXA scan (2021) ?Z71.2 - Person consulting for explanation of examination or test findings (ICD-10) Fatty infiltration of liver ?K76.0 - Fatty (change of) liver, not elsewhere classified (ICD-10) Insomnia ?G47.00 - Insomnia, unspecified (ICD-10) Multiple atypical skin moles ?D22.9 - Melanocytic nevi, unspecified (ICD-10) Elevated LFTs ?R79.89 - Other specified abnormal findings of blood chemistry (ICD-10) NSAID long-term use ?Z79.1 - group home (current) use of non-steroidal anti-inflammatories (NSAID) (ICD-10) Osteoarthritis ?M19.90 - Unspecified osteoarthritis, unspecified site (ICD-10) Leucopenia (2017) ?D72.819 - Decreased white blood cell count, unspecified (ICD-10) Psoriasis ?L40.9 - Psoriasis, unspecified (ICD-10) Dyslipidemia ?E78.5 - Hyperlipidemia, unspecified (ICD-10) Surgical History Status post total knee replacement, left (02/11/22) ?Z96.652 - Presence of left artificial knee joint (ICD-10) History of total hip replacement (~2005) ?Z96.649 - Presence of unspecified artificial hip joint (ICD-10) History of hysterectomy (~2005) ?Z90.710 - Acquired absence of both cervix and uterus (ICD-10) Family History Maternal Grandfather Ischemic heart disease, Onset Age: 60 Stroke, Onset Age: 60 Mother Diabetes Osteoarthritis Sister Osteoarthritis Diabetes Brother Osteoarthritis Social History Narrative: exercises 3 times per week- 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[employer], walking , 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, 1 adult 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 non-smoker rarely consumes alcohol Smoking Status: Never smoker How often do you have a drink containing alcohol: 2-3 times a week Alcohol type: wine How many standard drinks containing alcohol do you have on a typical day: 1 or 2 How often do you have six or more drinks on one occasion: Never AUDIT-C Alcohol total score: 3 Non-prescribed substance use: denies use Caffeine: Yes (coffee, 2 cups/morning) Little interest or pleasure in doing things: not at all Feeling down, depressed, or hopeless: not at all service: No Meds Home Medications and Allergies Home Medications Medication Instructions Recorded Confirmed Type cholecalciferol (vitamin D3) 25 25 mcg PO DAILY 02/03/22 02/15/23 History mcg (1,000 unit) capsule omega-3 fatty acids 1,000 mg 1,000 mg PO BID 02/03/22 02/15/23 History capsule Home Medication Comments: Additionally she also takes the following: Acetaminophen 500 to a 1000 mg q.6 hours p.r.n. Celecoxib 200 mg twice daily Gabapentin 300 mg 3 times daily Trazodone 100 mg at bedtime daily Allergies Allergy/AdvReac Type Severity Reaction Status Date / Time No Known Drug Allergies Allergy Verified 02/15/23 10:48 Exam Narrative: Exam Narrative: I examine her postoperatively in her hospital bed as she is laying in the semi recumbent position. Vision and hearing are grossly normal. Alert, oriented to self, place, time, situation. Friendly, cooperative, articulate. Mood and affect are congruent. Neck is supple. Midline trachea. No JVD or hepatojugular reflux. No head and neck adenopathy. No icterus or conjunctival injection. Pupils equally round and reactive to light and accommodation. Extraocular muscles are intact. Midline nasal septum. Dentition in good repair. Mallampati class 1 airway. Lungs clear to auscultation without wheezing, rhonchi, or rales. Chest wall excursions are full. Heart tones with regular rhythm, normal S1-S2, without murmur, gallop, or rub. PMI not laterally displaced. Abdomen is thin with active bowel sounds, soft, nontender, non distended. No rebound or guarding. No organomegaly or masses. Extremities without edema. Moves all 4 extremities. No focal motor neurologic deficits. Skin is cool to touch. Otherwise dry and intact. Const: Vital Signs, click to edit/add: Vital Signs - 24 hr 02/15/23 10:54 02/15/23 11:48 02/15/23 11:50 Temperature 97.5 F L Pulse Rate 98 59 L 61 Respiratory Rate 16 16 16 Blood Pressure 148/90 H 171/99 H 155/92 H Pulse Oximetry 98 100 100 Oxygen Delivery Me thod Room Air Nasal Cannula Nasal Cannula Oxygen Flow Rate 2 2 02/15/23 12:01 02/15/23 15:00 02/15/23 15:05 Temperature 97.6 F Pulse Rate 55 L 59 L 56 L Respiratory Rate 16 13 12 Blood Pressure 116/76 107/69 102/67 Pulse Oximetry 98 98 98 Oxygen Delivery Me thod Nasal Cannula Room Air Room Air Oxygen Flow Rate 2 02/15/23 15:10 02/15/23 15:15 02/15/23 15:20 Temperature 97.0 F L Pulse Rate 56 L 55 L 54 L Respiratory Rate 12 16 15 Blood Pressure 102/67 120/75 123/74 Pulse Oximetry 98 98 100 Oxygen Delivery Me thod Room Air Room Air Room Air Oxygen Flow Rate 02/15/23 15:25 02/15/23 15:30 Temperature 97.7 F Pulse Rate 54 L 56 L Respiratory Rate 13 15 Blood Pressure 139/74 131/76 Pulse Oximetry 100 100 Oxygen Delivery Me thod Room Air Room Air Oxygen Flow Rate Documenting provider has reviewed patient's vital signs: yes Assessment and Plan Assessment and plan (1) Osteoarthritis of left hip: Problem comment: severe Status: Chronic (2) Status post total left knee replacement: Status: Acute (3) NSAID long-term use: Status: Acute (4) Leucopenia: Problem comment: mild lymphopenia, rouloux formation,UELP negative, SPEP ordered 11/2021 (not sent to correct lab) Status: Acute (5) Insomnia: Problem comment: Well controlled with trazodone 100 mg daily Status: Chronic Plan 1. Reviewed impression with patient and . 2. Answered their questions. 3. Agree with postoperative venous thromboembolism prophylaxis. 4. Agree with perioperative antibiotic prophylaxis. 5. I have completed her medical discharge orders. 6. From medical perspective patient may be discharged whenever Orthopedic surgery deems she is ready for discharge.
[2023-02-15] MEDS: OXYCODONE 5 MG TABLET PO ×3 (18:38→21:27)
[2023-02-15] MEDS: LACTATED RINGERS 1000 ML 1,000 ML 75 ML IV (18:53)
--- NOTE | 2023-02-15 19:19 | PC.NURSE ---
Nursing Care Hours: [id number] Pt this shift calm and cooperative with cares. Alert and oriented coming from PACU. CMS and bilat pedal pulses intact. Dressing CDI, ice on. Denies N/V. LS clear. Up to chair with 2 assist, tolerated well, gait stable. Had regular meal. Assisted to bathroom for void. Pain managed per eMAR.
[2023-02-15] MEDS: GABAPENTIN 300 MG CAPSULE PO (21:08)
[2023-02-15] MEDS: SENNOSIDES 1 TAB TABLET 2 TAB PO (21:08)
[2023-02-15] MEDS: TRAZODONE HCL 50 MG TABLET 100 MG PO (21:08)
[2023-02-16] MEDS: ACETAMINOPHEN 500 MG TABLET 1000 MG PO ×2 (00:13→07:08)
[2023-02-16] MEDS: CEFAZOLIN 2 GM in 0.9 % SODIUM CHLORIDE Mini-bag 100 ML IVPB (02:54)
[2023-02-16 03:00] VITALS: BP 111/77; PULSE 79; RESP 16; TEMP 36.4; O2SAT 96
[2023-02-16] MEDS: OXYCODONE 5 MG TABLET PO ×2 (03:00→08:41)
--- NOTE | 2023-02-16 05:36 | PC.NURSE ---
Pt AO, pleasant and cooperative throughout shift. Reports pain between 3-6/10 well-controlled with tylenol and oxycodone. Pt ambulatory in room well with walker, gait belt and SBA. No BM, continent with bladder x3.
[2023-02-16 06:42] LABS: Hematocrit 33.3 % (33.0-51.0); Hemoglobin* 10.6 gm/dL (12.0-16.0); Immature Granulocytes Abs Auto 0.02 K/uL (0.00-0.30); Immature Granulocytes Pct Auto 0.3 %; Lymphocytes Percent Auto 9.5 % (20-44); Mean Corpuscular HGB Conc 32 gm/dL (32-36); Mean Corpuscular Hemoglobin 28 pg (26-34); Mean Corpuscular Volume 89 fL (80-100); Monocytes Percent Auto 5.1 % (0.0-11.0); Neutrophils Percent Auto 85.1 % (42.0-72.0); Platelet Count* 210 K/uL (140-440); RDW Coefficient of Variation % 12.3 % (11.5-15.5); Red Blood Count 3.73 m/uL (4.00-5.20); White Blood Count* 7.78 K/uL (4.50-11.00)
[2023-02-16 06:53] LABS: Slide Review Reflex No
[2023-02-16 07:00] VITALS: BP 130/74; PULSE 68; RESP 18; TEMP 36.4; O2SAT 99
[2023-02-16 07:03] LABS: Potassium* 3.8 mmol/L (3.6-5.1); Sodium* 136 mmol/L (135-149)
[2023-02-16 07:06] LABS: Creatinine* 0.6 mg/dL (0.5-1.5); Est. Creatinine Clearance* 51.81; Estimated Glomerular Filt Rate 99 ml/min
[2023-02-16 07:07] LABS: Blood Urea Nitrogen* 19 mg/dL (7-30)
[2023-02-16] MEDS: RIVAROXABAN 10 MG TABLET PO (08:41)
[2023-02-16] MEDS: CELECOXIB 200 MG CAPSULE PO (08:41)
[2023-02-16] MEDS: GABAPENTIN 300 MG CAPSULE PO (08:41)
[2023-02-16] MEDS: SENNOSIDES 1 TAB TABLET 2 TAB PO (08:41)
--- NOTE | 2023-02-16 09:06 | PC.SOCIAL ---
Pt. is moving well and the plan is for pt. to discharge home with spouse support. No additional resources needed for discharge.
--- NOTE | 2023-02-16 11:51 | PM.ORPN ---
Subjective Subjective Date Seen: 02/16/23 Principal diagnosis: Status postop day 1, left total hip arthroplasty - anterior approach Interval history: Patient reports doing well. No acute events over night. Pain managed with scheduled and PRN medications, ice. DVT prophylaxis: Rivaroxaban, bilateral knee high Joseph stockings, SCDs, walking. Denies fevers, chills, aches, N/V, CP, SOB/WARD, or lightheadedness. Passing flatus. Ortho Exam Narrative Exam Narrative: -Patient appears comfortable in recliner; no apparent acute distress -Alert and oriented times 3 -Operative hip swollen; soft tissues supple; no obvious erythema. Ecchymosis minimal. Warmth appropriate -Surgical dressing clean, dry, intact; no obvious drainage, no erythematous streaking peripheral to the bandage -Bilateral calves soft and supple; no significant swelling, edema, tenderness, erythema, discoloration, warmth, or palpable cords -2+ DP/PT pulses, intact dermatomes and myotomes distally (5/5 strength). Mild numbness about the lateral femoral cutaneous nerve distribution. Const Vital Signs, click to edit/add: Vital Signs - 24 hr 02/15/23 12:01 02/15/23 15:00 02/15/23 15:05 Temperature 97.6 F Pulse Rate 55 L 59 L 56 L Pulse Rate [Left Pulse Oximeter] Respiratory Rate 16 13 12 Blood Pressure 116/76 107/69 102/67 Blood Pressure [Left Arm] Pulse Oximetry 98 98 98 Oxygen Delivery Method Nasal Cannula Room Air Room Air Oxygen Flow Rate 2 02/15/23 15:10 02/15/23 15:15 02/15/23 15:20 Temperature 97.0 F L Pulse Rate 56 L 55 L 54 L Pulse Rate [Left Pulse Oximeter] Respiratory Rate 12 16 15 Blood Pressure 102/67 120/75 123/74 Blood Pressure [Left Arm] Pulse Oximetry 98 98 100 Oxygen Delivery Method Room Air Room Air Room Air Oxygen Flow Rate 02/15/23 15:25 02/15/23 15:30 02/15/23 15:45 Temperature 97.7 F Pulse Rate 54 L 56 L Pulse Rate [Left Pulse Oximeter] 49 L Respiratory Rate 13 15 16 Blood Pressure 139/74 131/76 Blood Pressure [Left Arm] 139/75 Pulse Oximetry 100 100 100 Oxygen Delivery Method Room Air Room Air Room Air Oxygen Flow Rate 02/15/23 16:00 02/15/23 16:24 02/15/23 19:00 Temperature 96 F L 97.5 F L Pulse Rate 51 L Pulse Rate [Left Pulse Oximeter] 44 L 68 Respiratory Rate 16 16 20 Blood Pressure Blood Pressure [Left Arm] 148/65 H 133/77 151/82 H Pulse Oximetry 100 96 Oxygen Delivery Method Room Air Room Air Room Air Oxygen Flow Rate 02/15/23 23:00 02/16/23 03:00 02/16/23 07:00 Temperature 97.5 F L 97.5 F L 97.5 F L Pulse Rate Pulse Rate [Left Pulse Oximeter] 79 68 Respiratory Rate 16 16 18 Blood Pressure Blood Pressure [Left Arm] 132/79 111/77 130/74 Pulse Oximetry 96 96 99 Oxygen Delivery Method Room Air Room Air Room Air Oxygen Flow Rate 2 02/16/23 07:00 Temperature Pulse Rate Pulse Rate [Left Pulse Oximeter] 68 Respiratory Rate 18 Blood Pressure Blood Pressure [Left Arm] Pulse Oximetry Oxygen Delivery Method Oxygen Flow Rate Assessment and Plan Assessment and plan (1) Osteoarthritis of left hip: Problem details: severe Status: Chronic (2) Status post total left knee replacement: Problem details: POD 1 left total hip arthroplasty - anterior approach Status: Acute (3) NSAID long-term use: Status: Acute (4) Leucopenia: Problem details: mild lymphopenia, rouloux formation,UELP negative, SPEP ordered 11/2021 (not sent to correct lab) Status: Acute (5) Insomnia: Problem details: Well controlled with trazodone 100 mg daily Status: Chronic (6) Postoperative anemia due to acute blood loss: Problem details: Hemoglobin 10.6, asymptomatic Status: Acute Plan - Complete 23 hour perioperative antibiotics. - PT/OT consult for education and assistance. - Social work consult for discharge planning - Prescribed analgesics as needed - DVT prophylaxis: Rivaroxaban, bilateral knee high Joseph Hose stockings and SCDs - Anticipation is for discharge to home with spouse 02/16/2023 if the patient remains medically stable, pain is controlled, and they are safe with mobilization.
== END 2023-02-16 10:54 | disposition home or self-care (01) ==
LOC: OR 10:26 → MEDSURG 10:27
PROVIDERS: PCP Family Medicine; Visit Provider Orthopaedic Surgery Sports Medicine
PROC: (CPT 27130; principal; 2023-02-15 12:15)
DX: M16.12 Unilateral primary osteoarthritis, left hip (principal); D72.819 Decreased white blood cell count, unspecified; G47.00 Insomnia, unspecified; Z79.1 Long term (current) use of non-steroidal anti-inflammatories (NSAID); D62 Acute posthemorrhagic anemia; G89.18 Other acute postprocedural pain
CPT/HCPCS: 27130; 01214; 36415; 64450; 73501; 76000; 76942; 82565; 84132; 84295; 84520; 85025; 97110; 97116; 97161; 97165; A9270; C1776; J0690; J1100; J2250; J2371; J2405; J2704; J2795; J3010; J7120

== ENCOUNTER 2023-03-22 09:00 | Outpatient (RCR) | payer MEDICARE, BC, SELFPAY ==
--- NOTE | 2023-02-08 09:47 | PT.OPEX ---
PT [place] [facility] Eval PT [facility] Outpatient Eval Start: 02/08/23 08:41 Freq: Status: Active Protocol: Document 02/08/23 08:41 ENM (Rec: 02/08/23 09:42 ENM [id number]) E-signed By Tereza Ohara, DPT Physical Therapy Outpatient Evaluation Insurance Information Recert Due Date 05/03/23 Insurance Name Medicare B Medical Diagnosis presence of left artificial hip joint unilateral primary osteoarthritis, left hip s/p L HAMMAD 02/15/23 Treating Diagnosis decreased hip strength, left hip pain, Referring MD Christopher Subjective Subjective Patient presents to PT for pre -op appointment prior to L HAMMAD to be performed on 02/15/23 by . She had her left knee replaced about a year ago which went well. Had her right hip replaced about 17 years ago through a posterior approach, this hip feels weaker to her still. She does not have significant pain in her left hip but is starting to get some groin discomfort. She does a lot of walking to stay active. Also does some swimming and cares for her mother. For additional information on home set up see pre-op flowsheet. Pain Comments minimal discomfort Date of Surgery (If applicable) 02/15/23 Current Work Status Retired Preferred Name Darcie Objective Other/Pertinent Objective ROM L knee WNL R knee WNL hip flexion 120 B hip IR WFL hip ER WFL strength: 5xSTS 18.23s without use of arms hip flexors 4/5 B knee extensors 4+/5 B hip abductors L 3+/5 R 4-/5 hip extensor 4-/5 B gait/balance: no overt gait deviations, slightly less stance time on RLE throughout able to hold SLS x10s B with minimal instability palpation/joint mobility: no significant tenderness throughout hip musculature Assessment Assessment/Impression Patient is a 67 year old female presenting for pre op visit prior to L HAMMAD on DOS . Patient has a history for L knee replacement 1 year ago and R hip replacement 17+ years ago. The left hip is starting to cause more discomfort for her which is why she is having it replaced. Her will be available to provide support as needed. She has necessary assistive devices from previous surgeries. Upon assessment patient displays decreased hip ROM and decreased proximal hip strength. Weakness noted in bilateral glute max and med (R >L). Darcie will be seen post operatively to reassess impairments that will be addressed with skilled care. She would greatly benefit from skilled PT in order to progress strength, ROM and ambulation post operatively to perform all household and work duties without significant difficulty or discomfort for return to PLOF. Primary Functional Limitations able to perform everything but having groin discomfort now Plan of Care Rehabilitation Potential Good Physical Therapy Goals After pre-op visit: ? Patient will be independent with HEP ? Patient will verbalize knowledge of stair navigation and proper sequencing ? Patient will have knowledge on home adaptations and use of assistive devices post operatively ? Patient will have knowledge of edema management Coordination/Communication With Referral Source Treatment Plan/Direct Interventions Gait Training,Ice/Cold/ Vasopneumatic,Joint Mobilization,Manual Therapy, Neuromuscular Re-ed,Self-Care/ Home Management,Therapeutic Activities,Therapeutic Exercises Frequency/Duration 1x visit prior to surgery on . Patient scheduled to start outpatient PT s/p L HAMMAD on 02/22/23. Has HEP to start with pre-operatively. Anticipate post op frequency 1x a week for 4-6 visits Patient Will Be Discharged From Therapy Completion of LTG(s), Independent w/HEP Evaluation Billing Untimed Code Treatment Minutes 24 Complexity Low Certification Information Initial Certification Date 02/08/23 Ending Certification Date 05/03/23 Provider Signature Shows Agreement With POC & Medical Necessity Physician Signature & Date Requested Please Sign/Date Here Physician Comment/Change : Physician NPI Number #
--- NOTE | 2023-02-22 10:46 | PT.OPDNX ---
PT [place] Outpatient Daily Note PT [facility] Outpatient Daily Note Start: 02/08/23 08:41 Freq: Status: Active Protocol: Document 02/22/23 08:42 ENM (Rec: 02/22/23 09:55 ENM [id number]) E-signed By Tereza Ohara DPT PT OP Daily Progress Note Visit Information Note Type Re-Evaluation Visit Number 2 Insurance Information Recert Due Date 05/17/23 Insurance Name Medicare B Medical Diagnosis presence of left artificial hip joint unilateral primary osteoarthritis, left hip s/p L HAMMAD 02/15/23 Treating Diagnosis decreased hip strength, decreased hip ROM, left hip pain, impaired gait Referring MD Christopher Subjective Subjective Patient presents to PT for follow up after left hip replacement on 02/15/23. Patient states that things are going well. She hasn't really used the walker anymore and transitioned to a cane within a few days. Presents to the clinic without an AD today. She has taken 1 oxycodone a day but she is feeling like the pain is well managed with tylenol. She is sleeping through the night well. She has had no concerns with getting around at home or performing ADLs. Her exercises are going very well. Pain Comments minimal discomfort Preferred Name [place] Home Exercise Home Exercise Comments AP, QS, HS, GS, heel slides, standing hip abduction Objective Other/Pertinent Objective Knee ROM L knee WNL R knee WNL hip ROM able to achieve flex the hip to 90 degs strength: quad set good SLR able to complete without assist and with good form 5xSTS without use of arms 18. 61s gait/balance: Patient ambulating with no AD, decreased stance time of LLE and decreased stride length palpation/joint mobility: no tenderness to palpation along L mid to distal thigh musculature swelling/observation: suprapatellar swelling measurement R 42.5 cm L 43.8 cm bandaging still in place over the incision Patient Instructed in Risks/Benefits Yes Therapeutic Exercise Therapeutic Exercise Minutes (minutes) 25 Therapeutic Exercise: To Restore -QS 1x15 with 5s holds Functional Status -GS 1x15 with 5s holds -heel slides 1x15 -supine SAQ 1x12 B -standing hip abduction 2x10 B -standing heel raises 1x15 -standing 1x15 B -Nustep seat at 8 UE/LE level 2 x5 mins Gait & Stair Training Gait Training/Stairs Minutes (minutes) 3 Gait & Stair Training Comments -Ambulation without AD working on evening stance time of LLE x2 laps (200' each) Treatment Minutes Untimed Code Treatment Minutes 20 Timed Code Treatment Minutes 28 Total Treatment Time 48 Billing Units Therapeutic Exercise Units 2 Re-Evaluation Units 1 Assessment/Impression Assessment/Impression Patient returns to PT for evaluation after L HAMMAD DOS . Patient doing very well after surgery having minimal pain and navigating her home environment without an AD. She is able to transfer without needing UE support. Upon assessment patient presents with decreased hip ROM, impaired gait, decreased hip strength and swelling. Impairments consistent with s/ p L HAMMAD. Darcie would benefit from skilled PT to address impairments stated above to perform all functional and recreational activities without significant difficulty or discomfort for return to [facility] after surgery. Plan of Care Physical Therapy Goals In 4-6 visits, will be able to : 1. A/D flight of 10 steps reciprocally with symmetric WB for improved navigation of household 2. Stand/walk for at least 20 minutes without use of AD or report of increased Hip pain 3. Resume walk for exercise, gathering groceries and doing errands independently. 4. IND with HEP and self management of symptoms Daily Plan of Care Continue per POC Daily Plan of Care Comments Plan: progress standing exercises SLS LE machines Recertification Information Provider Signature Shows Agreement With POC & Medical Necessity
== END 2023-06-25 14:33 | disposition home or self-care (01) ==
PROVIDERS: PCP Family Medicine; Visit Provider Orthopaedic Surgery Sports Medicine
DX: M16.12 Unilateral primary osteoarthritis, left hip (principal); Z96.642 Presence of left artificial hip joint; Z51.89 Encounter for other specified aftercare
CPT/HCPCS: 97110; 97161; 97164

== ENCOUNTER 2023-06-25 07:42 | Outpatient (CLI) | payer MEDICARE, BC, SELFPAY | END 2023-06-25 07:43 | disposition home or self-care (01) | LOC: NFLDREF 21:18 | PROVIDERS: PCP Family Medicine; Referring Provider Family Medicine; Visit Provider Family Medicine | DX: Z79.1 Long term (current) use of non-steroidal anti-inflammatories (NSAID) (principal); D72.819 Decreased white blood cell count, unspecified; E78.5 Hyperlipidemia, unspecified; D64.9 Anemia, unspecified | CPT/HCPCS: 80053; 80061; 82607; 82728; 83540; 83550; 84165; 86334 ==

== ENCOUNTER 2023-07-30 08:07 | Outpatient (CLI) | payer MEDICARE, BC, SELFPAY ==
--- NOTE | 2023-07-30 08:15 | CRLHL7_ITS ---
For Patients: As a result of the Century Cures Act, medical imaging exams and procedure reports are released immediately into your electronic medical record. You may view this report before your referring provider. If you have questions, please contact your health care provider. Indication: RIGHT GROIN PAIN, PALPABLE LUMP Technique: Grayscale and color Doppler ultrasound of the right groin soft tissues performed. Comparison: None IMPRESSION: Targeted sonogram to the right inguinal soft tissues demonstrates a lobular heterogeneously hypoechoic mass measuring 5.5 x 2.7 x 5.5 cm. Small cystic areas are present within this mass. Surrounding vascularity noted. CT recommended with contrast for further evaluation. Differential diagnosis includes hematoma versus soft tissue mass. No drainable fluid collection. Dictated by Ant Rose MD @ 07/30/2023 9:40:36 AM (Electronically Signed)
== END 2023-07-30 08:08 | disposition home or self-care (01) ==
LOC: US 08:07
PROVIDERS: PCP Family Medicine; Visit Provider Surgery
DX: R22.41 Localized swelling, mass and lump, right lower limb
CPT/HCPCS: 76882

== ENCOUNTER 2023-08-12 07:46 | Outpatient (CLI) | payer MEDICARE, BC, SELFPAY ==
--- OUTSIDE RECORDS SUMMARY | 2023-08-12 07:49 | XMS_ITS | Clinical Summary ---
Author Name Unknown Organization Formerly [facility] Address [address] [place] [address] Care Team Providers Care Dining Car Server Name Role Phone Asia Millard MD Primary Care Provider Source Comments You are receiving this document as you are listed as the primary care provider,follow-up provider, or the patient has been referred to you for consultation.This is in compliance with the Medicare and[facility]ive [facility],which states Providers who transition their patient to another setting of careor provider of care or refers their patient to another provider of care shouldprovide summary care record for each transition of care or referral. [place] Allergies Active Allergy Reactions Criticality Noted Date Comments Other 02/02/1996 PN: LW Other1: -NKA Review Contrast Media 02/02/1996 PN: LW CM1: CONTRAST- NKA Reaction : Review Food Intolerance 04/25/2004 PN: LW FI1: NKA Medications Medication Sig Dispensed Refills Start Date End Date Status omega-3 fatty acids (AKA MAXEPA, FISH OIL) 1000 MG capsule daily (every 24 hours). LW Addl Instr:per pre op notes 0 03/09/2007 Active Multiple Vitamins-Minerals (MULTIVITAMIN OR) Take 1 tablet by mouth daily (every 24 hours). 100 13 11/28/2006 Active UNKNOWN MEDICATION Indications: PN: 0 10/10/2007 Active nabumetone (RELAFEN) 500 MG tablet Take 500 mg by mouth two times a day. 0 Active gabapentin (NEURONTIN) 300 MG capsule Take 300 mg by mouth three times a day. 0 Active estradiol (VIVELLEDOT) 0.05 MG/24HR biweekly patchIndications:Menop ausal symptoms Apply 1 Patch to skin two times a week. Indications: PN: 24 Patch 3 04/30/2016 Active celecoxib (CELEBREX) 200 MG capsule Take 200 mg by mouth two times a day. 0 Active atorvastatin (LIPITOR) 20 MG tablet Take 20 mg by mouth daily. 0 Active Active Problems Problem Noted Date Diagnosed Date Leiomyoma of uterus 01/16/2007 Overview: Leiomyoma Uterus Resolved Problems Problem Noted Date Diagnosed Date Resolved Date Lumbar radiculopathy 09/29/2017 018 Immunizations Name Administration Dates Next Due Flu Vac Preserv Free (3+yrs) 05/02/2011 Influenza IIV4 (Quadrivalent) 0.5mL (47785) 04/03,04/23/2015,03/02/2014 Family History Medical History Relation Name Comments [...] 2 (1 standard drink = 0.6 oz pur e alcohol) per week Sex and Gender Information Value Date Recorded Sex Assigned at Not on file Gender Identity Not on file Sexual Orientation Not on file Last Filed Vital Signs Vital Sign Reading Time Taken Comments Blood Pressure 134/78 04/29/2016 10:17 AM CDT Pulse 62 04/29/2016 10:17 AM CDT Temperature 37.1 ??C (98.8 ??F) 05/01/2007 1 1:50 AM CDT ORAL C: 37.1 C Respiratory Rate 16 05/01/2007 11:5 0 AM CDT Oxygen Saturation 98% 03/11/2007 4:0 5 PM CDT Inhaled Oxygen Concentration - - Weight 75.3 kg (166 lb) 04/29/2016 10:1 7 AM CDT Height 168.9 cm (5' 6.5) 04/29/2016 10 :17 AM CDT Body Mass Index 26.39 04/29/2016 10:17 AM CDT Plan of Treatment Health Maintenance Due Date Last Done Comments COVID-19 Vaccine (#1) 1955 Adult Preventive Visit 04/29/2017 04/29/2016 Mammogram 04/29/2017 04/29/2016, 04/03, 04/19/2014, Additional history exists Cholesterol 08/07/2021 08/07/2016, 04/03, 04/23/2015, Additional history exists Pneumococcal 65+ Yrs (1 - PCV) 2022 Influenza (#1) 2023 03/12/2020, 09/2018, 03/29/2019, Additional history exists Colonoscopy 05/11/2023 05/11/2013 DTaP/Tdap/Td (2 - Tdap) 02/23/2029 02/23/2019 Cervical Cancer Screening Discontinued 2015, 04/19/2014, 04/10/2013, Additional history exists Hep C Screening (Preventive Services) Completed 04/29/2016, 04/29/2016 Zoster/Shingles Completed 02/14/2019, 10/31, 04/10/2013 HepA Aged Out No longer eligi ble based on patient's age to complete this topic HepB Aged Out No longer eligi ble based on patient's age to complete this topic Hib Aged Out No longer eligi ble based on patient's age to complete this topic IPV (Polio) Aged Out No longer eligi ble based on patient's age to complete this topic MCV4 Aged Out No longer eligi ble based on patient's age to complete this topic Care Teams Dining Car Server Relationship Specialty Start Date End Date Asia Millard MD [address] [place] [id number] PCP - General Family Practice 09/23/17
--- OUTSIDE RECORDS SUMMARY | 2023-08-12 07:49 | XMS_ITS | Clinical Summary ---
Author Name Unknown Organization [facility] Address [place], [place] [address] Care Team Providers Care Radiological Technologist Name Role Phone Rich Gupta MD Primary Care Provider Unavailable Allergies No known active allergies Medications Medication Sig Dispensed Refills Start Date End Date Status gabapentin (NEURONTIN) 300 mg capsule Take 300 mg by mouth once daily. 0 Active multivitamin (MVI) tablet Take by mouth once daily. 0 11/28/2006 Active nabumetone (RELAFEN) 500 mg tablet Take 500 mg by mouth 2 times daily with meals. 0 Active fish oil-omega-3 fatty acids 300-1,000 mg once daily. 0 03/09/2007 Activ e Lactobacillus acidophilus (PROBIOTIC) 10 billion cell cap Take by mouth. 0 08/25/2016 A ctive atorvastatin (LIPITOR) 20 mg tabletIndications:Mixed hyperlipidemia Take 1 tablet by mouth once daily. 90 tablet 3 08/25/2016 Active Active Problems No known active problems Immunizations [...] Date Smoking Tobacco: Never Smokeless Tobacco: Never Tobacco Cessation:Counseling Given: No Alcohol Use Standard Drinks/Week Comments Yes 2 (1 standard drink = 0.6 oz pur e alcohol) Sex and Gender Information Value Date Recorded Sex Assigned at Not on file Gender Identity Not on file Sexual Orientation Not on file Obstetrics History Last Filed Vital Signs Vital Sign Reading Time Taken Comments Blood Pressure 137/85 08/25/2016 1:35 PM SENIOR JAVA SOFTWARE ENGINEER Pulse 70 08/25/2016 1:35 PM SENIOR JAVA SOFTWARE ENGINEER Temperature - - Respiratory Rate - - Oxygen Saturation - - Inhaled Oxygen Concentration - - Weight 76.2 kg (168 lb) 08/25/2016 1:35 PM SENIOR JAVA SOFTWARE ENGINEER Height 168.9 cm (5' 6.5) 08/25/2016 1:35 PM SENIOR JAVA SOFTWARE ENGINEER Body Mass Index 26.71 08/25/2016 1:35 PM SENIOR JAVA SOFTWARE ENGINEER Plan of Treatment Health Maintenance Due Date Last Done Comments COVID-19 vaccine series (#1) 1955 Tdap 02/10/1968 Hepatitis C screening for age 18-79 1975 Tetanus booster 1977 Zoster (shingles) series for age 50+ (2 of 3) 06/05/2013 04/10/2013 Mammogram for age 45-75 04/02/2017 04/02/20 16 (Completed outside of [facility]) BMI (ht and wt on same day) for age 18+ 08/25/2017 08/25/2016 Depression screening for age 12+ 08/25/2017 08/25/19 17 Lipids for age 45-75 01/18/2022 01/18/2017 DEXA/DXA scan for age 65+ 2022 Pneumococcal series for age 65+ (1 of 1 - PCV) 2022 Influenza for age 65+ 04/02/2023 04/29/2016 Colonoscopy through age 75 05/11/202305/11, 12/04/2012 (Completed outside of [facility]) Care Teams Radiological Technologist Relationship Specialty Start Date End Date Rich Gupta MD PCP - General Family Practice 03/23/16
--- NOTE | 2023-08-12 08:00 | CRLHL7_ITS ---
For Patients: As a result of the Century Cures Act, medical imaging exams and procedure reports are released immediately into your electronic medical record. You may view this report before your referring provider. If you have questions, please contact your health care provider. INDICATION: Right lower quadrant pain. Rule out mass, hernia. TECHNIQUE: Volumetric helical scanning of the abdomen and pelvis was performed with 80 cc of Isovue 370 contrast material IV. Coronal and sagittal reconstructions were obtained. COMPARISON: None. FINDINGS: On images 85-144 of series 2, a multilocular fluid collection involving the right iliopsoas musculature is demonstrated. A large component of this collection as high density, consistent with hematoma. This collection measures on the order of 19 x 5 x 5 cm. No hernia is evident. 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 The liver is normal in size, shape and attenuation. The bile ducts are within normal limits. The spleen, adrenal glands and pancreas are negative. The kidneys are unremarkable except for tiny parenchymal cysts bilaterally. The bowel is unremarkable except for colonic diverticulosis. A normal appendix is noted. No lymphadenopathy is evident. No free fluid is demonstrated. The lung bases are essentially clear, and heart size is normal. IMPRESSION: Roughly 19 x 5 x 5 cm right iliopsoas fluid collection with high density component, suggesting hematoma. High-density component could conceivably represent neoplasm as well. Follow up recommended. Please note that all CT scans at this facility use dose modulation, iterative reconstruction, and/or weight-based dosing when appropriate to reduce radiation dose to as low as reasonably achievable. Dictated by Chano Kaufman MD @ 08/13/2023 7:37:55 AM (Electronically Signed)
[2023-08-12 08:16] LABS: Creatinine* 0.6 mg/dL (0.5-1.5); Estimated Glomerular Filt Rate 99 ml/min
== END 2023-08-12 07:47 | disposition home or self-care (01) ==
LOC: CT 07:47
PROVIDERS: PCP Family Medicine; Visit Provider Surgery
DX: R10.31 Right lower quadrant pain (principal); R19.09 Other intra-abdominal and pelvic swelling, mass and lump
CPT/HCPCS: 36415; 74177; 82565; Q9967

== ENCOUNTER 2023-08-16 06:41 | Outpatient (CLI) | payer MEDICARE, BC, SELFPAY ==
--- OUTSIDE RECORDS SUMMARY | 2023-08-16 06:43 | XMS_ITS | Clinical Summary ---
Author Name Unknown Organization [facility] Address [place], [place] [address] Care Team Providers Care Electrical Engineering Professor Name Role Phone Rich Gupta MD Primary [...] Comments Blood Pressure 137/85 08/25/2016 1:35 PM ANALYTICAL CONSULTANT Pulse 70 08/25/2016 1:35 PM ANALYTICAL CONSULTANT Temperature - - Respiratory Rate - - Oxygen Saturation - - Inhaled Oxygen Concentration - - Weight 76.2 kg (168 lb) 08/25/2016 1:35 PM ANALYTICAL CONSULTANT Height 168.9 cm (5' 6.5) 08/25/2016 1:35 PM ANALYTICAL CONSULTANT Body Mass Index 26.71 08/25/2016 1:35 PM ANALYTICAL CONSULTANT Plan of Treatment Health Maintenance Due Date Last Done Comments COVID-19 vaccine series (#1) 1955 Tdap 02/10/1968 Hepatitis C screening for age 18-79 1975 Tetanus booster 1977 Zoster (shingles) series for age 50+ (2 of 3) 06/05/2013 04/10/2013 Mammogram for age 45-75 04/02/2017 04/02/20 16 (Completed outside of [facility]) BMI (ht and wt on same day) for age 18+ 08/25/2017 08/25/2016 Depression screening for age 12+ 08/25/2017 08/25/19 17 Lipids for age 45-75 01/18/2022 01/18/2017 DEXA/DXA scan for age 65+ 2022 Pneumococcal series for age 65+ (1 of 1 - PCV) 2022 Influenza for age 65+ 04/02/2023 04/29/2016 Colonoscopy through age 75 05/11/202305/11, 12/04/2012 (Completed outside of [facility]) Care Teams Electrical Engineering Professor Relationship Specialty Start Date End Date Rich Gupta MD PCP - General Family Practice 03/23/16
--- OUTSIDE RECORDS SUMMARY | 2023-08-16 06:43 | XMS_ITS | Clinical Summary ---
Author Name Unknown Organization [facility] Address [address] [place] [address] Care Team Providers Care High Value Associate Name Role Phone Asia Millard MD Primary Care Provider Source Comments You are receiving this document as you are listed as the primary care provider,follow-up provider, or the patient has been referred to you for consultation.This is in compliance with the Medicare and[facility] EHR Incentive Program,which states Providers who transition their patient to another setting of careor provider of care or refers their patient to another provider of care shouldprovide summary care record for each transition of care or referral. [place] Allergies Active Allergy Reactions Criticality Noted Date [...] Free (3+yrs) 05/02/2011 Influenza IIV4 (Quadrivalent) 0.5mL (61873) 04/03,04/23/2015,03/02/2014 Family History Medical History Relation Name [...] age to complete this topic Care Teams High Value Associate Relationship Specialty Start Date End Date Asia Millard MD [address] [place] [id number] PCP - General Family Practice 09/23/17
--- NOTE | 2023-08-16 07:48 | W.ANESCHARGE ---
Anesthesia Charges Start Date/Time Anesthesia Start Date: 08/16/23 Anesthesia Start Time: 07:17 Stop Date/Time Anesthesia Stop Date: 08/16/23 Anesthesia Stop Time: 07:50
--- NOTE | 2023-08-16 08:05 | W.ANESCHARGE ---
Anesthesia Charges Start Date/Time Anesthesia Start Date: 08/16/23 Anesthesia Start Time: 07:17 Stop Date/Time Anesthesia Stop Date: 08/16/23 Anesthesia Stop Time: 07:50
== END 2023-08-16 06:42 | disposition home or self-care (01) ==
PROVIDERS: PCP Family Medicine; Visit Provider Internal Medicine
DX: Z12.11 Encounter for screening for malignant neoplasm of colon (principal); K57.30 Diverticulosis of large intestine without perforation or abscess without bleeding
CPT/HCPCS: 00811; 00812; 45378; J2704

== ENCOUNTER 2023-08-25 07:55 | Outpatient (CLI) | payer MEDICARE, BC, SELFPAY ==
--- OUTSIDE RECORDS SUMMARY | 2023-08-25 08:04 | XMS_ITS | Clinical Summary ---
Author Name Unknown Organization [facility] Address [address] [place] [address] Care Team Providers Care Voltage Tester Name Role Phone Asia Millard MD Primary Care Provider Source Comments You are receiving this document as you are listed as the primary care provider,follow-up provider, or the patient has been referred to you for consultation.This is in compliance with the Medicare and[facility]ive [facility],which states Providers who transition their patient to another setting of careor provider of care or refers their patient to another provider of care shouldprovide summary care record for each transition of care or referral. [employer] Allergies Active Allergy Reactions Criticality Noted Date [...] Free (3+yrs) 05/02/2011 Influenza IIV4 (Quadrivalent) 0.5mL (50424) 04/03,04/23/2015,03/02/2014 Family History Medical History Relation Name [...] age to complete this topic Care Teams Voltage Tester Relationship Specialty Start Date End Date Asia Millard MD [address] [place] [id number] PCP - General Family Practice 09/23/17
--- OUTSIDE RECORDS SUMMARY | 2023-08-25 08:04 | XMS_ITS | Clinical Summary ---
Author Name Unknown Organization [facility] Address [place], [place] [address] Care Team Providers Care General Dentist Name Role Phone Rich Gupta MD Primary [...] Comments Blood Pressure 137/85 08/25/2016 1:35 PM CREDIT RESOLUTION REPRESENTATIVE Pulse 70 08/25/2016 1:35 PM CREDIT RESOLUTION REPRESENTATIVE Temperature - - Respiratory Rate - - Oxygen Saturation - - Inhaled Oxygen Concentration - - Weight 76.2 kg (168 lb) 08/25/2016 1:35 PM CREDIT RESOLUTION REPRESENTATIVE Height 168.9 cm (5' 6.5) 08/25/2016 1:35 PM CREDIT RESOLUTION REPRESENTATIVE Body Mass Index 26.71 08/25/2016 1:35 PM CREDIT RESOLUTION REPRESENTATIVE Plan of Treatment Health Maintenance Due Date Last Done Comments COVID-19 vaccine series (#1) 1955 Tdap 02/10/1968 Hepatitis C screening for age 18-79 1975 Tetanus booster 1977 Zoster (shingles) series for age 50+ (2 of 3) 06/05/2013 04/10/2013 Mammogram for age 45-75 04/02/2017 04/02/20 16 (Completed outside of [facility]) BMI (ht and wt on same day) for age 18+ 08/25/2017 08/25/2016 Depression screening for age 12+ 08/25/2017 08/25/19 17 Lipids for age 45-75 01/18/2022 01/18/2017 DEXA/DXA scan for age 65+ 2022 Pneumococcal series for age 65+ (1 of 1 - PCV) 2022 Influenza for age 65+ 04/02/2023 04/29/2016 Colonoscopy through age 75 05/11/202305/11, 12/04/2012 (Completed outside of [facility]) Care Teams General Dentist Relationship Specialty Start Date End Date Rich Gupta MD PCP - General Family Practice 03/23/16
--- NOTE | 2023-08-25 08:15 | CRLHL7_ITS ---
For Patients: As a result of the 21st Century Cures Act, medical imaging exams and procedure reports are released immediately into your electronic medical record. You may view this report before your referring provider. If you have questions, please contact your health care provider. EXAM: MRI OF THE PELVIS, WITHOUT AND WITH CONTRAST CLINICAL INDICATION: Pelvic pain. COMPARISON STUDIES: None. TECHNICAL: Axial, sagittal and coronal T1, PDFS and T2-weighted images of the entire pelvis. T1 weighted images fat saturation postcontrast. Contrast: Dotarem, 15 mL. FINDINGS: HIP JOINTS: Right: Right HAMMAD. There is an extensive amount fluid and soft tissue that is centered at the right hip joint and extends into the iliopsoas bursa and into the soft tissues laterally and posteriorly to the hip joint. There is heterogeneous fluid with soft tissue components that demonstrate both increased and decreased T1 signal and increased and decreased T2 signal. 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 The masslike extension is most prominent in the iliopsoas bursa region which extends up to 12 cm superior to the hip joint and measures up to 7.4 cm in width. Along the greater tuberosity and posterior to the hip joint the complex collection measures up to 10 cm CC by 7 cm AP x 8 cm RL. Small amount of osseous remodeling in the greater tuberosity. No findings to suggest hematoma or neoplasm. Left: Left HAMMAD. No joint effusion are juxta-articular fluid collections. No evidence for osteolysis or intramedullary edema. OSSEOUS STRUCTURES: No fracture, marrow edema or marrow replacement process. MUSCULOTENDINOUS STRUCTURES: Gluteus Minimus and Medius: No tendon tear or tendinopathy. Atrophy of the right gluteus minimus and medius musculature. Common Hamstrings: No tendon tear or tendinopathy. Adductors and Flexors: Tendons and visualized musculotendinous units are intact. No muscle atrophy, or edema. SOFT TISSUES: No subcutaneous edema, hematoma or fluid collection. OTHER JOINTS: Sacroiliac joints are maintained. Pubic symphysis is maintained. INTRAPELVIC CONTENTS: No mass, fluid collection or adenopathy. No inguinal hernia. NEUROVASCULAR STRUCTURES: No abnormality involving the visualized proximal femoral or proximal sciatic nerves. No aneurysmal dilation of the visualized distal aorta. IMPRESSION: 1. 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 Small amount of osseous volume loss in the right greater trochanter. No findings to suggest hematoma or sarcoma. 2. Atrophy of the right gluteus minimus and medius musculature. 3. Uncomplicated left HAMMAD. Dictated by Ryan Farley MD @ 08/26/2023 12:28:32 PM (Electronically Signed)
== END 2023-08-25 07:56 | disposition home or self-care (01) ==
LOC: MRI 07:56
PROVIDERS: PCP Family Medicine; Visit Provider Surgery
DX: C49.9 Malignant neoplasm of connective and soft tissue, unspecified (principal); M62.58 Muscle wasting and atrophy, not elsewhere classified, other site; R10.2 Pelvic and perineal pain
CPT/HCPCS: 72197; A9575

== ENCOUNTER 2023-11-03 08:43 | Outpatient (CLI) | payer MEDICARE, BC, SELFPAY ==
--- NOTE | 2023-11-03 08:45 | MM_ITS ---
Patient: MERCED ALTAMIRANO Facility:?[facility] Patient ID:?[id number] Site Patient ID:?[id number]. Site :?[id number] Study:?XRay-Breast Bilateral 3D W/CAD-11/03/2023 9:23:39 AM Ordering Physician:Asia Carr Final Report: BILATERAL SCREENING MAMMOGRAM WITH COMPUTER-AIDED DETECTION AND TOMOSYNTHESIS TECHNIQUE: CC and MLO views were obtained. These mammographic images have been obtained using full-field digital technique. These mammographic images were interpreted with the benefit of computer-aided detection. Breast Tomosynthesis was used in this interpretation. COMPARISON FILM: 09/03/22, 08/22/21, 07/16/20. FINDINGS: There are scattered areas of fibroglandular density. IMPRESSION: There is no radiographic evidence for malignancy. ASSESSMENT: BI-RADS Category 1: Negative RECOMMENDATION: Routine screening mammogram in 1 year. A lay language report of this examination will be provided to the patient. Ant Rose M.D. Diagnostic Radiologist [email or web address] DSM/sp R& Transcribed: 4:37 p.m. SP/Dictated by: Ant Rose MD @ 11/05/2023 12:06:00 PM Signed by:?Ant Rose MD @11/05/2023 4:40:10 PM (Electronic Signature)
== END 2023-11-03 08:44 | disposition home or self-care (01) ==
LOC: MAMMO 08:44
PROVIDERS: PCP Family Medicine; Visit Provider Family Medicine
DX: Z12.31 Encounter for screening mammogram for malignant neoplasm of breast (principal)
CPT/HCPCS: 77063; 77067

== ENCOUNTER 2023-12-13 07:55 | Outpatient (CLI) | payer MEDICARE, BC, SELFPAY ==
--- OUTSIDE RECORDS SUMMARY | 2023-12-28 11:33 | XMS_ITS | Continuity of Care Document ---
Author Organization [facility] Address [address] [place] [address] Phone Care Team Providers Care Railroad Baggage Porter Name Role Phone Rafael KELLEYBrooks Unavailable Unavailable Allergies, Adverse Reactions, Alerts Substance Reaction Status Criticality No Known Allergies Active No Inform ation Medications Medication Instructions Dosage Effective Dates (start - stop) Status Comments Celebrex 200 mg capsule take 1 capsule by oral route 2 times every day 200 MG - Active gabapentin 300 mg capsule take 1 capsule by oral route 3 times every day 300 MG - Active estradiol 0.025 mg/24 hr semiweekly transdermal patch apply 1 patch by transdermal route every week 1 patch - Active clobetasol 0.05 % scalp solution apply by topical route every day to the affected scalp area in the morning and evening as needed Not Available - Active Procedures Procedure Date Office/Outpatient Visit, Est Routine Venipuncture Complete Cbc WAuto Diff Wbc Assay Of Serum Albumin Assay Of Creatinine Transferase (Ast) (Sgot) Alanine Amino (Alt) (Sgpt) Office/Outpatient Visit, Est Routine Venipuncture Complete Cbc WAuto Diff Wbc Rbc Sed Rate, Nonautomated Assay Of Creatinine Lactate (Ld) (Ldh) Enzyme Transferase (Ast) (Sgot) Alanine Amino (Alt) (Sgpt) Bilirubin, Total Assay Of Ck (Cpk) CReactive Protein Office/Outpatient Visit, Est Routine Venipuncture Complete Cbc WAuto Diff Wbc Rbc Sed Rate, Nonautomated Assay Of Creatinine Transferase (Ast) (Sgot) Alanine Amino (Alt) (Sgpt) CReactive Protein Office/Outpatient Visit, Est Routine Venipuncture Complete Cbc WAuto Diff Wbc Assay Of Creatinine Transferase (Ast) (Sgot) Alanine Amino (Alt) (Sgpt) Office/Outpatient Visit, Est Routine Venipuncture Complete Cbc WAuto Diff Wbc Assay Of Serum Albumin Assay Of Creatinine Transferase (Ast) (Sgot) Alanine Amino (Alt) (Sgpt) Office/Outpatient Visit, New Advance Directives Directive Yes / No Effective Date File Name No Information Encounters Encounter Description Practice Location Reason(s) For Visit Diagnoses Date Provider Providers Copied on Encounter [facility] , [address], [place], [address], [place] tel:[phone] [facility] , No Information 1 Rafael Guy. [facility] [address], [place], [address], [place]. tel:[phone] Office/Outpa tient Visit, Est [facility] , [address], [place], [address], [place] tel:[phone] [facility] , Osteoarthrit is (chief complaint)ch ronic NSAID therapy (chief complaint)DJ D of spine (chief complaint) PsoriasisPri nayeli generalized (osteo)arthr itisRadiculo joe, lumbar regionAbnorm al result of liver function studyLong term (current) use of non-steroida l anti-inflamm atories (NSAID) 9 Frannie Benton. [facility] [address], [place], [address], [place]. tel:[phone] Referring Provider: Serenity Bailey, [facility] [address], [place], [address]. tel:[phone] Office/Outpa tient Visit, Est [facility] , [address], [place], [address], [place] tel:[phone] [facility] , Osteoarthrit is (chief complaint)ch ronic NSAID therapy (chief complaint)DJ D of spine (chief complaint) PsoriasisPri nayeli generalized (osteo)arthr itisRadiculo joe, lumbar regionLong term (current) use of non-steroida l anti-inflamm atories (NSAID)Abnor mal result of liver function study 8 Frannie Benton. [facility] [address], [place], [address], [place]. tel:[phone] Referring Provider: Serenity Bailey, [facility] [address], [place], [address]. tel:[phone] Office/Outpa tient Visit, Est [facility] , [address], [place], [address], [place] tel:[phone] [facility] , Osteoarthrit is (chief complaint)Blanca int Pain (chief complaint)ps oriasis (chief complaint)ch ronic NSAID therapy (chief complaint) PsoriasisPri nayeli generalized (osteo)arthr itisPain in jointLong term (current) use of non-steroida l anti-inflamm atories (NSAID)Radic ulopathy, lumbar region 8 Frannie Benton. [facility] [address], [place], [address], [place]. tel:[phone] Referring Provider: Serenity Bailey, [facility] [address], [place], [address]. tel:[phone] Office/Outpa tient Visit, Est [facility] , [address], [place], [address], [place] tel:[phone] [facility] , Joint Pain (chief complaint)Os teoarthritis (chief complaint) PsoriasisPri nayeli generalized (osteo)arthr itisPain in jointLong term (current) use of non-steroida l anti-inflamm atories (NSAID) 7 Frannie Benton. [facility] [address], [place], [address], [place]. tel:[phone] Referring Provider: Serenity Bailey, [facility] [address], [place], [address]. tel:[phone] Office/Outpa tient Visit, Est [facility] , [address], [place], [address], [place] tel:[phone] [facility] , Osteoarthrit is (chief complaint)ch ronic NSAID therapy (chief complaint) PsoriasisPri nayeli generalized (osteo)arthr itisPain in jointLong term (current) use of non-steroida l anti-inflamm atories (NSAID) 6 Frannie Benton. [facility] [address], [place], [address], [place]. tel:[phone] Referring Provider: Serenity Bailey, [facility] [address], [place], [address]. tel:[phone] Office/Outpa tient Visit, New [facility] , [address], [place], [address], [place] tel:[phone] [facility] , Joint Pain (chief complaint)ps oriasis (chief complaint) Pain in jointPsorias isPrimary generalized (osteo)arthr itis 6 Frannie Benton. [facility] [address], [place], [address], [place]. tel:[phone] Referring Provider: Serenity Bailey, [facility] [address], [place], [address]. tel:[phone] Family History Family Member Type Diagnosis Age At Onset Mother Problem (finding) hypertension Father Problem (finding) Arthritis Sister Problem (finding) Diabetes mellitus Sister Problem (finding) Arthritis Mother Problem (finding) Arthritis Mother Problem (finding) Diabetes mellitus Payers Payer name Insurance type Covered green party ID Authoriza tion(s) [facility] CI [id number] Social History Type Description Quantity Date Captured Comments Sex Female Smoking Status No Information Chief Complaint And Reason For Visit No Information Reason For Referral Reason For Referral No Information History Of Present Illness Encounter Date Complaint History Of Prese nt Illness Osteoarthritis chronic NSAID therapy DJD of spine Osteoarthritis chronic NSAID therapy DJD of spine Osteoarthritis Joint Pain psoriasis chronic NSAID therapy Joint Pain Osteoarthritis Osteoarthritis chronic NSAID therapy Joint Pain psoriasis Functional Status Date Functional Assessmen t No Information Instructions Date Instruction Additional Infor matlorene celebrexrtc: 6 months Related to Primary generalized (osteo)arthritis f/u with dermatology Related to Psoriasis exercise, weight loss, ongoing m onitoring Related to Abnormal result of liver function study Continue gabapentin and Celebrex Related to Radiculopathy, lumbar region celebrexrtc: 6 months Related to Primary generalized (osteo)arthritis f/u with dermatology Related to Psoriasis Continue gabapentin and Celebrex Related to Radiculopathy, lumbar region see PCP regarding elevated liver testing. Related to Abnormal result of liver function study ongoing conservative therapy Rel ated to Pain in joint stop nabumeton start celebrex xray handsrtc: 6 months Related to Primary generalized (osteo)arthritis f/u with dermatology Related to Psoriasis ongoing conservative therapynabu metone Related to Pain in joint continue nabumetone Related to P rimary generalized (osteo)arthritis f/u with dermatology Related to Psoriasis continue nabumetone Related to P rimary generalized (osteo)arthritis ongoing conservative therapynabu metone Related to Pain in joint f/u with dermatology Related to Psoriasis ongoing conservative therapynabumetonevoltaren gel Related to Pain in joint f/u with dermatology Related to Psoriasis Assessments Type Assessment Date No Information Patient Care Teams Name Effective Dates (start - stop) Status Members No Information
--- OUTSIDE RECORDS SUMMARY | 2023-12-28 11:33 | XMS_ITS | Continuity of Care Document ---
Author Organization [facility] Address [address] [place] [address] Phone Care Team Providers Care Signal Maintainer Name Role Phone Wagner Hernandez MD Unavailable Unavailable Allergies, Adverse Reactions, Alerts Substance Reaction Status Criticality No Known Drug Allergies Active No I nformation Medications Medication Instructions Dosage Effective Dates (start - stop) Status Comments estradiol 0.05 mg/24 hr semiweekly transdermal patch - Active clobetasol 0.05 % topical ointment - Active ibuprofen 200 mg tablet - Active Pt takes 1200-1600mg per day PROBIOTIC (unknown strength) Not Available - Active OMEGA-3 ORAL - Active Biofreeze (menthol) 4 % topical gel as needed - Active Salonpas adhesive patch as needed - Active Aspercreme (lidocaine) 4 % topical as needed - Active Neurontin 300 mg capsule take 1 capsule by oral route at bedtime - No Longer Active Neurontin 100 mg capsule take 1-3 capsules by oral route every day at bedtime - No Longer Active Procedures Procedure Date Arthrocentesis/aspir/inj; Maadlyn 16 Fluoro Guidance - NonSpine Arthrocentesis/aspir/inj; Madalyn 16 Fluoro Guidance - NonSpine Inject Joint Large Fluoro Needle NonSpine Inj Anes Epidur; Lumb/sac 1 Le 16 Inj Anes Epidur; Lumb/sac 1 Le 16 Est Pt Eval 15 Min New Pt Eval 45 Min Advance Directives Directive Yes / No Effective Date File Name No Information Encounters Encounter Description Practice Location Reason(s) For Visit Diagnoses Date Provider Providers Copied on Encounter CORRINE Hagen, [address] [facility] [address], [place], [place], [id number], [place] tel:[phone] [facility] No Information 6 David Edward. [address], [facility], [place], [address], [place]. tel:[phone] Referring Provider: Wagner Mora, [address] [facility] , [place], [address]. tel:[phone] [facility], [address] [facility], [facility] [address], [place], [address], [place] tel:[phone] [facility] Pain in left kneeOther intervertebral disc degeneration, lumbar regionRadiculop athy, lumbosacral region 6 David Edward. [address], [facility], [place], [address], [place]. tel:[phone] Referring Provider: Wagner Mora, [address] [facility] , [place], [address]. tel:[phone] [facility], [address] [facility] [address], [place], [place], [address], [place] tel:[phone] [facility] No Information 6 David Edward. [address], [facility], [place], [address], [place]. tel:[phone] Referring Provider: Wagner Mora, [address] [facility] , [place], [address]. tel:[phone] [facility], [address] [facility] [address], [place], [place], [address], [place] tel:[phone] [facility] Other intervertebral disc degeneration, lumbar regionRadiculop athy, lumbosacral region Vinod-2 1-201 6 Long Wagner. [address], [facility], [place], [address], [place]. tel:[phone] Referring Provider: Wagner Mora, [address] [facility] , [place], [address]. tel:[phone] [facility], [address], [place], [place], [address], [place] tel:[phone] [facility] Other intervertebral disc degeneration, lumbar regionRadiculop athy, lumbosacral region Mar-2 4- 6 Long Wagner. [address], [facility], [place], [address], [place]. tel:[phone] Referring Provider: Wagner Mora, [address] [facility] , [place], [address]. tel:[phone] Est Pt Eval 15 Min [facility], [address], [place], [place], [address], [place] tel:[phone] [facility] Radiculopathy, lumbosacral regionOther intervertebral disc degeneration, lumbar region Mar-1 7- 6 Long Wagner. [address], [facility], [place], [address], [place]. [phone] Referring Provider: Wagner Mora, [address] [facility] , [place], [address]. tel:[phone] New Pt Eval 45 Min [facility], [address], [place], [place], [address], [place] tel:[phone] [facility] Radiculopathy, lumbosacral regionOther intervertebral disc degeneration, lumbar region Mar-0 3-201 6 Long Wagner. [address], [facility], [place], [address], [place]. tel:[phone] Referring Provider: Wagner Mora, [address] [facility] , [place], [address]. tel:[phone] Family History Family Member Type Diagnosis Age At Onset Mother Problem (finding) neuropathy Sister Problem (finding) diabetes melli tus in first degree relative Mother Problem (finding) diabetes melli tus in first degree relative Mother Problem (finding) hypertension Payers Payer name Insurance type Covered alliance party ID Blaine richard(s) [employer] [facility] [employer] CI [id number] Social History Type Description Quantity Date Captured Comments Sex Female Smoking Status No Information Chief Complaint And Reason For Visit No Information Reason For Referral Reason For Referral No Information Plan Of Treatment Date Type Action Status Future Order: Radiology Order X- RAY - Knee ([id number]), Ordered on: Ordered Future Order: Radiology Order MR I - Lumbar Spine W/O Contrast ([id number]), Ordered on: Ordered History Of Present Illness Encounter Date Complaint History Of Prese nt Illness No Information Functional Status Date Functional Assessmen t No Information Instructions Date Instruction Additional Infor mation No Information Assessments Type Assessment Date No Information Patient Care Teams Name Effective Dates (start - stop) Status Members No Information
--- OUTSIDE RECORDS SUMMARY | 2023-12-28 11:34 | XMS_ITS | Encounter Summary ---
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 [address] [facility] Referral ID Status Reason Start Date Expiration Date Visits Re quested Visits Authorized [id number] Closed 09/02/2023 09/01/2024 1 1 Encounter Details Date Type Department Care Team (Latest Contact Info) Description 09/27/2023 8:10 AM SENIOR HEALTH PHYSICS TECHNICIAN - 09/27/2023 11:36 AM SENIOR HEALTH PHYSICS TECHNICIAN Hospital Encounter Department of Radiology, [facility], in [place], [place] [address] [place] [address] Cammy Motley P.A.-C., M.S. 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 No 09/23/2023 Exercise Vital Sign Answer Date Recorde d On average, how many days pe r week do you engage in moderate to strenuous exercise (like a brisk walk)? 0 days 09/23/2023 On average, how many minutes do you engage in exercise at this level? 0 min 09/23/2023 Hunger Vital Sign Answer Date Recorded Within the past 12 months, y ou worried that your food would run out before you got the money to buy more. Never true 09/23/19 Within the past 12 months, t he food you bought just didn't last and you didn't have money to get more. Never true 09/23/2023 PRAPARE - Transportation Answer Date Re corded In the past 12 months, has l ack of transportation kept you from medical appointments or from getting medications? No 09/03 In the past 12 months, has l ack of transportation kept you from meetings, work, or from getting things needed for daily living? No 09/23/2023 Nutrition Answer Date Recorded Nutrition: EVOO Fat Source Unknown 09/23 On average, how many serving s of fruits and vegetables do you eat per day (serving size is equal to 1 cup or approximately the size of a tennis ball)? 3-5 09/23/2023 Dental Answer Date Recorded Dental: Regular Dentist Yes 09/23/19 Employment Answer Date Recorded Employment status Retired 09/23/2023 Housing Stability Answer Date Recorded What is your living situation today? I have a [facility] place to live 09/23/2023 Sex and Gender Information Value Date Recorded Sex Assigned at Female 09/23/2023 1:22 PM SENIOR HEALTH PHYSICS TECHNICIAN Gender Identity Female 09/23/2023 1:22 PM SENIOR HEALTH PHYSICS TECHNICIAN Sexual Orientation Straight 09/23/2023 1: 22 PM SENIOR HEALTH PHYSICS TECHNICIAN documented as of this encounter Medications at Time of Discharge Medication Sig Dispensed Refills Start Date End Date amoxicillin (AMOXIL) 500 mg capsule 2000 MG (4 X 500 MG) ORALLY ONCE TAKE 4 CAPSULES (2000MG) 1 HOUR PRIOR TO DENTAL APPOINTMENT. 08/18/2023 celecoxib (CeleBREX) 200 mg capsule Take 200 mg by mouth. 08/02/2015 cholecalciferol (Vitamin D3) 50 mcg (2,000 Unit) tablet Take 50 mcg by mouth daily. gabapentin (NEURONTIN) 300 mg capsule Take 300 mg by mouth 3 (three) times a day. omega-3 fatty acids-fish oil 300-1,000 mg per capsule daily. 03/09/2007 traZODone (DESYREL) 100 mg tablet Take 100 mg by mouth at bedtime as needed. 04/02/2021 UNABLE TO FIND Take 100 each by mouth daily as needed (100 mg daily as needed for pain). Med Name: CBD capsule documented as of this encounter Plan of Treatment Upcoming Encounters Date Type Department Care Team (Latest Contact Info) Description 01/19/2024 11:00 AM CDT Telemedicine Department of Patient Education in [address] [phone] Cammy Motley P.A.-C., M.S. [address] [place] [phone] 01/21/2024 11:15 AM CDT Clinical Communication Virtual Review in [place], [place] [address] [place] [address] 01/24/2024 6:45 AM CDT Appointment Department of Radiology, [facility], in [address] [phone] SadCammy jay P.A.-C., M.S. [address] [place] [phone] 01/24/2024 7:50 AM CDT Appointment Department of Laboratory Medicine and Pathology, [facility] in [place], [place] [address] [place] [address] Cammy Motley P.A.-C., M.S. [address] [place] [phone] 01/24/2024 9:15 AM CDT Appointment Department of Radiology, [facility] in [place], [place] [address] [place] [address] Cammy Motley P.A.-C., M.S. [address] [place] [phone] 01/24/2024 10:15 AM CDT Office Visit Department of Orthopedic Surgery in [place], [place] [address] [place] [phone] Marciano Matos M.D. [address] [place] [phone] 01/24/2024 1:30 PM CDT Comprehensive Visit Preoperative Evaluation Center in [place], [place] [address] [place] [phone] Cammy Motley P.A.-C., M.S. [address] [place] [phone] 01/25/2024 11:15 AM CDT Office Visit Department of Orthopedic Surgery in [place], [place] [address] [place] [phone] Aaron Martinez M.D. [address] [place] [phone] 01/25/2024 1:00 PM CDT Comprehensive Visit Department of Sports Medicine in [place], [place] [address] [place] [phone] Cammy Motley P.A.-C., M.S. [address] [place] [phone] Jericho Cruz P.T., D.P.T., [facility] [address] [place] [phone] 01/27/2024 6:45 AM CDT Hospital Encounter Outpatient Surgery Unit in [place], [place] [address] [place] [phone] Marciano Matos M.D. [address] [place] [phone] 01/27/2024 6:45 AM CDT - 01/27/2024 10:27 AM CDT Surgery [facility] [address] [place] [address] Marciano Matos M.D. 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 Total Hip Arthroplasty Initial Right (HCC) Preoperative Exam 01/27/2024 6:45 AM CDT documented as of this encounter Procedures Procedure Name Priority Date/Time Associated Diagnosis Comments DX HIP TO ANKLE STANDING RAD - Routine (most inpatients and all outpatients) 09/27/2023 9:50 AM SENIOR HEALTH PHYSICS TECHNICIAN 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 Full length view of both lower extremities obtained for orthopedic measurement purposes. Narrative 09/27/2023 10:13 AM SENIOR HEALTH PHYSICS TECHNICIAN EXAM: ??DX HIP AND PELVIS RIGHT 2-3 VIEWS, DX HIP TO ANKLE STANDING Procedure Note Adan Singleton M.D. 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 Partiallyseen left HAMMAD and TKA. Full length view of both lower extremities obtainedfor orthopedic measurement purposes. Cammy Motley P.A.-C., M.S. 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
--- OUTSIDE RECORDS SUMMARY | 2023-12-28 11:34 | XMS_ITS | Encounter Summary ---
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 [address] [place] [phone] Appointment (Brace fitting) Social History Tobacco Use Types Packs/Day Years Used Date Smoking Tobacco: Never Smokeless Tobacco: Never [facility] Utilities Answer Date Recorded In the past [address] [facility] [employer], gas, oil, or water [employer] threatened to shut off services in your [...] money to buy more. Never true 09/23/19 24 Within the past 12 months, t he [...] your living situation today? I have a [facility] place to live 09/23/2023 Sex and Gender Information Value Date Recorded Sex Assigned at Female 09/23/2023 1:22 PM CLAIMS COLLECTOR Gender Identity Female 09/23/2023 1:22 PM CLAIMS COLLECTOR Sexual Orientation Straight 09/23/2023 1: 22 PM CLAIMS COLLECTOR documented as of this encounter Plan of Treatment Upcoming Encounters Date Type Department Care Team (Latest Contact Info) Description 01/19/2024 11:00 AM CDT Telemedicine Department of Patient Education in [address] [phone] Cammy Motley P.A.-C., M.S. [address] [place] [phone] 01/21/2024 11:15 AM CDT Clinical Communication Virtual Review in [place], [place] [address] [place] [phone] 01/24/2024 6:45 AM CDT Appointment Department of Radiology, [facility], in [place], [place] [address] [place] [phone] Cammy Motley P.A.-C., M.S. [address] [place] [phone] 01/24/2024 7:50 AM CDT Appointment Department of Laboratory Medicine and Pathology, [facility] in [place], [place] [address] [place] [phone] Cammy Motley P.A.-C., M.S. [address] [place] [phone] 01/24/2024 9:15 AM CDT Appointment Department of Radiology, [facility] in [place], [place] [address] [place] [address] Cammy Motley P.A.-C., M.S. [address] [place] [phone] 01/24/2024 10:15 AM CDT Office Visit Department of Orthopedic Surgery in [place], [place] [address] [place] [phone] Marciano Matos M.D. [address] [place] [phone] 01/24/2024 1:30 PM CDT Comprehensive Visit Preoperative Evaluation Center in [place], [place] [address] [place] [phone] Cammy Motley P.A.-C., M.S. [address] [place] [phone] 01/25/2024 11:15 AM CDT Office Visit Department of Orthopedic Surgery in [place], [place] [address] [place] [phone] Aaron Martinez M.D. [address] [place] [phone] 01/25/2024 1:00 PM CDT Comprehensive Visit Department of Sports Medicine in [place], [place] [address] [place] [phone] Cammy Motley P.A.-Jennifer., M.S. [address] [place] [phone] Jericho Cruz P.T., D.P.T., [facility] [address] [place] [phone] 01/27/2024 6:45 AM CDT Hospital Encounter Outpatient Surgery Unit in [place], [place] [address] [place] [address] Marciano Matos M.D. [address] [place] [phone] 01/27/2024 6:45 AM CDT - 01/27/2024 10:27 AM CDT Surgery [facility] MAIN OR [address] [place] [address] Marciano Matos M.D. [address] [place] [phone] ARTHROPLASTY REVISION HIP Scheduled Procedures Name Priority [...] AM CDT documented as of this encounter Visit Diagnoses Not on filedocumented in this encounter
--- OUTSIDE RECORDS SUMMARY | 2023-12-28 11:34 | XMS_ITS | Encounter Summary ---
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 [address] [place] [address] [facility] Referral ID Status Reason Start Date Expiration Date Visits Re quested Visits Authorized [id number] Closed 09/02/2023 09/01/2024 1 1 Encounter Details Date Type Department Care Team (Latest Contact Info) Description 09/27/2023 8:10 AM DIGITAL MARKETING LEAD - 09/27/2023 11:36 AM DIGITAL MARKETING LEAD Hospital Encounter Department of Radiology, [facility], in [place], [place] [address] [place] [address] Cammy Motley P.A.-C., M.S. 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 I have a [facility] place to live 09/23/2023 Sex and Gender Information Value Date Recorded Sex Assigned at Female 09/23/2023 1:22 PM DIGITAL MARKETING LEAD Gender Identity Female 09/23/2023 1:22 PM DIGITAL MARKETING LEAD Sexual Orientation Straight 09/23/2023 1: 22 PM DIGITAL MARKETING LEAD documented as of this encounter Medications at [...] CDT Telemedicine Department of Patient Education in [place], [place] [address] [place] [phone] Cammy Motley P.A.-C., M.S. [address] [place] [phone] 01/21/2024 11:15 AM CDT Clinical Communication Virtual Review in [place], [place] [address] [place] [address] 01/24/2024 6:45 AM CDT Appointment Department of Radiology, [facility], in [place], [place] [address] [place] [phone] Cammy Motley P.A.-C., M.S. [address] [place] [phone] 01/24/2024 7:50 AM CDT Appointment Department of Laboratory Medicine and Pathology, [facility] in [place], [place] [address] [place] [phone] Cammy Motley P.A.-C., M.S. [address] [place] [phone] 01/24/2024 9:15 AM CDT Appointment Department of Radiology, [facility] in [place], [place] [address] [place] [phone] Cammy Motley P.A.-C., M.S. [address] [place] [phone] 01/24/2024 10:15 AM CDT Office Visit Department of Orthopedic Surgery in [place], [place] [address] [place] [phone] Marciano Matos M.D. [address] [place] [phone] 01/24/2024 1:30 PM CDT Comprehensive Visit Preoperative Evaluation Center in [place], [place] [address] [place] [phone] Cammy Motley P.A.-C., M.S. [address] [place] [phone] 01/25/2024 11:15 AM CDT Office Visit Department of Orthopedic Surgery in [place], [place] [address] [place] [phone] Aaron Martinez M.D. [address] [place] [phone] 01/25/2024 1:00 PM CDT Comprehensive Visit Department of Sports Medicine in [place], [place] [address] [place] [phone] Cammy Motley P.A.-C., M.S. [address] [place] [phone] Jericho Cruz PGeorgiana, D.P.T., [facility] [address] [place] [phone] 01/27/2024 6:45 AM CDT Hospital Encounter Outpatient Surgery Unit in [place], [place] [address] [place] [phone] Marciano Matos M.D. [address] [place] [phone] 01/27/2024 6:45 AM CDT - 01/27/2024 10:27 AM CDT Surgery [facility] OR [address] [place] [phone] Marciano Matos M.D. 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 Full length view of both lower extremities obtained for orthopedic measurement purposes. Narrative 09/27/2023 10:13 AM DIGITAL MARKETING LEAD EXAM: ??DX HIP AND PELVIS RIGHT 2-3 [...]
--- OUTSIDE RECORDS SUMMARY | 2023-12-28 11:34 | XMS_ITS | Referral Summary ---
Author Organization [facility] Address [address] [place] [address] Care Team Providers Care Clam Grower Name Role Phone Unavailable Primary Care Provider Unavailabl e Source Comments Patient records contain information from all sites at [facility]. For routine questions regarding patient records, call [phone] during business hours, M-F 8:00 AM - 5:00 PM Central Time. Record requests for emergency care only can be directed to [phone] at any time.[facility] Encounters Date Type Department Care Team Description 11/15/2023 Clinical Communication Department of Orthopedic Surgery in [place], [place] [address] [place] [phone] Aaron Martinez M.D. Appointment (Brace fitting) 10/15/2023 Clinical Communication Department of Orthopedic Surgery in [place], [place] [address] [place] [phone] Marciano Matos M.D. Surgical Scheduling 09/29/2023 8:[address]ING GUARD Procedure visit Department of Orthopedic Surgery in [place], [place] [address] [place] [phone] Richard Escobar M.D. 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 (HCC) from Last 3 Months Allergies No known active allergies Medications Medication Sig Dispensed Refills Start Date End Date Status traZODone (DESYREL) 100 mg tablet Take 100 mg by mouth at bedtime as needed. 04/02/2021 Active omega-3 fatty acids-fish oil 300-1,000 mg per capsule daily. 03/09/2007 Active gabapentin (NEURONTIN) 300 mg capsule Take 300 mg by mouth 3 (three) times a day. Active celecoxib (CeleBREX) 200 mg capsule Take 200 mg by mouth. 08/02/2015 Active amoxicillin (AMOXIL) 500 mg capsule 2000 MG (4 X 500 MG) ORALLY ONCE TAKE 4 CAPSULES (2000MG) 1 HOUR PRIOR TO DENTAL APPOINTMENT. 08/18/2023 Active cholecalciferol (Vitamin D3) 50 mcg (2,000 Unit) tablet Take 50 mcg by mouth daily. Active UNABLE TO FIND Take 100 each by mouth daily as needed (100 mg daily as needed for pain). Med Name: CBD capsule Active Active Problems Problem Noted Date Diagnosed Date Infection And Inflammatory R eaction Due To Internal Right Hip Prosthesis Initial 11/12/2023 Complication Mechanical Pros thetic Joint Total Hip Arthroplasty Initial Right 11/12/2023 Preoperative Exam 11/12/2023 Social History Tobacco Use Types Packs/Day Years Used Date Smoking Tobacco: Never Smokeless Tobacco: Never Tobacco Cessation:Counseling Given: Not Answered [facility] Utilities Answer Date Recorded In the past 12 months has th e Mi[employer], gas, oil, or water zulily threatened to shut off services in your [...] your living situation today? I have a [facility] place to live 09/23/2023 Sex and Gender Information Value Date Recorded Sex Assigned at Female 09/23/2023 1:[address]OSS[address] GUARD Gender Identity Female 09/23/2023 1:[address] CROSSING GUARD Sexual Orientation Straight 09/23/2023 1: [address] CROSSING GUARD Plan of Treatment Upcoming Encounters Date Type Department Care Team (Latest Contact Info) Description 01/19/2024 11:00 AM CDT Telemedicine Department of Patient Education in [address] [phone] Cammy Motley P.A.-C., M.S. [address] [place] [phone] 01/21/2024 11:15 AM CDT Clinical Communication Virtual Review in [place], [place] 200 [place] [phone] 01/24/2024 6:45 AM CDT Appointment Department of Radiology, [facility] in [address] [phone] Cammy Motley P.A.-C., M.S. [address] [place] [phone] 01/24/2024 7:50 AM CDT Appointment Department of Laboratory Medicine and Pathology, [facility] in [place], [place] [address] [place] [phone] Cammy Motley P.A.-C., M.S. [address] [place] [phone] 01/24/2024 9:15 AM CDT Appointment Department of Radiology, [facility], in [place], [place] [address] [place] [phone] Cammy Motley P.A.-C., M.S. [address] [place] [phone] 01/24/2024 10:15 AM CDT Office Visit Department of Orthopedic Surgery in [place], [place] [address] [place] [phone] Marciano Matos M.D. [address] [place] [phone] 01/24/2024 1:30 PM CDT Comprehensive Visit Preoperative Evaluation Center in [address] [phone] Cammy Motley P.A.-C., M.S. [address] [place] [phone] 01/25/2024 11:15 AM CDT Office Visit Department of Orthopedic Surgery in [address] [phone] Aaron Martinez M.D. [address] [place] [phone] 01/25/2024 1:00 PM CDT Comprehensive Visit Department of Sports Medicine in [address] [phone] Cammy Motley P.A.-C., M.S. [address] [place] [phone] Jericho Cruz PSaeed., D.P.T., [facility] [address] [place] [phone] 01/27/2024 6:45 AM CDT Hospital Encounter Outpatient Surgery Unit in [place], [place] [address] [place] [address] Marciano Matos M.D. [address] [place] [phone] 01/27/2024 6:45 AM CDT - 01/27/2024 10:27 AM CDT Surgery [facility] [address] [place] [phone] Marciano Matos M.D. [address] [place] [phone] ARTHROPLASTY REVISION HIP Scheduled Procedures Name Priority [...] (HCC) Preoperative Exam 01/27/2024 6:45 AM CDT Medical Devices Implanted Type Area Floating Operator Device Identifier Shelf Expiration Date Model / Serial / Lot Hip Implant Hip Implant Bilatera l: Hip Description:Bilateral Hip Blanca int Replacement Knee Implant Knee Implant Left: Knee Description:L Knee Joint Rep lacement Procedures Procedure Name Priority Date/Time Associated Diagnosis Comments BACTERIA CULT, AEROBE/ANAEROBE+SUSC Routine 09/29/2023 9:[address] CROSS[address] GUARD FUNGAL CULTURE, ROUTINE Routine 09/29/2023 9:[address] CROSSING GUARD ACID FAST SMEAR FOR MYCOBACTERIUM Routine 09/29/2023 9:[address] CROSSING GUARD MYCOBACTERIAL CULTURE, V Routine 09/29/2023 9:[address] CROSSING GUARD BROAD RANGE BACTERIA PCR AND SEQUENCING Routine 09/29/2023 9:[address] CROSSING GUARD 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 (HCC) CELL COUNT AND DIFFERENTIAL, BF Routine 09/29/2023 9:[address] CROSSING GUARD CHROMIUM, SYNOVIAL FL Routine 09/29/2023 9:[address] CROSSING GUARD COBALT, SYNOVIAL FL Routine 09/29/2023 9 :[address] CROSSING GUARD ORS US-GUIDED ASPIRATION/INJECTION Routine 09/29/2023 8:[address] CROSSING GUARD 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 (HCC) COMPREHENSIVE METABOLIC PANEL, S/P Routine 09/27/2023 11:[address] CROSSING GUARD 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 (HCC) BI BREAST SCREENING BILATERAL RAD - Routine (most inpatients and all outpatients) 04/29/2016 8:09 AM CDT from Last 3 Months or Most Recently Relevant to Health Maintenance Results * Broad Range Bacteria PCR + Sequencing (09/29/2023 9:[address] CROSSING GUARD) Broad Range Bacteria PCR+Sequencin g No bacterial DNA detected. This test was developed and its performance characteristics determined by [facility] in a manner consistent with CLIA requirements. This test has not been cleared or approved by the U.S. Food and Drug Administration. 09/30/2023 2:[address] CROSSING GUARD DTL Aspirate (Prosthetic Hip, Right) 09/29/2023 9:[address] CROSSING GUARD 09/29/2023 10:[address] CROSSING GUARD Comment:Specimen Source Site : Aspirate Narrative [facility] - 09/30/2023 2:[address] CROSSING GUARD Bacterial Culture: Received Bactec aerobic and Bactec anaerobic bottles Mycobacteria specimen plated for culture, volume inadequate for optimal recovery. Cammy oMtley P.A.-C., M.S. LAB MICROB IOLOGY - GENERAL ORDERABLES [facility] [address] [place] [address], [facility] [address] [place] [address] * Bacteria Culture, Aerobe / Anaerobe + Susc (09/29/2023 9:[address] CROSSING GUARD) Bacteria Cult, Aerobe/Anaerob e+Susc No growth after 14 days of incubation. 10/13/2023 11:02 AM CDT DTL Prosthetic Hip, Right 09/29/2023 9:[address] CROSSING GUARD 09/29/2023 10:[address] CROSSING GUARD Comment:Specimen Source Site : Aspirate Narrative [facility] - 10/13/2023 11:02 AM CDT Bacterial Culture: Received Bactec aerobic and Bactec anaerobic bottles Mycobacteria specimen plated for culture, volume inadequate for optimal recovery. Cammy Motley P.A.-C., M.S. LAB MICROB IOLOGY - GENERAL ORDERABLES [facility] [address] [place] [address], [facility] [address] [place] [address] * Mycobacterial Culture (09/29/2023 9:[address] CROSSING GUARD) Mycobacterial Culture No growth after 42 days of incubation . 11/10/2023 1:01 PM CDT DT Prosthetic Hip, Right 09/29/2023 9:[address] CROSSING GUARD 09/29/2023 10:[address] CROSSING GUARD Comment:Specimen Source Site : Aspirate Narrative [facility] - 11/10/2023 1:01 PM CDT Bacterial Culture: Received Bactec aerobic and Bactec anaerobic bottles Mycobacteria specimen plated for culture, volume inadequate for optimal recovery. Cammy Motley P.A.-C., M.S. LAB MICROB IOLOGY - GENERAL ORDERABLES [facility] [address] [place] [address], [facility] [address] [place] [address] * Acid Fast Smear for Mycobacterium (09/29/2023 9:[address] CROSSING GUARD) Acid Fast Smear For Mycobacterium Negative. 09/29/2023 9:[address] CROSSING GUARD DTL Prosthetic Hip, Right 09/29/2023 9:[address] CROSSING GUARD 09/29/2023 10:[address] CROSSING GUARD Comment:Specimen Source Site : Aspirate Narrative [facility] - 09/29/2023 9:[address] CROSSING GUARD Bacterial Culture: Received Bactec aerobic and Bactec anaerobic bottles Mycobacteria specimen plated for culture, volume inadequate for optimal recovery. Cammy Motley P.A.-C., M.S. LAB MICROB IOLOGY - GENERAL ORDERABLES Performing Organization Address City/[facility]/ZIP Co de Phone Number [facility] 200 [place], [place] [address] [address] [place] [address] * Fungal Culture, Routine (09/29/2023 9:[address] CROSSING GUARD) Fungal Culture, Routine No growth after 24 days of incubation. 10/23/2023 1:01 PM CDT DTL Prosthetic Hip, Right 09/29/2023 9:[address] CROSSING GUARD 09/29/2023 10:[address] CROSSING GUARD Comment:Specimen Source Site : Aspirate Narrative [facility] - 10/23/2023 1:01 PM CDT Bacterial Culture: Received Bactec aerobic and Bactec anaerobic bottles Mycobacteria specimen plated for culture, volume inadequate for optimal recovery. Cammy Motley P.A.-C., M.S. LAB MICROB IOLOGY - GENERAL ORDERABLES [facility] [address] [place] [address], [facility] 200 [place] [address] * (ABNORMAL) Gaston, Synovial Fluid (09/29/2023 9:[address] CROSSING GUARD) Gaston, Synovial Fl 1220.7(H) <19.8 ng/mL 10/01/2023 10:[address] CROSSING GUARD [facility] Comment: Based on an internal study, when synovial fluid cobalt concentrations were >19.7 ng/mL it was more likely due to a metal reaction (e.g. adverse local tissue reaction (ALTR)/adverse reaction to metal debris (ARMD)) versus a non-metal reaction in patients undergoing chvnz-le-hkfjj revision (sensitivity of 92.3% and specificity of 96.3%). ----ADDITIONAL INFORMATION---- This test was developed and its performance characteristics determined by [facility] in a manner consistent with CLIA requirements. This test has not been cleared or approved by the U.S. Food and Drug Administration. Fluid 09/29/2023 9:[address] CROSSING GUARD 09/29/2023 12:[address] CROSSING GUARD Cammy Motley P.A.-C. M.SAnthony LAB BODY F LUIDS AND STOOLS ORDERABLES [facility] [address] [place] [address] [facility] [address] [place] [address] [place] [address] * (ABNORMAL) Chromium, Synovial Fluid (09/29/2023 9:[address] CROSSING GUARD) Chromium, Synovial Fl 703.6(H) <16.9 ng/mL 10/01/2023 10:[address] CROSSING GUARD [facility] Comment: Based on an internal study, when synovial fluid chromium concentrations were >16.8 ng/mL it was more likely due to a metal reaction (e.g. adverse local tissue reaction (ALTR)/adverse reaction to metal debris (ARMD)) versus a non-metal reaction in patients undergoing aocti-xt-kztiy revision (sensitivity of 92.3% and specificity of 92.6%). ----ADDITIONAL INFORMATION---- This test was developed and its performance characteristics determined by [facility] in a manner consistent with CLIA requirements. This test has not been cleared or approved by the U.S. Food and Drug Administration. Fluid 09/29/2023 9:[address] CROSSING GUARD 09/29/2023 12:[address] CROSSING GUARD Cammy Motley P.A.-C. M.SAnthony LAB BODY F LUIDS AND STOOLS ORDERABLES [facility] [address] [place] [address] [facility] [address] [place] [address] [place] [address] * Cell Count and Differential, Body Fluid (09/29/2023 9:[address] CROSSING GUARD) Fluid Type Right; Hip 09/29/2023 11:[address] CROSSING GUARD [facility] Gross Appearance Bloody 09/29/19 24 11:[address] CROSS[address] GUARD [facility] Total Nucleated Cells 1265 /mcL 09/29/2023 11:[address] CROSSING GUARD [facility] Comment: ----REFERENCE VALUE---- Synovial: <150 /mcL Peritoneal: <500 /mcL Pleural: <500 /mcL Pericardial: <500 /mcL ----ADDITIONAL INFORMATION---- This test has been modified from the linker up's instructions. Its performance characteristics were determined by [facility] in a manner consistent with CLIA requirements. This test has not been cleared or approved by the U.S. Food and Drug Administration. Neutrophils 83 % 09/29/2023 11:[address] CROSSING GUARD [facility] Comment: ----REFERENCE VALUE---- Synovial: <25% Peritoneal: <25% Pleural: <25% Pericardial: <25% Lymphocytes 13 Synovial <75% % 09/29/2023 11:[address] CROSSING GUARD PM Monocytes/Macropha ges 4 Synovial <70% % 09/29/2023 11:[address] CROSSING GUARD PM Comment See Comment 09/29/2023 11:[address] CROSSING GUARD PM Comment:No blasts or maligna nt cells seen. Manual count performed. Reviewed by: Jarod 09/29/2023 11:[address] CROSSING GUARD [facility] Fluid 09/29/2023 9:[address] CROSSING GUARD 09/29/2023 10:[address] CROSSING GUARD Cammy Motley P.A.-C., M.S. LAB BODY F LUIDS AND STOOLS ORDERABLES Performing Organization Address [facility] Co de Phone Number [facility] [address] [place] [address], [facility] [address] [place] [address] * ORS US-Guided aspiration/injection (09/29/2023 8:[address] CROSSING GUARD) Narrative [facility] - 09/29/2023 8:[address] CROSSING GUARD Richard Escobar M.D. ? 09/29/2023 ??9:38 AM Performed by: Richard Escobar M.D. Authorized by: Cammy Motley P.A.-C., MAnthonySAnthony ?? Care team members present 1. Faisal Pickett M.S., [place]ice[place], Vaibhav 2. Richard Escobar M.D. Procedural Medication The following medications were administered at the target site(s) Local anesthetic: 4 mL lidocaine (PF) 10 mg/mL (1 %) Cammy Motley P.A.-C., M.S. PROCEDURE/ MINOR SURGICAL ORDERABLES Performing Organization Address [facility] de Phone Number [facility] NA * (ABNORMAL) Comprehensive Metabolic Panel (09/27/2023 11:[address] CROSSING GUARD) Potassium, S 4.6 3.6 - 5.2 mmol/L 09/27/2023 1:[address] CROSSING GUARD DTL Sodium, S 138 135 - 145 mmol/L 09/27/2023 1:[address] CROSSING GUARD DTL Chloride, S 100 98 - 107 mmol/L 09/27/2023 1:[address] CROSSING GUARD DTL Bicarbonate, S 28 22 - 29 mmol/L 09/27/2023 1:[address] CROSSING GUARD DTL Anion Gap 10 7 - 15 09/27/2023 1:[address] CROSSING GUARD DTL BUN (Blood Urea Nitrogen), S 18 6 - 21 mg/dL 09/27/2023 1:[address] CROSSING GUARD DTL Creatinine 0.71 0.59 - 1.04 mg/dL 09/27/2023 1:[address] CROSSING GUARD DTL Estimated GFR (eGFR) >90 >=60 mL/min/BS A 09/27/2023 1:[address] CROSSING GUARD DTL Comment: Estimated GFR calculated using the 2020 CKD_EPI creatinine equation. Calcium, Total, S 9.5 8.8 - 10.2 mg/dL 09/27/2023 1:[address] CROSSING GUARD DTL Glucose, S 106 70 - 140 mg/dL 09/27/2023 1:[address] CROSSING GUARD DTL Protein, Total, S 6.9 6.3 - 7.9 g/dL 09/27/2023 1:[address] CROSSING GUARD DTL Albumin, S 4.8 3.5 - 5.0 g/dL 09/27/2023 1:[address] CROSSING GUARD DTL Aspartate Aminotransferase (AST), S 23 8 - 43 U/L 09/27/2023 1:[address] CROSSING GUARD DTL Alkaline Phosphatase, S 106(H) 35 - 104 U/L 09/27/2023 1:[address] CROSSING GUARD DTL Alanine Aminotransferase (ALT), S 23 7 - 45 U/L 09/27/2023 1:[address] CROSSING GUARD DTL Bilirubin, Total, S 0.3 0.0 - 1.2 mg/dL 09/27/2023 1:[address] CROSSING GUARD DTL Blood (Blood, Venous) 09/27/2023 11:[address] CROSSING GUARD 09/27/2023 12:[address] CROSSING GUARD Aurelia Cevallos LAB BLOOD ADD-ON [facility] [address] [place] [address], [facility] DTL [facility] [address] [place] [address] from Last 3 Months or Most Recently Relevant to Health Maintenance MOJGAN Edward [phone]
--- OUTSIDE RECORDS SUMMARY | 2023-12-28 11:34 | XMS_ITS | Clinical Summary ---
Author Organization [facility] Address [address] [place] [address] Care Team Providers Care Complementary Health Therapists Name Role Phone Unavailable Primary Care Provider Unavailabl e Source Comments Patient records contain information from all sites at [facility]. For routine questions regarding patient records, call [phone] during business hours, M-F 8:00 AM - 5:00 PM Central Time. Record requests for emergency care only can be directed to [phone] at any time.[facility] Allergies No known active allergies Medications Medication [...] Arthroplasty Initial Right 11/12/2023 Preoperative Exam 11/12/2023 Encounters Date Type Department Care Team Description 11/15/2023 Clinical Communication Department of Orthopedic Surgery in [place], [place] [address] [place] [address] Aaron Martinez M.D. Appointment (Brace fitting) 10/15/2023 Clinical Communication Department of Orthopedic Surgery in [place], [place] [address] [place] [address] Marciano Matos M.D. Surgical Scheduling 09/29/2023 8:30 AM FLAT OPTICAL ELEMENT MAKER Procedure visit Department of Orthopedic Surgery in [place], [place] [address] [place] [address] Richard Escobar M.D. 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 I have a [facility] place to live 09/23/2023 Sex and Gender Information Value Date Recorded Sex Assigned at Female 09/23/2023 1:22 PM FLAT OPT[employer] ELEMENT MAKER Gender Identity Female 09/23/2023 1:22 PM FLAT OPTICAL ELEMENT MAKER Sexual Orientation Straight 09/23/2023 1: 22 PM FLAT OPTICAL ELEMENT MAKER Plan of Treatment Upcoming Encounters Date Type Department Care Team (Latest Contact Info) Description 01/19/2024 11:00 AM CDT Telemedicine Department of Patient Education in [address] [phone] Cammy Motley P.A.-C., M.S. [address] [place] [phone] 01/21/2024 11:15 AM CDT Clinical Communication Virtual Review in [place], [place] [address] [place] [address] 01/24/2024 6:45 AM CDT Appointment Department of Radiology, [facility] in [address] [phone] Cammy Motley P.A.-C., M.S. [address] [place] [phone] 01/24/2024 7:50 AM CDT Appointment Department of Laboratory Medicine and Pathology, [facility] in [place], [place] [address] [place] [phone] Cammy Motley P.A.-C., M.S. [address] [place] [phone] 01/24/2024 9:15 AM CDT Appointment Department of Radiology, [facility], in [place], [place] [address] [place] [phone] Cammy Motley P.A.-C., M.S. [address] [place] [phone] 01/24/2024 10:15 AM CDT Office Visit Department of Orthopedic Surgery in [place], [place] [address] [place] [phone] Marciano Matos M.D. [address] [place] [phone] 01/24/2024 1:30 PM CDT Comprehensive Visit Preoperative Evaluation Center in [address] [phone] Cammy Motley P.A.-C., M.S. [address] [place] [phone] 01/25/2024 11:15 AM CDT Office Visit Department of Orthopedic Surgery in [address] [phone] Aaron Martinez M.D. [address] [place] [phone] 01/25/2024 1:00 PM CDT Comprehensive Visit Department of Sports Medicine in [address] [phone] Cammy Motley P.A.-C., M.S. [address] [place] [phone] Jericho Cruz PSaeed., D.P.T., [facility] [address] [place] [phone] 01/27/2024 6:45 AM CDT Hospital Encounter Outpatient Surgery Unit in [place], [place] [address] [place] [address] Marciano Matos M.D. [address] [place] [address] 01/27/2024 6:45 AM CDT - 01/27/2024 10:27 AM CDT Surgery [facility] [address] [place] [address] Marciano Matos M.D. 200 [place] [address] ARTHROPLASTY REVISION HIP Scheduled Procedures Name Priority [...] (HCC) Preoperative Exam 01/27/2024 6:45 AM CDT Health Maintenance Due Date Last Done Comments Bone Density Scan (Osteoporo sis Screen) 1957 CT Colonography 1957 Cologuard 1957 FIT 1957 Hepatitis C Screening 1955 Mammogram 04/29/2017 04/29/2016, 04/03, 04/23/2015, Additional history exists Colonoscopy 05/11/2023 05/11/2013 Colorectal Cancer Screening 05/11/2023 Depression Screening (Annual PHQ-2) 08/02/2023 Fall Risk Screen (Annual) 08/02/2023 COVID-19 Vaccine (2022-09 4 season) 2023 04/30/2023, 05/11/2022, 11/25/2021, Additional history exists Fasting Glucose for Diabetes Screening 09/27/2026 09/27/2023 DTaP,Tdap,and Td Vaccines (2 - Td or Tdap) 02/23/2029 02/23/2019 Zoster Vaccines Completed 02/14/2019, 10/31, 04/10/2013 Pneumococcal vaccine (65+ years) Completed 06/23/20 Influenza Vaccine Completed 04/30/2023, , 03/16/2021, Additional history exists Medical Devices Implanted Type Area Tortilla Maker Device Identifier Shelf Expiration Date Model / Serial / Lot Hip Implant Hip Implant Bilatera l: Hip Description:Bilateral Hip Blanca int Replacement Knee Implant Knee Implant Left: Knee Description:L Knee Joint Rep lacement Procedures Procedure Name Priority Date/Time Associated Diagnosis Comments BACTERIA CULT, AEROBE/ANAEROBE+SUSC Routine 09/29/2023 9:38 AM FLAT OPTICAL ELEMENT MAKER FUNGAL CULTURE, ROUTINE Routine 09/29/2023 9:38 AM FLAT OPTICAL ELEMENT MAKER ACID FAST SMEAR FOR MYCOBACTERIUM Routine 09/29/2023 9:38 AM FLAT OPTICAL ELEMENT MAKER MYCOBACTERIAL CULTURE, V Routine 09/29/2023 9:38 AM FLAT OPTICAL ELEMENT MAKER BROAD RANGE BACTERIA PCR AND SEQUENCING Routine 09/29/2023 9:38 AM FLAT OPTICAL ELEMENT MAKER 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 (HCC) CELL COUNT AND DIFFERENTIAL, BF Routine 09/29/2023 9:23 AM FLAT OPTICAL ELEMENT MAKER CHROMIUM, SYNOVIAL FL Routine 09/29/2023 9:23 AM FLAT OPTICAL ELEMENT MAKER COBALT, SYNOVIAL FL Routine 09/29/2023 9 :23 AM FLAT OPTICAL ELEMENT MAKER ORS US-GUIDED ASPIRATION/INJECTION Routine 09/29/2023 8:30 AM FLAT OPTICAL ELEMENT MAKER 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 (HCC) COMPREHENSIVE METABOLIC PANEL, S/P Routine 09/27/2023 11:58 AM FLAT OPTICAL ELEMENT MAKER 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 (HCC) BI BREAST SCREENING BILATERAL RAD - Routine (most inpatients and all outpatients) 04/29/2016 8:09 AM CDT from Last 3 Months or Most Recently Relevant to Health Maintenance Results * Broad Range Bacteria PCR + Sequencing (09/29/2023 9:38 AM FLAT OPTICAL ELEMENT MAKER) Pathologist [facility] Broad Range Bacteria PCR+Sequencin g No bacterial DNA detected. This test was developed and its performance characteristics determined by [facility] in a manner consistent with CLIA requirements. This test has not been cleared or approved by the U.S. Food and Drug Administration. 09/30/2023 2:07 PM FLAT OPTICAL ELEMENT MAKER DTL Aspirate (Prosthetic Hip, Right) 09/29/2023 9:38 AM FLAT OPTICAL ELEMENT MAKER 09/29/2023 10:26 AM FLAT OPTICAL ELEMENT MAKER Comment:Specimen Source Site : Aspirate Narrative [facility] - 09/30/2023 2:07 PM FLAT OPTICAL ELEMENT MAKER Bacterial Culture: Received Bactec aerobic and Bactec anaerobic bottles Mycobacteria specimen plated for culture, volume inadequate for optimal recovery. Cammy Motley P.A.-C., M.S. LAB MICROB IOLOGY - GENERAL ORDERABLES [facility] [address] [place] [address], [facility] [address] [place] [address] * Bacteria Culture, Aerobe / Anaerobe + Susc (09/29/2023 9:38 AM FLAT OPTICAL ELEMENT MAKER) Pathologist [facility] Bacteria Cult, Aerobe/Anaerob e+Susc No growth after 14 days of incubation. 10/13/2023 11:02 AM CDT DTL Prosthetic Hip, Right 09/29/2023 9:38 AM FLAT OPTICAL ELEMENT MAKER 09/29/2023 10:26 AM FLAT OPTICAL ELEMENT MAKER Comment:Specimen Source Site : Aspirate Narrative [facility] - 10/13/2023 11:02 AM CDT Bacterial Culture: Received Bactec aerobic and Bactec anaerobic bottles Mycobacteria specimen plated for culture, volume inadequate for optimal recovery. Cammy Motley P.A.-C., M.S. LAB MICROB IOLOGY - GENERAL ORDERABLES Performing Organization Address City/[facility]/ZIP Co de Phone Number [facility] [address] [place] [address] * Mycobacterial Culture (09/29/2023 9:38 AM FLAT OPTICAL ELEMENT MAKER) Mycobacterial Culture No growth after 42 days of incubation . 11/10/2023 1:01 PM CDT DTL Prosthetic Hip, Right 09/29/2023 9:38 AM FLAT OPTICAL ELEMENT MAKER 09/29/2023 10:26 AM FLAT OPTICAL ELEMENT MAKER Comment:Specimen Source Site : Aspirate Narrative [facility] - 11/10/2023 1:01 PM CDT Bacterial Culture: Received Bactec aerobic and Bactec anaerobic bottles Mycobacteria specimen plated for culture, volume inadequate for optimal recovery. Cammy Motley P.A.-C., M.S. LAB MICROB IOLOGY - GENERAL ORDERABLES Performing Organization Address [facility] Co de Phone Number [facility] [address] [place], [place] [id number] [place] [address] [address] [place] [address] * Acid Fast Smear for Mycobacterium (09/29/2023 9:38 AM FLAT OPTICAL ELEMENT MAKER) Acid Fast Smear For Mycobacterium Negative. 09/29/2023 9:24 PM FLAT OPTICAL ELEMENT MAKER DTL Prosthetic Hip, Right 09/29/2023 9:38 AM FLAT OPTICAL ELEMENT MAKER 09/29/2023 10:26 AM FLAT OPTICAL ELEMENT MAKER Comment:Specimen Source Site : Aspirate Narrative [facility] - 09/29/2023 9:24 PM FLAT OPTICAL ELEMENT MAKER Bacterial Culture: Received Bactec aerobic and Bactec anaerobic bottles Mycobacteria specimen plated for culture, volume inadequate for optimal recovery. Cammy Motley P.A.-C. M.S. LAB MICROB IOLOGY - GENERAL ORDERABLES Performing Organization Address City/[facility]/ZIP Co de Phone Number [facility] [address] [place], [place] [address] [address] [place] [address] * Fungal Culture, Routine (09/29/2023 9:38 AM FLAT OPTICAL ELEMENT MAKER) Fungal Culture, Routine No growth after 24 days of incubation. 10/23/2023 1:01 PM CDT DT Prosthetic Hip, Right 09/29/2023 9:38 AM FLAT OPTICAL ELEMENT MAKER 09/29/2023 10:26 AM FLAT OPTICAL ELEMENT MAKER Comment:Specimen Source Site : Aspirate Narrative [facility] - 10/23/2023 1:01 PM CDT Bacterial Culture: Received Bactec aerobic and Bactec anaerobic bottles Mycobacteria specimen plated for culture, volume inadequate for optimal recovery. Cammy Motley P.A.-C., M.S. LAB MICROB IOLOGY - GENERAL ORDERABLES [facility] [address] [place], [place] [address] [address] [place] [address] * (ABNORMAL) [place], Synovial Fluid (09/29/2023 9:23 AM FLAT OPTICAL ELEMENT MAKER) [place], Synovial Fl 1220.7(H) <19.8 ng/mL 10/01/2023 10:46 AM FLAT OPTICAL ELEMENT MAKER [facility] Comment: Based on an internal study, when synovial fluid cobalt concentrations were >19.7 ng/mL it was more likely due to a metal reaction (e.g. adverse local tissue reaction (ALTR)/adverse reaction to metal debris (ARMD)) versus a non-metal reaction in patients undergoing [id number] revision (sensitivity of 92.3% and specificity of 96.3%). ----ADDITIONAL INFORMATION---- This test was developed and its performance characteristics determined by [facility] in a manner consistent with CLIA requirements. This test has not been cleared or approved by the U.S. Food and Drug Administration. Fluid 09/29/2023 9:23 AM FLAT OPTICAL ELEMENT MAKER 09/29/2023 12:50 PM FLAT OPTICAL ELEMENT MAKER Cammy Motley P.A.-C. MAnthonyS. LAB BODY F LUIDS AND STOOLS ORDERABLES Performing Organization Address [facility] Co de Phone Number [facility] [address] [place] [address] [facility] [address] [place] [address] [place] [address] * (ABNORMAL) Chromium, Synovial Fluid (09/29/2023 9:23 AM FLAT OPTICAL ELEMENT MAKER) Chromium, Synovial Fl 703.6(H) <16.9 ng/mL 10/01/2023 10:46 AM FLAT OPTICAL ELEMENT MAKER [facility] Comment: Based on an internal study, when synovial fluid chromium concentrations were >16.8 ng/mL it was more likely due to a metal reaction (e.g. adverse local tissue reaction (ALTR)/adverse reaction to metal debris (ARMD)) versus a non-metal reaction in patients undergoing [id number] revision (sensitivity of 92.3% and specificity of 92.6%). ----ADDITIONAL INFORMATION---- This test was developed and its performance characteristics determined by [facility] in a manner consistent with CLIA requirements. This test has not been cleared or approved by the U.S. Food and Drug Administration. Fluid 09/29/2023 9:23 AM FLAT OPTICAL ELEMENT MAKER 09/29/2023 12:50 PM FLAT OPTICAL ELEMENT MAKER Cammy Motley P.A.-C., M.S. LAB BODY F LUIDS AND STOOLS ORDERABLES Performing Organization Address [facility] Co de Phone Number [facility] [address] [place] [address] [facility] [address] [place] [address] [place] [address] * Cell Count and Differential, Body Fluid (09/29/2023 9:23 AM FLAT OPTICAL ELEMENT MAKER) Fluid Type Right; Hip 09/29/2023 11:05 AM FLAT OPTICAL ELEMENT MAKER [facility] Gross Appearance Bloody 09/29/19 24 11:05 AM FLAT OPTICAL ELEMENT MAKER [facility] Total Nucleated Cells 1265 /mcL 09/29/2023 11:05 AM FLAT OPTICAL ELEMENT MAKER [facility] Comment: ----REFERENCE VALUE---- Synovial: <150 /mcL Peritoneal: <500 /mcL Pleural: <500 /mcL Pericardial: <500 /mcL ----ADDITIONAL INFORMATION---- This test has been modified from the tear down matcher's instructions. Its performance characteristics were determined by [facility] in a manner consistent with CLIA requirements. This test has not been cleared or approved by the U.S. Food and Drug Administration. Neutrophils 83 % 09/29/2023 11:05 AM FLAT OPTICAL ELEMENT MAKER [facility] Comment: ----REFERENCE VALUE---- Synovial: <25% Peritoneal: <25% Pleural: <25% Pericardial: <25% Lymphocytes 13 Synovial <75% % 09/29/2023 11:05 AM FLAT OPTICAL ELEMENT MAKER PM Monocytes/Macropha ges 4 Synovial <70% % 09/29/2023 11:05 AM FLAT OPTICAL ELEMENT MAKER [facility] Comment See Comment 09/29/2023 11:09 AM FLAT OPTICAL ELEMENT MAKER [facility] Comment:No blasts or maligna nt cells seen. Manual count performed. Reviewed by: Jarod 09/29/2023 11:09 AM FLAT OPTICAL ELEMENT MAKER [facility] Fluid 09/29/2023 9:23 AM FLAT OPTICAL ELEMENT MAKER 09/29/2023 10:06 AM FLAT OPTICAL ELEMENT MAKER Cammy Motley P.A.-C., M.S. LAB BODY F LUIDS AND STOOLS ORDERABLES [facility] [address] [place] [address], [facility] [address] [place] [address] * ORS US-Guided aspiration/injection (09/29/2023 8:30 AM FLAT OPTICAL ELEMENT MAKER) Narrative [facility] - 09/29/2023 8:30 AM FLAT OPTICAL ELEMENT MAKER Richard Escobar M.D. ? 09/29/2023 ??9:38 AM Performed by: Richard Escobar M.D. Authorized by: Cammy Motley P.A.-C., M.S. ?? Care team members present 1. Faisal Pickett M.S., L.A.T., A.T.C. 2. Richard Escobar M.D. Procedural Medication The following medications were administered at the target site(s) Local anesthetic: 4 mL lidocaine (PF) 10 mg/mL (1 %) Cammy Motley P.A.-C., M.S. PROCEDURE/ MINOR SURGICAL ORDERABLES [facility] NA * (ABNORMAL) Comprehensive Metabolic Panel (09/27/2023 11:58 AM FLAT OPTICAL ELEMENT MAKER) [facility] Potassium, S 4.6 3.6 - 5.2 mmol/L 09/27/2023 1:03 PM FLAT OPTICAL ELEMENT MAKER DTL Sodium, S 138 135 - 145 mmol/L 09/27/2023 1:03 PM FLAT OPTICAL ELEMENT MAKER DTL Chloride, S 100 98 - 107 mmol/L 09/27/2023 1:03 PM FLAT OPTICAL ELEMENT MAKER DTL Bicarbonate, S 28 22 - 29 mmol/L 09/27/2023 1:03 PM FLAT OPTICAL ELEMENT MAKER DTL Anion Gap 10 7 - 15 09/27/2023 1:03 PM FLAT OPTICAL ELEMENT MAKER DTL BUN (Blood Urea Nitrogen), S 18 6 - 21 mg/dL 09/27/2023 1:03 PM FLAT OPTICAL ELEMENT MAKER DTL Creatinine 0.71 0.59 - 1.04 mg/dL 09/27/2023 1:03 PM FLAT OPTICAL ELEMENT MAKER DTL Estimated GFR (eGFR) >90 >=60 mL/min/BS A 09/27/2023 1:03 PM FLAT OPTICAL ELEMENT MAKER [facility] Comment: Estimated GFR calculated using the 2020 CKD_EPI creatinine equation. Calcium, Total, S 9.5 8.8 - 10.2 mg/dL 09/27/2023 1:03 PM FLAT OPTICAL ELEMENT MAKER DTL Glucose, S 106 70 - 140 mg/dL 09/27/2023 1:03 PM FLAT OPTICAL ELEMENT MAKER DTL Protein, Total, S 6.9 6.3 - 7.9 g/dL 09/27/2023 1:03 PM FLAT OPTICAL ELEMENT MAKER DTL Albumin, S 4.8 3.5 - 5.0 g/dL 09/27/2023 1:03 PM FLAT OPTICAL ELEMENT MAKER DTL Aspartate Aminotransferase (AST), S 23 8 - 43 U/L 09/27/2023 1:03 PM FLAT OPTICAL ELEMENT MAKER DTL Alkaline Phosphatase, S 106(H) 35 - 104 U/L 09/27/2023 1:03 PM FLAT OPTICAL ELEMENT MAKER DTL Alanine Aminotransferase (ALT), S 23 7 - 45 U/L 09/27/2023 1:03 PM FLAT OPTICAL ELEMENT MAKER DTL Bilirubin, Total, S 0.3 0.0 - 1.2 mg/dL 09/27/2023 1:03 PM FLAT OPTICAL ELEMENT MAKER DTL Blood (Blood, Venous) 09/27/2023 11:58 AM FLAT OPTICAL ELEMENT MAKER 09/27/2023 12:42 PM FLAT OPTICAL ELEMENT MAKER Aurelia Cevallos LAB BLOOD ADD-ON [facility] [address] [place] [address], [place] [facility] [address] [place] [address] from Last 3 Months or Most Recently Relevant to Health Maintenance MOJGAN Edward [phone]
--- OUTSIDE RECORDS SUMMARY | 2023-12-28 11:34 | XMS_ITS | Encounter Summary ---
Author Organization [facility] Address [address] [place] [address] Care Team Providers Care Cotton Roll Packer Name Role Phone Unavailable Primary Care Provider Unavailabl e Encounter Details Date Type Department Care Team (Latest Contact Info) Description 09/27/2023 7:49 AM [facility] - 09/27/2023 8:09 AM [facility] Hospital Encounter Department of Laboratory Medicine and Pathology, [facility], in [place], [place] [address] [place] [address] Cammy Motley P.A.-C., M.S. 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 I have a [facility] place to live 09/23/2023 Sex and Gender Information Value Date Recorded Sex Assigned at Female 09/23/2023 1:22 PM FLIGHT RADIO OPERATOR Gender Identity Female 09/23/2023 1:22 PM FLIGHT RADIO OPERATOR Sexual Orientation Straight 09/23/2023 1: 22 PM FLIGHT RADIO OPERATOR documented as of this encounter Medications at [...] CDT Telemedicine Department of Patient Education in [address] [phone] Cammy Motley P.A.-C., M.S. [address] [place] [phone] 01/21/2024 11:15 AM CDT Clinical Communication Virtual Review in [place], [place] 200 [place] [address] 01/24/2024 6:45 AM CDT Appointment Department of Radiology, [facility] in [address] [phone] Cammy Motley P.A.-C., M.S. [address] [place] [phone] 01/24/2024 7:50 AM CDT Appointment Department of Laboratory Medicine and Pathology, [facility] in [address] [phone] Cammy Motley P.A.-C., M.S. [address] [place] [phone] 01/24/2024 9:15 AM CDT Appointment Department of Radiology, [facility], in [address] [phone] Cammy Motley P.A.-C., M.S. [address] [place] [phone] 01/24/2024 10:15 AM CDT Office Visit Department of Orthopedic Surgery in [address] [phone] Marciano Matos M.D. [address] [place] [phone] 01/24/2024 1:30 PM CDT Comprehensive Visit Preoperative Evaluation Center in [place], [place] [address] [place] [address] Cammy Motley P.A.-C., M.S. [address] [place] [phone] 01/25/2024 11:15 AM CDT Office Visit Department of Orthopedic Surgery in [place], [place] [address] [place] [phone] Aaron Martinez M.D. [address] [place] [phone] 01/25/2024 1:00 PM CDT Comprehensive Visit Department of Sports Medicine in [place], [place] [address] [place] [phone] Cammy Motley P.A.-C., M.S. [address] [place] [phone] Jericho Cruz PGeorgiana, D.P.T., [facility] [address] [place] [phone] 01/27/2024 6:45 AM CDT Hospital Encounter Outpatient Surgery Unit in [place], [place] [address] [place] [address] Marciano Matos M.D. [address] [place] [phone] 01/27/2024 6:45 AM CDT - 01/27/2024 10:27 AM CDT Surgery [facility] [address] [place] [address] Marciano Matos M.D. 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 (HCC) SEDIMENTATION RATE, B Routine 09/27/2023 8:02 AM FLIGHT RADIO OPERATOR 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 (HCC) CBC WITH DIFFERENTIAL, B Routine 09/27/2023 8:02 AM FLIGHT RADIO OPERATOR 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 This test has not been cleared or approved by the U.S. Food and Drug Administration. Blood (Blood, Venous) 09/27/2023 8:02 AM FLIGHT RADIO OPERATOR 09/27/2023 11:09 AM FLIGHT RADIO OPERATOR Cammy Motley P.A.-C. M.S. LAB BLOOD NON ADD-ON Performing Organization Address [facility] de Phone Number [facility] [address] [place] [address] [facility] [address] [place] [address] [place] [address] * (ABNORMAL) Chromium Level (09/27/2023 8:02 AM FLIGHT RADIO OPERATOR) Chromium, B 52.5(H) <1.0 ng/mL 09/28/2023 7:12 PM FLIGHT RADIO OPERATOR [facility] Comment: ----ADDITIONAL INFORMATION---- This test was developed and its performance characteristics determined by [facility] in a manner consistent with CLIA requirements. This test has not been cleared or approved by the U.S. Food and Drug Administration. Blood (Blood, Venous) 09/27/2023 8:02 AM FLIGHT RADIO OPERATOR 09/27/2023 1:55 PM FLIGHT RADIO OPERATOR Cammy Motley P.A.-C. M.S. LAB BLOOD NON ADD-ON Performing Organization Address [facility] de Phone Number [facility] [address] [place] [address] [facility] [address] [place] [address] [place] [address] * (ABNORMAL) [place] Level (09/27/2023 8:02 AM FLIGHT RADIO OPERATOR) [place], B 135.6(H) <1.0 ng/mL 09/28/2023 7:12 PM FLIGHT RADIO OPERATOR [facility] Comment: ----ADDITIONAL INFORMATION---- This test was developed and its performance characteristics determined by [facility] in a manner consistent with CLIA requirements. This test has not been cleared or approved by the U.S. Food and Drug Administration. Blood (Blood, Venous) 09/27/2023 8:02 AM FLIGHT RADIO OPERATOR 09/27/2023 1:55 PM FLIGHT RADIO OPERATOR Cammy Motley P.A.-C., M.S. LAB BLOOD NON ADD-ON [facility] [address] [place] [address] [facility] [address] [place] [address] [place] [address] * CRP (C-Reactive Protein) (09/27/2023 8:02 AM FLIGHT RADIO OPERATOR) C-Reactive Protein (CRP), S <3.0 <5.0 mg/L 09/27/2023 9:55 AM FLIGHT RADIO OPERATOR DTL Blood (Blood, Venous) 09/27/2023 8:02 AM FLIGHT RADIO OPERATOR 09/27/2023 8:45 AM FLIGHT RADIO OPERATOR Cammy Motley P.A.-C., M.S. LAB BLOOD ADD-ON Performing Organization Address City/[facility]/ZIP Co de Phone Number [facility] [address] [place] [address], [facility] [address] [place] [address] * Sedimentation Rate (09/27/2023 8:02 AM FLIGHT RADIO OPERATOR) Sedimentation Rate, B 20 2 - 22 mm/h 09/27/2023 9:38 AM FLIGHT RADIO OPERATOR DTL Blood (Blood, Venous) 09/27/2023 8:02 AM FLIGHT RADIO OPERATOR 09/27/2023 8:25 AM FLIGHT RADIO OPERATOR Cammy Motley P.A.-C., M.S. LAB BLOOD ADD-ON [facility] [address] [place] [address], [facility] [address] [place] [address] * (ABNORMAL) CBC with Differential, Blood (09/27/2023 8:02 AM FLIGHT RADIO OPERATOR) Hemoglobin 11.4(L) 11.6 - 15.0 g/dL 09/27/2023 8:54 AM FLIGHT RADIO OPERATOR DTL Hematocrit 35.3(L) 35.5 - 44.9 % 09/27/2023 8:54 AM FLIGHT RADIO OPERATOR DTL Erythrocytes 4.09 3.92 - 5.13 x10(12)/L 09/27/2023 8:54 AM FLIGHT RADIO OPERATOR DTL MCV 86.3 78.2 - 97.9 fL 09/27/2023 8:54 AM FLIGHT RADIO OPERATOR DTL RBC Distrib Width 13.7 12.2 - 16.1 % 09/27/2023 8:54 AM FLIGHT RADIO OPERATOR DTL Platelet Count 220 157 - 371 x10(9)/L 09/27/2023 8:54 AM FLIGHT RADIO OPERATOR DTL Leukocytes 3.6 3.4 - 9.6 x10(9)/L 09/27/2023 8:54 AM FLIGHT RADIO OPERATOR DTL Neutrophils 2.39 1.56 - 6.45 x10(9)/L 09/27/2023 8:54 AM FLIGHT RADIO OPERATOR [facility] Lymphocytes 0.86(L) 0.95 - 3.07 x10(9)/L 09/27/2023 8:54 AM FLIGHT RADIO OPERATOR DTL Monocytes 0.24(L) 0.26 - 0.81 x10(9)/L 09/27/2023 8:54 AM FLIGHT RADIO OPERATOR DTL Eosinophils 0.09 0.03 - 0.48 x10(9)/L 09/27/2023 8:54 AM FLIGHT RADIO OPERATOR DTL Basophils <0.03 0.01 - 0.08 x10(9)/L 09/27/2023 8:54 AM FLIGHT RADIO OPERATOR DTL Blood (Blood, Venous) 09/27/2023 8:02 AM FLIGHT RADIO OPERATOR 09/27/2023 8:25 AM FLIGHT RADIO OPERATOR Cammy Motley P.A.-C., M.S. 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
--- OUTSIDE RECORDS SUMMARY | 2023-12-28 11:34 | XMS_ITS ---
Author Organization [facility] Address [address] [place] [address] Care Team Providers Care Supervisor Home Energy Consultant Name Role Phone Unavailable Unavailable Unavailable Surgery Details Not on file Complications Check Surgery Details section. Procedure Estimated Blood Loss Check Surgery Details section. Procedure Findings Check Surgery Details section. Procedure Specimens Taken Check Surgery Details section.
--- OUTSIDE RECORDS SUMMARY | 2023-12-28 11:34 | XMS_ITS | Encounter Summary ---
Author Organization [facility] Address [address] [place] [address] Care Team Providers Care Economic Adviser Name Role Phone Unavailable Primary Care Provider Unavailabl e Reason for Visit * Reason Onset Date Comments Surgical Scheduling 10/15/2023 Encounter Details Date Type Department Care Team (Latest Contact Info) Description 10/15/2023 Clinical Communication Department of Orthopedic Surgery in [place], [place] [address] [place] [address] Marciano Matos M.D. [address] [place] [phone] Surgical Scheduling Social History Tobacco Use Types Packs/Day Years Used Date Smoking Tobacco: Never Smokeless Tobacco: Never [facility] Utilities Answer Date Recorded In the past 12 months has [employer], gas, oil, or water [employer] threatened to shut off services in your [...] your living situation today? I have a [facility] place to live 09/23/2023 Sex and Gender Information Value Date Recorded Sex Assigned at Female 09/23/2023 1:22 PM HIGH SCHOOL MATH TUTOR Gender Identity Female 09/23/2023 1:22 PM HIGH SCHOOL MATH TUTOR Sexual Orientation Straight 09/23/2023 1: 22 PM HIGH SCHOOL MATH TUTOR documented as of this encounter Miscellaneous Notes * Telephone Encounter - Cammy Motley P.A.-C., M.S. - 10/20/2023 9:59 AM CDT I called to let the patient know that we are listing her for 01/27/[address] Matos and Dr. Martinez. We will bring her back for preoperative appointments in the preceding weeks to include: -RIGHT hip x-rays -RIGHT hip non-contrast MRI -pre-op labs -[facility] -[facility] at [facility] -pre-op with Carlo -pre-op with Michelle -outside order for her to take to [facility] to get a custom right hip abduction brace fabricated priorto surgery documented in this encounter Plan of Treatment Upcoming Encounters Date Type Department Care Team (Latest Contact Info) Description 01/19/2024 11:00 AM CDT Telemedicine Department of Patient Education in [place], [place] [address] [place] [phone] Cammy Motley P.A.-C., M.S. [address] [place] [phone] 01/21/2024 11:15 AM CDT Clinical Communication Virtual Review in [place], [place] 200 [place] [address] 01/24/2024 6:45 AM CDT Appointment Department of Radiology, [facility] in [place], [place] [address] [place] [phone] Cammy Motley P.A.-C., M.S. [address] [place] [phone] 01/24/2024 7:50 AM CDT Appointment Department of Laboratory Medicine and Pathology, [facility] in [place], [place] [address] [place] [phone] Cammy Motley P.A.-C., M.S. [address] [place] [phone] 01/24/2024 9:15 AM CDT Appointment Department of Radiology, [facility], in [place], [place] [address] [place] [phone] Cammy Motley P.A.-C., M.S. [address] [place] [phone] 01/24/2024 10:15 AM CDT Office Visit Department of Orthopedic Surgery in [place], [place] [address] [place] [phone] Marciano Matos M.D. [address] [place] [phone] 01/24/2024 1:30 PM CDT Comprehensive Visit Preoperative Evaluation Center in [place], [place] [address] [place] [phone] Cammy Motley P.A.-C., M.S. [address] [place] [phone] 01/25/2024 11:15 AM CDT Office Visit Department of Orthopedic Surgery in [place], [place] [address] [place] [phone] Aaron Martinez M.D. [address] [place] [phone] 01/25/2024 1:00 PM CDT Comprehensive Visit Department of Sports Medicine in [place], [place] [address] [place] [phone] Cammy Motley P.A.-C., M.S. [address] [place] [phone] Jericho Cruz PAnthonyT., D.P.T., [facility] [address] [place] [phone] 01/27/2024 6:45 AM CDT Hospital Encounter Outpatient Surgery Unit in [place], [place] [address] [place] [phone] Marciano Matos M.D. [address] [place] [phone] 01/27/2024 6:45 AM CDT - 01/27/2024 10:27 AM CDT Surgery [facility] [address] [place] [address] Marciano Matos M.D. [address] [place] [phone] ARTHROPLASTY REVISION HIP Scheduled Procedures Name Priority [...]
--- OUTSIDE RECORDS SUMMARY | 2023-12-28 11:34 | XMS_ITS | Encounter Summary ---
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 200 [place] [phone] [facility] Referral ID Status Reason Start Date Expiration Date Visits Re quested Visits Authorized [id number] Closed 09/02/2023 03/03/2025 1 1 Encounter Details Date Type Department Care Team (Latest Contact Info) Description 09/27/2023 10:30 AM DEPARTMENT CLERK Comprehensive Visit Section of Infectious Diseases in [place], [place] 200 [place] [phone] Cammy Motley P.A.-C., M.S. [address] [place] [phone] Aurelia Polanco M.B.B.S. 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 I have a [facility] place to live 09/23/2023 Sex and Gender Information Value Date Recorded Sex Assigned at Female 09/23/2023 1:22 PM DEPARTMENT CLERK Gender Identity Female 09/23/2023 1:22 PM DEPARTMENT CLERK Sexual Orientation Straight 09/23/2023 1: 22 PM DEPARTMENT CLERK documented as of this encounter Consult Notes * Aurelia Polanco M.B.B.S. - 09/27/2023 10:30 AM CST OUTPATIENT INFECTIOUS DISEASES CONSULTATION SUBJECTIVE Referring Provider: Cammy Motley P.A.-C., M.S. REASON FOR CONSULT Patient is a 68 y.o. female being seen by Infectious Diseases for HISTORY OF PRESENT ILLNESS 68-year-old lady with underlying osteoarthritis, dyslipidemia, leukopenia here for evaluation of redo right hip arthroplasty with Dr. Matos. Miss Aruna Ayala has h/o right hip arthroplasty in 2005. She had left hip arthroplasty ayear ago and left knee arthroplasty in January of 2022. After all 3 surgeries she recovered as expected without any infection or issues with wound healing. For the right hip, she has had ongoing pain which increased over the last year and a half to 2 years. Last spring she also noticed a bulge in the groin which is painful on deep palpation. She also reports pain on adduction and abduction of right hip. She is also having some neuropathic pain on the anterior aspect of thigh. No fevers, chills or any other symptoms concerning for infection. She doeshave leukopenia with lymphopenia for last 2-3 years which has been stable and is being monitored byher primary care provider. She has also had anemia with hemoglobin of 11.4. 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 The masslike extension extends up to 12 cm superior to the hip joint and is 7.4 cm in width. The fluid collection also extends posterior to the hip joint and measures 10 cm x 7 cm x 8 cm. There is also associated osseous remodeling in the greater tuberosity. REVIEW OF SYSTEMS A 10-point review of system was negative except as in HPI. The following portions of the patient's history were reviewed and updated as appropriate: allergies, current medications, family history, medical history, social history, surgical history and problemlist. OBJECTIVE There were no vitals filed for this visit. PHYSICAL EXAMINATION Constitutional Appearance: Normal appearance. Cardiovascular Pulses: Normal pulses. Heart sounds: Normal heart sounds. Pulmonary Effort: Pulmonary effort is normal. Breath sounds: Normal breath sounds. Musculoskeletal Comments: Tenderness and swelling anterior to the groin. Healed previous incision for Rt hip arthroplasty. Healed incisions from L hip and L knee arthroplasties. Neurological Mental Status: She is alert. DIAGNOSTICS ASSESSMENT / PLAN Right total hip arthroplasty in 2005 now findings of pseudotumor formation with inflammatory massesaround the hip extending into the pelvis History of left total hip arthroplasty in 2022 History of left total knee arthroplasty in January of 2022 Lymphopenia Miss Aruna Ayala has had right hip pain for several years and most recent imaging has shown pseudotumor formation around the right hip. She does not have clinical signs or symptoms concerning for infection including fever, chills, night sweats. Her sed rate and CRP are also reassuring. Plan from orthopedics is to do aspiration in 2 days with cultures. She will be scheduled for revisionhip arthroplasty with excision of associated inflammatory pseudotumors and possible gluteus maximustransfer. 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 Serum cobalt and chromium levels are pending. If cultures remain negative and there are no intraoperative findings concerning for infection, I donot think he needs to be further evaluated by Ortho ID. If aspiration cultures are positive then would ask to be re-evaluated by Ortho ID prior to revision. If there are intraoperative findings concerning for infection then would also ask to get ortho ID on board after surgery. PLAN If cultures are positive, then we will see her back prior to her surgery. Otherwise if findings areconsistent with suspected diagnosis of metal on metal without any superimposed infection, ortho ID follow up is not needed. Would ask to get gram stain bacterial cultures, AFB smear, mycobacterial cultures, fungal smear andfungal cultures on the aspiration along with cell count. For lymphopenia, it is reassuring that she has not had any recurrent infections. Given associated anemia, we will get serum protein electrophoresis, HIV screen and CD4 counts. If there are any abnormalities that warrant additional workup, then we will have patient follow-up with Hematology. RTMENT CLERK documented in this encounter Plan of Treatment Upcoming Encounters Date Type Department Care Team (Latest Contact Info) Description 01/19/2024 11:00 AM CDT Telemedicine Department of Patient Education in [place], [place] [address] [place] [phone] Cammy Motley P.A.-C., M.S. [address] [place] [phone] 01/21/2024 11:15 AM CDT Clinical Communication Virtual Review in [place], [place] 200 [place] [phone] 01/24/2024 6:45 AM CDT Appointment Department of Radiology, [facility] in [place], [place] [address] [place] [phone] Cammy Motley P.A.-C., M.S. [address] [place] [phone] 01/24/2024 7:50 AM CDT Appointment Department of Laboratory Medicine and Pathology, [facility] in [address] [phone] Cammy Motley P.A.-C., M.S. [address] [place] [phone] 01/24/2024 9:15 AM CDT Appointment Department of Radiology, [facility], in [place], [place] [address] [place] [phone] Cammy Motley P.A.-C., M.S. [address] [place] [phone] 01/24/2024 10:15 AM CDT Office Visit Department of Orthopedic Surgery in [address] [phone] Marciano Matos M.D. [address] [place] [phone] 01/24/2024 1:30 PM CDT Comprehensive Visit Preoperative Evaluation Center in [address] [phone] Cammy Motley P.A.-C., M.S. [address] [place] [phone] 01/25/2024 11:15 AM CDT Office Visit Department of Orthopedic Surgery in [place], [place] [address] [place] [phone] Aaron Martinez M.D. [address] [place] [phone] 01/25/2024 1:00 PM CDT Comprehensive Visit Department of Sports Medicine in [place], [place] [address] [place] [phone] Cammy Motley P.A.-Jennifer., M.S. [address] [place] [phone] Jericho Cruz PGeorgiana, D.P.T., [facility] [address] [place] [phone] 01/27/2024 6:45 AM CDT Hospital Encounter Outpatient Surgery Unit in [place], [place] [address] [place] [phone] Marciano Matos M.D. [address] [place] [phone] 01/27/2024 6:45 AM CDT - 01/27/2024 10:27 AM CDT Surgery [facility] [address] [place] [phone] Marciano Matos M.D. [address] [place] [phone] ARTHROPLASTY REVISION HIP Scheduled Procedures Name Priority [...] AM CDT documented as of this encounter Results * (ABNORMAL) CD4 Count for Immune Monitoring (09/27/2023 11:58 AM DEPARTMENT CLERK) CD45 Total Lymph Count 1.05 0.82 - 2.84 thou/mcL 09/27/2023 6:38 PM DEPARTMENT CLERK [facility] % CD3 (T Cells) 79 58 - 86 % 6:38 PM DEPARTMENT CLERK [facility] CD3 (T Cells) 829 550 - 2202 cells/mcL 09/27/2023 6:38 PM DEPARTMENT CLERK [facility] % CD4 (T Cells) 72(H) 32 - 64 % 6:38 PM DEPARTMENT CLERK [facility] CD4 (T Cells) 751 365 - 1437 cells/mcL 09/27/2023 6:38 PM DEPARTMENT CLERK [facility] % CD8 (T Cells) 8 8 - 40 % 6:38 PM DEPARTMENT CLERK [facility] CD8 T Cells 79(L) 80 - 846 cells/mcL 09/27/2023 6:38 PM DEPARTMENT CLERK [facility] 4/8 Ratio 9.5 >=0.9 09/27/2023 6:38 PM DEPARTMENT CLERK [facility] Comment: ----ADDITIONAL INFORMATION---- This test was developed using an analyte specific reagent. Its performance characteristics were determined by [facility] in a manner consistent with CLIA requirements. This test has not been cleared or approved by the U.S. Food and Drug Administration. Blood (Blood, Venous) 09/27/2023 11:58 AM DEPARTMENT CLERK 09/27/2023 3:51 PM DEPARTMENT CLERK Aurelia Cevallos LAB BLOOD ADD-ON [facility] [place] [address] [place] [address] [facility] [address] [place] [address] [place] [phone] * (ABNORMAL) Comprehensive Metabolic Panel (09/27/2023 11:58 AM DEPARTMENT CLERK) Pathologist [facility] Potassium, S 4.6 3.6 - 5.2 mmol/L 09/27/2023 1:03 PM DEPARTMENT CLERK DTL Sodium, S 138 135 - 145 mmol/L 09/27/2023 1:03 PM DEPARTMENT CLERK DTL Chloride, S 100 98 - 107 mmol/L 09/27/2023 1:03 PM DEPARTMENT CLERK DTL Bicarbonate, S 28 22 - 29 mmol/L 09/27/2023 1:03 PM DEPARTMENT CLERK DTL Anion Gap 10 7 - 15 09/27/2023 1:03 PM DEPARTMENT CLERK DTL BUN (Blood Urea Nitrogen), S 18 6 - 21 mg/dL 09/27/2023 1:03 PM DEPARTMENT CLERK DTL Creatinine 0.71 0.59 - 1.04 mg/dL 09/27/2023 1:03 PM DEPARTMENT CLERK DTL Estimated GFR (eGFR) >90 >=60 mL/min/BS A 09/27/2023 1:03 PM DEPARTMENT CLERK DTL Comment: Estimated GFR calculated using the 2020 CKD_EPI creatinine equation. Calcium, Total, S 9.5 8.8 - 10.2 mg/dL 09/27/2023 1:03 PM DEPARTMENT CLERK DTL Glucose, S 106 70 - 140 mg/dL 09/27/2023 1:03 PM DEPARTMENT CLERK DTL Protein, Total, S 6.9 6.3 - 7.9 g/dL 09/27/2023 1:03 PM DEPARTMENT CLERK DTL Albumin, S 4.8 3.5 - 5.0 g/dL 09/27/2023 1:03 PM DEPARTMENT CLERK DTL Aspartate Aminotransferase (AST), S 23 8 - 43 U/L 09/27/2023 1:03 PM DEPARTMENT CLERK DTL Alkaline Phosphatase, S 106(H) 35 - 104 U/L 09/27/2023 1:03 PM DEPARTMENT CLERK DTL Alanine Aminotransferase (ALT), S 23 7 - 45 U/L 09/27/2023 1:03 PM DEPARTMENT CLERK DTL Bilirubin, Total, S 0.3 0.0 - 1.2 mg/dL 09/27/2023 1:03 PM DEPARTMENT CLERK DTL Blood (Blood, Venous) 09/27/2023 11:58 AM DEPARTMENT CLERK 09/27/2023 12:42 PM DEPARTMENT CLERK Aurelia Cevallos LAB BLOOD ADD-ON [facility] [address] [place] [address], [place] DTL [facility] [address] [place] [address] * HIV-1/-2 Ag and Ab Screen, Plasma (09/27/2023 11:58 AM DEPARTMENT CLERK) [facility] HIV-1/-2 Ag and Ab Screen, P Negative Negative 09/27/2023 9:10 PM DEPARTMENT CLERK [facility] Comment: Negative result does not rule out HIV infection. If exposure to HIV infection occurred <14 days ago, contact the laboratory to request addition of HIV-1/HIV-2 RNA detection, Plasma (HIP12). Blood (Blood, Venous) 09/27/2023 11:58 AM DEPARTMENT CLERK 09/27/2023 5:30 PM DEPARTMENT CLERK Aurelia RamiresSAnthony LAB MICROBIOLOGY - BLOOD ORDERABLES Performing Organization Address [facility] Co de Phone Number [facility] [address] [place] [address] [facility] [address] [place] [address] * Immunoglobulin Free Light Chains (09/27/2023 11:58 AM DEPARTMENT CLERK) [facility] [place] Free Light Chain, S 1.65 0.3300 - 1.94 mg/dL 09/27/2023 4:28 PM DEPARTMENT CLERK SDS Lambda Free Light Chain, S 1.81 0.5700 - 2.63 mg/dL 09/27/2023 4:29 PM DEPARTMENT CLERK SDS [place]/Lambda FLC Ratio 0.9116 0.2600 - 1.65 09/27/2023 4:29 PM DEPARTMENT CLERK [facility] Blood (Blood, Venous) 09/27/2023 11:58 AM DEPARTMENT CLERK 09/27/2023 4:01 PM DEPARTMENT CLERK Aurelia RamiresSAnthony LAB BLOOD ADD-ON Performing Organization Address City/[facility]/ZIP Co de Phone Number [facility] [address] [place] [address] [facility] [address] [place] [address] * Quantitative M-protein Study (09/27/2023 11:58 AM DEPARTMENT CLERK) Immunoglobulin A (IgA), S 169 61 - 356 mg/dL 09/27/2023 5:34 PM DEPARTMENT CLERK [facility] Immunoglobulin M (IgM), S 161 37 - 286 mg/dL 09/27/2023 5:35 PM DEPARTMENT CLERK [facility] Immunoglobulin G (IgG), S 984 767 - 1590 mg/dL 09/27/2023 5:34 PM DEPARTMENT CLERK [facility] Therapeutic Antibody Administered? Unspecified 09/27/2023 4:04 PM DEPARTMENT CLERK [facility] Flag, M-protein Isotype Negative Negative 09/28/2023 3:48 PM DEPARTMENT CLERK [facility] QMPTS Interpretation No monoclonal protein detected. 09/28/2023 3:48 PM DEPARTMENT CLERK [facility] Comment: ----ADDITIONAL INFORMATION---- The submitted sample was assayed by five separate immunopurifications for IgG, IgA, IgM, kappa and lambda. ??The result reflects the findings of either no monoclonal protein detected or those monoclonal immunoglobulins that were detected. This test was developed and its performance characteristics determined by [facility] in a manner consistent with CLIA requirements. This test has not been cleared or approved by the U.S. Food and Drug Administration. Blood (Blood, Venous) 09/27/2023 11:58 AM DEPARTMENT CLERK 09/27/2023 4:03 PM DEPARTMENT CLERK Narrative [facility] - 09/28/2023 3:48 PM DEPARTMENT CLERK Specimen Information: Specimen ID: [id number] Specimen Type: Blood Specimen Collection Start Date: 09/27/2023 11:58 AM Specimen Received Date: 09/27/2023 ??4:03 PM Specimen ID: [id number] Specimen Type: Blood Specimen Collection Start Date: 09/27/2023 11:58 AM Specimen Received Date: 09/27/2023 ??4:01 PM Aurelia Cevallos LAB BLOOD ADD-ON [facility] [address] [place] [address] [facility] [address] [place] [address] [facility] [address] [place] [address] [place] [address] documented in this encounter Visit Diagnoses Diagnosis [...]
--- OUTSIDE RECORDS SUMMARY | 2023-12-28 11:34 | XMS_ITS | Encounter Summary ---
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 [address] [place] [phone] [facility] Referral ID Status Reason Start Date Expiration Date Visits Re quested Visits Authorized [id number] Closed 09/02/2023 09/01/2024 1 1 Encounter Details Date Type Department Care Team (Latest Contact Info) Description 09/29/2023 8:30 AM ASSIGNMENT CLERK Procedure visit Department of Orthopedic Surgery in [place], [place] [address] [place] [phone] Richard Escobar M.D. 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 I have a [facility] place to live 09/23/2023 Sex and Gender Information Value Date Recorded Sex Assigned at Female 09/23/2023 1:22 PM ASSIGNMENT CLERK Gender Identity Female 09/23/2023 1:22 PM ASSIGNMENT CLERK Sexual Orientation Straight 09/23/2023 1: 22 PM ASSIGNMENT CLERK documented as of this encounter Procedure Notes * Richard Escobar M.D. 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 Patient was referred for the above procedure for diagnostic purposes. Medications and allergies were reviewed. No procedure contraindications were identified. INFORMED CONSENT: Discussed the risks, benefits, alternatives, and the necessity of other members of the healthcare team participating in the procedure. Following denial of allergy and review of potential side effectsand complications, including but not necessarily limited to infection, allergic reaction, local tissue breakdown, injury to soft tissue and/or nerves and seizure, the patient indicated understanding and agreed to proceed. All questions answered and verbal/written consent given. PROCEDURAL PAUSE: Procedural pause conducted to verify: correct patient identity, procedure to be performed, and as applicable, correct side and site, correct patient position, and availability of implants, special equipment, or special requirements. PROCEDURE DETAILS: The use of direct ultrasound visualization of the needle (rather than a non- guided injection) was indicated to ensure accuracy, thereby avoiding inadvertent intramuscular, intraligament or intratendinous placement and osteochondral or neurovascular injury. Additionally, the increased accuracy of placement may increase clinical effectiveness and will allow higher diagnostic specificity when evaluating effectiveness of this injection. The area was prepped with chlorhexidine x 2. A sterile ultrasound transducer cover and sterile ultrasound gel were used. Machine: [id number] Transducer: 1-5 MHz curvilinear array Patient position: Supine Localization process: Preprocedure scan revealed a multifocal pseudotumor with components about theanterior and lateral aspects of the hip arthroplasty. We elected to target the anterior component in a sagittal plane. The positions of the adjacent femoral neurovascular structures and lateral circumflex femoral artery were identified and considered throughout the procedure. Approach: In-plane with the transducer, distal to proximal Local anesthesia: Skin and subcutaneous tissues en route to the target site were anesthetized using4 mL of preservative-free 1% lidocaine and a 25-gauge, 2.5- inch needle using a single pass. No lidocaine was injected into the pseudocapsular space. Aspiration: Following local anesthesia, an 18-gauge, 3.5 inch needle was advanced under direct sonographic guidance to the anterior femoral head-neck component junction. Thereafter, 25 mL of dark reddish-brown, watery fluid was aspirated, partially decompressing the pseudotumor. Samples of this fluid were sent to the laboratory for analysis and cultures per Dr. Matos's request. PROCEDURAL CARE: The patient tolerated the procedure well without complications. Patient was advised to ice for improved pain control and avoid submersion of the area for the next 2 days to reduce the risk of infection. Advised to avoid vigorous activity with the injected limb for the rest of the day, but after that weightbearing and activity will be as tolerated. Patient will follow up with the referring provider regarding the aspiration results. PATIENT EDUCATION: Education was discussed at today's appointment. A learning needs assessment was performed. Primary learner: Aruna Ayala Barriers to learning: None Preferred language: Korean Learning preferences include: Seeing and doing. Discussed: Post-procedure instructions Learner response: Learner voiced understanding. 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 Authorized by: Cammy Motley P.A.-C., M.S. Care team members present 1. Faisal Pickett M.S., L.A.T., A.T.C. 2. Richard Escobar M.D. Procedural Medication The following medications were administered at the target site(s) Local anesthetic: 4 mL lidocaine (PF) 10 mg/mL (1 %) Images have been archived in [employer]: click the 'Dept Filter' button in [employer], then the 'Clear (Show All)' button, then OK. GNMENT CLERK documented in this encounter Plan of Treatment Upcoming Encounters Date Type Department Care Team (Latest Contact Info) Description 01/19/2024 11:00 AM CDT Telemedicine Department of Patient Education in [place], [place] 200 [place] [phone] Cammy Motley P.A.-C., M.S. [address] [place] [phone] 01/21/2024 11:15 AM CDT Clinical Communication Virtual Review in [place], [place] 200 [place] [phone] 01/24/2024 6:45 AM CDT Appointment Department of Radiology, [facility] in [place], [place] [address] [place] [phone] Cammy Motley P.A.-C., M.S. [address] [place] [phone] 01/24/2024 7:50 AM CDT Appointment Department of Laboratory Medicine and Pathology, [facility] in [address] [phone] Cammy Motley P.A.-C., M.S. [address] [place] [phone] 01/24/2024 9:15 AM CDT Appointment Department of Radiology, [facility], in [place], [place] [address] [place] [phone] Cammy Motley P.A.-C., M.S. [address] [place] [phone] 01/24/2024 10:15 AM CDT Office Visit Department of Orthopedic Surgery in [address] [phone] Marciano Matos M.D. [address] [place] [phone] 01/24/2024 1:30 PM CDT Comprehensive Visit Preoperative Evaluation Center in [address] [phone] Cammy Motley P.A.-C., M.S. [address] [place] [phone] 01/25/2024 11:15 AM CDT Office Visit Department of Orthopedic Surgery in [place], [place] [address] [place] [phone] Aaron Martinez M.D. [address] [place] [phone] 01/25/2024 1:00 PM CDT Comprehensive Visit Department of Sports Medicine in [place], [place] [address] [place] [phone] Cammy Motley P.A.-Jennifer., M.S. [address] [place] [phone] Jericho Cruz PGeorgiana, D.P.T., [facility] [address] [place] [phone] 01/27/2024 6:45 AM CDT Hospital Encounter Outpatient Surgery Unit in [place], [place] [address] [place] [phone] Marciano Matos M.D. [address] [place] [phone] 01/27/2024 6:45 AM CDT - 01/27/2024 10:27 AM CDT Surgery [facility] [address] [place] [phone] Marciano Matos M.D. 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) BACTERIA CULT, AEROBE/ANAEROBE+SUSC Routine 09/29/2023 9:38 AM ASSIGNMENT CLERK MYCOBACTERIAL CULTURE, V Routine 09/29/2023 9:38 AM ASSIGNMENT CLERK ACID FAST SMEAR FOR MYCOBACTERIUM Routine 09/29/2023 9:38 AM ASSIGNMENT CLERK FUNGAL CULTURE, ROUTINE Routine 09/29/2023 9:38 AM ASSIGNMENT CLERK COBALT, SYNOVIAL FL Routine 09/29/2023 9 :23 AM ASSIGNMENT CLERK CHROMIUM, SYNOVIAL FL Routine 09/29/2023 9:23 AM ASSIGNMENT CLERK CELL COUNT AND DIFFERENTIAL, BF Routine 09/29/2023 9:23 AM ASSIGNMENT CLERK ORS US-GUIDED ASPIRATION/INJECTION Routine 09/29/2023 8:30 AM ASSIGNMENT CLERK 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 10/13/2023 11:02 AM CDT DTL Prosthetic Hip, Right 09/29/2023 9:38 AM ASSIGNMENT CLERK 09/29/2023 10:26 AM ASSIGNMENT CLERK Comment:Specimen Source Site : Aspirate Narrative [facility] - 10/13/2023 11:02 AM CDT Bacterial Culture: Received Bactec aerobic and Bactec anaerobic bottles Mycobacteria specimen plated for culture, volume inadequate for optimal recovery. Cammy Motley P.A.-C., M.S. LAB MICROB IOLOGY - GENERAL ORDERABLES Performing Organization Address [facility] Co de Phone Number [facility] [address] [place] [address], [facility] [address] [place] [address] * Fungal Culture, Routine (09/29/2023 9:38 AM ASSIGNMENT CLERK) Fungal Culture, Routine No growth after 24 days of incubation. 10/23/2023 1:01 PM CDT DTL Prosthetic Hip, Right 09/29/2023 9:38 AM ASSIGNMENT CLERK 09/29/2023 10:26 AM ASSIGNMENT CLERK Comment:Specimen Source Site : Aspirate Narrative [facility] - 10/23/2023 1:01 PM CDT Bacterial Culture: Received Bactec aerobic and Bactec anaerobic bottles Mycobacteria specimen plated for culture, volume inadequate for optimal recovery. Cammy Motley P.A.-C., M.S. LAB MICROB IOLOGY - GENERAL ORDERABLES Performing Organization Address [facility] Co de Phone Number [facility] 200 [place] [address], [facility] [address] [place] [address] * Acid Fast Smear for Mycobacterium (09/29/2023 9:38 AM ASSIGNMENT CLERK) Acid Fast Smear For Mycobacterium Negative. 09/29/2023 9:24 PM ASSIGNMENT CLERK DTL Prosthetic Hip, Right 09/29/2023 9:38 AM ASSIGNMENT CLERK 09/29/2023 10:26 AM ASSIGNMENT CLERK Comment:Specimen Source Site : Aspirate Narrative [facility] - 09/29/2023 9:24 PM ASSIGNMENT CLERK Bacterial Culture: Received Bactec aerobic and Bactec anaerobic bottles Mycobacteria specimen plated for culture, volume inadequate for optimal recovery. Cammy Motley P.A.-C. M.S. LAB MICROB IOLOGY - GENERAL ORDERABLES Performing Organization Address [facility] Co de Phone Number [facility] [address] [place], [place] [phone] [place] [address] 200 [place] [address] * Mycobacterial Culture (09/29/2023 9:38 AM ASSIGNMENT CLERK) Pathologist [facility] Mycobacterial Culture No growth after 42 days of incubation . 11/10/2023 1:01 PM CDT DTL Prosthetic Hip, Right 09/29/2023 9:38 AM ASSIGNMENT CLERK 09/29/2023 10:26 AM ASSIGNMENT CLERK Comment:Specimen Source Site : Aspirate Narrative [facility] - 11/10/2023 1:01 PM CDT Bacterial Culture: Received Bactec aerobic and Bactec anaerobic bottles Mycobacteria specimen plated for culture, volume inadequate for optimal recovery. Cammy Motley P.A.-C. M.S. LAB MICROB IOLOGY - GENERAL ORDERABLES Performing Organization Address [facility] Co de Phone Number [facility] [address] [place], [place] [phone] [place] [address] 200 [place] [address] * Broad Range Bacteria PCR + Sequencing (09/29/2023 9:38 AM ASSIGNMENT CLERK) Pathologist [facility] Broad Range Bacteria PCR+Sequencin g No bacterial DNA detected. This test was developed and its performance characteristics determined by [facility] in a manner consistent with CLIA requirements. This test has not been cleared or approved by the U.S. Food and Drug Administration. 09/30/2023 2:07 PM ASSIGNMENT CLERK DTL Aspirate (Prosthetic Hip, Right) 09/29/2023 9:38 AM ASSIGNMENT CLERK 09/29/2023 10:26 AM ASSIGNMENT CLERK Comment:Specimen Source Site : Aspirate Narrative [facility] - 09/30/2023 2:07 PM ASSIGNMENT CLERK Bacterial Culture: Received Bactec aerobic and Bactec anaerobic bottles Mycobacteria specimen plated for culture, volume inadequate for optimal recovery. Cammy Motley P.A.-C. MAnthonySAnthony LAB MICROB IOLOGY - GENERAL ORDERABLES Performing Organization Address [facility] Co de Phone Number [facility] [address] [place] [address], [facility] DTL [facility] [address] [place] [address] * Cell Count and Differential, Body Fluid (09/29/2023 9:23 AM ASSIGNMENT CLERK) Fluid Type Right; Hip 09/29/2023 11:05 AM ASSIGNMENT CLERK DHPM Gross Appearance Bloody 09/29/19 24 11:05 AM ASSIGNMENT CLERK DHPM Total Nucleated Cells 1265 /mcL 09/29/2023 11:05 AM ASSIGNMENT CLERK [facility] Comment: ----REFERENCE VALUE---- Synovial: <150 /mcL Peritoneal: <500 /mcL Pleural: <500 /mcL Pericardial: <500 /mcL ----ADDITIONAL INFORMATION---- This test has been modified from the estate tax examiner's instructions. Its performance characteristics were determined by [facility] in a manner consistent with CLIA requirements. This test has not been cleared or approved by the U.S. Food and Drug Administration. Neutrophils 83 % 09/29/2023 11:05 AM ASSIGNMENT CLERK [facility] Comment: ----REFERENCE VALUE---- Synovial: <25% Peritoneal: <25% Pleural: <25% Pericardial: <25% Lymphocytes 13 Synovial <75% % 09/29/2023 11:05 AM ASSIGNMENT CLERK DHPM Monocytes/Macropha ges 4 Synovial <70% % 09/29/2023 11:05 AM ASSIGNMENT CLERK DHPM Comment See Comment 09/29/2023 11:09 AM ASSIGNMENT CLERK [facility] Comment:No blasts or maligna nt cells seen. Manual count performed. Reviewed by: Tech 09/29/2023 11:09 AM ASSIGNMENT CLERK DHPM Fluid 09/29/2023 9:23 AM ASSIGNMENT CLERK 09/29/2023 10:06 AM ASSIGNMENT CLERK Cammy Motley P.A.-C. M.SAnthony LAB BODY F LUIDS AND STOOLS ORDERABLES [facility] [address] [place] [address], [facility] [address] [place] [address] * (ABNORMAL) Chromium, Synovial Fluid (09/29/2023 9:23 AM ASSIGNMENT CLERK) Chromium, Synovial Fl 703.6(H) <16.9 ng/mL 10/01/2023 10:46 AM ASSIGNMENT CLERK [facility] Comment: Based on an internal study, when synovial fluid chromium concentrations were >16.8 ng/mL it was more likely due to a metal reaction (e.g. adverse local tissue reaction (ALTR)/adverse reaction to metal debris (ARMD)) versus a non-metal reaction in patients undergoing dycul-kf-geacb revision (sensitivity of 92.3% and specificity of 92.6%). ----ADDITIONAL INFORMATION---- This test was developed and its performance characteristics determined by [facility] in a manner consistent with CLIA requirements. This test has not been cleared or approved by the U.S. Food and Drug Administration. Fluid 09/29/2023 9:23 AM ASSIGNMENT CLERK 09/29/2023 12:50 PM ASSIGNMENT CLERK Cammy Motley P.A.-C., M.S. LAB BODY F LUIDS AND STOOLS ORDERABLES [facility] [address] [place] [address] [facility] [address] [place] [address] [place] [address] * (ABNORMAL) [place], Synovial Fluid (09/29/2023 9:23 AM ASSIGNMENT CLERK) [place], Synovial Fl 1220.7(H) <19.8 ng/mL 10/01/2023 10:46 AM ASSIGNMENT CLERK [facility] Comment: Based on an internal study, when synovial fluid cobalt concentrations were >19.7 ng/mL it was more likely due to a metal reaction (e.g. adverse local tissue reaction (ALTR)/adverse reaction to metal debris (ARMD)) versus a non-metal reaction in patients undergoing snbej-ng-egykf revision (sensitivity of 92.3% and specificity of 96.3%). ----ADDITIONAL INFORMATION---- This test was developed and its performance characteristics determined by [facility] in a manner consistent with CLIA requirements. This test has not been cleared or approved by the U.S. Food and Drug Administration. Fluid 09/29/2023 9:23 AM ASSIGNMENT CLERK 09/29/2023 12:50 PM ASSIGNMENT CLERK Cammy Motley P.A.-C. M.S. LAB BODY F LUIDS AND STOOLS ORDERABLES Performing Organization Address [facility] Co de Phone Number [facility] [address] [place] [address] [facility] [address] [place] [address] [place] [address] * ORS US-Guided aspiration/injection (09/29/2023 8:30 AM ASSIGNMENT CLERK) Narrative [facility] - 09/29/2023 8:30 AM ASSIGNMENT CLERK Richard Escobar M.D. ? 09/29/2023 ??9:38 AM Performed by: Richard Escobar M.D. Authorized by: Cammy Motley P.A.-C., MAnthonySAnthony ?? Care team members present 1. Faisal Pickett M.S., L.A.T., A.T.C. 2. Richard Escobar M.D. 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
--- OUTSIDE RECORDS SUMMARY | 2023-12-28 11:34 | XMS_ITS | Encounter Summary ---
Author Organization [facility] Address [address] [place] [address] Care Team Providers Care Publicity Manager Name Role Phone Unavailable Primary Care Provider Unavailabl e Encounter Details Date Type Department Care Team (Latest Contact Info) Description 09/27/2023 11:37 AM EVIDENCE CUSTODIAN - 09/27/2023 11:59 PM [facility] Hospital Encounter Department of Laboratory Medicine [facility] [place], [place] [address] [place] [address] Aurelia Polanco M.B.B.S. [address] [place] [address] 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 (HCC) Discharge Disposition: Home or Self Care Social History Tobacco Use Types Packs/Day Years Used Date Smoking Tobacco: Never Smokeless Tobacco: Never [facility] Utilities Answer Date Recorded In the past 12 months has [employer], gas, oil, or water [employer] threatened to shut off services in your [...] your living situation today? I have a [facility] place to live 09/23/2023 Sex and Gender Information Value Date Recorded Sex Assigned at Female 09/23/2023 1:22 PM EVIDENCE CUSTODIAN Gender Identity Female 09/23/2023 1:22 PM EVIDENCE CUSTODIAN Sexual Orientation Straight 09/23/2023 1: 22 PM EVIDENCE CUSTODIAN documented as of this encounter Medications at [...] CDT Telemedicine Department of Patient Education in [address] [phone] Cammy Motley P.A.-C., M.S. [address] [place] [phone] 01/21/2024 11:15 AM CDT Clinical Communication Virtual Review in [place], [place] 200 [place] [address] 01/24/2024 6:45 AM CDT Appointment Department of Radiology, [facility] in [address] [phone] Cammy Motley P.A.-C., M.S. [address] [place] [phone] 01/24/2024 7:50 AM CDT Appointment Department of Laboratory Medicine and Pathology, [facility] in [address] [phone] Cammy Motley P.A.-C., M.S. [address] [place] [phone] 01/24/2024 9:15 AM CDT Appointment Department of Radiology, [facility], in [address] [phone] Cammy Motley P.A.-C., M.S. [address] [place] [phone] 01/24/2024 10:15 AM CDT Office Visit Department of Orthopedic Surgery in [address] [phone] Marciano Matos M.D. [address] [place] [phone] 01/24/2024 1:30 PM CDT Comprehensive Visit Preoperative Evaluation Center in [place], [place] [address] [place] [address] Cammy Motley P.A.-C., M.S. [address] [place] [phone] 01/25/2024 11:15 AM CDT Office Visit Department of Orthopedic Surgery in [place], [place] [address] [place] [phone] Aaron Martinez M.D. [address] [place] [phone] 01/25/2024 1:00 PM CDT Comprehensive Visit Department of Sports Medicine in [place], [place] [address] [place] [phone] Cammy Motley P.A.-C., M.S. [address] [place] [phone] Jericho Cruz PSaeed., D.P.T., [facility] [address] [place] [phone] 01/27/2024 6:45 AM CDT Hospital Encounter Outpatient Surgery Unit in [place], [place] [address] [place] [phone] Marciano Matos M.D. [address] [place] [phone] 01/27/2024 6:45 AM CDT - 01/27/2024 10:27 AM CDT Surgery [facility] [address] [place] [address] Marcinao Matos M.D. 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 (HCC) HIV-1/-2 AG AND AB SCREEN, PLASMA Routine 09/27/2023 11:58 AM EVIDENCE CUSTODIAN 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 (HCC) IMMUNOGLOBULIN FREE LIGHT CHAINS, S Routine 09/27/2023 11:58 AM EVIDENCE CUSTODIAN 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 (HCC) CD4 T-CELL COUNT, B Routine 09/27/2023 1 1:58 AM EVIDENCE CUSTODIAN 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 (HCC) COMPREHENSIVE METABOLIC PANEL, S/P Routine 09/27/2023 11:58 AM EVIDENCE CUSTODIAN 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 (HCC) documented in this encounter Results * (ABNORMAL) CD4 Count for Immune Monitoring (09/27/2023 11:58 AM EVIDENCE CUSTODIAN) CD45 Total Lymph Count 1.05 0.82 - 2.84 thou/mcL 09/27/2023 6:38 PM EVIDENCE CUSTODIAN SDSC % CD3 (T Cells) 79 58 - 86 % 4 6:38 PM EVIDENCE CUSTODIAN SDSC CD3 (T Cells) 829 550 - 2202 cells/mcL 09/27/2023 6:38 PM EVIDENCE CUSTODIAN SDSC % CD4 (T Cells) 72(H) 32 - 64 % 6:38 PM EVIDENCE CUSTODIAN SDSC CD4 (T Cells) 751 365 - 1437 cells/mcL 09/27/2023 6:38 PM EVIDENCE CUSTODIAN SDSC % CD8 (T Cells) 8 8 - 40 % 6:38 PM EVIDENCE CUSTODIAN SDSC CD8 T Cells 79(L) 80 - 846 cells/mcL 09/27/2023 6:38 PM EVIDENCE CUSTODIAN SDSC 4/8 Ratio 9.5 >=0.9 09/27/2023 6:38 PM EVIDENCE CUSTODIAN SDSC Comment: ----ADDITIONAL INFORMATION---- This test was developed using an analyte specific reagent. Its performance characteristics were determined by [facility] in a manner consistent with CLIA requirements. This test has not been cleared or approved by the U.S. Food and Drug Administration. Blood (Blood, Venous) 09/27/2023 11:58 AM EVIDENCE CUSTODIAN 09/27/2023 3:51 PM EVIDENCE CUSTODIAN Aurelia Cevallos LAB BLOOD ADD-ON [facility] [address] [place] [address] [facility] [address] [place] [address] [place] [address] * (ABNORMAL) Comprehensive Metabolic Panel (09/27/2023 11:58 AM EVIDENCE CUSTODIAN) [facility] Potassium, S 4.6 3.6 - 5.2 mmol/L 09/27/2023 1:03 PM EVIDENCE CUSTODIAN DTL Sodium, S 138 135 - 145 mmol/L 09/27/2023 1:03 PM EVIDENCE CUSTODIAN DTL Chloride, S 100 98 - 107 mmol/L 09/27/2023 1:03 PM EVIDENCE CUSTODIAN DTL Bicarbonate, S 28 22 - 29 mmol/L 09/27/2023 1:03 PM EVIDENCE CUSTODIAN DTL Anion Gap 10 7 - 15 09/27/2023 1:03 PM EVIDENCE CUSTODIAN DTL BUN (Blood Urea Nitrogen), S 18 6 - 21 mg/dL 09/27/2023 1:03 PM EVIDENCE CUSTODIAN DTL Creatinine 0.71 0.59 - 1.04 mg/dL 09/27/2023 1:03 PM EVIDENCE CUSTODIAN DTL Estimated GFR (eGFR) >90 >=60 mL/min/BS A 09/27/2023 1:03 PM EVIDENCE CUSTODIAN DTL Comment: Estimated GFR calculated using the 2020 CKD_EPI creatinine equation. Calcium, Total, S 9.5 8.8 - 10.2 mg/dL 09/27/2023 1:03 PM EVIDENCE CUSTODIAN DTL Glucose, S 106 70 - 140 mg/dL 09/27/2023 1:03 PM EVIDENCE CUSTODIAN DTL Protein, Total, S 6.9 6.3 - 7.9 g/dL 09/27/2023 1:03 PM EVIDENCE CUSTODIAN DTL Albumin, S 4.8 3.5 - 5.0 g/dL 09/27/2023 1:03 PM EVIDENCE CUSTODIAN DTL Aspartate Aminotransferase (AST), S 23 8 - 43 U/L 09/27/2023 1:03 PM EVIDENCE CUSTODIAN DTL Alkaline Phosphatase, S 106(H) 35 - 104 U/L 09/27/2023 1:03 PM EVIDENCE CUSTODIAN DTL Alanine Aminotransferase (ALT), S 23 7 - 45 U/L 09/27/2023 1:03 PM EVIDENCE CUSTODIAN DTL Bilirubin, Total, S 0.3 0.0 - 1.2 mg/dL 09/27/2023 1:03 PM EVIDENCE CUSTODIAN DTL Blood (Blood, Venous) 09/27/2023 11:58 AM EVIDENCE CUSTODIAN 09/27/2023 12:42 PM EVIDENCE CUSTODIAN Aurelia Cevallos LAB BLOOD ADD-ON [facility] [address] [place] [address], [facility] [address] [place] [address] * HIV-1/-2 Ag and Ab Screen, Plasma (09/27/2023 11:58 AM EVIDENCE CUSTODIAN) [facility] HIV-1/-2 Ag and Ab Screen, P Negative Negative 09/27/2023 9:10 PM EVIDENCE CUSTODIAN [facility] Comment: Negative result does not rule out HIV infection. If exposure to HIV infection occurred <14 days ago, contact the laboratory to request addition of HIV-1/HIV-2 RNA detection, Plasma (HIP12). Blood (Blood, Venous) 09/27/2023 11:58 AM EVIDENCE CUSTODIAN 09/27/2023 5:30 PM EVIDENCE CUSTODIAN Aurelia RamiresSAnthony LAB MICROBIOLOGY - BLOOD ORDERABLES Performing Organization Address City/[facility]/ZIP Co de Phone Number [facility] [address] [place] [address] [facility] [address] [place] [address] * Immunoglobulin Free Light Chains (09/27/2023 11:58 AM EVIDENCE CUSTODIAN) [place] Free Light Chain, S 1.65 0.3300 - 1.94 mg/dL 09/27/2023 4:28 PM EVIDENCE CUSTODIAN SDSC Lambda Free Light Chain, S 1.81 0.5700 - 2.63 mg/dL 09/27/2023 4:29 PM EVIDENCE CUSTODIAN SDSC [place]/Lambda FLC Ratio 0.9116 0.2600 - 1.65 09/27/2023 4:29 PM EVIDENCE CUSTODIAN SDSC Blood (Blood, Venous) 09/27/2023 11:58 AM EVIDENCE CUSTODIAN 09/27/2023 4:01 PM EVIDENCE CUSTODIAN Aurelia RamiresSAnthony LAB BLOOD ADD-ON Performing Organization Address City/[facility]/ZIP Co de Phone Number [facility] [address] [place] [address] [facility] [address] [place] [address] * Quantitative M-protein Study (09/27/2023 11:58 AM EVIDENCE CUSTODIAN) Immunoglobulin A (IgA), S 169 61 - 356 mg/dL 09/27/2023 5:34 PM EVIDENCE CUSTODIAN SDSC Immunoglobulin M (IgM), S 161 37 - 286 mg/dL 09/27/2023 5:35 PM EVIDENCE CUSTODIAN SDSC Immunoglobulin G (IgG), S 984 767 - 1590 mg/dL 09/27/2023 5:34 PM EVIDENCE CUSTODIAN SDSC Therapeutic Antibody Administered? Unspecified 09/27/2023 4:04 PM EVIDENCE CUSTODIAN [facility] Flag, M-protein Isotype Negative Negative 09/28/2023 3:48 PM EVIDENCE CUSTODIAN [facility] QMPTS Interpretation No monoclonal protein detected. 09/28/2023 3:48 PM EVIDENCE CUSTODIAN [facility] Comment: ----ADDITIONAL INFORMATION---- The submitted sample was assayed by five separate immunopurifications for IgG, IgA, IgM, kappa and lambda. ??The result reflects the findings of either no monoclonal protein detected or those monoclonal immunoglobulins that were detected. This test was developed and its performance characteristics determined by [facility] in a manner consistent with CLIA requirements. This test has not been cleared or approved by the U.S. Food and Drug Administration. Blood (Blood, Venous) 09/27/2023 11:58 AM EVIDENCE CUSTODIAN 09/27/2023 4:03 PM EVIDENCE CUSTODIAN Narrative [facility] - 09/28/2023 3:48 PM EVIDENCE CUSTODIAN Specimen Information: Specimen ID: [id number] Specimen Type: Blood Specimen Collection Start Date: 09/27/2023 11:58 AM Specimen Received Date: 09/27/2023 ??4:03 PM Specimen ID: [id number] Specimen Type: Blood Specimen Collection Start Date: 09/27/2023 11:58 AM Specimen Received Date: 09/27/2023 ??4:01 PM Aurelia Cevallos LAB BLOOD ADD-ON [facility] [address] [place] [address] [facility] [address] [place] [address] [facility] [address] 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
--- OUTSIDE RECORDS SUMMARY | 2023-12-28 11:35 | XMS_ITS | Clinical Summary ---
Author Organization [employer] [facility] Address [place], [place] [address] Care Team Providers Care Glove Cleaner Name Role Phone Rich Gupta MD Primary Care Provider Unavailable Allergies No known active allergies Medications Medication Sig Dispensed Refills Start Date End Date Status gabapentin (NEURONTIN) 300 mg capsule Take 300 mg by mouth once daily. Active multivitamin (MVI) tablet Take by mouth once daily. 11/28/2006 Active nabumetone (RELAFEN) 500 mg tablet Take 500 mg by mouth 2 times daily with meals. Active fish oil-omega-3 fatty acids 300-1,000 mg once daily. 03/09/2007 Activ e Lactobacillus acidophilus (PROBIOTIC) 10 [...] Comments Blood Pressure 137/85 08/25/2016 1:35 PM TAR AND AMMONIA PUMP OPERATOR Pulse 70 08/25/2016 1:35 PM TAR AND AMMONIA PUMP OPERATOR Temperature - - Respiratory Rate - - Oxygen Saturation - - Inhaled Oxygen Concentration - - Weight 76.2 kg (168 lb) 08/25/2016 1:35 PM TAR AND AMMONIA PUMP OPERATOR Height 168.9 cm (5' 6.5) 08/25/2016 1:35 PM TAR AND AMMONIA PUMP OPERATOR Body Mass Index 26.71 08/25/2016 1:35 PM TAR AND AMMONIA PUMP OPERATOR Plan of Treatment Health Maintenance Due Date Last Done Comments Tdap 02/10/1968 Hepatitis C screening for age 18-79 1975 Tetanus booster 1977 Zoster (shingles) series for age 50+ (2 of 3) 06/05/2013 04/10/2013 Mammogram for age 45-75 04/02/2017 04/02/20 16 (Completed outside of [email or web address]) BMI (ht and wt on same day) for age 18+ 08/25/2017 08/25/2016 Depression screening for age 12+ 08/25/2017 08/25/19 17 Lipids for age 45-75 01/18/2022 01/18/2017 DEXA/DXA scan for age 65+ 2022 Pneumococcal series for age 65+ (1 of 1 - PCV) 2022 COVID-19 vaccine series (1 - 2022-24 season) 2023 Colonoscopy through age 75 05/11/202305/11, 12/04/2012 (Completed outside of [email or web address]) Influenza for age 65+ 04/02/2024 04/29/2016 Procedures Procedure Name Priority Date/Time Associated Diagnosis Comments LIPID PANEL W REFLEX MEASURED LDL Routine 01/18/2017 7:56 AM CDT Elevated lipids SCAN-COLONOSCOPY 05/11/2013 12:0 0 AM CDT from Last 3 Months or Most Recently Relevant to Health Maintenance Results * LIPID PANEL W REFLEX MEASURED LDL (01/18/2017 7:56 AM CDT) CHOLESTEROL,TOTAL 167 100 - 199 mg/dL 01/18/2017 3:59 PM CDT [facility] TRIGLYCERIDES 82 <150 mg/dL 01/18/2017 3:59 PM CDT [facility] HDL CHOLESTEROL 63 >40 mg/dL 7 3:59 PM CDT [facility] NON-HDL CHOLESTEROL 104 <145 mg/dl 01/18/2017 3:59 PM CDT [facility] CHOL/HDL RATIO 2.65 <4.50 01/18/2017 3:59 PM CDT [facility] LDL CHOLESTEROL 88 <=130 mg/dL 01/18/2017 3:59 PM CDT [facility] PATIENT STATUS FASTING 01/18/2017 3:59 PM CDT [facility] Blood BLOOD SPECIMEN / Unknown Venipuncture / Unknown 01/18/2017 7:56 AM CDT 01/18/2017 7:56 AM CDT Rich Gupta MD CHEMISTRY [facility] [address] [place] [address], [place] * SCAN-COLONOSCOPY (05/11/2013 12:00 AM CDT) Scanner OTHER from Last 3 Months or Most Recently Relevant to Health Maintenance Care Teams Glove Cleaner Relationship Specialty Start Date End Date Rich Gupta MD PCP - General Family Practice 03/23/16
--- OUTSIDE RECORDS SUMMARY | 2023-12-28 11:35 | XMS_ITS | Encounter Summary ---
Author Organization [facility] Address [address] [place] [id number] Care Team Providers Care Operations Specialists Name Role Phone Unavailable Primary Care Provider Unavailabl e Reason for Visit * Appointment Request (Routine) - Closed Specialty Diagnoses / Procedures Referred By Nabeel mistry Referred To Contact Orthopedic Surgery Diagnoses Pain Hip Right Referral ID Status Reason Start Date Expiration Date Visits Re quested Visits Authorized [id number] Closed 09/01/2023 08/31/2024 1 1 Encounter Details Date Type Department Care Team (Latest Contact Info) Description 09/27/2023 10:30 AM OUTPATIENT DIETITIAN Comprehensive Visit Department of Orthopedic Surgery in [place], [place] [address] [place] [address] Marciano Matos M.D. 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 [email or web address], gas, oil, or water [employer] threatened to shut off services in your [...] your living situation today? I have a [facility] place to live 09/23/2023 Sex and Gender Information Value Date Recorded Sex Assigned at Female 09/23/2023 1:22 PM OUTPATIENT DIETITIAN Gender Identity Female 09/23/2023 1:22 PM OUTPATIENT DIETITIAN Sexual Orientation Straight 09/23/2023 1: 22 PM OUTPATIENT DIETITIAN documented as of this encounter Consult Notes * Harman Potts M.D. - 09/27/2023 10:30 AM CST REASON FOR CONSULT Aruna Ayala is a 68 y.o. 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 female presenting with right hip pain. She would the right hip replaced approximately 18 years ago. She notes that the hip never quite felt normal after that point. She has had persistent lateral based hip pain since her surgery. More recently in the last year she is developed groin pain. This has been intermittent, but has become increasingly more frequent in recent months. She also be an noticing a mass over the inguinal region of the right hip. She obtained an MRI in [place] where they noted a mass consistent with a likely pseudotumor given her metal on metal bearing surface in the right total hip arthroplasty. She was subsequently referred to [facility] for further evaluation and management. She underwent left total hip arthroplasty in [place] approximately 1 year ago, and notes that this hip has been doing fantastic. She also had a left total knee arthroplasty [place] 2 years ago,and is extremely satisfied with this result as well. OBJECTIVE PHYSICAL EXAM General: No acute distress, answering questions appropriately, alert and oriented to person, place,date, and situation. Cardiovascular: Regular rate and rhythm assessed via peripheral pulse Lungs: Unlabored breathing MSK: Focused examination of the right hip demonstrates no pain with log roll, pain and weakness with Stinchfield. Tolerates flexion to 120. There is significant anterior/groin pain with FADIR. Mild groin pain with CAROLYN. She was mildly tender over the greater trochanter and lateral thigh. Neurovascularly intact distally. There is some relative weakness with the resisted abduction compared with the contralateral extremity. There has a palpable fullness/mass anteriorly. DIAGNOSTICS Sedimentation Rate, B Date Value Ref Range Status 09/27/2023 20 2 - 22 mm/h Final C-Reactive Protein (CRP), S Date Value Ref Range Status 09/27/2023 <3.0 <5.0 mg/L Final IMAGING Radiographs of the right hip and pelvis demonstrate resorptive bony changes of the greater trochanter, bone loss over the medial aspect of the acetabulum with discontinuity of the ileo pectineal line. MRI of the hip and pelvis demonstrate a large mass with features consistent with pseudotumor intrapelvic adjacent to the inner table of the ilium on the right. There is some adjacent erosive changes in the inner table of the ilium at the level of the acetabulum. There is a fluid collection anteriorto this mass as well. There is also a heterogeneous fluid filled mass within the abductors on the right side. There does not appear to be any erosion into adjacent visceral organs. ASSESSMENT / PLAN Aruna Ayala is a 68 y.o. female with a history of a Aminata Magnum metal on metal bearingsurface on the right 18 years ago. 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 Her metal ion level labs are currently pending. Her inflammatory markers are within normal limits. She will proceed with an aspiration of the right hip joint to rule out infection later this week. Pending no infection, we will likely plan for revision right total hip arthroplasty sometime inthe coming months. We discussed that if her femoral and acetabular components are well fixed, and the modular interfaces are in good condition, then a modular component exchange would be an option. At the time of surgery, we will also excise this pseudotumor within the abductors and the intrapelvicpseudotumor as well. Due to the degree of involvement of the abductors, we will involve Dr. Martinez for a gluteus melina transfer. We reviewed the risks, benefits, and alternatives to proceeding withthe surgery. Patient expressed understanding and wishes to proceed with surgery. We will tentatively pick a date while we await the results of her metal ion levels and aspiration. She was satisfied with this plan of care and all of her questions were answered. Associated attestation - Marciano Matos M.D. - 10/18/2023 7:49 AM CDT I saw and evaluated the patient, participating in the lloyd portions of the service. I reviewed the resident/fellow???s note. I agree with the resident/fellow???s findings and plan. 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 female with a history of a Aminata Magnum metal on metal bearingsurface on the right 18 years ago. 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 Her metal ion level labs are currently pending. Her inflammatory markers are within normal limits. She will proceed with an aspiration of the right hip joint to rule out infection later this week. Pending no infection, we will likely plan for revision right total hip arthroplasty sometime inthe coming months. We discussed that if her femoral and acetabular components are well fixed, and the modular interfaces are in good condition, then a modular component exchange would be an option. At the time of surgery, we will also excise this pseudotumor within the abductors and the intrapelvicpseudotumor as well. Due to the degree of involvement of the abductors, we will involve Dr. Martinez for a gluteus melina transfer. We reviewed the risks, benefits, and alternatives to proceeding withthe surgery. Patient expressed understanding and wishes to proceed with surgery. We will tentatively pick a date while we await the results of her metal ion levels and aspiration. She was satisfied with this plan of care and all of her questions were answered. documented in this encounter Plan of Treatment Upcoming Encounters Date Type Department Care Team (Latest Contact Info) Description 01/19/2024 11:00 AM CDT Telemedicine Department of Patient Education in [address] [address] Cammy Motley P.A.-C., M.S. [address] [place] [phone] 01/21/2024 11:15 AM CDT Clinical Communication Virtual Review in [address] [phone] 01/24/2024 6:45 AM CDT Appointment Department of Radiology, [address] [address] Cammy Motley P.A.-C., M.S. [address] [place] [phone] 01/24/2024 7:50 AM CDT Appointment Department of Laboratory Medicine and Pathology, [facility] in [address] [address] Cammy Motley P.A.-C., M.S. [address] [place] [phone] 01/24/2024 9:15 AM CDT Appointment Department of Radiology, [facility], in [place], [place] [address] [place] [address] Cammy Motley P.A.-C., M.S. [address] [place] [phone] 01/24/2024 10:15 AM CDT Office Visit Department of Orthopedic Surgery in [place], [place] [address] [place] [address] Marciano Matos M.D. [address] [place] [phone] 01/24/2024 1:30 PM CDT Comprehensive Visit Preoperative Evaluation Center in [place], [place] [address] [place] [address] Cammy Motley P.A.-C., M.S. [address] [place] [phone] 01/25/2024 11:15 AM CDT Office Visit Department of Orthopedic Surgery in [place], [place] [address] [place] [address] Aaron Martinez M.D. [address] [place] [phone] 01/25/2024 1:00 PM CDT Comprehensive Visit Department of Sports Medicine in [place], [place] [address] [place] [phone] Cammy Motley P.A.-C., M.S. [address] [place] [phone] Jericho Cruz, PSaeed., D.P.T., [facility] [address] [place] [phone] 01/27/2024 6:45 AM CDT Hospital Encounter Outpatient Surgery Unit in [place], [place] [address] [place] [address] Marciano Matos M.D. [address] [place] [address] 01/27/2024 6:45 AM CDT - 01/27/2024 10:27 AM CDT Surgery [facility] [address] [place] [address] Marciano Matos M.D. 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
--- OUTSIDE RECORDS SUMMARY | 2023-12-28 11:35 | XMS_ITS | Encounter Summary ---
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 [address] [place] [phone] [facility] Referral ID Status Reason Start Date Expiration Date Visits Re quested Visits Authorized [id number] Closed 09/02/2023 09/01/2024 1 1 OF EDUCATION Reason for Visit * Reason Onset Date Comments Pre-visit Testing Orders 09/02/2023 Encounter Details Date Type Department Care Team (Latest Contact Info) Description 09/02/2023 Clinical Communication Department of Orthopedic Surgery in [place], [place] [address] [place] [phone] Marciano Matos M.D. [address] [place] [phone] Pre-visit Testing Orders Social History Tobacco Use Types Packs/Day Years Used Date Smoking Tobacco: Never Assessed [facility] Utilities Answer Date Recorded In [...] your living situation today? I have a [facility] place to live 09/23/2023 Sex and Gender Information Value Date Recorded Sex Assigned at Female 09/23/2023 1:22 PM DEAN OF EDUCATION Gender Identity Female 09/23/2023 1:22 PM DEAN OF EDUCATION Sexual Orientation Straight 09/23/2023 1: 22 PM DEAN OF EDUCATION documented as of this encounter Plan of Treatment Upcoming Encounters Date Type Department Care Team (Latest Contact Info) Description 01/19/2024 11:00 AM CDT Telemedicine Department of Patient Education in [place], [place] [address] [place] [address] Cammy Motley P.A.-C., M.S. [address] [place] [phone] 01/21/2024 11:15 AM CDT Clinical Communication Virtual Review in [place], [place] [address] [place] [phone] 01/24/2024 6:45 AM CDT Appointment Department of Radiology, [facility] in [place], [place] [address] [place] [phone] Cammy Motley P.A.-C., M.S. [address] [place] [phone] 01/24/2024 7:50 AM CDT Appointment Department of Laboratory Medicine and Pathology, [facility] in [place], [place] [address] [place] [phone] Cammy Motley P.A.-C., M.S. [address] [place] [phone] 01/24/2024 9:15 AM CDT Appointment Department of Radiology, [facility] in [place], [place] [address] [place] [phone] Cammy Motley P.A.-C., M.S. [address] [place] [phone] 01/24/2024 10:15 AM CDT Office Visit Department of Orthopedic Surgery in [place], [place] [address] [place] [phone] Marciano Matos M.D. [address] [place] [phone] 01/24/2024 1:30 PM CDT Comprehensive Visit Preoperative Evaluation Center in [place], [place] [address] [place] [phone] SadCammy jay P.A.-C., M.S. [address] [place] [phone] 01/25/2024 11:15 AM CDT Office Visit Department of Orthopedic Surgery in [place], [place] [address] [place] [phone] Aaron Martinez M.D. [address] [place] [phone] 01/25/2024 1:00 PM CDT Comprehensive Visit Department of Sports Medicine in [place], [place] [address] [place] [phone] Cammy Motley P.A.-C., M.S. [address] [place] [phone] Jericho Cruz P.T., D.P.T., [employer] [facility] [address] [place] [phone] 01/27/2024 6:45 AM CDT Hospital Encounter Outpatient Surgery Unit in [place], [place] [address] [place] [phone] Marciano Matos M.D. [address] [place] [phone] 01/27/2024 6:45 AM CDT - 01/27/2024 10:27 AM CDT Surgery [facility] [address] [place] [address] Marciano Matos M.D. 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 (HCC) Expected: 09/02/2023, Expires: 11/30/2024 Scheduled Procedures Name Priority Associated Diagnoses Date/Ti [...] (HCC) Preoperative Exam 01/27/2024 6:45 AM CDT Scheduled Referrals Name Type Priority Associated Diagnoses Orde r Schedule Infectious Disease - Ortho consult (clinic) Outpatient Referral Routine 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 This test was developed and its performance characteristics determined by [facility] in a manner consistent with CLIA requirements. This test has not been cleared or approved by the U.S. Food and Drug Administration. 09/30/2023 2:07 PM DEAN OF EDUCATION DTL Aspirate (Prosthetic Hip, Right) 09/29/2023 9:38 AM DEAN OF EDUCATION 09/29/2023 10:26 AM DEAN OF EDUCATION Comment:Specimen Source Site : Aspirate Narrative [facility] - 09/30/2023 2:07 PM DEAN OF EDUCATION Bacterial Culture: Received Bactec aerobic and Bactec anaerobic bottles Mycobacteria specimen plated for culture, volume inadequate for optimal recovery. Cammy Motley P.A.-C., M.S. LAB MICROB IOLOGY - GENERAL ORDERABLES [facility] [address] [place] [address], [facility] DTL [facility] [address] [place] [address] * ORS US-Guided aspiration/injection (09/29/2023 8:30 AM DEAN OF EDUCATION) Narrative [facility] - 09/29/2023 8:30 AM DEAN OF EDUCATION Richard Escobar M.D. ? 09/29/2023 ??9:38 AM [...] PROCEDURE/ MINOR SURGICAL ORDERABLES [facility] NA * DX Hip And Pelvis Right 2-3 Views (09/27/2023 9:50 AM DEAN OF EDUCATION) Anatomical Region Laterality Modality Lower Extremity, Pelvis, Hip , Musculoskeletal RST LOS, Musculoskeletal ARZ LOS, Muskuloskeletal FLA LOS Right Digit al Radiography Impressions 09/27/2023 10:13 AM DEAN OF EDUCATION 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 Full length view of both lower extremities obtained for orthopedic measurement purposes. Narrative 09/27/2023 10:13 AM DEAN OF EDUCATION EXAM: ??DX HIP AND PELVIS RIGHT 2-3 VIEWS, DX HIP TO ANKLE STANDING Procedure Note Adan Singleton M.D. 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 Partiallyseen left HAMMAD and TKA. Full length view of both lower extremities obtainedfor orthopedic measurement purposes. Cammy Motley P.A.-C., M.S. G DIAGNO STIC IMAGING PROCEDURES * DX Hip to Ankle Standing (09/27/2023 9:50 AM DEAN OF EDUCATION) Anatomical Region Laterality Modality Lower Extremity, Hip, Femur, Knee, TibFib, Ankle, Musculoskeletal RST LOS, Musculoskeletal ARZ LOS, Muskuloskeletal FLA LOS N/A Digital Radiography Impressions 09/27/2023 10:13 AM DEAN OF EDUCATION 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 Full length view of both lower extremities obtained for orthopedic measurement purposes. Narrative 09/27/2023 10:13 AM DEAN OF EDUCATION EXAM: ??DX HIP AND PELVIS RIGHT 2-3 VIEWS, DX HIP TO ANKLE STANDING Procedure Note Adan Singleton M.D. 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 Partiallyseen left HAMMAD and TKA. Full length view of both lower extremities obtainedfor orthopedic measurement purposes. Cammy Motley P.A.-C., M.S. [facility] DIAGNO STIC IMAGING PROCEDURES * (ABNORMAL) Titanium (09/27/2023 8:02 AM DEAN OF EDUCATION) Titanium, S 6(H) <2 ng/mL 09/29/2023 12:26 PM DEAN OF EDUCATION [facility] Comment: ----ADDITIONAL INFORMATION---- This test was developed and its performance characteristics determined by [facility] in a manner consistent with CLIA requirements. This test has not been cleared or approved by the U.S. Food and Drug Administration. Blood (Blood, Venous) 09/27/2023 8:02 AM DEAN OF EDUCATION 09/27/2023 11:09 AM DEAN OF EDUCATION Cammy Motley P.A.-C., M.S. LAB BLOOD NON ADD-ON Performing Organization Address City/[facility] Co de Phone Number [facility] [address] [place] [address] [facility] [address] [place] [address] * (ABNORMAL) Chromium Level (09/27/2023 8:02 AM DEAN OF EDUCATION) Chromium, B 52.5(H) <1.0 ng/mL 09/28/2023 7:12 PM DEAN OF EDUCATION [facility] Comment: ----ADDITIONAL INFORMATION---- This test was developed and its performance characteristics determined by [facility] in a manner consistent with CLIA requirements. This test has not been cleared or approved by the U.S. Food and Drug Administration. Blood (Blood, Venous) 09/27/2023 8:02 AM DEAN OF EDUCATION 09/27/2023 1:55 PM DEAN OF EDUCATION Cammy Motley P.A.-C., M.S. LAB BLOOD NON ADD-ON Performing Organization Address [facility] Co de Phone Number [facility] [address] [place] [address] [facility] [address] [place] [address] [place] [phone] * (ABNORMAL) Montreal Level (09/27/2023 8:02 AM DEAN OF EDUCATION) [place], B 135.6(H) <1.0 ng/mL 09/28/2023 7:12 PM DEAN OF EDUCATION [facility] Comment: ----ADDITIONAL INFORMATION---- This test was developed and its performance characteristics determined by [facility] in a manner consistent with CLIA requirements. This test has not been cleared or approved by the U.S. Food and Drug Administration. Blood (Blood, Venous) 09/27/2023 8:02 AM DEAN OF EDUCATION 09/27/2023 1:55 PM DEAN OF EDUCATION Cammy Motley P.A.-C., M.S. LAB BLOOD NON ADD-ON Performing Organization Address City/[facility]/ZIP Co de Phone Number [facility] [address] [place] [address] [facility] [address] [place] [address] [place] [address] * CRP (C-Reactive Protein) (09/27/2023 8:02 AM DEAN OF EDUCATION) [facility] C-Reactive Protein (CRP), S <3.0 <5.0 mg/L 09/27/2023 9:55 AM DEAN OF EDUCATION DTL Blood (Blood, Venous) 09/27/2023 8:02 AM DEAN OF EDUCATION 09/27/2023 8:45 AM DEAN OF EDUCATION Cammy Motley P.A.-C., M.S. LAB BLOOD ADD-ON [facility] [address] [place] [address] * Sedimentation Rate (09/27/2023 8:02 AM DEAN OF EDUCATION) [facility] Sedimentation Rate, B 20 2 - 22 mm/h 09/27/2023 9:38 AM DEAN OF EDUCATION DT Blood (Blood, Venous) 09/27/2023 8:02 AM DEAN OF EDUCATION 09/27/2023 8:25 AM DEAN OF EDUCATION Cammy Motley P.A.-C., M.S. LAB BLOOD ADD-ON [facility] [address] [place] [address] * (ABNORMAL) CBC with Differential, Blood (09/27/2023 8:02 AM DEAN OF EDUCATION) [facility] Hemoglobin 11.4(L) 11.6 - 15.0 g/dL 09/27/2023 8:54 AM DEAN OF EDUCATION DTL Hematocrit 35.3(L) 35.5 - 44.9 % 09/27/2023 8:54 AM DEAN OF EDUCATION DTL Erythrocytes 4.09 3.92 - 5.13 x10(12)/L 09/27/2023 8:54 AM DEAN OF EDUCATION DTL MCV 86.3 78.2 - 97.9 fL 09/27/2023 8:54 AM DEAN OF EDUCATION DTL RBC Distrib Width 13.7 12.2 - 16.1 % 09/27/2023 8:54 AM DEAN OF EDUCATION DTL Platelet Count 220 157 - 371 x10(9)/L 09/27/2023 8:54 AM DEAN OF EDUCATION DTL Leukocytes 3.6 3.4 - 9.6 x10(9)/L 09/27/2023 8:54 AM DEAN OF EDUCATION DTL Neutrophils 2.39 1.56 - 6.45 x10(9)/L 09/27/2023 8:54 AM DEAN OF EDUCATION [facility] Lymphocytes 0.86(L) 0.95 - 3.07 x10(9)/L 09/27/2023 8:54 AM DEAN OF EDUCATION DTL Monocytes 0.24(L) 0.26 - 0.81 x10(9)/L 09/27/2023 8:54 AM DEAN OF EDUCATION DTL Eosinophils 0.09 0.03 - 0.48 x10(9)/L 09/27/2023 8:54 AM DEAN OF EDUCATION DTL Basophils <0.03 0.01 - 0.08 x10(9)/L 09/27/2023 8:54 AM DEAN OF EDUCATION DTL Blood (Blood, Venous) 09/27/2023 8:02 AM DEAN OF EDUCATION 09/27/2023 8:25 AM DEAN OF EDUCATION Cammy Motley P.A.-C., M.S. LAB BLOOD ADD-ON [facility] [address] [place] [address], [facility] DTL [facility] [address] [place] [address] DHPM [facility] [address] [place] [address] documented in this encounter Visit Diagnoses Diagnosis Pain Knee Right- Primary Infection And Inflammatory Reaction Due To [...]
--- OUTSIDE RECORDS SUMMARY | 2023-12-28 11:35 | XMS_ITS | Encounter Summary ---
Author Organization [facility] Address [address] [place] [address] Care Team Providers Care Ground Control Approach Technician Name Role Phone Unavailable Primary Care Provider Unavailabl e Reason for Visit * Reason Onset Date Comments Pre-visit Intake 09/24/2023 Encounter Details Date Type Department Care Team (Latest Contact Info) Description 09/24/2023 2:45 PM PARTICLE BOARD SUPERVISOR Clinical Communication Virtual Review in [place], [place] [address] [place] [address] Pre-visit Intake Social History Tobacco Use Types Packs/Day Years Used Date Smoking Tobacco: Never Smokeless Tobacco: Never Tobacco Cessation:Counseling Given: Not Answered [facility] Utilities Answer Date Recorded In the past 12 months has [facility] electric, gas, oil, or water company threatened [...] your living situation today? I have a [facility] place to live 09/23/2023 Sex and Gender Information Value Date Recorded Sex Assigned at Female 09/23/2023 1:22 PM PARTICLE BOARD SUPERVISOR Gender Identity Female 09/23/2023 1:22 PM PARTICLE BOARD SUPERVISOR Sexual Orientation Straight 09/23/2023 1: 22 PM PARTICLE BOARD SUPERVISOR documented as of this encounter Plan of Treatment Upcoming Encounters Date Type Department Care Team (Latest Contact Info) Description 01/19/2024 11:00 AM CDT Telemedicine Department of Patient Education in [address] [phone] Cammy Motley P.A.-C., M.S. [address] [place] [phone] 01/21/2024 11:15 AM CDT Clinical Communication Virtual Review in [place], [place] 200 [place] [address] 01/24/2024 6:45 AM CDT Appointment Department of Radiology, [facility], in [address] [phone] Cammy Motley P.A.-C., M.S. [address] [place] [phone] 01/24/2024 7:50 AM CDT Appointment Department of Laboratory Medicine and Pathology, [facility] in [place], [place] [address] [place] [phone] Cammy Motley P.A.-C., M.S. [address] [place] [phone] 01/24/2024 9:15 AM CDT Appointment Department of Radiology, [facility] in [place], [place] [address] [place] [phone] Cammy Motley P.A.-C., M.S. [address] [place] [phone] 01/24/2024 10:15 AM CDT Office Visit Department of Orthopedic Surgery in [place], [place] [address] [place] [phone] Marciano Matos M.D. [address] [place] [phone] 01/24/2024 1:30 PM CDT Comprehensive Visit Preoperative Evaluation Center in [place], [place] [address] [place] [phone] Cammy Motley P.A.-C., M.S. [address] [place] [phone] 01/25/2024 11:15 AM CDT Office Visit Department of Orthopedic Surgery in [place], [place] [address] [place] [phone] Aaron Martinez M.D. [address] [place] [phone] 01/25/2024 1:00 PM CDT Comprehensive Visit Department of Sports Medicine in [place], [place] [address] [place] [phone] Cammy Motley P.A.-C., M.S. [address] [place] [phone] Jericho Cruz P.T., D.P.T., [facility] [address] [place] [phone] 01/27/2024 6:45 AM CDT Hospital Encounter Outpatient Surgery Unit in [place], [place] [address] [place] [address] Marciano Matos M.D. [address] [place] [phone] 01/27/2024 6:45 AM CDT - 01/27/2024 10:27 AM CDT Surgery [facility] [address] [place] [phone] Marciano Matos M.D. [address] [place] [phone] ARTHROPLASTY REVISION HIP Scheduled Procedures Name Priority [...]
--- OUTSIDE RECORDS SUMMARY | 2023-12-28 11:35 | XMS_ITS | Clinical Summary ---
[facility] Address [address] [place] [address] Care Team Providers Care Global Cmo Name Role Phone Asia Millard MD Primary Care Provider Source Comments You are receiving this document as you are listed as the primary care provider,follow-up provider, or the patient has been referred to you for consultation.This is in compliance with the Medicare and[facility] EHR Incentive Program,which states Providers who transition their patient to another setting of careor provider of care or refers their patient to another provider of care shouldprovide summary care record for each transition of care or referral. [employer] Allergies Active Allergy Reactions Criticality Noted Date Comments Other 02/02/1996 PN: LW Other1: -NKA Review Contrast Media 02/02/1996 PN: LW CM1: CONTRAST- NKA Reaction : Review Food Intolerance 04/25/2004 PN: LW FI1: NKA Medications Medication Sig Dispensed Refills Start Date End Date Status omega-3 fatty acids (AKA MAXEPA, FISH OIL) 1000 MG capsule daily (every 24 hours). LW Addl Instr:per pre op notes 03/09/2007 Active Multiple Vitamins-Minerals (MULTIVITAMIN OR) Take 1 tablet by mouth daily (every 24 hours). 100 13 11/28/2006 Active UNKNOWN MEDICATION Indications: PN: 10/10/2007 Active nabumetone (RELAFEN) 500 MG tablet Take 500 mg by mouth two times a day. Active gabapentin (NEURONTIN) 300 MG capsule Take 300 mg by mouth three times a day. Active estradiol (VIVELLEDOT) 0.05 MG/24HR biweekly patchIndications:Menop ausal symptoms Apply 1 Patch to skin two times a week. Indications: PN: 24 Patch 3 04/30/2016 Active celecoxib (CELEBREX) 200 MG capsule Take 200 mg by mouth two times a day. Active atorvastatin (LIPITOR) 20 MG tablet Take 20 mg by mouth daily. Active Active Problems Problem Noted Date Diagnosed Date Leiomyoma of uterus 01/16/2007 Overview: Leiomyoma Uterus Resolved Problems Problem Noted Date Diagnosed Date Resolved Date Lumbar radiculopathy 09/29/2017 018 Immunizations Name Administration Dates Next Due Flu Vac Preserv Free (3+yrs) 05/02/2011 Influenza IIV4 (Quadrivalent) 0.5mL (66085) 04/03,04/23/2015,03/02/2014 Family History Medical History Relation Name [...] Health Maintenance Due Date Last Done Comments Adult Preventive Visit 04/29/2017 04/29/2016 Mammogram 04/29/2017 04/29/2016, 04/03, 04/19/2014, Additional history exists Cholesterol 08/07/2021 08/07/2016, 04/03, 04/23/2015, Additional history exists Pneumococcal 65+ Yrs (1 - PCV) 2022 COVID-19 Vaccine (3 - season) 2023 09/18/2020, 08/21/2020 Colonoscopy 05/11/2023 05/11/2013 Influenza (Season Ended) 2024 020, 04/04/2019, 03/29/2019, Additional history exists DTaP/Tdap/Td (2 - Tdap) 02/23/2029 02/23/2019 Cervical [...] on patient's age to complete this topic Procedures Procedure Name Priority Date/Time Associated Diagnosis Comments LIPID PANEL & DIRECT LDL (IF NEEDED) Routine 08/07/2016 8:27 AM [employer] Screening for lipoid disorders ANATOMICAL PATH LIQUID BASED Routine 04/29/2016 11:20 AM CDT HEPATITIS C ANTIBODY, WITH REFLEX Routine 04/29/2016 10:59 AM CDT Screening for condition MM MAMMOGRAM SCREENING BILAT W CAD Routine 04/29/2016 8:09 AM CDT Visit for screening mammogram from Last 3 Months or Most Recently Relevant to Health Maintenance Results * (ABNORMAL) LIPID PANEL AND DIRECT LDL(IF NEEDED) (08/07/2016 8:27 AM [employer]) Cholesterol 264(H) 0 - 199 mg/dL PN SOFT Triglycerides 106 4 - 149 mg/dL PN SOFT HDL Cholesterol 58 >39 mg/dL PN SOFT Cholesterol/HDL Ratio Screen 4.6 PN SOFT LDL Calculated 185(H) 19 - 130 mg/dL PN SOFT Hours Fasting 12.0 PN SOFT 08/07/2016 8:27 AM [employer] 08/07/2016 8:31 AM [employer] Narrative PN SOFT - 08/07/2016 8:58 AM [employer] [place] [address] CLIA number [id number] Aurora Pagan MD LAB_1 Performing Organization Address City/State/[facility] Co de Phone Number PN SOFT [address] [place] [id number] * Pap Smear (04/29/2016 11:20 AM CDT) 04/29/2016 11:2 0 AM CDT Narrative PN SOFT - 05/05/2016 2:28 PM CDT FINAL GYNECOLOGICAL CYTOLOGY REPORT Pathology #: [id number] ?Date Obtained: 04/29/2016 ? Date Received: 04/30/2016 INTERPRETATION/RESULTS: Negative for Intraepithelial Lesion or Malignancy. SPECIMEN ADEQUACY: Satisfactory for Evaluation. ??Endocervical cells/transformation zone component present. Verified on 05/05/2016 ??by BENJI ROCHA (electronic signature) CLINICAL NOTES: ?Abnormal bleeding: No, LMP: post, Menstrual status: Post ?Menopausal, Current form of therapy: Hormone Therapy LIQUID BASED PAP SMEAR SPECIMEN TYPE: ?ROUTINE CERVICAL PAP TEST PLEASE NOTE: The pap smear is a screening test designed to aid in the detection of cervical cancer and its precursor lesions. It is not a diagnostic procedure and should not be used as the sole means of detecting cervical cancer. Both false-positive and false-negative reports may occur. Performed at [address] [address] Aurora aPgan MD LAB_1 Performing Organization Address [facility] de Phone Number KYLE SOFT [address] [place] [phone] * (ABNORMAL) Hepatitis C Antibody [HCAB] (04/29/2016 10:59 AM CDT) Hepatitis C Antibody Prelim(A) Nonreactive PN SOFT Comment:Prelim reactive, con firmation to follow. 04/29/2016 10:5 9 AM CDT 04/29/2016 11:14 AM CDT Narrative KYLE SOFT - 04/29/2016 12:40 PM CDT Performed at [address] [address] CLIA number [id number] Aurora Pagan MD LAB_1 Performing Organization Address [facility] de Phone Number KYLE SOFT [address] [place] [phone] * MM Mammogram Screening Bilat W CAD (04/29/2016 8:09 AM CDT) Anatomical Region Laterality Modality Breast Bilateral Mammography Impressions 04/29/2016 8:47 AM CDT : ACR BI-RADS 1 Negative (overall) RECOMMENDATION: Follow Up Imaging in 12 months - Bilateral The results and recommendations of this examination will be communicated to the patient. Narrative 04/29/2016 8:47 AM CDT MM MAMMOGRAM SCREENING BILAT W CAD performed on 04/29/16 Compared to: 04/23/2015 MM Mammogram Screening Bilat W CAD, 04/19/2014 MM Mammogram Screening Bilat W CAD, 04/10/2013 Foreign Image(S) Mammogram FINDINGS: Bilateral screening mammogram was performed with the assistance of Computer-Aided Detection. The breasts have scattered areas of fibroglandular density. There is no radiographic evidence of malignancy. ?? Aurora Pagan MD RAD DONTAE from Last 3 Months or Most Recently Relevant to Health Maintenance Care Teams Global Cmo Relationship Specialty Start Date End Date Asia Millard MD [address] [facility] [place] [id number] PCP - General Family Practice 09/23/17
== END 2023-12-13 07:56 | disposition home or self-care (01) ==
LOC: NFLDREF 12-28 11:31
PROVIDERS: PCP Family Medicine; Referring Provider Family Medicine; Visit Provider Family Medicine
DX: D64.9 Anemia, unspecified (principal); D72.819 Decreased white blood cell count, unspecified; Z79.1 Long term (current) use of non-steroidal anti-inflammatories (NSAID)
CPT/HCPCS: 80053; 82728

== ENCOUNTER 2024-06-27 07:33 | Outpatient (CLI) | payer MEDICARE, BC, SELFPAY | END 2024-06-27 07:34 | disposition home or self-care (01) | LOC: NFLDREF 06-29 07:48 | PROVIDERS: PCP Family Medicine; Referring Provider Family Medicine; Visit Provider Family Medicine | DX: D64.9 Anemia, unspecified (principal); E78.5 Hyperlipidemia, unspecified; R03.0 Elevated blood-pressure reading, without diagnosis of hypertension; R79.89 Other specified abnormal findings of blood chemistry; D72.810 Lymphocytopenia; M15.9 Polyosteoarthritis, unspecified; Z79.1 Long term (current) use of non-steroidal anti-inflammatories (NSAID) | CPT/HCPCS: 80053; 80061; 82728; 83540; 83550 ==

== ENCOUNTER 2024-08-01 09:45 | Outpatient (RCR) | payer MEDICARE, BC, SELFPAY | END 2024-11-29 23:59 | disposition home or self-care (01) | PROVIDERS: PCP Family Medicine; Visit Provider Student in an Organized Health Care Education/Training Program | DX: Z47.89 Encounter for other orthopedic aftercare (principal); Z51.89 Encounter for other specified aftercare | CPT/HCPCS: 97110; 97140; 97161; 97162 ==

== ENCOUNTER 2024-11-23 09:03 | Outpatient (CLI) | payer MEDICARE, BC, SELFPAY ==
--- NOTE | 2024-11-23 09:15 | CRLHL7_ITS ---
For Patients: As a result of the Century Cures Act, medical imaging exams and procedure reports are released immediately into your electronic medical record. You may view this report before your referring provider. If you have questions, please contact your health care provider. INDICATION: BILATERAL SCREENING MAMMOGRAM, ASYMPTOMTAIC 69 Y/O FEMALE COMPARISON: 11/03/23, 09/03/22, 08/22/21 TECHNIQUE: CC and MLO views were obtained. These mammographic images have been obtained using full-field digital technique. These mammographic images were interpreted with the benefit of computer aided detection and tomosynthesis. BREAST COMPOSITION: There are scattered areas of fibroglandular density. FINDINGS: No suspicious findings. ASSESSMENT: BI-RADS 1 Negative RECOMMENDATION: Annual screening mammogram. A lay language report of this examination will be provided to the patient. Dictated by: Ant Rose MD @ 11/23/2024 11:54:45 (Electronically Signed)
== END 2024-11-23 09:04 | disposition home or self-care (01) ==
LOC: MAMMO 09:04
PROVIDERS: PCP Family Medicine; Visit Provider Family Medicine
DX: Z12.31 Encounter for screening mammogram for malignant neoplasm of breast (principal)
CPT/HCPCS: 77063; 77067

== ENCOUNTER 2025-01-05 07:30 | Outpatient (CLI) | payer MEDICARE, BC, SELFPAY | END 2025-01-05 07:31 | disposition home or self-care (01) | LOC: NFLDREF 01-07 05:43 | PROVIDERS: PCP Family Medicine; Referring Provider Family Medicine; Visit Provider Family Medicine | DX: R79.89 Other specified abnormal findings of blood chemistry (principal); D64.9 Anemia, unspecified; D72.810 Lymphocytopenia; R03.0 Elevated blood-pressure reading, without diagnosis of hypertension; Z79.1 Long term (current) use of non-steroidal anti-inflammatories (NSAID) | CPT/HCPCS: 80053; 82728 ==

== ENCOUNTER 2025-07-02 07:45 | Outpatient (CLI) | payer MEDICARE, BC, SELFPAY | END 2025-07-02 07:46 | disposition home or self-care (01) | LOC: NFLDREF 07-06 06:07 | PROVIDERS: PCP Family Medicine; Referring Provider Family Medicine; Visit Provider Family Medicine | DX: D64.9 Anemia, unspecified (principal); R79.89 Other specified abnormal findings of blood chemistry; E78.5 Hyperlipidemia, unspecified | CPT/HCPCS: 80053; 80061; 82728 ==